=== PATIENT | male | born 1945 | race Caucasian/White ===

== ENCOUNTER 2017-07-02 21:38 | Emergency (ER) | payer MEDICARE, SELFPAY ==
[2017-07-02 21:40] VITALS: BP 160/111; PULSE 99; RESP 22; TEMP 36.9; O2SAT 92; BMI 28.7
--- NOTE | 2017-07-02 21:50 | ED.VISSUMM ---
- ER Visit Summary Date of Service: 07/02/17 Chief Complaint: Urinary retention History of Present Illness: The patient is a 71 M who presents with urinary retention. He states he has not been able to catheterize himself for the past 4 hours. He does self-catheterization because of a urethral stricture. He states he knows when he needs to come in. He believes he may have an infection. He did have some dysuria. He denies a fever. He does see Dr. Walden. He now has pain in the suprapubic area from his urinary retention. Physical Examination: Vital signs reviewed. HEENT exam unremarkable. Heart is regular rate and rhythm without murmurs. Lungs are clear to auscultation. Abdomen is soft with suprapubic tenderness to palpation. Extremities reveal no edema. Skin exam normal. Neurologic exam normal. Test Results: Urinalysis reveals large leukocyte esterase Emergency Department Course and Treatment: Vasquez catheter was placed. Initially only a small amount of urine returned but it was flushed and then a large amount of urine returned with some sediment. There is no blood or blood clots. His symptoms are likely due to a bladder infection. Patient will be treated with Keflex. He will go home with a catheter. He will follow-up with his urologist Treatment Plan: [] Disposition: Discharge Impression: UTI, urinary retention This note was generated with [employer] dictation software. It may contain incorrect words, spelling, and punctuation that were not noted in review of the chart prior to signing ED Disposition - Plan for ED Patient: Chief Complaint: Complaint Referrals: Donato Sanchez DO [Primary Care Provider] -
[2017-07-02 22:30] LABS: Color, Urine Red (Yellow); Glucose, Dipstick Normal (Normal); Ketone-Dipstick 5 mg/dl (Negative); Leukocyte Esterase-Dipstick 500 /ul (Negative); Nitrite-Dipstick Negative (Negative); Occult Blood-Urine 250 /ul (Negative); Protein-Dipstick 500 mg/dl (Negative); Specific Gravity, Urine 1.015 (1.002-1.030); Urine Bilirubin Dipstick Negative (Negative); Urine Clarity Cloudy (Clear); Urine Urobilinogen Normal (Normal)
--- NOTE | 2017-07-02 22:38 | ED.DEP ---
ED Disposition - Plan for ED Patient: Disposition: Home or Assisted Living Chief Complaint: Complaint Instructions: ED UTI Cystitis Male Prescriptions: Cephalexin [Keflex] 500 mg PO BID #14 cap Referrals: Donato Sanchez DO [Primary Care Provider] -
[2017-07-02 22:52] VITALS: PULSE 102; RESP 20; O2SAT 97
[2017-07-02] MEDS: Cephalexin 250 MG Capsule 500 MG PO (22:52)
[2017-07-02] MEDS: HYDROcodone Bitartrate/Apap 5/325 Tablet PO (22:52)
== END 2017-07-02 23:02 | disposition home or self-care (01) ==
PROVIDERS: Emergency Provider Emergency Medicine; Family Provider Family Medicine; PCP Family Medicine
DX: N39.0 Urinary tract infection, site not specified (principal); R33.9 Retention of urine, unspecified; J44.9 Chronic obstructive pulmonary disease, unspecified; K21.9 Gastro-esophageal reflux disease without esophagitis; I10 Essential (primary) hypertension; I50.9 Heart failure, unspecified
CPT/HCPCS: 51702; 81002; 87077; 87086; 87088; 87186; 99284; J7030

== ENCOUNTER 2017-07-04 20:01 | Inpatient (IN) | payer MEDICARE, SELFPAY ==
[2017-07-04] VITALS (8 sets, daily range): BP systolic 98–116; BP diastolic 57–78; PULSE 86–115; RESP 12–28; TEMP 36.7; O2SAT 89–97; BMI 32.8
--- NOTE | 2017-07-04 21:06 | EKG12_ITS ---
Test Reason : SOB Blood Pressure : / mmHG Vent. Rate : 126 BPM Atrial Rate : 141 BPM P-R Int : 000 ms QRS Dur : 086 ms QT Int : 338 ms P-R-T Axes : 000 015 044 degrees QTc Int : 489 ms Atrial fibrillation Low voltage QRS Marked ST abnormality, possible lateral subendocardial injury Abnormal ECG Confirmed by ALLAN GALEANA, JENNIFER ([id number]), editor publications COLIN GARCIA ([id number]) on 07/06/2017 3:35:21 PM Referred By: LIDIA Confirmed By:JENNIFER LEMUS MD
--- NOTE | 2017-07-04 21:15 | RAD_ITS ---
STUDY: X-RAY CHEST REASON FOR EXAM: Male, 71 years old. Shortness of breath TECHNIQUE: Frontal single view COMPARISON: 03/03/2017 FINDINGS: The lungs are expanded. There is basilar atelectasis. Normal size heart. Normal mediastinum and jaida. Prominent central pulmonary arteries. Normal visualized aortic arch and descending thoracic aorta. Mild degenerative changes of the thoracic spine. Normal visualized ribs, clavicles, and shoulders. There is no demonstrated abnormality of the visualized soft tissue structures of the upper abdomen. RAD/Chest 1 View (Portable) IMPRESSION: Mild basilar atelectasis. Electronically Signed: London Barbour DO at 21:58 EDT Tel [phone], Service support ,
[2017-07-04 21:19] LABS: Absolute Lymphocyte Count 0.85 X10^3/ul (0.83-4.51); Basophil# 0.01 X10^3/uL; Basophil% 0.1 % (0-1); Eosinophil# 0.01 X10^3/uL; Eosinophils% 0.1 % (0-5); Hematocrit 36.9 % (40-54); Hemoglobin 10.5 g/dl (13.0-16.5); Lymphocyte # 0.85 X10^3/ul (4.0); Lymphocyte % 12.3 % (19-41); Mean Corp Hgb Conc 28.5 g/gl (32-36); Mean Corpuscular Hgb 27.6 pg (27.0-32.0); Mean Corpuscular Volume 97.1 fL (80-94); Mean Platelet Vol. 9.6 fl (6.2-12.0); Monocyte# 0.95 X10^3/uL; Monocyte% 13.7 % (0-10); Neutrophil # 5.04 X10^3/uL (2.7-7.7); Neutrophil % 72.8 % (47-70); Platelet Count 174 K/mm3 (150-450); RBC Distribution Width CV 14.5 % (11.6-14.6); White Blood Count 6.9 K/mm3 (4.4-11.0)
[2017-07-04 21:20] LABS: POSITIVE COUNT NO; POSITIVE DIFFERENTIAL NO; POSITIVE MORPHOLOGY NO
[2017-07-04 21:41] LABS: Bacteria 0 SEEN /hpf (None Seen); Mucous, Urine 0 SEEN /hpf (<or=2+)
[2017-07-04] MEDS: Ipratropium/Albuterol Sulfate 3 ML AMPUL.NEB INHALATION (21:45)
[2017-07-04 21:53] LABS: Color, Urine Yellow (Yellow); Glucose, Dipstick Normal (Normal); Ketone-Dipstick Negative (Negative); Leukocyte Esterase-Dipstick 500 /ul (Negative); Nitrite-Dipstick Negative (Negative); Occult Blood-Urine 50 /ul (Negative); Protein-Dipstick 30 mg/dl (Negative); Urine Bilirubin Dipstick Negative (Negative); Urine Clarity Cloudy (Clear); Urine Urobilinogen Normal (Normal)
[2017-07-04 21:56] LABS: BUN 18 mg/dL (7-18); BUN/Creat Ratio 32.5 RATIO (10-20); Calcium,Total 8.6 mg/dL (8.5-10.1); Carbon Dioxide > 45.0 mmol/L (21.0-32.0); Chloride 87 mmol/L (98-107); Creatinine, Serum 0.55 mg/dL (0.70-1.30); EST Glomerular Filtration Rate 155 mL/min (>60); Est Glom Filt Rate - Afr Amer 187 mL/min (>60); Estimated Creatinine Clearance 65.55 ml/min; Glucose 136 mg/dL (74-106); Potassium 4.3 mmol/L (3.5-5.1); Sodium Level 136 mmol/L (136-145)
--- NOTE | 2017-07-04 21:56 | ED.RN ---
lab called with critical lab results. co2 greater then 45. Dr. Bradford made aware. Verbal order given for ABG level.
[2017-07-04 21:58] LABS: Lactic Acid 0.8 mmol/L (0.4-2.0)
[2017-07-04 22:02] LABS: White Blood Cells >100 SEEN /hpf (0-5)
[2017-07-04 22:03] LABS: Red Blood Cells-Urine 0-5 SEEN /hpf (0-5); Squamous Epithelial Cells - UA 0-5 SEEN /hpf (0-5); Transitional Epithelial - Ur 0-5 SEEN /hpf (0-5)
--- NOTE | 2017-07-04 22:38 | EKG12_ITS ---
Test Reason : REPEAT Blood Pressure : / mmHG Vent. Rate : 100 BPM Atrial Rate : 100 BPM P-R Int : 248 ms QRS Dur : 090 ms QT Int : 376 ms P-R-T Axes : 088 027 059 degrees QTc Int : 485 ms Sinus rhythm with 1st degree A-V block with Premature supraventricular complexes Low voltage QRS Prolonged QT Abnormal ECG Confirmed by ALLAN GALEANA, JENNIFER ([id number]), subeditor COLIN GARCIA ([id number]) on 07/06/2017 3:35:42 PM Referred By: DR MURILLO Confirmed By:JENNIFER LEMUS MD
[2017-07-05] VITALS (45 sets, daily range): BP systolic 72–147; BP diastolic 54–87; PULSE 71–199; RESP 12–38; TEMP 36.2–38.3; O2SAT 79–100; BMI 32.1
--- NOTE | 2017-07-05 | ED.VISSUMM ---
- ER Visit Summary Date of Service: 07/05/17 Chief Complaint: Shortness of breath History of Present Illness: The patient is a 71 M presenting with shortness of breath. Family states that started today. He is currently on Keflex for a bladder infection. He started having generalized weakness and increasing shortness of breath today. He has had a nonproductive cough. He denies chest pain. Denies fever. He has a history of COPD, hypertension, A. fib. He is a previous smoker. Physical Examination: Vitals are stable. Patient is afebrile. Alert no acute distress. HEENT exam is unremarkable. Neck is supple. Lungs are wheezing bilaterally with accessory muscle use. Heart is irregular and tachycardic Abdomen is soft nontender nondistended. Extremities are unremarkable. Skin is warm and dry. No focal neurologic deficit. Remainder of exam is unremarkable. Emergency Department Course and Treatment: EKG is A. fib rate 126. Chest x-ray shows atelectasis. CBC is normal except hemoglobin 10.5 which is at his baseline. BMP shows CO2 over 45. ABG was obtained. This shows pH 7.187, PCO2 over 130, PO2 149. He was started on noninvasive ventilation with improvement. He was given solumedrol IV. He does not have altered mental status. Repeat ABG shows PCO2 116. Urinalysis shows over 100 white blood cells. Urine culture was sent. He is given Rocephin IV. Lactic acid is normal. Troponin is negative. Repeat EKG is sinus rate of 100. Patient is improved on noninvasive ventilation. Discussed with Dr Montgomery and Dr Titus for admission. Disposition: Admission Impression: COPD exacerbation, respiratory failure, UTI This note was generated with [employer] dictation software. It may contain incorrect words, spelling, and punctuation that were not noted in review of the chart prior to signing ED Disposition - Plan for ED Patient: Chief Complaint: Shortness of Breath
[2017-07-05] MEDS: MethylPREDNISolone 125 MG/2 ML Vial IV (00:26)
[2017-07-05] MEDS: Ceftriaxone 1 GM/50 ML BAG IV (00:31)
--- NOTE | 2017-07-05 00:48 | ED.RN ---
ATTEMPTED TO MAKE CONTACT WITH POA NO ANSWER ON PHONE. ATTEMPTED TO CONTACT POA SON WHO WS IN ER NO ANSWER UNABLE TO LEAVE MESSAGE [phone] OR [phone]. SPOKE WITH PATIENTS SISTER WHO HAS VERBAL UNDERSTAND AND GIVES PERMISSION TO INTUBATION AT THIS TIME.
--- NOTE | 2017-07-05 02:03 | HP.PCM_ITS ---
Problem List (1) History of ureter repair Status: Resolved (2) History of right hip replacement Status: Resolved (3) History of left hip replacement Status: Resolved (4) History of carpal tunnel surgery of left wrist Status: Resolved (5) History of repair of rotator cuff Status: Resolved (6) History of bladder repair surgery Status: Resolved (7) Anxiety Status: Chronic (8) GERD (gastroesophageal reflux disease) Status: Chronic (9) Osteoarthritis Status: Chronic (10) Benign hypertension Status: Chronic (11) Cardiomyopathy Status: Chronic (12) COLD (chronic obstructive lung disease) Status: Acute Qualifiers: COPD type: COPD with acute exacerbation (13) History of gastroesophageal reflux (GERD) Status: Chronic (14) History of urethral stricture Status: Chronic (15) Status post cardiac catheterization Status: Chronic (16) Malignant melanoma of back Status: Chronic Comment: C43.59 2 cm superficial spreading melanoma wound left upper back with a thickness of 0.54 mm (17) Former smoker Status: Chronic Comment: Z87.891 (18) Systolic CHF, acute on chronic Status: Chronic (19) Shortness of breath Status: Acute (20) Debility Status: Chronic (21) 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 Despite having BIPAP at home the patient presents with a respiratory rate of 28. He has respiratory acidosis with significant CO2 retention >130. The report shows that this became worse today. He had been getting Keflex for treatment of a UTI. The patient is pleasant patient, albeit, somewhat confused and not a reliable historian. Consent was obtained to intubate the patient due to his impending respiratory failure ,however, respiratory therapists were able to increase his BIPAP pressure settings and make progress. We then held off on intubating the patient due to anticipated difficulty of weaning the patient from the ventilator. He will be admitted to ICU for respiratory management and antibiotics continued to cover a UTI. 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) 6 mm pigmented lesion right lateral chest wall Former smoker (Chronic) Z87.891 Open wound of left side of back (Chronic) open melanoma wound left upper back Systolic CHF, acute on chronic (Chronic) Debility (Chronic) MILA (obstructive sleep apnea) (Chronic) Hypertension (Chronic) Urinary retention with incomplete bladder emptying (Chronic) Bowel incontinence (Chronic) Allergies latex Allergy (Severe, Verified 07/02/17 21:50) Swelling rivaroxaban [From Xarelto] Adverse Reaction (Verified 07/02/17 21:50) excessive bleeding Home Medications: Ambulatory Orders Medication Instructions Recorded Furosemide [Lasix] 40 mg PO DAILY 02/01/13 Lisinopril [Zestril] 2.5 mg PO QHS 02/01/13 Iron Polysaccharide Complex 150 mg PO DAILYCM #30 capsule 02/16/17 [Ferrex 150] Pantoprazole Sodium [Protonix] 40 mg PO DAILY #30 tablet 02/16/17 Budesonide/Formoterol 160/4.5 2 puff INHALATION DAILY 03/26/17 [Symbicort 160/4.5 Mcg Inhaler (SP)] Carvedilol [Coreg (Beta Paulie)] 3.125 mg PO BID 03/26/17 Clonazepam [Klonopin] 0.5 mg PO BID 03/26/17 Tiotropium [place] [Spiriva] 2.5 mcg IH BID 03/26/17 Levofloxacin [Levaquin] 500 mg PO DAILY #3 tab 03/27/17 Prednisone [Deltasone] 40 mg PO DAILY #5 tab 03/27/17 simvastatin 40 mg tablet 40 mg PO QPM #90 tab 06/03/17 Cephalexin [Keflex] 500 mg PO BID #14 cap 07/02/17 Surgical History: appendectomy, total hip arthroplasty, total knee arthroplasty Psychiatric History: No pertinent psych hx Smoking Status: Former smoker - *Family History Maternal History Items: - - Non-contributory. Paternal History Items: No pertinent history Review of Systems Unable to obtain accurate/complete ROS d/t: patient is a poor historian VTE Information - Inpt Only VTE Present on Admission: No VTE Mechan Device Prophylaxis: None VTE Pharm Prophylaxis ordered?: Yes - Physical Exam General: Alert, Cooperative, Confused HEENT: Atraumatic, Normocephalic Neck: Supple Lungs: No rhonchi, No wheeze, No rales, Diminished, Tachypneic Cardiovascular: Normal S1, Normal S2, No murmurs, Irregular Rate Abdomen: Bowel Sounds Present, Soft, Obese Extremities: No edema Skin: No rashes Musculoskeletal: No Tenderness to Palpation of Joints or Extremities Neurological: Neuro grossly intact Psych/Mental Status: Anxious Vital Signs Temp Pulse Resp BP Pulse Ox 98.1 F 104 H 26 H 119/87 H 92 07/04/17 20:02 07/05/17 01:35 07/05/17 01:35 07/05/17 01:35 07/05/17 01:35 Oxygen Flow Rate (L/min) 4 Oxygen Delivery Method Bi-pap Weight: 216 lb 0.848 oz Body Mass Index (BMI) 32.8 Laboratory Tests Past 24 Hrs 07/04/17 07/04/17 07/04/17 20:30 20:30 21:25 WBC 6.9 RBC 3.80 L Hgb 10.5 L Hct 36.9 L MCV 97.1 H MCH 27.6 MCHC 28.5 L RDW 14.5 RDW Differential 51.0 H Plt Count 174 MPV 9.6 Immature Gran % (Auto) 1.000 H Neut % (Auto) 72.8 H Lymph % (Auto) 12.3 L Crosby % (Auto) 13.7 H Eos % (Auto) 0.1 Baso % (Auto) 0.1 Absolute Neuts (auto) 5.0 Absolute Lymphs (auto) 0.85 Total Counted Not Reportable Sodium 136 Potassium 4.3 Chloride 87 L Carbon Dioxide > 45.0 H* Anion Gap TNP BUN 18 Creatinine 0.55 L Estim Creat Clear Calc 65.55 Est GFR (MDRD) Af Amer 187 Est GFR (MDRD) Non-Af 155 BUN/Creatinine Ratio 32.5 H Glucose 136 H Lactic Acid 0.8 Calcium 8.6 Troponin I 0.02 Urine Color Urine Clarity Urine pH Ur Specific Chavies Urine Protein Urine Glucose (UA) Urine Ketones Urine Occult Blood Urine Nitrite Urine Bilirubin Urine Urobilinogen Ur Leukocyte Esterase Urine RBC Urine WBC Ur Squamous Epith Cells Ur Transition Epith Cell Urine Bacteria Urine Mucus 07/04/17 21:33 WBC RBC Hgb Hct MCV MCH MCHC RDW RDW Differential Plt Count MPV Immature Gran % (Auto) Neut % (Auto) Lymph % (Auto) Crosby % (Auto) Eos % (Auto) Baso % (Auto) Absolute Neuts (auto) Absolute Lymphs (auto) Total Counted Sodium Potassium Chloride Carbon Dioxide Anion Gap BUN Creatinine Estim Creat Clear Calc Est GFR (MDRD) Af Amer Est GFR (MDRD) Non-Af BUN/Creatinine Ratio Glucose Lactic Acid Calcium Troponin I Urine Color Yellow Urine Clarity Cloudy Urine pH 6.0 Ur Specific Chavies 1.020 Urine Protein 30 H Urine Glucose (UA) Normal Urine Ketones Negative Urine Occult Blood 50 H Urine Nitrite Negative Urine Bilirubin Negative Urine Urobilinogen Normal Ur Leukocyte Esterase 500 H Urine RBC 0-5 SEEN Urine WBC >100 SEEN Ur Squamous Epith Cells 0-5 SEEN Ur Transition Epith Cell 0-5 SEEN Urine Bacteria 0 SEEN Urine Mucus 0 SEEN Assessment/Plan Acute respiratory Failure Chronic Problems Anxiety (Chronic) GERD (gastroesophageal reflux disease) (Chronic) Osteoarthritis (Chronic) Arthritis (Chronic) Benign hypertension (Chronic) Cardiomyopathy (Chronic) COLD (chronic obstructive lung disease) (Chronic) History of gastroesophageal reflux (GERD) (Chronic) History of urethral stricture (Chronic) Status post cardiac catheterization (Chronic) Malignant melanoma of back (Chronic) C43.59 2 cm superficial spreading melanoma wound left upper back with a thickness of 0.54 mm 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) 6 mm pigmented lesion right lateral chest wall Former smoker (Chronic) Z87.891 Open wound of left side of back (Chronic) open melanoma wound left upper back Debility (Chronic) MILA (obstructive sleep apnea) (Chronic) Hypertension (Chronic) Urinary retention with incomplete bladder emptying (Chronic) 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
--- NOTE | 2017-07-05 03:29 | ED.RN ---
ICU CALLED TO SEE IF PATIENT IS ABLE TO ACCEPT PATIENT. THEY ARE UNABLE TO ACCEPT PATIENT AT THIS TIME DUE TO TO MANY ADMISSIONS. THEY WILL CALL WHEN THEY ARE ABLE TO ACCEPT THE PATIENT
--- NOTE | 2017-07-05 04:15 | ED.RN ---
PATIENTS BIPAP ALARMING AND PATIENT BECAME BRADYCARDIAC. NURSE IN TO ASSESS PATIENT. PATIENT HAD REMOVED BIPAP MASK AND UNRESPONSIVE, BVM STARTED UNABLE TO FIND PULSE. CODE CALLED. PATIENT REGAINED PULSE AND GASPING RESPIRATIONS. PATIENT INTUBATED. SEE CODE DOCUMENTATION
--- NOTE | 2017-07-05 04:16 | RAD_ITS ---
STUDY: X-RAY CHEST REASON FOR EXAM: Male, 71 years old. Respiratory distress TECHNIQUE: Single frontal view COMPARISON: 07/04/2017 FINDINGS: The endotracheal tube is in the mid trachea. NG tube is in the stomach. Lungs are expanded. There are fibrotic changes at the lung bases. There are NO active infiltrates. There is NO pleural effusion or pneumothorax. There is no demonstrated pleural abnormality. Normal size heart. Normal mediastinum and jaida. Normal visualized pulmonary arteries. Normal visualized aortic arch and descending thoracic aorta. Normal visualized thoracic spine. Normal visualized ribs, clavicles, and shoulders. There is no demonstrated abnormality of the visualized soft tissue structures of the upper abdomen. RAD/Chest 1 View (Portable) IMPRESSION: There are NO acute cardiopulmonary abnormalities. Electronically Signed: Gus Gonzales MD at 5:00 EDT , Service support ,
[2017-07-05] MEDS: Etomidate 20 MG/10 ML Vial IV (04:17)
--- NOTE | 2017-07-05 04:18 | ED.RN ---
PATIENT HAS CAPONE CATHETER IN PLACE FROM HOME
[2017-07-05] MEDS: Propofol 10MG/Ml 1,000 MG/100 ML Bottle 2.94 MG CONT INF (04:35)
--- NOTE | 2017-07-05 05:04 | CON.PCM_ITS ---
Reason for Consult Date of Consultation: 07/05/17 Reason for Consultation: Acute on Chronic Respiratory Failure History of Present Illness: The patient is a 71-year-old male, well-known to me from previous hospital admissions, who presented to the emergency department on July 05 with complaints of progressive shortness of breath over 1-2 days duration. The patient reportedly had been prescribed Keflex for a urinary tract infection. The patient has a history of repeated hospital admissions with high resource utilization due to recurrent respiratory failure due to outpatient noncompliance with prescribed therapy. He was last admitted to the hospital March 25. The patient was seen in the emergency department on July 02 with complaints of urinary retention and symptoms concerning for cystitis. It was at that time that he was placed on Keflex. The patient has known underlying mixed respiratory failure with a 3 L baseline supplemental oxygen requirement. The patient follows with Dr. Salazar on an outpatient basis and was last seen by him in August 2016. The patient has a history of obstructive sleep apnea with known outpatient noncompliance with nocturnal PAP therapy. He also has systolic heart failure with a reported ejection fraction of 45%. Following his initial appointment with Dr. Salazar, the patient was supposed to undergo a re- titration sleep study and undergo pulmonary function testing. Although these tests were scheduled for the patient, he never completed them. He was supposed to follow-up with Dr. Salazar in November 2016 but canceled that appointment. The patient initially received his diagnosis of MILA along with his initial PAP equipment multiple years ago from the office of Dr. Jaeger. Pulmonary function testing last completed in 2012 demonstrated the presence of a very severe large airways obstructive ventilatory defect with associated hyperinflation, air trapping and reduction in diffusing capacity. 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 The patient was hospitalized twice in December 2016 with hypercarbic encephalopathy in the setting of acute combined respiratory failure secondary to obstructive lung disease and known outpatient noncompliance with medical treatment. On presentation to the emergency department, the patient was documented to be afebrile, mildly hypotensive and hypoxic on 4 L/min by nasal cannula. Initial laboratory evaluation revealed no evidence of a leukocytosis. Chemistry profile was notable for an elevated serum bicarbonate level of greater than 45. This is a chronic finding for the patient. Troponin was negative. Serum lactate was within normal limits. Initial plain film chest x-ray revealed bibasilar atelectasis. The patient was initially placed on BiPAP therapy as he had an elevated PCO2 of 116 on blood gas. He was given breathing treatments and IV steroids. I was contacted by the emergency department provider, who indicated to me that she had plans to intubate the patient. However, per documentation, it appears that the patient was left on BiPAP therapy. At some point during the bottom sprayer hours of July 05, the patient removed his BiPAP and subsequently went into PEA arrest. ACLS was initiated and ROSC was achieved. It was at that time that the patient was intubated. He was then transferred to the medical intensive care unit for ongoing management. Upon his arrival to the ICU, the patient again went into PEA arrest, for which she received ACLS with subsequent ROSC. The patient is currently being maintained on assist control mode mechanical ventilation. There is no sedation on board. He is currently alert, awake and interactive. He does follow simple commands. When questioned as to whether he was using his BiPAP in his home environment, he nodded his head no. Of note, the patient was recently scheduled for follow-up with Dr. Salazar on June 21 in the pulmonary medicine clinic. However, he was a no-show for his appointment. The patient is currently being followed by palliative care. His reports that she is responsible for ensuring that his BiPAP mask is in place and she is no longer able to physically take care of him at home. 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) 6 mm pigmented lesion right lateral chest wall Former smoker (Chronic) Z87.891 Open wound of left side of back (Chronic) open melanoma wound left upper back Systolic CHF, acute on chronic (Chronic) Debility (Chronic) MILA (obstructive sleep apnea) (Chronic) Hypertension (Chronic) Urinary retention with incomplete bladder emptying (Chronic) Bowel incontinence (Chronic) Allergies latex Allergy (Severe, Verified 07/02/17 21:50) Swelling rivaroxaban [From Xarelto] Adverse Reaction (Verified 07/02/17 21:50) excessive bleeding Home Medications: Ambulatory Orders Medication Instructions Recorded Furosemide [Lasix] 40 mg PO DAILY 02/01/13 Lisinopril [Zestril] 2.5 mg PO QHS 02/01/13 Iron Polysaccharide Complex 150 mg PO DAILYCM #30 capsule 02/16/17 [Ferrex 150] Pantoprazole Sodium [Protonix] 40 mg PO DAILY #30 tablet 02/16/17 Budesonide/Formoterol 160/4.5 2 puff INHALATION DAILY 03/26/17 [Symbicort 160/4.5 Mcg Inhaler (SP)] Carvedilol [Coreg (Beta Paulie)] 3.125 mg PO BID 03/26/17 Clonazepam [Klonopin] 0.5 mg PO BID 03/26/17 Tiotropium [place] [Spiriva] 2.5 mcg IH BID 03/26/17 Levofloxacin [Levaquin] 500 mg PO DAILY #3 tab 03/27/17 Prednisone [Deltasone] 40 mg PO DAILY #5 tab 03/27/17 simvastatin 40 mg tablet 40 mg PO QPM #90 tab 06/03/17 Cephalexin [Keflex] 500 mg PO BID #14 cap 07/02/17 Surgical History: appendectomy, total hip arthroplasty, total knee arthroplasty Psychiatric History: No pertinent psych hx Smoking Status: Former smoker - *Family History Maternal History Items: - - Non-contributory. Paternal History Items: No pertinent history Review of Systems Unable to obtain accurate/complete ROS d/t: Due to current intubation and mechanical ventilation status Objective: The patient's most recent lab work, culture data and imaging studies have all been personally reviewed. Surface echocardiogram from December 2016 revealed mild concentric LVH with an ejection fraction of 55%. There was evidence of diastolic dysfunction. - Physical Exam General: No apparent distress, - - Intubated and mechanically ventilated. HEENT: Atraumatic, PERRLA, Normocephalic Oral: Moist Mucosa, No Gingival or Mucosal Lesions/ Ulcerations, - - Endotracheal and OG tubes in place. Neck: Supple, No Nodes, Trachea Midline Lungs: - - Mechanical breath sounds with globally diminished air movement bilaterally. Cardiovascular: Regular rate, Regular Rhythm, Normal S1, Normal S2, No murmurs Abdomen: Bowel Sounds Present, Soft, Non Tender, Obese Extremities: No cyanosis, No edema, Clubbing Skin: No rashes, No breakdown Musculoskeletal: No Muscle Wasting Lymphatic: No Cervical, Supraclavicular, or Inguinal Adenopathy Neurological: - - No focal deficits. Moves all extremities spontaneously. Follows simple commands. Vital Signs Temp Pulse Resp BP Pulse Ox 98.1 F 116 H 22 H 147/72 H 79 07/04/17 20:02 07/05/17 04:13 07/05/17 04:13 07/05/17 04:13 07/05/17 04:13 Oxygen Delivery Method Ambu-Bag Weight: 211 lb 10.3 oz Body Mass Index (BMI) 32.1 Labs (Last 48 Hours) 07/04/17 07/04/17 07/04/17 20:30 20:30 21:25 WBC 6.9 RBC 3.80 L Hgb 10.5 L Hct 36.9 L MCV 97.1 H MCH 27.6 MCHC 28.5 L RDW 14.5 RDW Differential 51.0 H Plt Count 174 MPV 9.6 Immature Gran % (Auto) 1.000 H Neut % (Auto) 72.8 H Lymph % (Auto) 12.3 L [place] % (Auto) 13.7 H Eos % (Auto) 0.1 Baso % (Auto) 0.1 Absolute Neuts (auto) 5.0 Absolute Lymphs (auto) 0.85 Total Counted Not Reportable Sodium 136 Potassium 4.3 Chloride 87 L Carbon Dioxide > 45.0 H* Anion Gap TNP BUN 18 Creatinine 0.55 L Estim Creat Clear Calc 65.55 Est GFR (MDRD) Af Amer 187 Est GFR (MDRD) Non-Af 155 BUN/Creatinine Ratio 32.5 H Glucose 136 H Lactic Acid 0.8 Calcium 8.6 Total Bilirubin AST ALT Alkaline Phosphatase Total Creatine Kinase Troponin I 0.02 Total Protein Albumin Globulin Albumin/Globulin Ratio Triglycerides Urine Color Urine Clarity Urine pH Ur Specific [place] Urine Protein Urine Glucose (UA) Urine Ketones Urine Occult Blood Urine Nitrite Urine Bilirubin Urine Urobilinogen Ur Leukocyte Esterase Urine RBC Urine WBC Ur Squamous Epith Cells Ur Transition Epith Cell Urine Bacteria Urine Mucus MRSA (PCR) 07/04/17 07/05/17 07/05/17 21:33 05:10 05:40 WBC 9.2 RBC 3.68 L Hgb 10.3 L Hct 35.7 L MCV 97.0 H MCH 28.0 MCHC 28.9 L RDW 14.3 RDW Differential 48.2 H Plt Count 195 MPV 9.6 Immature Gran % (Auto) 2.400 H Neut % (Auto) 91.2 H Lymph % (Auto) 4.4 L [place] % (Auto) 1.9 Eos % (Auto) 0.0 Baso % (Auto) 0.1 Absolute Neuts (auto) 8.4 H Absolute Lymphs (auto) 0.40 L Total Counted Pending Sodium Potassium Chloride Carbon Dioxide Anion Gap BUN Creatinine Estim Creat Clear Calc Est GFR (MDRD) Af Amer Est GFR (MDRD) Non-Af BUN/Creatinine Ratio Glucose Lactic Acid Calcium Total Bilirubin AST ALT Alkaline Phosphatase Total Creatine Kinase Troponin I Total Protein Albumin Globulin Albumin/Globulin Ratio Triglycerides Urine Color Yellow Urine Clarity Cloudy Urine pH 6.0 Ur Specific [place] 1.020 Urine Protein 30 H Urine Glucose (UA) Normal Urine Ketones Negative Urine Occult Blood 50 H Urine Nitrite Negative Urine Bilirubin Negative Urine Urobilinogen Normal Ur Leukocyte Esterase 500 H Urine RBC 0-5 SEEN Urine WBC >100 SEEN Ur Squamous Epith Cells 0-5 SEEN Ur Transition Epith Cell 0-5 SEEN Urine Bacteria 0 SEEN Urine Mucus 0 SEEN MRSA (PCR) Pending 07/05/17 07/05/17 05:40 05:40 WBC RBC Hgb Hct MCV MCH MCHC RDW RDW Differential Plt Count MPV Immature Gran % (Auto) Neut % (Auto) Lymph % (Auto) [place] % (Auto) Eos % (Auto) Baso % (Auto) Absolute Neuts (auto) Absolute Lymphs (auto) Total Counted Sodium 137 Potassium 5.2 H Chloride 86 L Carbon Dioxide 44.0 H Anion Gap 7 BUN 21 H Creatinine 0.70 Estim Creat Clear Calc 65.55 Est GFR (MDRD) Af Amer 143 Est GFR (MDRD) Non-Af 119 BUN/Creatinine Ratio 30.1 H Glucose 192 H Lactic Acid Calcium 8.7 Total Bilirubin 0.50 AST 37 ALT 35 Alkaline Phosphatase 96 Total Creatine Kinase 83 Troponin I Total Protein 7.2 Albumin 2.9 L Globulin 4.3 H Albumin/Globulin Ratio 0.7 L Triglycerides 104 Urine Color Urine Clarity Urine pH Ur Specific [place] Urine Protein Urine Glucose (UA) Urine Ketones Urine Occult Blood Urine Nitrite Urine Bilirubin Urine Urobilinogen Ur Leukocyte Esterase Urine RBC Urine WBC Ur Squamous Epith Cells Ur Transition Epith Cell Urine Bacteria Urine Mucus MRSA (PCR) Clinical Impression(s) from Imaging Studies Chest X-Ray 07/04/17 21:15 IMPRESSION: Mild basilar atelectasis. Electronically Signed: London Barbour DO at 21:58 EDT Tel [phone], Service support , Chest X-Ray 07/05/17 04:16 IMPRESSION: There are NO acute cardiopulmonary abnormalities. Electronically Signed: Gus Gonzales MD at 5:00 EDT , Service support , Assessment/Plan RECOMMENDATIONS: 1. Continue current supportive measures with mechanical ventilatory support. Plan for daily paired spontaneous awakening and breathing trials. 2. Continue scheduled aerosol treatments and steroids. 3. Continue fentanyl for sedation. Goal RASS of -1 to 1. 4. Start tube feeds today. 5. Continue appropriate ICU prophylaxis with Pepcid and Lovenox. 6. Send full respiratory viral panel 7. Goals of care discussion prior to consideration for extubation. IMPRESSIONS: 1. Acute on chronic combined respiratory failure / baseline end-stage COPD with exacerbation The etiology for the patient's respiratory failure is likely secondary to outpatient noncompliance with the use of noninvasive positive pressure ventilation in the setting of chronic CO2 retention and end-stage COPD. The patient has had multiple prior hospital admissions for similar issues. His is no longer able to care for him at home. Per her account, the patient is currently enrolled with palliative care. Prior to consideration for extubation from mechanical ventilation, will first need to determine goals of care. If the patient wishes to remain a full code, would recommend placement in a [facility] facility. Alternatively, enrollment in hospice would be another consideration. We will plan to continue scheduled aerosol treatments and steroids. A respiratory viral panel will be completed. 2. Hypercarbic encephalopathy Improved following initiation of invasive mechanical ventilation. Plan to repeat the patient's spontaneous awakening and breathing trial in the morning. If he is a candidate for extubation, would recommend direct extubation to BiPAP therapy. 3. Known underlying obstructive sleep apnea/alveolar hypoventilation, noncompliant with use of home PAP therapy The patient has a history of noncompliance with the use of his home PAP. Unfortunately, this has led to recurrent hospital admissions. Goals of care discussion will be had prior to consideration for extubation. 4. Status post PEA arrest Likely precipitated by respiratory arrest. The patient is currently stable. We will continue to monitor. 5. Hyperkalemia/hyperphosphatemia Continue current medical management with electrolyte repletion as indicated. 6. Heart failure with preserved ejection fraction/hypertension/GERD/anxiety/ hyperlipidemia/history of medical noncompliance Complicates care, management, recovery and prognosis. Hold home antihypertensives for now. Okay to initiate tube feeds from my perspective. Physical therapy evaluation will be warranted, once medically stabilized. TIME: 55 minutes of critical care time, independent of procedures, was spent addressing the patient's acute on chronic combined respiratory failure, hypercarbic encephalopathy, known MILA, alveolar hypoventilation, PEA arrest, review of all data and collaboration with the care team. ([id number]) Code Visit 9xxxx: [id number] Critical care first hour
--- NOTE | 2017-07-05 05:25 | NURSING ---
and sister updated on condition change and admit to ICU. Both report they will be in shortly.
--- NOTE | 2017-07-05 05:59 | NURSING ---
Patient had an irregular heart rate on tele monitor. Patient became dusky and did not have a pulse. robinson fuller called at [phone]. see robinson fuller paperwork. Patient stabilized.
[2017-07-05 06:09] LABS: Absolute Neutrophil Count 8.4 X10^3/uL (2.0-7.7); Basophil# 0.01 X10^3/uL; Basophil% 0.1 % (0-1); Hematocrit 35.7 % (40-54); Hemoglobin 10.3 g/dl (13.0-16.5); Lymphocyte % 4.4 % (19-41); Mean Corp Hgb Conc 28.9 g/gl (32-36); Mean Platelet Vol. 9.6 fl (6.2-12.0); Monocyte# 0.17 X10^3/uL; Monocyte% 1.9 % (0-10); Neutrophil # 8.36 X10^3/uL (2.7-7.7); Neutrophil % 91.2 % (47-70); Platelet Count 195 K/mm3 (150-450); RBC Distribution Width CV 14.3 % (11.6-14.6); RBC Distribution Width SD 48.2 fl (35.1-43.9); Red Blood Count 3.68 M/mm3 (4.6-6.2); White Blood Count 9.2 K/mm3 (4.4-11.0)
[2017-07-05 06:10] LABS: Differential Indicated SCAN CRITERIA MET; POSITIVE COUNT YES; POSITIVE DIFFERENTIAL YES; POSITIVE MORPHOLOGY YES
[2017-07-05 06:23] LABS: ALB/GLOB Ratio 0.7 RATIO (0.9-2.4); AST(SGOT) 37 U/L (15-37); Alanine Aminotransfer ALT/SGPT 35 U/L (16-61); Albumin, Serum 2.9 g/dL (3.2-5.0); Alkaline Phosphatase 96 U/L (45-117); Anion Gap 7 (5-15); BUN 21 mg/dL (7-18); BUN/Creat Ratio 30.1 RATIO (10-20); Calcium,Total 8.7 mg/dL (8.5-10.1); Chloride 86 mmol/L (98-107); EST Glomerular Filtration Rate 119 mL/min (>60); Est Glom Filt Rate - Afr Amer 143 mL/min (>60); Estimated Creatinine Clearance 65.55 ml/min; Globulin 4.3 g/dL (2.2-4.2); Glucose 192 mg/dL (74-106); Potassium 5.2 mmol/L (3.5-5.1); Protein, Total 7.2 g/dL (6.4-8.2); Sodium Level 137 mmol/L (136-145)
[2017-07-05 06:25] LABS: CPK Total, Creatine Kinase 83 U/L (39-308); Triglycerides 104 mg/dL
[2017-07-05 06:46] LABS: Base Excess 29 mmol/L (-2 to +2); Bicarbonate 55.4 mmol/L (22-26); Blood Gas Specimen Type ART; EPAP 6; FI02 40; IPAP 12; PO2 72 mmHG (75-100); RR 12; SITE R Radial; SO2 90 % (95-99); Time Given 132; Total Carbon Dioxide > 50 mmol/L; pCO2 117.6 mmHg (35-45); pH 7.28 (7.35-7.45)
[2017-07-05 06:46] LABS: Allen Test POS; Blood Gas Specimen Type ART; O2 Delivery Device Nasal Can; PO2 149 mmHG (75-100); SITE R Radial; Time Given 2225; pCO2 > 130.0 mmHg (35-45); pH 7.19 (7.35-7.45)
[2017-07-05] MEDS: Ipratropium/Albuterol Sulfate 3 ML AMPUL.NEB INHALATION ×5 (06:50→22:37)
[2017-07-05 06:51] LABS: Allen Test POS; Base Excess 23 mmol/L (-2 to +2); Bicarbonate 47.5 mmol/L (22-26); Blood Gas Specimen Type ART; FI02 40; Mode A-C; O2 Delivery Device Vent; PEEP 5; PO2 65 mmHG (75-100); RR 14; SITE R Radial; SO2 92 % (95-99); Time Given 622; Total Carbon Dioxide 50 mmol/L; Vt 500; pCO2 70.8 mmHg (35-45); pH 7.43 (7.35-7.45)
--- NOTE | 2017-07-05 07:36 | PCM.PN.HOSP ---
Subjective: Patient is a 71-year-old gentleman with past medical history significant for chronic hypoxic and hypercapnic respiratory failure secondary to end-stage COPD apparently noncompliant with therapy who presented with progressive shortness of breath. An assessment of acute hypoxic and hypercapnic respiratory was made placed on BiPAP and admitted to the ICU. Went into cardiac arrest PEA successfully resuscitated with ROSC and placed on the vent Vitals/I&O's: Vital Signs Temp Pulse Resp BP Pulse Ox 98.1 F 91 17 96/72 98 07/05/17 07:00 07/05/17 07:00 07/05/17 07:00 07/05/17 07:00 07/05/17 07:00 Oxygen Delivery Method Mechanical Ventilator Weight: 96 kg Body Mass Index (BMI) 32.1 Intake and Output for Last 24 Hours 07/03/17 07/04/17 07/05/17 23:59 23:59 23:59 Intake Total 1001 / 1001 Output Total 650 / 650 Balance 351 / 351 General: - - On the Vent HEENT: Atraumatic, Normocephalic Neck: Supple, No JVD, Thyroid Normal Size and Texture Lungs: Diminished, Wheezes Cardiovascular: Regular rate, Normal S1, Normal S2, No rub noted Abdomen: Bowel Sounds Present, Soft, Non Tender Extremities: No clubbing, No cyanosis Skin: No rashes Musculoskeletal: No Muscle Wasting, - Laboratory Results 07/05/17 05:10: MRSA (PCR) Pending 07/05/17 05:40: WBC 9.2, RBC 3.68 L, Hgb 10.3 L, Hct 35.7 L, MCV 97.0 H, MCH 28.0, MCHC 28.9 L, RDW 14.3, RDW Differential 48.2 H, Plt Count 195, MPV 9.6, Immature Gran % (Auto) 2.400 H, Neut % (Auto) 91.2 H, Lymph % (Auto) 4.4 L, [place] % (Auto) 1.9, Eos % (Auto) 0.0, Baso % (Auto) 0.1, Absolute Neuts (auto) 8.4 H, Absolute Lymphs (auto) 0.40 L, Total Counted Not Reportable, Diff Path Review August07/05/17 05:40: Sodium 137, Potassium 5.2 H, Chloride 86 L, Carbon Dioxide 44.0 H, Anion Gap 7, BUN 21 H, Creatinine 0.70, Estim Creat Clear Calc 65.55, Est GFR (MDRD) Af Amer 143, Est GFR (MDRD) Non-Af 119, BUN/Creatinine Ratio 30.1 H, Glucose 192 H, Calcium 8.7, Total Bilirubin 0.50, AST 37, ALT 35, Alkaline Phosphatase 96, Total Protein 7.2, Albumin 2.9 L, Globulin 4.3 H, Albumin/Globulin Ratio 0.7 L 07/05/17 05:40: Total Creatine Kinase 83, Triglycerides 104 07/05/17 06:39: Specimen Type ART, Sample Site R Radial, pH 7.43, Bicarbonate Actual 47.5 H, POC Total CO2 50, Base Excess 23 H, O2 Saturation 92 L, O2 % 40, ABG pCO2 70.8 H*, ABG pO2 65 L, Karan Test POS, Respiration Rate 14, O2 Delivery Device Vent, Minute Volume 7.00, Vent Mode A-C, Tidal Volume 500, POC PEEP 5, Blood Gas Notified Whom ICU MD, Blood Gas Notified Time 622 Current Medications Albuterol/Ipratropium (Duoneb) 3 ml INHALATION Q4H.RT EDU Last Admin: 07/05/17 06:50 Dose: 3 ml Atorvastatin Calcium (Lipitor) 20 mg PO QHS EDU Carvedilol (Coreg) 3.125 mg PO BID EDU Clonazepam (Klonopin) 0.5 mg PO BID [facility] Enoxaparin Sodium (Lovenox) 40 mg SC DAILY@1000 EDU Furosemide (Lasix) 40 mg PO DAILY [facility] Propofol (Diprivan) 1,000 mg in 100 mls @ 2.94 mls/hr CONT INF .Q12H EDU; 5 MCG/KG/MIN PRN Reason: Protocol Last Admin: 07/05/17 04:35 Dose: 2.94 mls/hr Ceftriaxone Sodium (Rocephin) 1 gm in 50 mls @ 100 mls/hr IV Q24 EDU Fentanyl () 100 mls @ 2.5 mls/hr IV .Q40H EDU Last Admin: 07/05/17 05:00 Dose: 2.5 mls/hr Sodium Chloride () 250 mls @ 15 mls/hr IV .[id number] PRN PRN Reason: SALINE FLUSH Lisinopril (Zestril) 2.5 mg PO QHS [facility] Magnesium Hydroxide (Milk Of Magnesia) 30 ml PO DAILY PRN PRN PRN Reason: Constipation Methylprednisolone (Solu-Medrol) 40 mg IV Q8 [facility] Last Admin: 07/05/17 05:35 Dose: 40 mg Pantoprazole Sodium (Protonix) 40 mg PO DAILY [facility] Polysaccharide Iron Complex (Ferrex 150) 150 mg PO DAILYCM [facility] Sodium Chloride () 5 - 30 ml IV UD PRN PRN Reason: SALINE FLUSH Assessment/Plan Patient is a 71-year-old gentleman with past medical history significant for chronic hypoxic and hypercapnic respiratory failure secondary to end-stage COPD apparently noncompliant with therapy who presented with progressive shortness of breath. An assessment of acute hypoxic and hypercapnic respiratory failuree was made placed on BiPAP and admitted to the ICU. Went into cardiac arrest PEA successfully resuscitated with ROSC and placed on the vent 1. Acute hypoxic and hypercapnic respiratory failure secondary to COPD exacerbation. Patient was admitted to the intensive care unit initially managed on BiPAP switched to the vent after patient went into cardiac arrest. Consultation was placed to pulmonary medicine 2. Cardiac Arrest (PEA) patient was successfully resuscitated with ACLS with return of spontaneous circulation 3. Acute metabolic encephalopathy secondary to hypercarbia 4. Chronic respiratory failure secondary to COPD baseline home O2 5. Obstructive Sleep apnea patient is on BiPAP at night apparently noncompliant with therapy 6. Chronic Diastolic CHF 7. Dyslipidemia patient is on statins 8. Hypertension, blood pressure stable home medications continued 9. 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 History of urethral stricture patient does self-catheterization at home patient presented with abnormal urinalysis however doubt the presence of an infection 11. DVT prophylaxis-Lovenox. Code Visit Procedures: Other Procedure - See Report - NON BILLABLE
[2017-07-05 07:39] LABS: M R Staph aureus DNA By PCR Negative (Negative); Probe Check PASS; Specimen Processing Control PASS
--- NOTE | 2017-07-05 08:00 | EKG12_ITS ---
Test Reason : RHYTHM CHANGE Blood Pressure : / mmHG Vent. Rate : 128 BPM Atrial Rate : 128 BPM P-R Int : 124 ms QRS Dur : 080 ms QT Int : 330 ms P-R-T Axes : 000 059 063 degrees QTc Int : 481 ms Sinus tachycardia Low voltage QRS Borderline ECG When compared with ECG of 05-JUL-2017 05:10, MANUAL COMPARISON REQUIRED, DATA IS UNCONFIRMED Confirmed by ALLAN GALEANA, JENNIFER ([id number]), newspaper editor COLIN GARCIA ([id number]) on 07/08/2017 2:01:50 PM Referred By: ASHLYN Confirmed By:JENNIFER LEMUS MD
[2017-07-05] MEDS: 0.9% NaCl Peripheral Flush Adult/Peds IV ×8 (08:38→21:36)
[2017-07-05 08:45] LABS: Magnesium 2.1 mg/dL (1.6-2.6)
[2017-07-05 08:59] LABS: Phosphorus 1.8 mg/dL (2.5-4.9)
--- NOTE | 2017-07-05 09:37 | CASEMGMT ---
Sw participated in interdisciplinary rounds. Physician told family he is recommending [facility]. Patient's significant other agreed with this as she said it is too hard to care for him at home. Family expressed patient is very stubborn. There was discussion that once patient is off the ventilator his compliance and code status will need to be discussed. SW to talk with family and assist with d/c planning. Romelia GOLDMAN MSW
--- NOTE | 2017-07-05 11:11 | CASEMGMT ---
Per interdisciplinary rounds, recommendation from physician is for pt to go to SNF on [place]. Pt has been admitted to hospital 5 times since december. stated she has difficulty caring for him @ home and pt is not compliant with wearing Bipap. SW referral for family support and possible SNF placement. Jin MCKEONN RN ACM
[2017-07-05] MEDS: Famotidine 20 MG Tablet GT ×2 (11:32→21:34)
[2017-07-05] MEDS: Enoxaparin 40 MG/0.4 ML Syringe SC (11:33)
[2017-07-05] MEDS: Chlorhexidine 15 ML PO ×2 (11:33→21:33)
--- NOTE | 2017-07-05 14:40 | CASEMGMT ---
SW stopped by patient's room 2 times today and family was not available. SW to talk with family. Romelia GOLDMAN MSW
[2017-07-05] MEDS: Piperacil/Tazobactam 3.375 GM/50 ML ML IV ×2 (14:44→21:36)
[2017-07-05] MEDS: Vital AF 1.2 Cal Liquid 1,000 ML 70 ML GT (19:00)
--- NOTE | 2017-07-05 19:15 | NURSING ---
reviewed Balta Tavares RN charting and agree with assessments
[2017-07-05] MEDS: Lactated Ringers 1,000 ML 999 ML IV (20:11)
[2017-07-05] MEDS: Atorvastatin Calcium 20 MG Tablet GT (21:34)
[2017-07-06] VITALS (37 sets, daily range): BP systolic 99–142; BP diastolic 57–99; PULSE 69–100; RESP 12–25; TEMP 36.5–37.2; O2SAT 87–100
[2017-07-06] MEDS: Ipratropium/Albuterol Sulfate 3 ML AMPUL.NEB INHALATION ×6 (03:00→22:42)
[2017-07-06 04:39] LABS: Anion Gap 5 (5-15); BUN 33 mg/dL (7-18); BUN/Creat Ratio 36.5 RATIO (10-20); Calcium,Total 8.2 mg/dL (8.5-10.1); Chloride 87 mmol/L (98-107); EST Glomerular Filtration Rate 88 mL/min (>60); Est Glom Filt Rate - Afr Amer 106 mL/min (>60); Estimated Creatinine Clearance 72.83 ml/min; Glucose 224 mg/dL (74-106); Magnesium 2.2 mg/dL (1.6-2.6); Phosphorus 2.5 mg/dL (2.5-4.9); Potassium 3.7 mmol/L (3.5-5.1); Sodium Level 134 mmol/L (136-145)
[2017-07-06 04:52] LABS: Absolute Lymphocyte Count 0.55 X10^3/ul (0.83-4.51); Absolute Neutrophil Count 7.5 X10^3/uL (2.0-7.7); Lymphocyte # 0.55 X10^3/ul (4.0); Lymphocyte % 5.9 % (19-41); Mean Corpuscular Hgb 27.6 pg (27.0-32.0); Mean Platelet Vol. 8.9 fl (6.2-12.0); Monocyte# 1.19 X10^3/uL; Monocyte% 12.8 % (0-10); Neutrophil # 7.48 X10^3/uL (2.7-7.7); Neutrophil % 80.8 % (47-70); Platelet Count 162 K/mm3 (150-450); RBC Distribution Width CV 14.8 % (11.6-14.6); RBC Distribution Width SD 48.2 fl (35.1-43.9); Red Blood Count 3.26 M/mm3 (4.6-6.2); White Blood Count 9.3 K/mm3 (4.4-11.0)
[2017-07-06 04:53] LABS: POSITIVE COUNT NO; POSITIVE DIFFERENTIAL YES; POSITIVE MORPHOLOGY NO
[2017-07-06 04:54] LABS: Differential Indicated SCAN CRITERIA MET
[2017-07-06] MEDS: Piperacil/Tazobactam 3.375 GM/50 ML ML IV ×3 (05:45→21:09)
[2017-07-06] MEDS: Enoxaparin 40 MG/0.4 ML Syringe SC (05:46)
[2017-07-06] MEDS: 0.9% NaCl Peripheral Flush Adult/Peds IV ×5 (05:46→21:10)
--- NOTE | 2017-07-06 06:24 | PCM.PN.INT ---
Subjective: The patient was seen and examined at the bedside this morning. Events from the last 24 hours have been reviewed. The patient is currently afebrile, hemodynamically stable and doing well on his spontaneous breathing trial. The patient is alert, cooperative and appropriately interactive. He is following commands. I did speak with him regarding goals of care. He is wishing to remain a full code and nods yes when questioned about the potential need for reintubation. The patient was noted to have periods of atrial fibrillation yesterday and overnight. Heart rates would periodically spike into the 170s-190s. Therefore, the patient received an amiodarone bolus yesterday and was continued on a drip overnight. Heart rate is currently under control and he is presently in sinus rhythm. No significant secretions were noted by the respiratory staff. Of note, the patient did spike fevers yesterday afternoon and was empirically started on antibiotics. Objective: The patient's most recent lab work, culture data and imaging studies have all been personally reviewed. Surface echocardiogram from December 2016 revealed mild concentric LVH with an ejection fraction of 55%. There was evidence of diastolic dysfunction. Respiratory viral panel was negative. Blood cultures are currently pending. Sputum Gram stain revealed 1+ white blood cells. No organisms were seen. General: Alert, Cooperative, - - Remains intubated and is currently doing well on CPAP trial. HEENT: Atraumatic, PERRLA, Normocephalic Oral: No Gingival or Mucosal Lesions/ Ulcerations, - - Endotracheal and OG tubes remain in place. Neck: Supple, No Nodes, Trachea Midline Lungs: No rhonchi, No wheeze, No rales, Diminished Cardiovascular: Regular rate, Regular Rhythm, Normal S1, Normal S2, No murmurs, - - Currently in sinus rhythm Abdomen: Bowel Sounds Present, Soft, Non Tender, Obese Extremities: No cyanosis, No edema, Clubbing Skin: No rashes, No breakdown Musculoskeletal: No Muscle Wasting Lymphatic: No Cervical, Supraclavicular, or Inguinal Adenopathy Neurological: - - No focal neurological deficits. Moves all extremities spontaneously. Follows commands appropriately. Vital Signs Temp Pulse Resp BP Pulse Ox 98.9 F 82 23 H 142/91 H 98 07/06/17 04:00 07/06/17 06:00 07/06/17 06:00 07/06/17 06:00 07/06/17 06:00 Oxygen Delivery Method Mechanical Ventilator Weight: 219 lb 9.286 oz Body Mass Index (BMI) 32.1 Intake and Output for Last 24 Hours 07/04/17 07/05/17 07/06/17 23:59 23:59 23:59 Intake Total 1494.8 / 1494.8 2280.6 / 2280.6 Output Total 1450 / 1450 425 / 425 Balance 44.8 / 44.8 1855.6 / 1855.6 Labs (Last 48 Hours) 07/05/17 07/05/17 07/05/17 05:10 05:40 05:40 WBC 9.2 RBC 3.68 L Hgb 10.3 L Hct 35.7 L MCV 97.0 H MCH 28.0 MCHC 28.9 L RDW 14.3 RDW Differential 48.2 H Plt Count 195 MPV 9.6 Immature Gran % (Auto) 2.400 H Neut % (Auto) 91.2 H Lymph % (Auto) 4.[address] [place] % (Auto) 1.9 Eos % (Auto) 0.0 Baso % (Auto) 0.1 Absolute Neuts (auto) 8.4 H Absolute Lymphs (auto) 0.40 L Total Counted Not Reportable Diff Path Review May foll Specimen Type Sample Site pH Bicarbonate Actual POC Total CO2 Base Excess O2 Saturation O2 % ABG pCO2 ABG pO2 Karan Test Respiration Rate O2 Delivery Device Minute Volume Vent Mode Tidal Volume POC PEEP Blood Gas Notified Whom Blood Gas Notified Time Sodium 137 Potassium 5.2 H Chloride 86 L Carbon Dioxide 44.0 H Anion Gap 7 BUN 21 H Creatinine 0.70 Estim Creat Clear Calc 65.55 Est GFR (MDRD) Af Amer 143 Est GFR (MDRD) Non-Af 119 BUN/Creatinine Ratio 30.1 H Glucose 192 H Calcium 8.7 Phosphorus Magnesium Total Bilirubin 0.50 AST 37 ALT 35 Alkaline Phosphatase 96 Total Creatine Kinase Troponin I Total Protein 7.2 Albumin 2.9 L Globulin 4.3 H Albumin/Globulin Ratio 0.7 L Triglycerides MRSA (PCR) Negative 07/05/17 07/05/17 07/05/17 05:40 06:39 08:26 WBC RBC Hgb Hct MCV MCH MCHC RDW RDW Differential Plt Count MPV Immature Gran % (Auto) Neut % (Auto) Lymph % (Auto) [place] % (Auto) Eos % (Auto) Baso % (Auto) Absolute Neuts (auto) Absolute Lymphs (auto) Total Counted Diff Path Review Specimen Type ART Sample Site R Radial pH 7.43 Bicarbonate Actual 47.5 H POC Total CO2 50 Base Excess 23 H O2 Saturation 92 L O2 % 40 ABG pCO2 70.8 H* ABG pO2 65 L Karan Test POS Respiration Rate 14 O2 Delivery Device Vent Minute Volume 7.00 Vent Mode A-C Tidal Volume 500 POC PEEP 5 Blood Gas Notified Whom ICU MD Blood Gas Notified Time 622 Sodium Potassium Chloride Carbon Dioxide Anion Gap BUN Creatinine Estim Creat Clear Calc Est GFR (MDRD) Af Amer Est GFR (MDRD) Non-Af BUN/Creatinine Ratio Glucose Calcium Phosphorus Magnesium Total Bilirubin AST ALT Alkaline Phosphatase Total Creatine Kinase 83 Troponin I 0.03 Total Protein Albumin Globulin Albumin/Globulin Ratio Triglycerides 104 MRSA (PCR) 07/05/17 07/05/17 07/05/17 08:26 08:26 12:45 WBC RBC Hgb Hct MCV MCH MCHC RDW RDW Differential Plt Count MPV Immature Gran % (Auto) Neut % (Auto) Lymph % (Auto) [place] % (Auto) Eos % (Auto) Baso % (Auto) Absolute Neuts (auto) Absolute Lymphs (auto) Total Counted Diff Path Review Specimen Type Sample Site pH Bicarbonate Actual POC Total CO2 Base Excess O2 Saturation O2 % ABG pCO2 ABG pO2 Karan Test Respiration Rate O2 Delivery Device Minute Volume Vent Mode Tidal Volume POC PEEP Blood Gas Notified Whom Blood Gas Notified Time Sodium Potassium 4.0 Chloride Carbon Dioxide Anion Gap BUN Creatinine Estim Creat Clear Calc Est GFR (MDRD) Af Amer Est GFR (MDRD) Non-Af BUN/Creatinine Ratio Glucose Calcium Phosphorus 1.8 L Magnesium 2.1 Total Bilirubin AST ALT Alkaline Phosphatase Total Creatine Kinase Troponin I Total Protein Albumin Globulin Albumin/Globulin Ratio Triglycerides MRSA (PCR) 07/06/17 07/06/17 04:15 04:15 WBC 9.3 RBC 3.26 L Hgb 9.0 L Hct 30.0 L MCV 92.0 MCH 27.6 MCHC 30.0 L RDW 14.8 H RDW Differential 48.2 H Plt Count 162 MPV 8.9 Immature Gran % (Auto) 0.500 Neut % (Auto) 80.8 H Lymph % (Auto) 5.[address] [place] % (Auto) 12.8 H Eos % (Auto) 0.0 Baso % (Auto) 0.0 Absolute Neuts (auto) 7.5 Absolute Lymphs (auto) 0.55 L Total Counted Not Reportable Diff Path Review Specimen Type Sample Site pH Bicarbonate Actual POC Total CO2 Base Excess O2 Saturation O2 % ABG pCO2 ABG pO2 Karan Test Respiration Rate O2 Delivery Device Minute Volume Vent Mode Tidal Volume POC PEEP Blood Gas Notified Whom Blood Gas Notified Time Sodium 134 L Potassium 3.7 Chloride 87 L Carbon Dioxide 42.0 H Anion Gap 5 BUN 33 H Creatinine 0.90 Estim Creat Clear Calc 72.83 Est GFR (MDRD) Af Amer 106 Est GFR (MDRD) Non-Af 88 BUN/Creatinine Ratio 36.5 H Glucose 224 H Calcium 8.2 L Phosphorus 2.5 Magnesium 2.2 Total Bilirubin AST ALT Alkaline Phosphatase Total Creatine Kinase Troponin I Total Protein Albumin Globulin Albumin/Globulin Ratio Triglycerides MRSA (PCR) Microbiology 07/05/17 11:15 Sputum, Induced/Lukens Gram Stain - Final 07/05/17 07:27 Mucosa - Nose Respiratory Panel (PCR) - Final Clinical Impression(s) from Imaging Studies Chest X-Ray 07/04/17 21:15 IMPRESSION: Mild basilar atelectasis. Electronically Signed: London Barbour DO at 21:58 EDT Tel [phone], Service support , Chest X-Ray 07/05/17 04:16 IMPRESSION: There are NO acute cardiopulmonary abnormalities. Electronically Signed: Gus Gonzales MD at 5:00 EDT , Service support , Assessment/Plan RECOMMENDATIONS: 1. The patient is currently a candidate for a trial of extubation this morning. We will plan to extubate him directly to BiPAP 06/09. 2. Continue scheduled aerosol treatments and steroids. Plan to transition to prednisone beginning tomorrow. 3. Amiodarone will be discontinued following completion of the currently ordered drip. 4. Maintain potassium level greater than 4 and magnesium level greater than 2. 5. Continue empiric antibiotic pending finalized culture results. 6. Continue appropriate ICU prophylaxis 7. Maintain oxygen saturations 88-92%, to prevent paradoxical CO2 retention. 8. Obtain arterial blood gas on BiPAP once extubated to ensure appropriate ventilatory support. 9. Perform bedside swallow evaluation IMPRESSIONS: 1. Acute on chronic combined respiratory failure / baseline end-stage COPD with exacerbation The etiology for the patient's respiratory failure is likely secondary to outpatient noncompliance with the use of noninvasive positive pressure ventilation in the setting of chronic CO2 retention and end-stage COPD. The patient has had multiple prior hospital admissions for similar issues. His is no longer able to care for him at home. Per her account, the patient is currently enrolled with palliative care. We will proceed with a trial of extubation this morning. The patient does wish to remain a full code. Therefore, recommend disposition to alf facility at the time of his discharge from the hospital. We will plan to continue scheduled aerosol treatments, antibiotics and steroids, pending finalized culture results. Plan to transition to prednisone beginning tomorrow. Maintain oxygen saturations 88-92%, to prevent paradoxical CO2 retention. BiPAP to be utilized with naps and nightly. 2. Hypercarbic encephalopathy Improved following initiation of invasive mechanical ventilation. Continue BiPAP therapy with naps and nightly. 3. Known underlying obstructive sleep apnea/alveolar hypoventilation, noncompliant with use of home PAP therapy The patient has a history of noncompliance with the use of his home PAP. Unfortunately, this has led to recurrent hospital admissions. 4. Status post PEA arrest Likely precipitated by respiratory arrest. The patient is currently stable. We will continue to monitor. 5. Heart failure with preserved ejection fraction/hypertension/GERD/anxiety/hyperlipidemia/history of medical noncompliance Complicates care, management, recovery and prognosis. Antihypertensives can be slowly restarted upon medical stabilization. Once extubated, recommend physical therapy evaluation. TIME: 40 minutes of critical care time, independent of procedures, was spent addressing the patient's acute on chronic combined respiratory failure, hypercarbic encephalopathy, known MILA, alveolar hypoventilation, PEA arrest, review of all data and collaboration with the care team. ([id number]) Code Visit 9xxxx: [id number] Critical care first hour
--- NOTE | 2017-07-06 08:11 | PCM.PN.HOSP ---
Subjective: Patient seen weaned off the vent currently on BiPAP. Patient apparently went into paroxysmal A. fib/SVT did receive amiodarone and subsequently left on a drip Objective: GENERAL: On BiPAP HEENT: Clear conjunctiva, moist oral mucosa NECK; supple, normal thyroid, no distended JVD. CHEST: Diminished to auscultation bilaterally, HEART: Regular S1 S2, ABDOMEN: soft, non-tender, normoactive bowel sounds, RECTAL: deferred EXTREMITIES: No edema, no clubbing, no cyanosis. LINE PILOT: Awake, no lateralizing signs. SKIN: No Rash Vitals/I&O's: Vital Signs Temp Pulse Resp BP Pulse Ox 98.9 F 94 22 H 117/65 95 07/06/17 04:00 07/06/17 08:00 07/06/17 08:00 07/06/17 08:00 07/06/17 08:00 Oxygen Delivery Method Bi-pap Weight: 99.6 kg Body Mass Index (BMI) 32.1 Intake and Output for Last 24 Hours 07/04/17 07/05/17 07/06/17 23:59 23:59 23:59 Intake Total 1494.8 / 1494.8 2280.6 / 2280.6 Output Total 1450 / 1450 425 / 425 Balance 44.8 / 44.8 1855.6 / 1855.6 Microbiology Past 72 Hours 07/05/17 11:15 Sputum, Induced/Lukens Gram Stain - Final 07/05/17 07:27 Mucosa - Nose Respiratory Panel (PCR) - Final Laboratory Results 07/05/17 08:26: Troponin I 0.03 07/05/17 08:26: Magnesium 2.1 07/05/17 08:26: Phosphorus 1.8 L 07/05/17 12:45: Potassium 4.0 07/06/17 04:15: WBC 9.3, RBC 3.26 L, Hgb 9.0 L, Hct 30.0 L, MCV 92.0, MCH 27.6, MCHC 30.0 L, RDW 14.8 H, RDW Differential 48.2 H, Plt Count 162, MPV 8.9, Immature Gran % (Auto) 0.500, Neut % (Auto) 80.8 H, Lymph % (Auto) 5.9 L, [place] % (Auto) 12.8 H, Eos % (Auto) 0.0, Baso % (Auto) 0.0, Absolute Neuts (auto) 7.5, Absolute Lymphs (auto) 0.55 L, Total Counted Not Reportable 07/06/17 04:15: Sodium 134 L, Potassium 3.7, Chloride 87 L, Carbon Dioxide 42.0 H, Anion Gap 5, BUN 33 H, Creatinine 0.90, Estim Creat Clear Calc 72.83, Est GFR (MDRD) Af Amer 106, Est GFR (MDRD) Non-Af 88, BUN/Creatinine Ratio 36.5 H, Glucose 224 H, Calcium 8.2 L, Phosphorus 2.5, Magnesium 2.2 Current Medications Acetaminophen (Tylenol Liquid) 650 mg GT Q6H PRN PRN PRN Reason: FEVER Albuterol/Ipratropium (Duoneb) 3 ml INHALATION Q4H.RT [facility] Last Admin: 07/06/17 07:34 Dose: 3 ml Atorvastatin Calcium (Lipitor) 20 mg GT QHS [facility] Last Admin: 07/05/17 21:34 Dose: 20 mg Chlorhexidine Gluconate () 15 ml PO BID [facility] Last Admin: 07/05/17 21:33 Dose: 15 ml Chlorhexidine Gluconate () 1 each TOPICAL DAILY [facility] Enoxaparin Sodium (Lovenox) 40 mg SC DAILY@0600 [facility] Last Admin: 07/06/17 05:46 Dose: 40 mg Famotidine (Pepcid) 20 mg GT BID [facility] Last Admin: 07/05/17 21:34 Dose: 20 mg Propofol (Diprivan) 1,000 mg in 100 mls @ 2.94 mls/hr CONT INF .Q12H EDU; 5 MCG/KG/MIN PRN Reason: Protocol Last Admin: 07/06/17 05:53 Dose: Not Given Fentanyl () 100 mls @ 2.5 mls/hr IV .Q40H [facility] Last Admin: 07/05/17 19:10 Dose: 2.5 mls/hr Sodium Chloride () 250 mls @ 15 mls/hr IV .[id number] PRN PRN Reason: SALINE FLUSH Enteral Nutritional Formula (Vital Af 1.2 Henry Liquid) 1,000 mls @ 70 mls/hr GT .[id number] [facility] Last Admin: 07/06/17 05:53 Dose: Not Given Piperacillin Sod/Tazobactam Sod (Zosyn) 3.375 gm in 50 mls @ 12.5 mls/hr IV Q8 [facility] Last Admin: 07/06/17 05:45 Dose: 12.5 mls/hr Amiodarone HCl/Dextrose (Nexterone 360 Mg/200 Ml Bag) 360 mg in 200 mls @ 16.667 mls/hr IV .Q12H EDU PRN Reason: 0.5 MG/MIN Stop: 07/06/17 14:29 Last Admin: 07/06/17 06:32 Dose: 16.667 mls/hr Lisinopril (Zestril) 2.5 mg GT QHS [facility] Last Admin: 07/05/17 23:12 Dose: Not Given Magnesium Hydroxide (Milk Of Magnesia) 30 ml PO DAILY PRN PRN PRN Reason: Constipation Methylprednisolone (Solu-Medrol) 40 mg IV Q8 [facility] Last Admin: 07/06/17 05:46 Dose: 40 mg Sodium Chloride () 5 - 30 ml IV UD PRN PRN Reason: SALINE FLUSH Last Admin: 07/06/17 05:46 Dose: 20 ml Assessment/Plan Patient is a 71-year-old gentleman with past medical history significant for chronic hypoxic and hypercapnic respiratory failure secondary to end-stage COPD apparently noncompliant with therapy who presented with progressive shortness of breath. An assessment of acute hypoxic and hypercapnic respiratory failuree was made placed on BiPAP and admitted to the ICU. Went into cardiac arrest PEA successfully resuscitated with ROSC and placed on the vent 1. Acute hypoxic and hypercapnic respiratory failure secondary to COPD exacerbation. Patient was admitted to the intensive care unit initially managed on BiPAP switched to the vent after patient went into cardiac arrest. Consultation was placed to pulmonary medicine and was weaned off the vent and subsequently placed on noninvasive ventilation 2. Cardiac Arrest (PEA) patient was successfully resuscitated with ACLS with return of spontaneous circulation 3. PSVT/A. fib with RVR patient on amiodarone 4. Chronic respiratory failure secondary to COPD baseline home O2 5. Obstructive Sleep apnea patient is on BiPAP at night apparently noncompliant with therapy 6. Chronic Diastolic CHF 7. Dyslipidemia patient is on statins 8. Hypertension, blood pressure stable home medications continued 9. 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 History of urethral stricture patient does self-catheterization at home patient presented with abnormal urinalysis however doubt the presence of an infection 11. DVT prophylaxis-Lovenox. 12. Acute metabolic encephalopathy secondary to hypercarbia ; Resolved CODE STATUS : FULL code Code Visit Inpatient E&M: 84212 Subs Hosp L3
--- NOTE | 2017-07-06 08:19 | PN_ITS ---
Subjective: Patient seen weaned off the vent currently on BiPAP. Patient apparently went into paroxysmal A. fib/SVT did receive amiodarone and subsequently left on a drip Objective: GENERAL: On BiPAP HEENT: Clear conjunctiva, moist oral mucosa NECK; supple, normal thyroid, no distended JVD. CHEST: Diminished to auscultation bilaterally, HEART: Regular S1 S2, ABDOMEN: soft, non-tender, normoactive bowel sounds, RECTAL: deferred EXTREMITIES: No edema, no clubbing, no cyanosis. BROKE HANDLER: Awake, no lateralizing signs. SKIN: No Rash Vitals/I&O's: Vital Signs Temp Pulse Resp BP Pulse Ox 98.9 F 94 22 H 117/65 95 07/06/17 04:00 07/06/17 08:00 07/06/17 08:00 07/06/17 08:00 07/06/17 08:00 Oxygen Delivery Method Bi-pap Weight: 99.6 kg Body Mass Index (BMI) 32.1 Intake and Output for Last 24 Hours 07/04/17 07/05/17 07/06/17 23:59 23:59 23:59 Intake Total 1494.8 / 1494.8 2280.6 / 2280.6 Output Total 1450 / 1450 425 / 425 Balance 44.8 / 44.8 1855.6 / 1855.6 Microbiology Past 72 Hours 07/05/17 11:15 Sputum, Induced/Lukens Gram Stain - Final 07/05/17 07:27 Mucosa - Nose Respiratory Panel (PCR) - Final Laboratory Results 07/05/17 08:26: Troponin I 0.03 07/05/17 08:26: Magnesium 2.1 07/05/17 08:26: Phosphorus 1.8 L 07/05/17 12:45: Potassium 4.0 07/06/17 04:15: WBC 9.3, RBC 3.26 L, Hgb 9.0 L, Hct 30.0 L, MCV 92.0, MCH 27.6, MCHC 30.0 L, RDW 14.8 H, RDW Differential 48.2 H, Plt Count 162, MPV 8.9, Immature Gran % (Auto) 0.500, Neut % (Auto) 80.8 H, Lymph % (Auto) 5.9 L, [place] % (Auto) 12.8 H, Eos % (Auto) 0.0, Baso % (Auto) 0.0, Absolute Neuts (auto) 7.5 , Absolute Lymphs (auto) 0.55 L, Total Counted Not Reportable 07/06/17 04:15: Sodium 134 L, Potassium 3.7, Chloride 87 L, Carbon Dioxide 42.0 H, Anion Gap 5, BUN 33 H, Creatinine 0.90, Estim Creat Clear Calc 72.83, Est GFR (MDRD) Af Amer 106, Est GFR (MDRD) Non-Af 88, BUN/Creatinine Ratio 36.5 H, Glucose 224 H, Calcium 8.2 L, Phosphorus 2.5, Magnesium 2.2 Current Medications Acetaminophen (Tylenol Liquid) 650 mg GT Q6H PRN PRN PRN Reason: FEVER Albuterol/Ipratropium (Duoneb) 3 ml INHALATION Q4H.RT [facility] Last Admin: 07/06/17 07:34 Dose: 3 ml Atorvastatin Calcium (Lipitor) 20 mg GT QHS [facility] Last Admin: 07/05/17 21:34 Dose: 20 mg Chlorhexidine Gluconate () 15 ml PO BID [facility] Last Admin: 07/05/17 21:33 Dose: 15 ml Chlorhexidine Gluconate () 1 each TOPICAL DAILY [facility] Enoxaparin Sodium (Lovenox) 40 mg SC DAILY@0600 [facility] Last Admin: 07/06/17 05:46 Dose: 40 mg Famotidine (Pepcid) 20 mg GT BID [facility] Last Admin: 07/05/17 21:34 Dose: 20 mg Propofol (Diprivan) 1,000 mg in 100 mls @ 2.94 mls/hr CONT INF .Q12H EDU; 5 MCG /KG/MIN PRN Reason: Protocol Last Admin: 07/06/17 05:53 Dose: Not Given Fentanyl () 100 mls @ 2.5 mls/hr IV .Q40H [facility] Last Admin: 07/05/17 19:10 Dose: 2.5 mls/hr Sodium Chloride () 250 mls @ 15 mls/hr IV .[id number] PRN PRN Reason: SALINE FLUSH Enteral Nutritional Formula (Vital Af 1.2 Henry Liquid) 1,000 mls @ 70 mls/hr GT .[id number] [facility] Last Admin: 07/06/17 05:53 Dose: Not Given Piperacillin Sod/Tazobactam Sod (Zosyn) 3.375 gm in 50 mls @ 12.5 mls/hr IV Q8 [facility] Last Admin: 07/06/17 05:45 Dose: 12.5 mls/hr Amiodarone HCl/Dextrose (Nexterone 360 Mg/200 Ml Bag) 360 mg in 200 mls @ 16.667 mls/hr IV .Q12H EDU PRN Reason: 0.5 MG/MIN Stop: 07/06/17 14:29 Last Admin: 07/06/17 06:32 Dose: 16.667 mls/hr Lisinopril (Zestril) 2.5 mg GT QHS [facility] Last Admin: 07/05/17 23:12 Dose: Not Given Magnesium Hydroxide (Milk Of Magnesia) 30 ml PO DAILY PRN PRN PRN Reason: Constipation Methylprednisolone (Solu-Medrol) 40 mg IV Q8 [facility] Last Admin: 07/06/17 05:46 Dose: 40 mg Sodium Chloride () 5 - 30 ml IV UD PRN PRN Reason: SALINE FLUSH Last Admin: 07/06/17 05:46 Dose: 20 ml Assessment/Plan Patient is a 71-year-old gentleman with past medical history significant for chronic hypoxic and hypercapnic respiratory failure secondary to end-stage COPD apparently noncompliant with therapy who presented with progressive shortness of breath. An assessment of acute hypoxic and hypercapnic respiratory failuree was made placed on BiPAP and admitted to the ICU. Went into cardiac arrest PEA successfully resuscitated with ROSC and placed on the vent 1. Acute hypoxic and hypercapnic respiratory failure secondary to COPD exacerbation. Patient was admitted to the intensive care unit initially managed on BiPAP switched to the vent after patient went into cardiac arrest. Consultation was placed to pulmonary medicine and was weaned off the vent and subsequently placed on noninvasive ventilation 2. Cardiac Arrest (PEA) patient was successfully resuscitated with ACLS with return of spontaneous circulation 3. PSVT/A. fib with RVR patient on amiodarone 4. Chronic respiratory failure secondary to COPD baseline home O2 5. Obstructive Sleep apnea patient is on BiPAP at night apparently noncompliant with therapy 6. Chronic Diastolic CHF 7. Dyslipidemia patient is on statins 8. Hypertension, blood pressure stable home medications continued 9. 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 History of urethral stricture patient does self-catheterization at home patient presented with abnormal urinalysis however doubt the presence of an infection 11. DVT prophylaxis-Lovenox. 12. Acute metabolic encephalopathy secondary to hypercarbia ; Resolved CODE STATUS : FULL code Code Visit Inpatient E&M: 63213 Subs Hosp L3
[2017-07-06 09:41] LABS: Allen Test POS; Base Excess 23 mmol/L (-2 to +2); Bicarbonate 46.9 mmol/L (22-26); Blood Gas Specimen Type ART; EPAP 5; FI02 30; IPAP 15; PO2 75 mmHG (75-100); RR 12; SITE R Radial; SO2 95 % (95-99); Time Given 936; Total Carbon Dioxide 49 mmol/L; pCO2 66.6 mmHg (35-45); pH 7.46 (7.35-7.45)
[2017-07-06] MEDS: 0.9% NaCl IVPB Med Flush (250 mL) 15 ML IV (10:17)
[2017-07-06 11:10] LABS: Pathologist Review Reviewed
--- NOTE | 2017-07-06 11:40 | CASEMGMT ---
As per CM RN, pt is not fully alert and oriented to speak w/this SW. SW called pt's and POA Glenn(there are POA papers on the chart) to discuss discharge planning. However, her voicemail is full and SW cannot leave a message. SW will continue to follow for discharge planning needs. SW did leave a message w/TCU to put pt on the list as it is anticipated pt will need SNF, and pt has been to TCU in the past. SW will continue to follow. KALA Harvey, AERIAL PHOTOGRAPH INTERPRETER
[2017-07-06] MEDS: Pantoprazole Sodium 40 MG Tablet PO (12:34)
--- NOTE | 2017-07-06 13:44 | CASEMGMT ---
Pt's was here, however SW went to room and has left. SW called on phone, she put her daughter in law Angelica on the phone to speak w/this SW. SW spoke w/Angelica, who states pt cannot come home. She states pt coded two times and pt cannot care for himself. She states pt wears Depends, but has accidents and his cannot handle cleaning him up. Angelica states pt has retention problems also and did have to do an enema every couple of days. Angelica states pt is not walking much, is on O2 and still gets short of breath. He does not use a walker, does furniture walking at home. He takes his own meds, but takes meds when he feels like it. has been trying to help pt but she broke her shoulder in March, and also coded recently, has ESRF. She recovered, but cannot manage pt. Family is helping w/cooking and cleaning. SW spoke w/Angelica about the discharge plan. She states pt wants to go to a facility, and stay there. They would like pt [facility] to [facility]. LIZ explained that pt's insurance does not cover fci placement, and [facility] is not in network w/his insurance. SW explained that for fci placement, pt would either need to pay privately or apply for Medicaid. LIZ explained what may make the most sense is to have pt go to a facility in network initially to see if insurance would cover the first couple of weeks, then see if pt can either stay in that facility intermodal customer service or transfer to another facility fci. Angelica states that they will need to apply for Medicaid. LIZ explained can go over all of this w/Glenn(), Angelica states she will be here tomorrow morning. SW will follow up w/pt and family tomorrow morning. Angelica also asked about hospice, SW also briefly discussed this w/Angelica, she states she does not think they are ready for this yet. SW will speak w/them in the morning. KALA Harvey, RELATIONS LIAISON
[2017-07-06] MEDS: Acetaminophen 325 MG Tablet 650 MG PO ×2 (13:45→21:09)
[2017-07-06] MEDS: oxyCODONE 5 MG Tablet PO ×2 (15:05→21:10)
[2017-07-06] MEDS: CHLORHEXIDINE GLUC 2% CLOTH 1 EACH TOWELETTE TOPICAL (15:30)
--- NOTE | 2017-07-06 19:06 | NURSING ---
reviewed Balta Tavares RN charting and agree with assessment findings
[2017-07-06] MEDS: Lisinopril 2.5 MG Tablet PO (21:13)
[2017-07-06] MEDS: Atorvastatin Calcium 20 MG Tablet PO (21:13)
[2017-07-07] VITALS (29 sets, daily range): BP systolic 112–151; BP diastolic 63–123; PULSE 66–147; RESP 12–23; TEMP 36.6–37.1; O2SAT 91–96
[2017-07-07] MEDS: Magnesium Hydroxide 30 ML UDC PO (03:35)
[2017-07-07] MEDS: oxyCODONE 5 MG Tablet PO ×2 (03:35→15:24)
[2017-07-07 04:22] LABS: White Blood Count 11.4 K/mm3 (4.4-11.0)
[2017-07-07 04:23] LABS: Absolute Lymphocyte Count 0.33 X10^3/ul (0.83-4.51); Absolute Neutrophil Count 9.8 X10^3/uL (2.0-7.7); Hemoglobin 9.1 g/dl (13.0-16.5); Lymphocyte # 0.33 X10^3/ul (4.0); Lymphocyte % 2.9 % (19-41); Mean Corp Hgb Conc 30.3 g/gl (32-36); Mean Corpuscular Hgb 27.9 pg (27.0-32.0); Mean Platelet Vol. 8.9 fl (6.2-12.0); Monocyte# 1.21 X10^3/uL; Monocyte% 10.7 % (0-10); Neutrophil # 9.78 X10^3/uL (2.7-7.7); POSITIVE COUNT NO; POSITIVE DIFFERENTIAL YES; POSITIVE MORPHOLOGY NO; Platelet Count 155 K/mm3 (150-450); RBC Distribution Width CV 14.9 % (11.6-14.6); RBC Distribution Width SD 48.4 fl (35.1-43.9); Red Blood Count 3.26 M/mm3 (4.6-6.2)
[2017-07-07 04:24] LABS: Differential Indicated SCAN CRITERIA MET
[2017-07-07 04:31] LABS: Anion Gap 2 (5-15); BUN 19 mg/dL (7-18); BUN/Creat Ratio 32.6 RATIO (10-20); Calcium,Total 8.4 mg/dL (8.5-10.1); Chloride 90 mmol/L (98-107); Creatinine, Serum 0.58 mg/dL (0.70-1.30); EST Glomerular Filtration Rate 146 mL/min (>60); Est Glom Filt Rate - Afr Amer 176 mL/min (>60); Estimated Creatinine Clearance 65.55 ml/min; Glucose 173 mg/dL (74-106); Potassium 3.9 mmol/L (3.5-5.1); Sodium Level 135 mmol/L (136-145)
[2017-07-07] MEDS: Enoxaparin 40 MG/0.4 ML Syringe SC (05:05)
[2017-07-07] MEDS: Piperacil/Tazobactam 3.375 GM/50 ML ML IV (05:08)
[2017-07-07] MEDS: 0.9% NaCl Peripheral Flush Adult/Peds IV ×2 (05:08→10:19)
[2017-07-07] MEDS: Ipratropium/Albuterol Sulfate 3 ML AMPUL.NEB INHALATION ×4 (06:41→20:10)
--- NOTE | 2017-07-07 07:41 | PN_ITS ---
Subjective: The patient was seen and examined at the bedside this morning. Events from the last 24 hours have been reviewed. The patient is currently afebrile, hemodynamically stable and maintaining appropriate oxygen saturations on BiPAP currently. Physical therapy evaluated the patient yesterday and is recommending further skilled therapy. The patient is resting comfortably without complaints of shortness of breath. Objective: The patient's most recent lab work, culture data and imaging studies have all been personally reviewed. Surface echocardiogram from December 2016 revealed mild concentric LVH with an ejection fraction of 55%. There was evidence of diastolic dysfunction. Respiratory viral panel was negative. Blood cultures are currently pending. Sputum culture has revealed no growth to date. General: Alert, Cooperative, No apparent distress HEENT: Atraumatic, PERRLA, Normocephalic Oral: Moist Mucosa, No Gingival or Mucosal Lesions/ Ulcerations Neck: Supple, No Nodes, Trachea Midline Lungs: No rhonchi, No wheeze, No rales, Diminished Cardiovascular: Regular rate, Regular Rhythm, Normal S1, Normal S2, No murmurs Abdomen: Bowel Sounds Present, Soft, Non Tender, Obese Extremities: No cyanosis, No edema, Clubbing Skin: No rashes, No breakdown Musculoskeletal: No Tenderness to Palpation of Joints or Extremities Lymphatic: No Cervical, Supraclavicular, or Inguinal Adenopathy Neurological: Neuro grossly intact Psych/Mental Status: Normal Affect, Appropriate Vital Signs Temp Pulse Resp BP Pulse Ox 98.7 F 71 21 H 118/80 94 07/07/17 05:00 07/07/17 06:00 07/07/17 06:00 07/07/17 06:00 07/07/17 06:00 Oxygen Flow Rate (L/min) 30 Oxygen Delivery Method Bi-pap Weight: 214 lb 1.102 oz Body Mass Index (BMI) 32.1 Intake and Output for Last 24 Hours 07/05/17 07/06/17 07/07/17 23:59 23:59 23:59 Intake Total 1494.8 / 1494.8 3350.6 / 3350.6 529 / 529 Output Total 1450 / 1450 2575 / 2575 615 / 615 Balance 44.8 / 44.8 775.6 / 775.6 -86 / -86 Labs (Last 48 Hours) 07/05/17 07/05/17 07/05/17 05:10 05:40 08:26 WBC RBC Hgb Hct MCV MCH MCHC RDW RDW Differential Plt Count MPV Immature Gran % (Auto) Neut % (Auto) Lymph % (Auto) Murray % (Auto) Eos % (Auto) Baso % (Auto) Absolute Neuts (auto) Absolute Lymphs (auto) Total Counted Diff Path Review Reviewed Specimen Type Sample Site pH Bicarbonate Actual POC Total CO2 Base Excess O2 Saturation O2 % ABG pCO2 ABG pO2 Karan Test Respiration Rate O2 Delivery Device EPAP IPAP Blood Gas Notified Whom Blood Gas Notified Time Sodium Potassium Chloride Carbon Dioxide Anion Gap BUN Creatinine Estim Creat Clear Calc Est GFR (MDRD) Af Amer Est GFR (MDRD) Non-Af BUN/Creatinine Ratio Glucose Calcium Phosphorus Magnesium Troponin I 0.03 MRSA (PCR) Negative 07/05/17 07/05/17 07/05/17 08:26 08:26 12:45 WBC RBC Hgb Hct MCV MCH MCHC RDW RDW Differential Plt Count MPV Immature Gran % (Auto) Neut % (Auto) Lymph % (Auto) Murray % (Auto) Eos % (Auto) Baso % (Auto) Absolute Neuts (auto) Absolute Lymphs (auto) Total Counted Diff Path Review Specimen Type Sample Site pH Bicarbonate Actual POC Total CO2 Base Excess O2 Saturation O2 % ABG pCO2 ABG pO2 Karan Test Respiration Rate O2 Delivery Device EPAP IPAP Blood Gas Notified Whom Blood Gas Notified Time Sodium Potassium 4.0 Chloride Carbon Dioxide Anion Gap BUN Creatinine Estim Creat Clear Calc Est GFR (MDRD) Af Amer Est GFR (MDRD) Non-Af BUN/Creatinine Ratio Glucose Calcium Phosphorus 1.8 L Magnesium 2.1 Troponin I MRSA (PCR) 07/06/17 07/06/17 07/06/17 04:15 04:15 09:37 WBC 9.3 RBC 3.26 L Hgb 9.0 L Hct 30.0 L MCV 92.0 MCH 27.6 MCHC 30.0 L RDW 14.8 H RDW Differential 48.2 H Plt Count 162 MPV 8.9 Immature Gran % (Auto) 0.500 Neut % (Auto) 80.8 H Lymph % (Auto) 5.9 L Murray % (Auto) 12.8 H Eos % (Auto) 0.0 Baso % (Auto) 0.0 Absolute Neuts (auto) 7.5 Absolute Lymphs (auto) 0.55 L Total Counted Not Reportable Diff Path Review Specimen Type ART Sample Site R Radial pH 7.46 H Bicarbonate Actual 46.9 H POC Total CO2 49 Base Excess 23 H O2 Saturation 95 O2 % 30 ABG pCO2 66.6 H ABG pO2 75 Karan Test POS Respiration Rate 12 O2 Delivery Device Bi / C PAP EPAP 5 IPAP 15 Blood Gas Notified Whom ICU MD Blood Gas Notified Time 936 Sodium 134 L Potassium 3.7 Chloride 87 L Carbon Dioxide 42.0 H Anion Gap 5 BUN 33 H Creatinine 0.90 Estim Creat Clear Calc 72.83 Est GFR (MDRD) Af Amer 106 Est GFR (MDRD) Non-Af 88 BUN/Creatinine Ratio 36.5 H Glucose 224 H Calcium 8.2 L Phosphorus 2.5 Magnesium 2.2 Troponin I MRSA (PCR) 07/07/17 07/07/17 04:00 04:00 WBC 11.4 H RBC 3.26 L Hgb 9.1 L Hct 30.0 L MCV 92.0 MCH 27.9 MCHC 30.3 L RDW 14.9 H RDW Differential 48.4 H Plt Count 155 MPV 8.9 Immature Gran % (Auto) 0.400 Neut % (Auto) 86.0 H Lymph % (Auto) 2.9 L Murray % (Auto) 10.7 H Eos % (Auto) 0.0 Baso % (Auto) 0.0 Absolute Neuts (auto) 9.8 H Absolute Lymphs (auto) 0.33 L Total Counted Not Reportable Diff Path Review Specimen Type Sample Site pH Bicarbonate Actual POC Total CO2 Base Excess O2 Saturation O2 % ABG pCO2 ABG pO2 Karan Test Respiration Rate O2 Delivery Device EPAP IPAP Blood Gas Notified Whom Blood Gas Notified Time Sodium 135 L Potassium 3.9 Chloride 90 L Carbon Dioxide 43.0 H Anion Gap 2 L BUN 19 H Creatinine 0.58 L Estim Creat Clear Calc 65.55 Est GFR (MDRD) Af Amer 176 Est GFR (MDRD) Non-Af 146 BUN/Creatinine Ratio 32.6 H Glucose 173 H Calcium 8.4 L Phosphorus Magnesium Troponin I MRSA (PCR) Microbiology 07/05/17 11:15 Sputum, Induced/Lukens Gram Stain - Final 07/05/17 11:15 Sputum, Induced/Lukens Respiratory Culture - Preliminary Culture exhibits no growth. 07/05/17 07:27 Mucosa - Nose Respiratory Panel (PCR) - Final Clinical Impression(s) from Imaging Studies Chest X-Ray 07/04/17 21:15 IMPRESSION: Mild basilar atelectasis. Electronically Signed: London Barbour DO at 21:58 EDT Tel [phone], Service support , Chest X-Ray 07/05/17 04:16 IMPRESSION: There are NO acute cardiopulmonary abnormalities. Electronically Signed: Gus Gonzales MD at 5:00 EDT , Service support , Assessment/Plan RECOMMENDATIONS: 1. Continue BiPAP 15/5 with naps and nightly. 2. Continue aerosol treatments while awake and transition from IV Solu-Medrol to prednisone 40 mg daily by mouth. 3. Discontinue antibiotics 4. Maintain potassium level greater than 4 and magnesium level greater than 2. 5. Maintain oxygen saturations 88-92%, to prevent paradoxical CO2 retention. 6. Continue to work with physical therapy 7. Case management to assist with disposition to senior living facility IMPRESSIONS: 1. Acute on chronic combined respiratory failure / baseline end-stage COPD with exacerbation The etiology for the patient's respiratory failure is likely secondary to outpatient noncompliance with the use of noninvasive positive pressure ventilation in the setting of chronic CO2 retention and end-stage COPD. The patient has had multiple prior hospital admissions for similar issues. His is no longer able to care for him at home. Per her account, the patient is currently enrolled with palliative care. The patient has done well following extubation. We will plan to continue BiPAP at current pressure settings with naps and QHS. The patient does wish to remain a full code. Recommend disposition to senior living facility at the time of his discharge from the hospital. We will plan to continue aerosol treatments and prednisone. Antibiotics can be discontinued. Maintain oxygen saturations 88-92, to prevent paradoxical CO2 retention. 2. Hypercarbic encephalopathy Resolved following initiation of invasive mechanical ventilation. Continue BiPAP therapy with naps and nightly. 3. Known underlying obstructive sleep apnea/alveolar hypoventilation, noncompliant with use of home PAP therapy The patient has a history of noncompliance with the use of his home PAP. Unfortunately, this has led to recurrent hospital admissions. 4. Status post PEA arrest Likely precipitated by respiratory arrest. The patient is currently stable. We will continue to monitor. 5. Heart failure with preserved ejection fraction/hypertension/GERD/anxiety/ hyperlipidemia/history of medical noncompliance Complicates care, management, recovery and prognosis. Antihypertensives can be slowly restarted upon medical stabilization. Continue work with physical therapy. This note was generated with [employer] dictation software. It may contain incorrect words, spelling, and punctuation that were not noted in checking the note before signing. DISPOSITION: The patient is medically stable for transfer out of the intensive care unit. Code Visit Inpatient E&M: 10732 Subs Hosp L3
[2017-07-07] MEDS: Pantoprazole Sodium 40 MG Tablet PO (08:14)
--- NOTE | 2017-07-07 08:26 | PN_ITS ---
Subjective: Seen still remains on BiPAP however recommendation from the residential mortgage underwriter is for patient to be transferred to progressive care unit. Patient also complains of chest pain from his chest compressions order was given for patient to receive 50 mg of Toradol ?1. Also did put in orders for patient to be transferred to the progressive care unit Objective: GENERAL: On BiPAP HEENT: Clear conjunctiva, moist oral mucosa NECK; supple, normal thyroid, no distended JVD. CHEST: Diminished to auscultation bilaterally, HEART: Regular S1 S2, ABDOMEN: soft, non-tender, normoactive bowel sounds, RECTAL: deferred EXTREMITIES: No edema, no clubbing, no cyanosis. RETAIL MANAGEMENT KEYHOLDER: Awake, no lateralizing signs. SKIN: No Rash Vitals/I&O's: Vital Signs Temp Pulse Resp BP Pulse Ox 98.8 F 75 19 H 139/69 H 91 07/07/17 08:00 07/07/17 08:00 07/07/17 08:00 07/07/17 08:00 07/07/17 08:00 Oxygen Flow Rate (L/min) 1.5 Oxygen Delivery Method Nasal Cannula Weight: 97.1 kg Body Mass Index (BMI) 32.1 Intake and Output for Last 24 Hours 07/05/17 07/06/17 07/07/17 23:59 23:59 23:59 Intake Total 1494.8 / 1494.8 3350.6 / 3350.6 529 / 529 Output Total 1450 / 1450 2575 / 2575 615 / 615 Balance 44.8 / 44.8 775.6 / 775.6 -86 / -86 Microbiology Past 72 Hours 07/05/17 14:00 Blood Culture (Wb) - Anticubital Right Blood Culture - Preliminary No growth in 48 hours. 07/05/17 14:00 Blood Culture (Wb) - Left Forearm Blood Culture - Preliminary No growth in 48 hours. 07/05/17 11:15 Sputum, Induced/Lukens Gram Stain - Final 07/05/17 11:15 Sputum, Induced/Lukens Respiratory Culture - Preliminary Culture exhibits no growth. 07/05/17 07:27 Mucosa - Nose Respiratory Panel (PCR) - Final Laboratory Results 07/05/17 05:40: Diff Path Review Reviewed 07/06/17 09:37: Specimen Type ART, Sample Site R Radial, pH 7.46 H, Bicarbonate Actual 46.9 H, POC Total CO2 49, Base Excess 23 H, O2 Saturation 95, O2 % 30, ABG pCO2 66.6 H, ABG pO2 75, Karan Test POS, Respiration Rate 12, O2 Delivery Device Bi / C PAP, EPAP 5, IPAP 15, Blood Gas Notified Whom ICU , Blood Gas Notified Time 936 07/07/17 04:00: WBC 11.4 H, RBC 3.26 L, Hgb 9.1 L, Hct 30.0 L, MCV 92.0, MCH 27.9, MCHC 30.3 L, RDW 14.9 H, RDW Differential 48.4 H, Plt Count 155, MPV 8.9, Immature Gran % (Auto) 0.400, Neut % (Auto) 86.0 H, Lymph % (Auto) 2.9 L, [place] % (Auto) 10.7 H, Eos % (Auto) 0.0, Baso % (Auto) 0.0, Absolute Neuts (auto) 9.8 H, Absolute Lymphs (auto) 0.33 L, Total Counted Not Reportable 07/07/17 04:00: Sodium 135 L, Potassium 3.9, Chloride 90 L, Carbon Dioxide 43.0 H, Anion Gap 2 L, BUN 19 H, Creatinine 0.58 L, Estim Creat Clear Calc 65.55, Est GFR (MDRD) Af Amer 176, Est GFR (MDRD) Non-Af 146, BUN/Creatinine Ratio 32.6 H, Glucose 173 H, Calcium 8.4 L Current Medications Acetaminophen (Tylenol) 650 mg PO Q6H PRN PRN PRN Reason: FEVER Last Admin: 07/06/17 21:09 Dose: 650 mg Albuterol/Ipratropium (Duoneb) 3 ml INHALATION Q4HWA.RT [facility] Last Admin: 07/07/17 06:41 Dose: 3 ml Atorvastatin Calcium (Lipitor) 20 mg PO QHS [facility] Last Admin: 07/06/17 21:13 Dose: 20 mg Chlorhexidine Gluconate () 1 each TOPICAL DAILY [facility] Last Admin: 07/06/17 15:30 Dose: 1 each Enoxaparin Sodium (Lovenox) 40 mg SC DAILY@0600 [facility] Last Admin: 07/07/17 05:05 Dose: 40 mg Sodium Chloride () 250 mls @ 15 mls/hr IV .[id number] PRN PRN Reason: SALINE FLUSH Last Admin: 07/06/17 10:17 Dose: 15 mls/hr Lisinopril (Zestril) 2.5 mg PO QHS [facility] Last Admin: 07/06/17 21:13 Dose: 2.5 mg Magnesium Hydroxide (Milk Of Magnesia) 30 ml PO DAILY PRN PRN PRN Reason: Constipation Last Admin: 07/07/17 03:35 Dose: 30 ml Oxycodone HCl (Oxyir) 5 mg PO Q6H PRN PRN PRN Reason: SEVERE PAIN (6-10/10) Last Admin: 07/07/17 03:35 Dose: 5 mg Pantoprazole Sodium (Protonix) 40 mg PO DAILY [facility] Last Admin: 07/07/17 08:14 Dose: 40 mg Prednisone (Prednisone) 40 mg PO DAILY@0800 [facility] Last Admin: 07/07/17 08:15 Dose: 40 mg Sodium Chloride () 5 - 30 ml IV UD PRN PRN Reason: SALINE FLUSH Last Admin: 07/07/17 05:08 Dose: 10 ml Assessment/Plan Patient is a 71-year-old gentleman with past medical history significant for chronic hypoxic and hypercapnic respiratory failure secondary to end-stage COPD apparently noncompliant with therapy who presented with progressive shortness of breath. An assessment of acute hypoxic and hypercapnic respiratory failuree was made placed on BiPAP and admitted to the ICU. Went into cardiac arrest PEA successfully resuscitated with ROSC and placed on the vent 1. Acute hypoxic and hypercapnic respiratory failure secondary to COPD exacerbation. Patient was admitted to the intensive care unit initially managed on BiPAP switched to the vent after patient went into cardiac arrest. Consultation was placed to pulmonary medicine and was weaned off the vent and subsequently placed on noninvasive ventilation 2. Cardiac Arrest (PEA) patient was successfully resuscitated with ACLS with return of spontaneous circulation 3. PSVT/A. fib with RVR patient on amiodarone 4. Chronic respiratory failure secondary to COPD baseline home O2 5. Obstructive Sleep apnea patient is on BiPAP at night apparently noncompliant with therapy 6. Chronic Diastolic CHF 7. Dyslipidemia patient is on statins 8. Hypertension, blood pressure stable home medications continued 9. 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 History of urethral stricture patient does self-catheterization at home patient presented with abnormal urinalysis however doubt the presence of an infection 11. DVT prophylaxis-Lovenox. 12. Acute metabolic encephalopathy secondary to hypercarbia ; Resolved 13. Physical deconditioning patient was seen and evaluated by physical therapy plan is for patient to be discharged to a senior living facility on discharge CODE STATUS : FULL code Code Visit Inpatient E&M: 92409 Subs Hosp L3
--- NOTE | 2017-07-07 09:22 | NURSING ---
Report called to Maranda on PCU
--- NOTE | 2017-07-07 09:43 | CASEMGMT ---
Addendum entered by Kriss Allen 07/07/17 13:32: SW spoke w/Analisa at [facility], she states that pt's 's income and savings do need to be reported, they use this to do a resource assessment. SW will let pt's know when she calls this SW back. KALA Harvey, [facility] [place] Original Note: Addendum entered by Kriss Allen 07/07/17 10:04: was concerned about whether or not her income needs to be on the Medicaid application. SW called [facility] to ask, message left for Analisa Copeland. KALA Harvey FAMILY SERVICE AIDE Original Note: SW spoke w/step daughter in law Angelica and in waiting room, in regard to discharge plan and manager long term care plan. confirmed that she wants pt to go manager long term care to a [facility], she cannot care for pt any longer at home. They would like pt to go to [facility]. SW explained that [facility] does not take [facility], and that it may make sense for pt to go somewhere in network w/insurance first, then transfer to a shelter facility. would like pt to go to [facility] initially, SW explained they will have a bed for pt. SW explained that insurance will only cover as long as there is a skilled need, and it is not known how long this will be. agreeable to start Medicaid application process for manager long term care placement after TCU. SW assisted in completing Medicaid application, she will call with some of the income information. Once SW has this, Medicaid roxi will be submitted to [facility]. SW also spoke w/jas and Angelica about calling [facility] now to start the process, they are agreeable to this. also spoke about having pt intubated again, she states pt does not want the tube in but does not want to . She states she does not want him intubated again. SW explained will ask physician about speaking w/pt about this. SW did also explain the difference between a living will and DNR. SW spoke w/Dr. Montgomery, he states he spoke to pt and pt does want to be intubated again. He states can speak w/pt about it further. LIZ explained this to the and Angelica, the the physician did speak w/pt and he has said he wanted to be intubated again if needed, she can speak w/pt about this further. states understanding. has this SW's number to call with the income information, SW will send in the Medicaid application once calls with this information. SW will also call [facility] later today. SW called Yulisa in [facility], she will start precert later today or first thing in the morning, they will have a bed for pt on Tuesday. SW will continue to follow. KALA Harvey, FAMILY SERVICE AIDE
[2017-07-07] MEDS: Magnesium Citrate 300 ML PO (10:18)
[2017-07-07] MEDS: Ketorolac 15 MG/ML Vial IV (10:19)
--- NOTE | 2017-07-07 13:52 | CASEMGMT ---
SW did call [facility], message left and initial referral faxed for potential prison placement after TCU. KALA Harvey GLASS TECHNICIAN/INSTALLER
[2017-07-07] MEDS: Atorvastatin Calcium 20 MG Tablet PO (21:39)
[2017-07-07] MEDS: Lisinopril 2.5 MG Tablet PO (21:39)
[2017-07-07] MEDS: Mag Hydrox/Al Hydrox/Simeth 30 ML UDC PO (21:49)
[2017-07-08] VITALS (19 sets, daily range): BP systolic 115–122; BP diastolic 63–81; PULSE 70–145; RESP 12–22; TEMP 36.5–36.7; O2SAT 90–96
[2017-07-08] MEDS: Enoxaparin 40 MG/0.4 ML Syringe SC (05:24)
[2017-07-08] MEDS: oxyCODONE 5 MG Tablet PO ×3 (05:27→20:44)
[2017-07-08] MEDS: Ipratropium/Albuterol Sulfate 3 ML AMPUL.NEB INHALATION ×4 (06:36→19:29)
--- NOTE | 2017-07-08 10:42 | PCM.PN.HOSP ---
Subjective: Seen, still remains dyspneic at rest was transferred from the intensive care unit to progressive care unit on 07/07/2017. Was on BiPAP until 4:00 this morning currently off. Patient finally had bowel movement after restarted his every other day scheduled magnesium citrate. He is requesting for Mucinex this a.m. Objective: GENERAL: On BiPAP HEENT: Clear conjunctiva, moist oral mucosa NECK; supple, normal thyroid, no distended JVD. CHEST: Diminished to auscultation bilaterally, HEART: Regular S1 S2, ABDOMEN: soft, non-tender, normoactive bowel sounds, RECTAL: deferred EXTREMITIES: No edema, no clubbing, no cyanosis. LOCATION DIRECTOR: Awake, no lateralizing signs. SKIN: No Rash Vitals/I&O's: Vital Signs Temp Pulse Resp BP Pulse Ox 98 F 93 18 122/73 H 93 07/08/17 03:34 07/08/17 07:32 07/08/17 06:36 07/08/17 03:34 07/08/17 06:36 Oxygen Flow Rate (L/min) 2 Oxygen Delivery Method Nasal Cannula Weight: 70.2 kg Body Mass Index (BMI) 32.1 Intake and Output for Last 24 Hours 07/06/17 07/07/17 07/08/17 23:59 23:59 23:59 Intake Total 3350.6 / 3350.6 1249 / 1249 200 / 200 Output Total 2575 / 2575 1290 / 1290 400 / 400 Balance 775.6 / 775.6 -41 / -41 -200 / -200 Microbiology Past 72 Hours 07/05/17 11:15 Sputum, Induced/Lukens Gram Stain - Final 07/05/17 11:15 Sputum, Induced/Lukens Respiratory Culture - Final 07/05/17 14:00 Blood Culture (Wb) - Anticubital Right Blood Culture - Preliminary No growth in 48 hours. 07/05/17 14:00 Blood Culture (Wb) - Left Forearm Blood Culture - Preliminary No growth in 48 hours. 07/05/17 07:27 Mucosa - Nose Respiratory Panel (PCR) - Final Current Medications Acetaminophen (Tylenol) 650 mg PO Q6H PRN PRN PRN Reason: FEVER Last Admin: 07/06/17 21:09 Dose: 650 mg Al Hydroxide/Mg Hydroxide (Mylanta Ii) 30 ml PO Q4H PRN PRN PRN Reason: Gastric reflux Last Admin: 07/07/17 21:49 Dose: 30 ml Albuterol/Ipratropium (Duoneb) 3 ml INHALATION Q4HWA.RT [facility] Last Admin: 07/08/17 06:36 Dose: 3 ml Atorvastatin Calcium (Lipitor) 20 mg PO QHS [facility] Last Admin: 07/07/17 21:39 Dose: 20 mg Chlorhexidine Gluconate () 1 each TOPICAL DAILY [facility] Last Admin: 07/07/17 10:12 Dose: Not Given Enoxaparin Sodium (Lovenox) 40 mg SC DAILY@0600 [facility] Last Admin: 07/08/17 05:24 Dose: 40 mg Sodium Chloride () 250 mls @ 15 mls/hr IV .[id number] PRN PRN Reason: SALINE FLUSH Last Admin: 07/06/17 10:17 Dose: 15 mls/hr Lisinopril (Zestril) 2.5 mg PO QHS [facility] Last Admin: 07/07/17 21:39 Dose: 2.5 mg Magnesium Citrate (Citrate Of Magnesia) 300 ml PO QODAY [facility] Last Admin: 07/07/17 10:18 Dose: 300 ml Magnesium Hydroxide (Milk Of Magnesia) 30 ml PO DAILY PRN PRN PRN Reason: Constipation Last Admin: 07/07/17 03:35 Dose: 30 ml Oxycodone HCl (Oxyir) 5 mg PO Q6H PRN PRN PRN Reason: SEVERE PAIN (6-10/10) Last Admin: 07/08/17 05:27 Dose: 5 mg Pantoprazole Sodium (Protonix) 40 mg PO DAILY [facility] Last Admin: 07/07/17 08:14 Dose: 40 mg Prednisone (Prednisone) 40 mg PO DAILY@0800 [facility] Last Admin: 07/07/17 08:15 Dose: 40 mg Sodium Chloride () 5 - 30 ml IV UD PRN PRN Reason: SALINE FLUSH Last Admin: 07/07/17 10:19 Dose: 10 ml Assessment/Plan Patient is a 71-year-old gentleman with past medical history significant for chronic hypoxic and hypercapnic respiratory failure secondary to end-stage COPD apparently noncompliant with therapy who presented with progressive shortness of breath. An assessment of acute hypoxic and hypercapnic respiratory failuree was made placed on BiPAP and admitted to the ICU. Went into cardiac arrest PEA successfully resuscitated with ROSC and placed on the vent 1. Acute hypoxic and hypercapnic respiratory failure secondary to COPD exacerbation. Patient was admitted to the intensive care unit initially managed on BiPAP switched to the vent after patient went into cardiac arrest. Consultation was placed to pulmonary medicine and was weaned off the vent and subsequently placed on noninvasive ventilation the patient was transferred from the intensive care unit to PCU on 07/07/2017 2. Cardiac Arrest (PEA) patient was successfully resuscitated with ACLS with return of spontaneous circulation 3. PSVT/A. fib with RVR patient on amiodarone hassince been discontinued. 4. Chronic respiratory failure secondary to COPD baseline home O2 5. Obstructive Sleep apnea patient is on BiPAP at night apparently noncompliant with therapy 6. Chronic Diastolic CHF 7. Dyslipidemia patient is on statins 8. Hypertension, blood pressure stable home medications continued 9. 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 History of urethral stricture patient does self-catheterization at home patient presented with abnormal urinalysis however doubt the presence of an infection 11. DVT prophylaxis-Lovenox. 12. Acute metabolic encephalopathy secondary to hypercarbia ; Resolved 13. Physical deconditioning patient was seen and evaluated by physical therapy plan is for patient to be discharged to a snf facility on discharge CODE STATUS : FULL code Disposition: Back home with palliative care in 2-3 days Code Visit Inpatient E&M: 71813 [facility] Hosp L3
[2017-07-08] MEDS: Pantoprazole Sodium 40 MG Tablet PO (10:49)
--- NOTE | 2017-07-08 10:58 | PN_ITS ---
Subjective: Seen, still remains dyspneic at rest was transferred from the intensive care unit to progressive care unit on 07/07/2017. Was on BiPAP until 4:00 this morning currently off. Patient finally had bowel movement after restarted his every other day scheduled magnesium citrate. He is requesting for Mucinex this a.m. Objective: GENERAL: On BiPAP HEENT: Clear conjunctiva, moist oral mucosa NECK; supple, normal thyroid, no distended JVD. CHEST: Diminished to auscultation bilaterally, HEART: Regular S1 S2, ABDOMEN: soft, non-tender, normoactive bowel sounds, RECTAL: deferred EXTREMITIES: No edema, no clubbing, no cyanosis. 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 SKIN: No Rash Vitals/I&O's: Vital Signs Temp Pulse Resp BP Pulse Ox 98 F 93 18 122/73 H 93 07/08/17 03:34 07/08/17 07:32 07/08/17 06:36 07/08/17 03:34 07/08/17 06:36 Oxygen Flow Rate (L/min) 2 Oxygen Delivery Method Nasal Cannula Weight: 70.2 kg Body Mass Index (BMI) 32.1 Intake and Output for Last 24 Hours 07/06/17 07/07/17 07/08/17 23:59 23:59 23:59 Intake Total 3350.6 / 3350.6 1249 / 1249 200 / 200 Output Total 2575 / 2575 1290 / 1290 400 / 400 Balance 775.6 / 775.6 -41 / -41 -200 / -200 Microbiology Past 72 Hours 07/05/17 11:15 Sputum, Induced/Lukens Gram Stain - Final 07/05/17 11:15 Sputum, Induced/Lukens Respiratory Culture - Final 07/05/17 14:00 Blood Culture (Wb) - Anticubital Right Blood Culture - Preliminary No growth in 48 hours. 07/05/17 14:00 Blood Culture (Wb) - Left Forearm Blood Culture - Preliminary No growth in 48 hours. 07/05/17 07:27 Mucosa - Nose Respiratory Panel (PCR) - Final Current Medications Acetaminophen (Tylenol) 650 mg PO Q6H PRN PRN PRN Reason: FEVER Last Admin: 07/06/17 21:09 Dose: 650 mg Al Hydroxide/Mg Hydroxide (Mylanta Ii) 30 ml PO Q4H PRN PRN PRN Reason: Gastric reflux Last Admin: 07/07/17 21:49 Dose: 30 ml Albuterol/Ipratropium (Duoneb) 3 ml INHALATION Q4HWA.RT [facility] Last Admin: 07/08/17 06:36 Dose: 3 ml Atorvastatin Calcium (Lipitor) 20 mg PO QHS [facility] Last Admin: 07/07/17 21:39 Dose: 20 mg Chlorhexidine Gluconate () 1 each TOPICAL DAILY [facility] Last Admin: 07/07/17 10:12 Dose: Not Given Enoxaparin Sodium (Lovenox) 40 mg SC DAILY@0600 [facility] Last Admin: 07/08/17 05:24 Dose: 40 mg Sodium Chloride () 250 mls @ 15 mls/hr IV .[id number] PRN PRN Reason: SALINE FLUSH Last Admin: 07/06/17 10:17 Dose: 15 mls/hr Lisinopril (Zestril) 2.5 mg PO QHS [facility] Last Admin: 07/07/17 21:39 Dose: 2.5 mg Magnesium Citrate (Citrate Of Magnesia) 300 ml PO QODAY [facility] Last Admin: 07/07/17 10:18 Dose: 300 ml Magnesium Hydroxide (Milk Of Magnesia) 30 ml PO DAILY PRN PRN PRN Reason: Constipation Last Admin: 07/07/17 03:35 Dose: 30 ml Oxycodone HCl (Oxyir) 5 mg PO Q6H PRN PRN PRN Reason: SEVERE PAIN (6-10/10) Last Admin: 07/08/17 05:27 Dose: 5 mg Pantoprazole Sodium (Protonix) 40 mg PO DAILY [facility] Last Admin: 07/07/17 08:14 Dose: 40 mg Prednisone (Prednisone) 40 mg PO DAILY@0800 [facility] Last Admin: 07/07/17 08:15 Dose: 40 mg Sodium Chloride () 5 - 30 ml IV UD PRN PRN Reason: SALINE FLUSH Last Admin: 07/07/17 10:19 Dose: 10 ml Assessment/Plan Patient is a 71-year-old gentleman with past medical history significant for chronic hypoxic and hypercapnic respiratory failure secondary to end-stage COPD apparently noncompliant with therapy who presented with progressive shortness of breath. An assessment of acute hypoxic and hypercapnic respiratory failuree was made placed on BiPAP and admitted to the ICU. Went into cardiac arrest PEA successfully resuscitated with ROSC and placed on the vent 1. Acute hypoxic and hypercapnic respiratory failure secondary to COPD exacerbation. Patient was admitted to the intensive care unit initially managed on BiPAP switched to the vent after patient went into cardiac arrest. Consultation was placed to pulmonary medicine and was weaned off the vent and subsequently placed on noninvasive ventilation the patient was transferred from the intensive care unit to PCU on 07/07/2017 2. Cardiac Arrest (PEA) patient was successfully resuscitated with ACLS with return of spontaneous circulation 3. PSVT/A. fib with RVR patient on amiodarone hassince been discontinued. 4. Chronic respiratory failure secondary to COPD baseline home O2 5. Obstructive Sleep apnea patient is on BiPAP at night apparently noncompliant with therapy 6. Chronic Diastolic CHF 7. Dyslipidemia patient is on statins 8. Hypertension, blood pressure stable home medications continued 9. 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 History of urethral stricture patient does self-catheterization at home patient presented with abnormal urinalysis however doubt the presence of an infection 11. DVT prophylaxis-Lovenox. 12. Acute metabolic encephalopathy secondary to hypercarbia ; Resolved 13. Physical deconditioning patient was seen and evaluated by physical therapy plan is for patient to be discharged to a custodial facility on discharge CODE STATUS : FULL code Disposition: Back home with palliative care in 2-3 days Code Visit Inpatient E&M: [id number] [facility] L3
--- NOTE | 2017-07-08 12:14 | PCM.PROGNOTE ---
Subjective: Patient was seen and examined. He complains of chest discomfort when coughing. He is very sore. He is asking for Mucinex, he takes this 4 times a day home. Reports he wore BiPAP overnight and tolerated well, does not like the way the mask fits though. Patient reports chronic issues with diarrhea, he did have a large bowel movement this morning that was loose. He is maintaining appropriate saturations on 2 L of oxygen. Patient is afebrile and hemodynamically stable. Objective: Recent lab and culture data reviewed. Blood culture showing no growth 48 hours. Sputum and respiratory panel were negative. - Physical Exam General: Alert, Oriented x3, Cooperative, - - groaning. No conversational dyspnea HEENT: Atraumatic, Normocephalic Oral: Moist Mucosa Neck: Supple, No Nodes, Trachea Midline Lungs: No rhonchi, No wheeze, No rales, Diminished, - - No accessory muscle use. Cardiovascular: Regular rate, Regular Rhythm, Normal S1, Normal S2, No murmurs, No rub noted, No Gallop Abdomen: Bowel Sounds Present, Soft, Non Tender, Non-Distended Extremities: No cyanosis, No edema, Clubbing Skin: No rashes Musculoskeletal: No Tenderness to Palpation of Joints or Extremities Lymphatic: No Cervical, Supraclavicular, or Inguinal Adenopathy Neurological: Neuro grossly intact Psych/Mental Status: Alert and oriented to time, place, person, mood and affect Vital Signs Temp Pulse Resp BP Pulse Ox 98.1 F 82 16 116/66 90 07/08/17 10:45 07/08/17 11:17 07/08/17 11:17 07/08/17 10:45 07/08/17 11:17 Oxygen Flow Rate (L/min) 2 Oxygen Delivery Method Nasal Cannula Weight: 154 lb 12.232 oz Body Mass Index (BMI) 32.1 Intake and Output for Last 24 Hours 07/06/17 07/07/17 07/08/17 23:59 23:59 23:59 Intake Total 3350.6 / 3350.6 1249 / 1249 200 / 200 Output Total 2575 / 2575 1290 / 1290 400 / 400 Balance 775.6 / 775.6 -41 / -41 -200 / -200 Microbiology Past 72 Hours 07/05/17 11:15 Gram Stain - Final Sputum, Induced/Lukens Respiratory Culture - Final 07/05/17 14:00 Blood Culture - Preliminary Blood Culture (Wb) - Anticubital Right No growth in 48 hours. 07/05/17 14:00 Blood Culture - Preliminary Blood Culture (Wb) - Left Forearm No growth in 48 hours. 07/05/17 07:27 Respiratory Panel (PCR) - Final Mucosa - Nose Assessment/Plan RECOMMENDATIONS: 1. Continue BiPAP 15/5 with naps and nightly. 2. Continue aerosol treatments while awake 3. Continue oral steroids 4. Maintain potassium level greater than 4 and magnesium level greater than 2. 5. Maintain oxygen saturations 88-92%, to prevent paradoxical CO2 retention. 6. Continue to work with physical therapy 7. Case management to assist with disposition to retirement facility IMPRESSIONS: 1. Acute on chronic combined respiratory failure / baseline end-stage COPD with exacerbation The etiology for the patient's respiratory failure is likely secondary to outpatient noncompliance with the use of noninvasive positive pressure ventilation in the setting of chronic CO2 retention and end-stage COPD. The patient has had multiple prior hospital admissions for similar issues. His is no longer able to care for him at home. Per her account, the patient is currently enrolled with palliative care. The patient has done well following extubation. We will plan to continue BiPAP at current pressure settings with naps and QHS. The patient does wish to remain a full code. Recommend disposition to retirement facility at the time of his discharge from the hospital. We will plan to continue aerosol treatments and prednisone. Maintain oxygen saturations 88-92, to prevent paradoxical CO2 retention. 2. Hypercarbic encephalopathy Resolved following initiation of invasive mechanical ventilation. Doing well post extubation and transfer out of the ICU. Continue BiPAP therapy with naps and nightly. 3. Known underlying obstructive sleep apnea/alveolar hypoventilation, noncompliant with use of home PAP therapy The patient has a history of noncompliance with the use of his home PAP. Unfortunately, this has led to recurrent hospital admissions. Compliant with BiPAP while in the hospital. 4. Status post PEA arrest Likely precipitated by respiratory arrest. The patient is currently stable. We will continue to monitor. 5. Heart failure with preserved ejection fraction/hypertension/GERD/anxiety/hyperlipidemia/history of medical noncompliance Complicates care, management, recovery and prognosis. Antihypertensives can be slowly restarted upon medical stabilization-he is on carvedilol at home. Continue work with physical therapy. This note was generated with [employer] software. It may contain incorrect words, spelling, and punctuation that were not noted in checking the note before signing.
[2017-07-08] MEDS: guaiFENesin 1,200 MG Tablet 1200 MG PO ×2 (12:26→21:12)
--- NOTE | 2017-07-08 15:00 | CASEMGMT ---
Per physician patient will likely be here through the weekend. LIZ received a message from Yulisa in TCU and she received insurance approval. LIZ notified Yulisa that patient may be here through the weekend. LIZ did put a green sheet on chart in the event patient is ready for d/c over the weekend. Plan: [facility] Romelia VARELA
[2017-07-08] MEDS: Lisinopril 2.5 MG Tablet PO (21:13)
[2017-07-08] MEDS: Atorvastatin Calcium 20 MG Tablet PO (21:13)
[2017-07-08] MEDS: 0.9% NaCl Peripheral Flush Adult/Peds IV (21:14)
[2017-07-09] VITALS (15 sets, daily range): BP systolic 111–119; BP diastolic 51–83; PULSE 62–112; RESP 12–20; TEMP 36.6; O2SAT 91–95
[2017-07-09] MEDS: oxyCODONE 5 MG Tablet PO ×2 (03:19→10:26)
[2017-07-09] MEDS: Enoxaparin 40 MG/0.4 ML Syringe SC (05:24)
[2017-07-09] MEDS: Magnesium Citrate 300 ML PO (05:24)
[2017-07-09] MEDS: Ipratropium/Albuterol Sulfate 3 ML AMPUL.NEB INHALATION ×3 (07:46→14:28)
[2017-07-09] MEDS: guaiFENesin 1,200 MG Tablet 1200 MG PO (08:33)
[2017-07-09] MEDS: Pantoprazole Sodium 40 MG Tablet PO (08:33)
--- NOTE | 2017-07-09 13:30 | PCM.TXEXTCAR ---
- Diet 07/05/17 02:04 Diet: Cardiac/Low Cholesterol Food consistency:: Regular Liquid Consistency:: Regular/Thin Is pt able to select menu?: Yes - Routine Orders/Code Status O2 Liters per Minute: 2 liter O2 Frequency: Continuous Code Status: Full Code - Therapies Physical Therapy: Eval and Treat Occupational Therapy: Eval and Treat - Allergies/Procedures Done in Hospital Allergies/Adverse Reactions: Allergies latex Allergy (Severe, Verified 07/02/17 21:50) Swelling rivaroxaban [From Xarelto] Adverse Reaction (Verified 07/02/17 21:50) excessive bleeding Procedures: CPR performed - Type of Care/Length of Stay Estimated LOS: Convalescent Care Less Than 30 days Type of Care Needed: Skilled Rehab Potential: Fair Prognosis: Fair - Additional Orders/Day of Discharge Additional Orders: BiPAP mask at current setting, QHS and PRN with naps. Day of Discharge: 07/09/17 - Dietary and Speech Recommendations Dietitian Recommendations/Changes: When appropriate for PO diet, rec cardiac/low cholesterol, low sodium. Ensure Enlive w/ medpass if inadequate intake at meals established. - Follow Up Care Primary Care Physician: Donato Sanchez DO [Primary Care Provider] - Please follow up with your Primary Care Physician in: in 2 to 3 weeks after discharge from TCU.
--- NOTE | 2017-07-09 13:34 | TREXTCAR_ITS ---
- Diet 07/05/17 02:04 Diet: Cardiac/Low Cholesterol Food consistency:: Regular Liquid Consistency:: Regular/Thin Is pt able to select menu?: Yes - Routine Orders/Code Status O2 Liters per Minute: 2 liter O2 Frequency: Continuous Code Status: Full Code - Therapies Physical Therapy: Eval and Treat Occupational Therapy: Eval and Treat - Allergies/Procedures Done in Hospital Allergies/Adverse Reactions: Allergies latex Allergy (Severe, Verified 07/02/17 21:50) Swelling rivaroxaban [From Xarelto] Adverse Reaction (Verified 07/02/17 21:50) excessive bleeding Procedures: CPR performed - Type of Care/Length of Stay Estimated LOS: Convalescent Care Less Than 30 days Type of Care Needed: Skilled Rehab Potential: Fair Prognosis: Fair - Additional Orders/Day of Discharge Additional Orders: BiPAP mask at current setting, QHS and PRN with naps. Day of Discharge: 07/09/17 - Dietary and Speech Recommendations Dietitian Recommendations/Changes: When appropriate for PO diet, rec cardiac/ low cholesterol, low sodium. Ensure Enlive w/ medpass if inadequate intake at meals established. - Follow Up Care Primary Care Physician: Donato Sanchez DO [Primary Care Provider] - Please follow up with your Primary Care Physician in: in 2 to 3 weeks after discharge from TCU.
--- NOTE | 2017-07-09 13:48 | PCM.DC.SUM ---
Discharge Date and Diagnosis Date of Admission: 07/05/17 Date of Discharge: 07/09/17 - Primary Discharge Diagnosis Acute on chronic hypoxic and hypercapnic respiratory failure. Acute metabolic encephalopathy. COPD exacerbation. S/P cardiac arrest. Paroxysmal atrial fibrillation / supraventricular tachycardia. Chronic respiratory failure with severe CO2 retention. Obstructive sleep apnea. Non-compliance to medical treatment / BiPAP mask. Chronic CHF with diastolic dysfunction. Essential hypertension. History of congenital absence of rectum, s/p corrective surgery. History of urethral stricture. 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 Electronically Signed: Gus Gonzales MD at 5:00 EDT , Service support , Dr. Montgomery, critical care / pulmonary medicine. Operations: None Procedures: CPR performed Summary of Care Provided: Patient is a 71-year-old gentleman with past medical history significant for chronic hypoxic and hypercapnic respiratory failure secondary to end-stage COPD apparently noncompliant with therapy who presented with progressive shortness of breath. An assessment of acute hypoxic and hypercapnic respiratory failuree was made placed on BiPAP and admitted to the ICU. Went into cardiac arrest PEA successfully resuscitated with ROSC and placed on the vent 1. Acute hypoxic and hypercapnic respiratory failure secondary to COPD exacerbation. Patient was admitted to the intensive care unit initially managed on BiPAP switched to the vent after patient went into cardiac arrest. Consultation was placed to pulmonary medicine and was weaned off the vent and subsequently placed on noninvasive ventilation the patient was transferred from the intensive care unit to PCU on 07/07/2017 2. Cardiac Arrest (PEA) patient was successfully resuscitated with ACLS with return of spontaneous circulation 3. PSVT/A. fib with RVR patient on amiodarone hassince been discontinued. 4. Chronic respiratory failure secondary to COPD baseline home O2 With severe persisting hypercapnia. 5. Obstructive Sleep apnea patient is on BiPAP at night apparently noncompliant with therapy 6. Chronic Diastolic CHF 7. Dyslipidemia patient is on statins 8. Hypertension, blood pressure stable home medications continued 9. 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 History of urethral stricture patient does self-catheterization at home patient presented with abnormal urinalysis however doubt the presence of an infection 11. DVT prophylaxis-Lovenox. 12. Acute metabolic encephalopathy secondary to hypercarbia ; Resolved 13. Physical deconditioning patient was seen and evaluated by physical therapy plan is for patient to be discharged to TCU. Code status discussed again. During this hospital stay, Dr. Montgomery also addressed his poor prognosis with severe lung disease. He expressed that he still wants to have full code. I had discussed with patient and his family members as well in length prior to discharge. Discharge Diet: Low fat/ Low Cholesterol Discharge Activity: No Restrictions, - - As tolerated with PT/OT. Home Medications: Medications to take at Discharge Furosemide [Lasix] 40 mg PO DAILY 02/01/13 Iron Polysaccharide Complex [Ferrex 150] 150 mg PO DAILYCM #30 capsule 02/16/17 Pantoprazole Sodium [Protonix] 40 mg PO DAILY #30 tablet 02/16/17 Budesonide/Formoterol 160/4.5 [Symbicort 160/4.5 Mcg Inhaler (SP)] 2 puff INHALATION DAILY 03/26/17 Carvedilol [Coreg (Beta Paulie)] 3.125 mg PO BID 03/26/17 Prednisone [Deltasone] 40 mg PO DAILY #5 tab 03/27/17 simvastatin 40 mg tablet 40 mg PO QPM #90 tab 06/03/17 Acetaminophen [Tylenol Tablet] 650 mg PO Q6H PRN PRN tablet 07/09/17 Clonazepam [Klonopin] 0.5 mg PO BID #14 tab 07/09/17 Guaifenesin [Mucinex] 1,200 mg PO BID tablet 07/09/17 Ipratropium/Albuterol Sulfate [Duoneb] 3 ml INHALATION Q4HWA.RT ampul.neb 07/09/17 Lisinopril [Zestril] 2.5 mg PO QHS tablet 07/09/17 Magnesium Citrate [Citrate Of Magnesia] 300 ml PO QODAY ml 07/09/17 Oxycodone [Oxyir] 5 mg PO Q6H PRN PRN 7 Days #20 tab 07/09/17 Following Prescrptions Were Given to Patient: Oxycodone [Oxyir] 5 mg PO Q6H PRN PRN 7 Days #20 tab PRN Reason: Severe Pain (6-02/01) Clonazepam [Klonopin] 0.5 mg PO BID #14 tab Primary Care Physician: Donato Sanchez DO [Primary Care Provider] - Please follow up with your Primary Care Physician in: in 2 to 3 weeks after discharge from TCU. Disposition: Longterm facility - TCU. Patient Condition:: Stable Medical Necessity - Tobacco Use Smoking Status: Former smoker Meaningful Use Info Meaningful Use Diagnoses (Choose all that apply): CHF - CHF SHAHANA/ARB ordered at discharge?: Yes Documented LVEF (%): 55 - ACEi/ARB not indicated Code Visit Inpatient E&M: [id number] [facility] Hosp
[2017-07-09] MEDS: 0.9% NaCl Peripheral Flush Adult/Peds IV (14:22)
--- NOTE | 2017-07-09 16:17 | NURSING ---
Called report to TCU
== END 2017-07-09 16:35 | disposition skilled nursing facility (03) | DRG 208 ==
LOC: ED 21:16 → ICU 07-05 02:17 → PCU 07-08 11:34
PROVIDERS: Emergency Medicine; Internal Medicine; Internal Medicine Critical Care Medicine; Admitting Provider Family Medicine; Emergency Provider Emergency Medicine; Family Provider Family Medicine; PCP Family Medicine; Visit Provider Hospitalist
DX: J96.21 Acute and chronic respiratory failure with hypoxia (principal); I46.9 Cardiac arrest, cause unspecified; G93.41 Metabolic encephalopathy; J44.1 Chronic obstructive pulmonary disease with (acute) exacerbation; I50.32 Chronic diastolic (congestive) heart failure; I47.1 Supraventricular tachycardia; I42.9 Cardiomyopathy, unspecified; I11.0 Hypertensive heart disease with heart failure; J96.22 Acute and chronic respiratory failure with hypercapnia; Z87.891 Personal history of nicotine dependence; E78.5 Hyperlipidemia, unspecified; I48.0 Paroxysmal atrial fibrillation; G47.33 Obstructive sleep apnea (adult) (pediatric); Z91.19 Patient's noncompliance with other medical treatment and regimen; K21.9 Gastro-esophageal reflux disease without esophagitis; F41.9 Anxiety disorder, unspecified; Z79.899 Other long term (current) drug therapy; N35.9 Urethral stricture, unspecified
CPT/HCPCS: 31500; 31720; 36600; 51702; 71045; 80048; 80053; 81001; 81002; 82550; 82803; 83605; 83735; 84100; 84132; 84478; 84484; 85025; 87040; 87070; 87077; 87086; 87088; 87186; 87205; 87633; 87641; 92950; 93005; 94002; 94003; 94640; 94660; 94799; 95831; 97110; 97162; 97166; 97530; 97802; 99284; 99285; J7030; J7050; J7120; A4216; J0330

== ENCOUNTER 2017-07-09 14:45 | Inpatient (IN) | payer MEDICARE, SELFPAY ==
[2017-07-09 17:03] VITALS: BP 129/74; PULSE 103; RESP 20; TEMP 36.5; O2SAT 90
--- NOTE | 2017-07-09 17:04 | NURSING ---
Pt admitted at 16:45 via bed from PCU
--- NOTE | 2017-07-09 17:34 | PCM.HP.STD ---
Problem List (1) Acute and chronic respiratory failure Status: Acute (2) Melanoma Status: Chronic (3) Acute on chronic systolic heart failure Status: Acute (4) Iron deficiency anemia Status: Chronic (5) Hyperlipidemia Status: Chronic (6) Anxiety Status: Chronic (7) GERD (gastroesophageal reflux disease) Status: Chronic (8) Osteoarthritis Status: Chronic (9) Cardiomyopathy Status: Chronic (10) COLD (chronic obstructive lung disease) Status: Chronic Qualifiers: (11) Former smoker Status: Chronic Comment: Z87.891 (12) Shortness of breath Status: Acute (13) Hypertension Status: Chronic History of Present Illness Date of Admission: 07/09/17 Chief Complaint: Here for rehabilitation, strengthening, prior to discharge home with spouse. The patient is a 71 year old Male with below past medical history presented to [facility] Emergency Department 07/05/2017 with shortness of breath. 07/04/2017 EKG atrial fibrillation, marked ST abnormality, possible lateral subendocardial injury. 07/04/2017 Chest X-ray mild basilar atelectasis. Shortness of breath x 1 day. On Keflex for urinary tract infection. Generalized weakness, Increasing shortness of breath, dry cough. Hemoglobin 10.5, COW 43. pH 7.187, PCO2 13, PO2 149. BiPAP, Solu-Medrol IV, Urine > 100 WBC, urine culture sent. Rocephin IV, Lactic acid normal, Troponin negative. Patient took off BiPAP, suffered cardiac arrest, CPR, intubation, Propofol drip. 07/05/2017 Admit to ICU. Rocephin 1GM IV Q24H, Solu-Medrol 40MG IV Q8H. 07/05/2017 Chest X-ray negative. 07/05/2017 Dr. Montgomery recommended continued ventilator with spontaneous awakening, breathing trials. Continue aerosols, steroids. Continue Fentanyl sedation. Start tube feeds. Pepcid, Lovenox for ICU prophylaxis. Check Respiratory panel. 07/06/2017 Dr. Montgomery considered extubation 07/07/2017. Maintain potassium, magnesium. 07/07/2017 Extubated to BiPAP 06/09. Solu-Medrol to prednisone 40MG daily. 07/08/2017 Respiratory panel negative. Blood, sputum cultures negative. Patient is non-compliant with his care. Multiple conversations regarding hospice care for severe COPD, patient requested FULL CODE status. 07/09/2017 Admit to TCU for rehabilitation, strengthening, prior to discharge home with spouse. Past Medical History Past Medical History (Chronic Problems): Chronic Problems Melanoma (Chronic) Iron deficiency anemia (Chronic) Hyperlipidemia (Chronic) Anxiety (Chronic) GERD (gastroesophageal reflux disease) (Chronic) Osteoarthritis (Chronic) Arthritis (Chronic) Benign hypertension (Chronic) Cardiomyopathy (Chronic) COLD (chronic obstructive lung disease) (Chronic) History of gastroesophageal reflux (GERD) (Chronic) History of urethral stricture (Chronic) Status post cardiac catheterization (Chronic) Malignant melanoma of back (Chronic) C43.59 2 cm superficial spreading melanoma wound left upper back with a thickness of 0.54 mm 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) 6 mm pigmented lesion right lateral chest wall Former smoker (Chronic) Z87.891 Open wound of left side of back (Chronic) open melanoma wound left upper back Systolic CHF, acute on chronic (Chronic) Debility (Chronic) MILA (obstructive sleep apnea) (Chronic) Hypertension (Chronic) Urinary retention with incomplete bladder emptying (Chronic) Bowel incontinence (Chronic) Allergies latex Allergy (Severe, Verified 07/02/17 21:50) Swelling rivaroxaban [From Xarelto] Adverse Reaction (Verified 07/02/17 21:50) excessive bleeding Home Medications: Ambulatory Orders Medication Instructions Recorded Furosemide [Lasix] 40 mg PO DAILY 02/01/13 Budesonide/Formoterol 160/4.5 2 puff INHALATION DAILY 03/26/17 [Symbicort 160/4.5 Mcg Inhaler (SP)] Carvedilol [Coreg (Beta Paulie)] 3.125 mg PO BID 03/26/17 Acetaminophen [Tylenol Tablet] 650 mg PO Q6H PRN PRN tablet 07/09/17 Clonazepam [Klonopin] 0.5 mg PO BID #14 tab 07/09/17 Guaifenesin [Mucinex] 1,200 mg PO BID 07/09/17 Ipratropium/Albuterol Sulfate 3 ml INHALATION Q4HWA.RT 07/09/17 [Duoneb] Iron Polysaccharide Complex 150 mg PO DAILYCM 07/09/17 [Ferrex 150] Lisinopril [Zestril] 2.5 mg PO QHS 07/09/17 Magnesium Citrate [Citrate Of 300 ml PO QODAY 07/09/17 Magnesia] Oxycodone [Oxyir] 5 mg PO Q6H PRN PRN 7 Days #20 tab 07/09/17 Pantoprazole Sodium [Protonix] 40 mg PO DAILY 07/09/17 Prednisone [Deltasone] 40 mg PO DAILY 07/09/17 Simvastatin 40 mg PO QPM 07/09/17 Surgical History: appendectomy, total hip arthroplasty - Bilateral., total knee arthroplasty, - - Left carpal tunnel release, rotator cuff surgery, bladder surgery. Psychiatric History: Anxiety Lives: Spouse/ Significant Other Smoking Status: Former smoker Tobacco Use: Non-smoker Alcohol: None Drugs: None - *Family History Maternal History Items: - - Non-contributory. Paternal History Items: No pertinent history Review of Systems Constitutional: Denies: Chills, Fever, Weight Change HEENT: Denies: Head Aches, Sinus Congestion, Sinus Drainage Cardiovascular: Denies: Chest Pain, Palpitations Respiratory: Denies: Cough, Shortness of breath at rest, Sputum production Gastrointestinal: Denies: Abdominal Pain, Nausea, Vomiting Genitourinary: Denies: Dysuria Musculoskeletal: Denies: Joint Pain, Joint Tenderness Skin: Denies: Rash, Wounds Neurological: Denies: Numbness, Tingling, Focal weakness Psychiatric: Denies: Anxiety, Depression, Homicidal Ideations, Suicidal Ideations Hematologic/ Lymphatic: Denies: Easy Bruising, Easy Bleeding VTE Information - Inpt Only VTE Present on Admission: No VTE Mechan Device Prophylaxis: Knee High COLIN Hose VTE Pharm Prophylaxis ordered?: Yes Patient Problems: Active and Suspected Problems Acute and chronic respiratory failure (Acute) Acute on chronic systolic heart failure (Acute) - Physical Exam General: Alert, Oriented x3, Cooperative HEENT: Atraumatic, PERRLA, EOMI, Normocephalic Neck: Supple, No JVD, Negative Carotid Bruits Lungs: Clear to auscultation, Diminished, - - Decreased air movement. Cardiovascular: Regular rate, No murmurs Abdomen: Bowel Sounds Present, Soft, Non Tender Extremities: No edema, Capillary Refill Less than 3 Seconds Skin: No rashes, No breakdown Musculoskeletal: No Tenderness to Palpation of Joints or Extremities Neurological: Cranial nerves II-XII grossly intact Psych/Mental Status: Normal Affect, Appropriate Assessment/Plan Active and Suspected Problems Acute and chronic respiratory failure (Acute) Acute on chronic systolic heart failure (Acute) 71 year old male with below past medical history significant for severe COPD, hospitalized for acute respiratory failure requiring intubation, complicated by PEA arrest,admitted to TCU with debility, here for rehabilitation, strengthening, prior to discharge home with spouse. Debility - PT/OT. Pain - Tylenol 1000MG Q8H PRN mild pain, Oxycodone 5MG Q6H PRN severe pain. Bowel - Magnesium citrate 300ML PO every other day. Pneumonia vaccination - Administer Prevnar 13 and/or Pneumovax 23 as necessary. DVT prophylaxis - Lovenox 40MG SC daily. Hyperlipidemia - Atorvastatin 20MG QHS. Cardiomyopathy - Coreg 3.125MG BID, Lisinopril 2.5MG QHS, Lasix 40MG daily. Anxiety - Clonazepam 0.5MG BID. COPD - Advair 250/50 1 puff BID, Duoneb 3ML Q4HWA, Prednisone 40MG daily, BiPAP when sleeping, or naps. Congestion - Mucinex 1200MG BID. Iron deficiency - Ferrex 150MG daily. GERD - Pantoprazole 40MG daily.
--- NOTE | 2017-07-09 17:46 | HP.PCM_ITS ---
Problem List (1) Acute and chronic respiratory failure Status: Acute (2) Melanoma Status: Chronic (3) Acute on chronic systolic heart failure Status: Acute (4) Iron deficiency anemia Status: Chronic (5) Hyperlipidemia Status: Chronic (6) Anxiety Status: Chronic (7) GERD (gastroesophageal reflux disease) Status: Chronic (8) Osteoarthritis Status: Chronic (9) Cardiomyopathy Status: Chronic (10) COLD (chronic obstructive lung disease) Status: Chronic Qualifiers: (11) Former smoker Status: Chronic Comment: Z87.891 (12) Shortness of breath Status: Acute (13) Hypertension Status: Chronic History of Present Illness Date of Admission: 07/09/17 Chief Complaint: Here for rehabilitation, strengthening, prior to discharge home with spouse. The patient is a 71 year old Male with below past medical history presented to [facility] Emergency Department 07/05/2017 with shortness of breath. 07/04/2017 EKG atrial fibrillation, marked ST abnormality, possible lateral subendocardial injury. 07/04/2017 Chest X-ray mild basilar atelectasis. Shortness of breath x 1 day. On Keflex for urinary tract infection. Generalized weakness, Increasing shortness of breath, dry cough. Hemoglobin 10.5, COW 43. pH 7.187, PCO2 13, PO2 149. BiPAP, Solu-Medrol IV, Urine > 100 WBC, urine culture sent. Rocephin IV, Lactic acid normal, Troponin negative. Patient took off BiPAP, suffered cardiac arrest, CPR, intubation, Propofol drip. 07/05/2017 Admit to ICU. Rocephin 1GM IV Q24H, Solu-Medrol 40MG IV Q8H. 07/05/2017 Chest X-ray negative. 07/05/2017 Dr. Montgomery recommended continued ventilator with spontaneous awakening , breathing trials. Continue aerosols, steroids. Continue Fentanyl sedation. Start tube feeds. Pepcid, Lovenox for ICU prophylaxis. Check Respiratory panel. 07/06/2017 Dr. Montgomery considered extubation 07/07/2017. Maintain potassium, magnesium. 07/07/2017 Extubated to BiPAP 06/09. Solu-Medrol to prednisone 40MG daily. 07/08/2017 Respiratory panel negative. Blood, sputum cultures negative. Patient is non-compliant with his care. Multiple conversations regarding hospice care for severe COPD, patient requested FULL CODE status. 07/09/2017 Admit to TCU for rehabilitation, strengthening, prior to discharge home with spouse. Past Medical History Past Medical History (Chronic Problems): Chronic Problems Melanoma (Chronic) Iron deficiency anemia (Chronic) Hyperlipidemia (Chronic) Anxiety (Chronic) GERD (gastroesophageal reflux disease) (Chronic) Osteoarthritis (Chronic) Arthritis (Chronic) Benign hypertension (Chronic) Cardiomyopathy (Chronic) COLD (chronic obstructive lung disease) (Chronic) History of gastroesophageal reflux (GERD) (Chronic) History of urethral stricture (Chronic) Status post cardiac catheterization (Chronic) Malignant melanoma of back (Chronic) C43.59 2 cm superficial spreading melanoma wound left upper back with a thickness of 0.54 mm 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) 6 mm pigmented lesion right lateral chest wall Former smoker (Chronic) Z87.891 Open wound of left side of back (Chronic) open melanoma wound left upper back Systolic CHF, acute on chronic (Chronic) Debility (Chronic) MILA (obstructive sleep apnea) (Chronic) Hypertension (Chronic) Urinary retention with incomplete bladder emptying (Chronic) Bowel incontinence (Chronic) Allergies latex Allergy (Severe, Verified 07/02/17 21:50) Swelling rivaroxaban [From Xarelto] Adverse Reaction (Verified 07/02/17 21:50) excessive bleeding Home Medications: Ambulatory Orders Medication Instructions Recorded Furosemide [Lasix] 40 mg PO DAILY 02/01/13 Budesonide/Formoterol 160/4.5 2 puff INHALATION DAILY 03/26/17 [Symbicort 160/4.5 Mcg Inhaler (SP)] Carvedilol [Coreg (Beta Paulie)] 3.125 mg PO BID 03/26/17 Acetaminophen [Tylenol Tablet] 650 mg PO Q6H PRN PRN tablet 07/09/17 Clonazepam [Klonopin] 0.5 mg PO BID #14 tab 07/09/17 Guaifenesin [Mucinex] 1,200 mg PO BID 07/09/17 Ipratropium/Albuterol Sulfate 3 ml INHALATION Q4HWA.RT 07/09/17 [Duoneb] Iron Polysaccharide Complex 150 mg PO DAILYCM 07/09/17 [Ferrex 150] Lisinopril [Zestril] 2.5 mg PO QHS 07/09/17 Magnesium Citrate [Citrate Of 300 ml PO QODAY 07/09/17 Magnesia] Oxycodone [Oxyir] 5 mg PO Q6H PRN PRN 7 Days #20 tab 07/09/17 Pantoprazole Sodium [Protonix] 40 mg PO DAILY 07/09/17 Prednisone [Deltasone] 40 mg PO DAILY 07/09/17 Simvastatin 40 mg PO QPM 07/09/17 Surgical History: appendectomy, total hip arthroplasty - Bilateral., total knee arthroplasty, - - Left carpal tunnel release, rotator cuff surgery, bladder surgery. Psychiatric History: Anxiety Lives: Spouse/ Significant Other Smoking Status: Former smoker Tobacco Use: Non-smoker Alcohol: None Drugs: None - *Family History Maternal History Items: - - Non-contributory. Paternal History Items: No pertinent history Review of Systems Constitutional: Denies: Chills, Fever, Weight Change HEENT: Denies: Head Aches, Sinus Congestion, Sinus Drainage Cardiovascular: Denies: Chest Pain, Palpitations Respiratory: Denies: Cough, Shortness of breath at rest, Sputum production Gastrointestinal: Denies: Abdominal Pain, Nausea, Vomiting Genitourinary: Denies: Dysuria Musculoskeletal: Denies: Joint Pain, Joint Tenderness Skin: Denies: Rash, Wounds Neurological: Denies: Numbness, Tingling, Focal weakness Psychiatric: Denies: Anxiety, Depression, Homicidal Ideations, Suicidal Ideations Hematologic/ Lymphatic: Denies: Easy Bruising, Easy Bleeding VTE Information - Inpt Only VTE Present on Admission: No VTE Mechan Device Prophylaxis: Knee High COLIN Hose VTE Pharm Prophylaxis ordered?: Yes Patient Problems: Active and Suspected Problems Acute and chronic respiratory failure (Acute) Acute on chronic systolic heart failure (Acute) - Physical Exam General: Alert, Oriented x3, Cooperative HEENT: Atraumatic, PERRLA, EOMI, Normocephalic Neck: Supple, No JVD, Negative Carotid Bruits Lungs: Clear to auscultation, Diminished, - - Decreased air movement. Cardiovascular: Regular rate, No murmurs Abdomen: Bowel Sounds Present, Soft, Non Tender Extremities: No edema, Capillary Refill Less than 3 Seconds Skin: No rashes, No breakdown Musculoskeletal: No Tenderness to Palpation of Joints or Extremities Neurological: Cranial nerves II-XII grossly intact Psych/Mental Status: Normal Affect, Appropriate Assessment/Plan Active and Suspected Problems Acute and chronic respiratory failure (Acute) Acute on chronic systolic heart failure (Acute) 71 year old male with below past medical history significant for severe COPD, hospitalized for acute respiratory failure requiring intubation, complicated by PEA arrest,admitted to TCU with debility, here for rehabilitation, strengthening , prior to discharge home with spouse. * Debility - PT/OT. * Pain - Tylenol 1000MG Q8H PRN mild pain, Oxycodone 5MG Q6H PRN severe pain. * Bowel - Magnesium citrate 300ML PO every other day. * Pneumonia vaccination - Administer Prevnar 13 and/or Pneumovax 23 as necessary. * DVT prophylaxis - Lovenox 40MG SC daily. * Hyperlipidemia - Atorvastatin 20MG QHS. * Cardiomyopathy - Coreg 3.125MG BID, Lisinopril 2.5MG QHS, Lasix 40MG daily. * Anxiety - Clonazepam 0.5MG BID. * COPD - Advair 250/50 1 puff BID, Duoneb 3ML Q4HWA, Prednisone 40MG daily, BiPAP when sleeping, or naps. * Congestion - Mucinex 1200MG BID. * Iron deficiency - Ferrex 150MG daily. * GERD - Pantoprazole 40MG daily.
[2017-07-09] MEDS: oxyCODONE 5 MG Tablet PO (18:07)
[2017-07-09] MEDS: Carvedilol 3.125 MG TABLET PO (18:09)
[2017-07-09] MEDS: guaiFENesin 1,200 MG Tablet 1200 MG PO (18:11)
[2017-07-09] MEDS: clonazePAM 0.5 MG Tablet PO (18:14)
[2017-07-09 18:21] VITALS: BMI 32.7
[2017-07-09 18:25] VITALS: BMI 32.7
[2017-07-09 18:35] VITALS: PULSE 92; RESP 17; O2SAT 95
[2017-07-09] MEDS: Ipratropium/Albuterol Sulfate 3 ML AMPUL.NEB INHALATION (18:35)
[2017-07-09 19:04] VITALS: BP 119/73; PULSE 105; RESP 18; TEMP 37.1; O2SAT 98
[2017-07-09 19:30] VITALS: PULSE 86; RESP 12; RESP 22; O2SAT 92
[2017-07-09] MEDS: Atorvastatin Calcium 20 MG Tablet PO (20:46)
[2017-07-09] MEDS: Lisinopril 2.5 MG Tablet PO (20:46)
[2017-07-09 22:30] VITALS: PULSE 86; RESP 12; RESP 20; O2SAT 95
[2017-07-10] VITALS (7 sets, daily range): BP systolic 148; BP diastolic 62; PULSE 78–90; RESP 12–21; TEMP 36.3; O2SAT 93–96
[2017-07-10] MEDS: Furosemide 40 MG Tablet PO (06:39)
[2017-07-10] MEDS: Carvedilol 3.125 MG TABLET PO ×2 (06:39→16:43)
[2017-07-10] MEDS: Pantoprazole Sodium 40 MG Tablet PO (06:39)
[2017-07-10] MEDS: guaiFENesin 1,200 MG Tablet 1200 MG PO ×2 (06:41→16:44)
[2017-07-10] MEDS: oxyCODONE 5 MG Tablet PO ×3 (06:45→20:31)
[2017-07-10] MEDS: Enoxaparin 40 MG/0.4 ML Syringe SC (06:46)
[2017-07-10] MEDS: clonazePAM 0.5 MG Tablet PO ×2 (06:46→16:43)
[2017-07-10] MEDS: Ipratropium/Albuterol Sulfate 3 ML AMPUL.NEB INHALATION ×4 (07:15→19:08)
[2017-07-10 08:17] LABS: Absolute Lymphocyte Count 0.99 X10^3/ul (0.83-4.51); Absolute Neutrophil Count 6.8 X10^3/uL (2.0-7.7); Basophil# 0.01 X10^3/uL; Basophil% 0.1 % (0-1); Hematocrit 30.2 % (40-54); Hemoglobin 9.1 g/dl (13.0-16.5); Lymphocyte # 0.99 X10^3/ul (4.0); Lymphocyte % 10.9 % (19-41); Mean Corp Hgb Conc 30.1 g/gl (32-36); Mean Corpuscular Hgb 28.3 pg (27.0-32.0); Mean Corpuscular Volume 94.1 fL (80-94); Mean Platelet Vol. 9.5 fl (6.2-12.0); Monocyte# 1.18 X10^3/uL; Neutrophil # 6.77 X10^3/uL (2.7-7.7); Neutrophil % 74.8 % (47-70); Platelet Count 170 K/mm3 (150-450); RBC Distribution Width CV 14.9 % (11.6-14.6); RBC Distribution Width SD 48.6 fl (35.1-43.9); Red Blood Count 3.21 M/mm3 (4.6-6.2); White Blood Count 9.1 K/mm3 (4.4-11.0)
[2017-07-10 08:24] LABS: POSITIVE COUNT NO; POSITIVE DIFFERENTIAL NO; POSITIVE MORPHOLOGY NO
[2017-07-10 08:40] LABS: Anion Gap 1 (5-15); BUN 22 mg/dL (7-18); BUN/Creat Ratio 46.1 RATIO (10-20); Calcium,Total 8.2 mg/dL (8.5-10.1); Chloride 97 mmol/L (98-107); Creatinine, Serum 0.48 mg/dL (0.70-1.30); EST Glomerular Filtration Rate 184 mL/min (>60); Est Glom Filt Rate - Afr Amer 222 mL/min (>60); Estimated Creatinine Clearance 65.55 ml/min; Glucose 158 mg/dL (74-106); Potassium 4.7 mmol/L (3.5-5.1); Sodium Level 138 mmol/L (136-145)
[2017-07-10] MEDS: Iron Polysaccharide Complex 150 MG CAPSULE PO (08:44)
[2017-07-10] MEDS: Tuberculin,Purif.prot.deriv. 50 TU/ML Vial 5 ML ID (10:14)
[2017-07-10] MEDS: 0.9% NaCl Peripheral Flush Adult/Peds IV (10:16)
--- NOTE | 2017-07-10 13:56 | NURSING ---
DR. STOVER UPDATED THAT RESIDENT IS REQUESTING TO HAVE DIET CHANGED TO REGULAR AND SCDS, N.O. RECEIVED.
--- NOTE | 2017-07-10 17:31 | PCM.PN.RX ---
<Jeramie Quigley - Last Filed: 07/10/17 17:31> Progress Note - Pharmacy Subjective: TCU Admission Objective: Allergies latex Allergy (Severe, Verified 07/02/17 21:50) Swelling rivaroxaban [From Xarelto] Adverse Reaction (Verified 07/02/17 21:50) excessive bleeding Home Medications Medication Instructions Recorded Furosemide [Lasix] 40 mg PO DAILY 02/01/13 Budesonide/Formoterol 160/4.5 2 puff INHALATION DAILY 03/26/17 [Symbicort 160/4.5 Mcg Inhaler (SP)] Carvedilol [Coreg (Beta Paulie)] 3.125 mg PO BID 03/26/17 Acetaminophen [Tylenol Tablet] 650 mg PO Q6H PRN PRN tablet 07/09/17 Clonazepam [Klonopin] 0.5 mg PO BID #14 tab 07/09/17 Guaifenesin [Mucinex] 1,200 mg PO BID 07/09/17 Ipratropium/Albuterol Sulfate 3 ml INHALATION Q4HWA.RT 07/09/17 [Duoneb] Iron Polysaccharide Complex 150 mg PO DAILYCM 07/09/17 [Ferrex 150] Lisinopril [Zestril] 2.5 mg PO QHS 07/09/17 Magnesium Citrate [Citrate Of 300 ml PO QODAY 07/09/17 Magnesia] Oxycodone [Oxyir] 5 mg PO Q6H PRN PRN 7 Days #20 tab 07/09/17 Pantoprazole Sodium [Protonix] 40 mg PO DAILY 07/09/17 Prednisone [Deltasone] 40 mg PO DAILY 07/09/17 Simvastatin 40 mg PO QPM 07/09/17 Current Medications Generic Name Dose Route Start Last Admin Trade Name Freq PRN Reason Stop Dose Admin Acetaminophen 1,000 mg 07/09/17 18:33 Tylenol PO Q8H PRN PRN MILD PAIN (1-3/10) Albuterol/Ipratropium 3 ml 07/09/17 17:45 07/10/17 15:15 Duoneb INHALATION 3 ml Q4HWA.RT EDU Administration Atorvastatin Calcium 20 mg 07/09/17 22:00 07/09/17 20:46 Lipitor PO 20 mg QHS EDU Administration Carvedilol 3.125 mg 07/09/17 18:00 03/18/18 16:43 Coreg PO 3.125 mg BID EDU Administration Clonazepam 0.5 mg 07/09/17 18:00 07/10/17 16:43 Klonopin PO 0.5 mg BID EDU Administration Emollient Ointment 1 applic 07/10/17 06:00 07/10/17 06:40 Eucerin Intensive Repair TOPICAL 1 applicatio 0600,2200 EDU Administration Protocol Enoxaparin Sodium 40 mg 07/10/17 06:00 07/10/17 06:46 Lovenox SC 40 mg DAILY@0600 EDU Administration Furosemide 40 mg 07/10/17 06:00 07/10/17 06:39 Lasix PO 40 mg DAILY EDU Administration Guaifenesin 1,200 mg 07/09/17 18:00 07/10/17 16:44 Mucinex PO 1,200 mg BID EDU Administration Lisinopril 2.5 mg 07/09/17 22:00 07/09/17 20:46 Zestril PO 2.5 mg QHS EDU Administration Magnesium Citrate 300 ml 07/11/17 10:00 Citrate Of Magnesia PO QODAY [facility] Oxycodone HCl 5 mg 07/09/17 17:39 07/10/17 12:45 Oxyir PO 5 mg Q6H PRN PRN Administration SEVERE PAIN (6-10/10) Pantoprazole Sodium 40 mg 07/10/17 06:00 07/10/17 06:39 Protonix PO 40 mg DAILY [facility] Administration Polysaccharide Iron Complex 150 mg 07/10/17 08:00 07/10/17 08:44 Ferrex 150 PO 150 mg DAILYCM EDU Administration Prednisone 40 mg 07/10/17 08:00 07/10/17 08:44 Prednisone PO 40 mg DAILYCM [facility] Administration Fluticasone/Salmeterol 1 puff 07/09/17 18:00 07/10/17 16:44 Advair 250/50 Mcg Diskus INHALATION 1 puff BID EDU Administration Sodium Chloride 5 - 30 ml 07/10/17 09:34 07/10/17 10:16 IV 20 ml UD PRN Administration SALINE FLUSH Sodium Chloride 5 - 30 ml 07/10/17 09:34 IV UD PRN SALINE FLUSH Tuberculin PPD 5 tu 07/17/17 10:00 Tubersol, Aplisol, Ppd ID 07/17/17 10:01 X1 ONE Problem List Acute and chronic respiratory failure (Acute) Melanoma (Chronic) Acute on chronic systolic heart failure (Acute) Iron deficiency anemia (Chronic) Hyperlipidemia (Chronic) Vital Signs Temp Pulse Resp BP Pulse Ox 97.4 F L 81 18 148/62 H 93 07/10/17 16:00 07/10/17 16:00 07/10/17 16:00 07/10/17 16:00 07/10/17 16:00 Oxygen Flow Rate (L/min) 4 Oxygen Delivery Method Nasal Cannula Weight: 97.7 kg Body Mass Index (BMI) 32.7 Sodium 138 mmol/L (136-145) 07/10/17 07:45 Potassium 4.7 mmol/L (3.5-5.1) 07/10/17 07:45 Chloride 97 mmol/L (98-107) L 07/10/17 07:45 Carbon Dioxide 40.0 mmol/L (21.0-32.0) H 07/10/17 07:45 Anion Gap 1 (5-15) L 07/10/17 07:45 BUN 22 mg/dL (7-18) H 07/10/17 07:45 Creatinine 0.48 mg/dL (0.70-1.30) L 07/10/17 07:45 Est GFR (MDRD) Af Amer 222 mL/min (>60) 07/10/17 07:45 Est GFR (MDRD) Non-Af 184 mL/min (>60) 07/10/17 07:45 BUN/Creatinine Ratio 46.1 RATIO (10-20) H 07/10/17 07:45 Glucose 158 mg/dL (74-106) H 07/10/17 07:45 Assessment/Plan: 1) Pain APAP for mild pain, oxycodone for severe pain. Continue to monitor daily pain scores, prn medication use. 2) Cardiomyopathy Lisinopril, carvedilol, furosemide. Avg BP/HR within goal ranges, K wnl, BUN/SCr at baseline. Continue to monitor BP/HR, renal function, electrolytes. 3) HLD Atorvastatin at HS. Lipids at goal, hepatic enzymes wnl. Continue to monitor lipids, hepatic enzymes. 4) Pulm Duoneb aerosols scheduled, Advair inhaler scheduled, guaifenesin twice daily, prednisone daily. Continue to monitor for exacerbation. * Therapy duplication with Advair (salmeterol) and Duoneb aerosols (albuterol). Consider switching Duoneb aerosols to tiotropium aerosols or Spiriva inhaler. * Inpatient note from line installer repairer recommended 5 day prednisone burst. Please add stop date to prednisone order. 5) GI Pantoprazole daily. Continue to monitor s/s GI distress. 6) Nutrition Fe daily. Continue to monitor clinically. 7) DVT PPx Enoxaparin daily. Continue to monitor s/s bleeding/clot. Psychotropic Medications: 8) Anxiety Clonazepam twice daily. Continue to monitor s/s anxiety. Unnecessary Medications: None Bowel Regimen: 9) Mg citrate every other day. Continue to monitor for constipation/diarrhea. Date of Note:: 07/10/17 - Provider Comments Provider responsibility: Provider responsible to enter orders to implement recommendations <Yusef Urrutia Chi - Last Filed: 07/11/17 08:03> Progress Note - Pharmacy Subjective: [] Objective: Allergies latex Allergy (Severe, Verified 07/02/17 21:50) Swelling rivaroxaban [From Xarelto] Adverse Reaction (Verified 07/02/17 21:50) excessive bleeding Home Medications Medication Instructions Recorded Furosemide [Lasix] 40 mg PO DAILY 02/01/13 Budesonide/Formoterol 160/4.5 2 puff INHALATION DAILY 03/26/17 [Symbicort 160/4.5 Mcg Inhaler (SP)] Carvedilol [Coreg (Beta Paulie)] 3.125 mg PO BID 03/26/17 Acetaminophen [Tylenol Tablet] 650 mg PO Q6H PRN PRN tablet 07/09/17 Clonazepam [Klonopin] 0.5 mg PO BID #14 tab 07/09/17 Guaifenesin [Mucinex] 1,200 mg PO BID 07/09/17 Ipratropium/Albuterol Sulfate 3 ml INHALATION Q4HWA.RT 07/09/17 [Duoneb] Iron Polysaccharide Complex 150 mg PO DAILYCM 07/09/17 [Ferrex 150] Lisinopril [Zestril] 2.5 mg PO QHS 07/09/17 Magnesium Citrate [Citrate Of 300 ml PO QODAY 07/09/17 Magnesia] Oxycodone [Oxyir] 5 mg PO Q6H PRN PRN 7 Days #20 tab 07/09/17 Pantoprazole Sodium [Protonix] 40 mg PO DAILY 07/09/17 Prednisone [Deltasone] 40 mg PO DAILY 07/09/17 Simvastatin 40 mg PO QPM 07/09/17 Current Medications Generic Name Dose Route Start Last Admin Trade Name Freq PRN Reason Stop Dose Admin Acetaminophen 1,000 mg 07/09/17 18:33 Tylenol PO Q8H PRN PRN MILD PAIN (1-3/10) Albuterol/Ipratropium 3 ml 07/09/17 17:45 07/10/17 19:08 Duoneb INHALATION 3 ml Q4HWA.RT EDU Administration Atorvastatin Calcium 20 mg 07/09/17 22:00 07/10/17 20:28 Lipitor PO 20 mg QHS EDU Administration Carvedilol 3.125 mg 07/09/17 18:00 07/11/17 04:55 Coreg PO 3.125 mg BID EDU Administration Clonazepam 0.5 mg 07/09/17 18:00 07/11/17 04:59 Klonopin PO 0.5 mg BID EDU Administration Emollient Ointment 1 applic 07/10/17 06:00 07/11/17 04:59 Eucerin Intensive Repair TOPICAL 1 applicatio 0600,2200 [facility] Administration Protocol Enoxaparin Sodium 40 mg 07/10/17 06:00 07/11/17 04:55 Lovenox SC 40 mg DAILY@0600 EDU Administration Furosemide 40 mg 07/10/17 06:00 07/11/17 04:55 Lasix PO 40 mg DAILY EDU Administration Guaifenesin 600 mg 07/11/17 06:00 07/11/17 04:55 Mucinex PO 600 mg 4X/DAY EDU Administration Lisinopril 2.5 mg 07/09/17 22:00 07/10/17 20:28 Zestril PO 2.5 mg QHS EDU Administration Magnesium Citrate 300 ml 07/11/17 10:00 Citrate Of Magnesia PO QODAY EDU Oxycodone HCl 5 mg 07/09/17 17:39 07/11/17 04:56 Oxyir PO 5 mg Q6H PRN PRN Administration SEVERE PAIN (6-10/10) Pantoprazole Sodium 40 mg 07/10/17 06:00 07/11/17 04:55 Protonix PO 40 mg DAILY EDU Administration Polysaccharide Iron Complex 150 mg 07/10/17 08:00 07/10/17 08:44 Ferrex 150 PO 150 mg DAILYCM EDU Administration Prednisone 40 mg 07/10/17 08:00 07/10/17 08:44 Prednisone PO 40 mg DAILYCM EDU Administration Fluticasone/Salmeterol 1 puff 07/09/17 18:00 07/11/17 04:56 Advair 250/50 Mcg Diskus INHALATION 1 puff BID EDU Administration Sodium Chloride 5 - 30 ml 07/10/17 09:34 07/10/17 10:16 IV 20 ml UD PRN Administration SALINE FLUSH Sodium Chloride 5 - 30 ml 07/10/17 09:34 IV UD PRN SALINE FLUSH Tuberculin PPD 5 tu 07/17/17 10:00 Tubersol, Aplisol, Ppd ID 07/17/17 10:01 X1 ONE Problem List Acute and chronic respiratory failure (Acute) Melanoma (Chronic) Acute on chronic systolic heart failure (Acute) Iron deficiency anemia (Chronic) Hyperlipidemia (Chronic) Vital Signs Temp Pulse Resp BP Pulse Ox 97.4 F L 83 21 H 148/62 H 97 07/10/17 16:00 07/11/17 03:40 07/11/17 03:40 07/10/17 16:00 07/11/17 03:40 Oxygen Flow Rate (L/min) 4 Oxygen Delivery Method Nasal Cannula Weight: 97.7 kg Body Mass Index (BMI) 32.7 Sodium 138 mmol/L (136-145) 07/10/17 07:45 Potassium 4.7 mmol/L (3.5-5.1) 07/10/17 07:45 Chloride 97 mmol/L (98-107) L 07/10/17 07:45 Carbon Dioxide 40.0 mmol/L (21.0-32.0) H 07/10/17 07:45 Anion Gap 1 (5-15) L 07/10/17 07:45 BUN 22 mg/dL (7-18) H 07/10/17 07:45 Creatinine 0.48 mg/dL (0.70-1.30) L 07/10/17 07:45 Est GFR (MDRD) Af Amer 222 mL/min (>60) 07/10/17 07:45 Est GFR (MDRD) Non-Af 184 mL/min (>60) 07/10/17 07:45 BUN/Creatinine Ratio 46.1 RATIO (10-20) H 07/10/17 07:45 Glucose 158 mg/dL (74-106) H 07/10/17 07:45 Assessment/Plan: Psychotropic Medications: Unnecessary Medications: Bowel Regimen: - Provider Comments Provider responsibility: Provider responsible to enter orders to implement recommendations Provider Comments to Recommendations by Pharmacy: Agree
--- NOTE | 2017-07-10 17:42 | PHA.CONS_ITS ---
<Jeramie Quigley - Last Filed: 07/10/17 17:31> Progress Note - Pharmacy Subjective: TCU Admission Objective: Allergies latex Allergy (Severe, Verified 07/02/17 21:50) Swelling rivaroxaban [From Xarelto] Adverse Reaction (Verified 07/02/17 21:50) excessive bleeding Home Medications Medication Instructions Recorded Furosemide [Lasix] 40 mg PO DAILY 02/01/13 Budesonide/Formoterol 160/4.5 2 puff INHALATION DAILY 03/26/17 [Symbicort 160/4.5 Mcg Inhaler (SP)] Carvedilol [Coreg (Beta Paulie)] 3.125 mg PO BID 03/26/17 Acetaminophen [Tylenol Tablet] 650 mg PO Q6H PRN PRN tablet 07/09/17 Clonazepam [Klonopin] 0.5 mg PO BID #14 tab 07/09/17 Guaifenesin [Mucinex] 1,200 mg PO BID 07/09/17 Ipratropium/Albuterol Sulfate 3 ml INHALATION Q4HWA.RT 07/09/17 [Duoneb] Iron Polysaccharide Complex 150 mg PO DAILYCM 07/09/17 [Ferrex 150] Lisinopril [Zestril] 2.5 mg PO QHS 07/09/17 Magnesium Citrate [Citrate Of 300 ml PO QODAY 07/09/17 Magnesia] Oxycodone [Oxyir] 5 mg PO Q6H PRN PRN 7 Days #20 tab 07/09/17 Pantoprazole Sodium [Protonix] 40 mg PO DAILY 07/09/17 Prednisone [Deltasone] 40 mg PO DAILY 07/09/17 Simvastatin 40 mg PO QPM 07/09/17 Current Medications Generic Name Dose Route Start Last Admin Trade Name Freq PRN Reason Stop Dose Admin Acetaminophen 1,000 mg 07/09/17 18:33 Tylenol PO Q8H PRN PRN MILD PAIN (1-3/10) Albuterol/Ipratropium 3 ml 07/09/17 17:45 07/10/17 15:15 Duoneb INHALATION 3 ml Q4HWA.RT EDU Administration Atorvastatin Calcium 20 mg 07/09/17 22:00 07/09/17 20:46 Lipitor PO 20 mg QHS EDU Administration Carvedilol 3.125 mg 07/09/17 18:00 03/18/18 16:43 Coreg PO 3.125 mg BID EDU Administration Clonazepam 0.5 mg 07/09/17 18:00 07/10/17 16:43 Klonopin PO 0.5 mg BID EDU Administration Emollient Ointment 1 applic 07/10/17 06:00 07/10/17 06:40 Eucerin Intensive Repair TOPICAL 1 applicatio 0600,2200 EDU Administration Protocol Enoxaparin Sodium 40 mg 07/10/17 06:00 07/10/17 06:46 Lovenox SC 40 mg DAILY@0600 EDU Administration Furosemide 40 mg 07/10/17 06:00 07/10/17 06:39 Lasix PO 40 mg DAILY EDU Administration Guaifenesin 1,200 mg 07/09/17 18:00 07/10/17 16:44 Mucinex PO 1,200 mg BID EDU Administration Lisinopril 2.5 mg 07/09/17 22:00 07/09/17 20:46 Zestril PO 2.5 mg QHS EDU Administration Magnesium Citrate 300 ml 07/11/17 10:00 Citrate Of Magnesia PO QODAY [facility] Oxycodone HCl 5 mg 07/09/17 17:39 07/10/17 12:45 Oxyir PO 5 mg Q6H PRN PRN Administration SEVERE PAIN (6-10/10) Pantoprazole Sodium 40 mg 07/10/17 06:00 07/10/17 06:39 Protonix PO 40 mg DAILY [facility] Administration Polysaccharide Iron Complex 150 mg 07/10/17 08:00 07/10/17 08:44 Ferrex 150 PO 150 mg DAILYCM EDU Administration Prednisone 40 mg 07/10/17 08:00 07/10/17 08:44 Prednisone PO 40 mg DAILYCM [facility] Administration Fluticasone/Salmeterol 1 puff 07/09/17 18:00 07/10/17 16:44 Advair 250/50 Mcg Diskus INHALATION 1 puff BID EDU Administration Sodium Chloride 5 - 30 ml 07/10/17 09:34 07/10/17 10:16 IV 20 ml UD PRN Administration SALINE FLUSH Sodium Chloride 5 - 30 ml 07/10/17 09:34 IV UD PRN SALINE FLUSH Tuberculin PPD 5 tu 07/17/17 10:00 Tubersol, Aplisol, Ppd ID 07/17/17 10:01 X1 ONE Problem List Acute and chronic respiratory failure (Acute) Melanoma (Chronic) Acute on chronic systolic heart failure (Acute) Iron deficiency anemia (Chronic) Hyperlipidemia (Chronic) Vital Signs Temp Pulse Resp BP Pulse Ox 97.4 F L 81 18 148/62 H 93 07/10/17 16:00 07/10/17 16:00 07/10/17 16:00 07/10/17 16:00 07/10/17 16:00 Oxygen Flow Rate (L/min) 4 Oxygen Delivery Method Nasal Cannula Weight: 97.7 kg Body Mass Index (BMI) 32.7 Sodium 138 mmol/L (136-145) 07/10/17 07:45 Potassium 4.7 mmol/L (3.5-5.1) 07/10/17 07:45 Chloride 97 mmol/L (98-107) L 07/10/17 07:45 Carbon Dioxide 40.0 mmol/L (21.0-32.0) H 07/10/17 07:45 Anion Gap 1 (5-15) L 07/10/17 07:45 BUN 22 mg/dL (7-18) H 07/10/17 07:45 Creatinine 0.48 mg/dL (0.70-1.30) L 07/10/17 07:45 Est GFR (MDRD) Af Amer 222 mL/min (>60) 07/10/17 07:45 Est GFR (MDRD) Non-Af 184 mL/min (>60) 07/10/17 07:45 BUN/Creatinine Ratio 46.1 RATIO (10-20) H 07/10/17 07:45 Glucose 158 mg/dL (74-106) H 07/10/17 07:45 Assessment/Plan: 1) Pain APAP for mild pain, oxycodone for severe pain. Continue to monitor daily pain scores, prn medication use. 2) Cardiomyopathy Lisinopril, carvedilol, furosemide. Avg BP/HR within goal ranges, K wnl, BUN/ SCr at baseline. Continue to monitor BP/HR, renal function, electrolytes. 3) HLD Atorvastatin at HS. Lipids at goal, hepatic enzymes wnl. Continue to monitor lipids, hepatic enzymes. 4) Pulm Duoneb aerosols scheduled, Advair inhaler scheduled, guaifenesin twice daily , prednisone daily. Continue to monitor for exacerbation. * Therapy duplication with Advair (salmeterol) and Duoneb aerosols (albuterol ). Consider switching Duoneb aerosols to tiotropium aerosols or Spiriva inhaler. * Inpatient note from newsroom intern recommended 5 day prednisone burst. Please add stop date to prednisone order. 5) GI Pantoprazole daily. Continue to monitor s/s GI distress. 6) Nutrition Fe daily. Continue to monitor clinically. 7) DVT PPx Enoxaparin daily. Continue to monitor s/s bleeding/clot. Psychotropic Medications: 8) Anxiety Clonazepam twice daily. Continue to monitor s/s anxiety. Unnecessary Medications: None Bowel Regimen: 9) Mg citrate every other day. Continue to monitor for constipation/diarrhea. Date of Note:: 07/10/17 - Provider Comments Provider responsibility: Provider responsible to enter orders to implement recommendations <Yusef Urrutia Chi - Last Filed: 07/11/17 08:03> Progress Note - Pharmacy Subjective: [] Objective: Allergies latex Allergy (Severe, Verified 07/02/17 21:50) Swelling rivaroxaban [From Xarelto] Adverse Reaction (Verified 07/02/17 21:50) excessive bleeding Home Medications Medication Instructions Recorded Furosemide [Lasix] 40 mg PO DAILY 02/01/13 Budesonide/Formoterol 160/4.5 2 puff INHALATION DAILY 03/26/17 [Symbicort 160/4.5 Mcg Inhaler (SP)] Carvedilol [Coreg (Beta Paulie)] 3.125 mg PO BID 03/26/17 Acetaminophen [Tylenol Tablet] 650 mg PO Q6H PRN PRN tablet 07/09/17 Clonazepam [Klonopin] 0.5 mg PO BID #14 tab 07/09/17 Guaifenesin [Mucinex] 1,200 mg PO BID 07/09/17 Ipratropium/Albuterol Sulfate 3 ml INHALATION Q4HWA.RT 07/09/17 [Duoneb] Iron Polysaccharide Complex 150 mg PO DAILYCM 07/09/17 [Ferrex 150] Lisinopril [Zestril] 2.5 mg PO QHS 07/09/17 Magnesium Citrate [Citrate Of 300 ml PO QODAY 07/09/17 Magnesia] Oxycodone [Oxyir] 5 mg PO Q6H PRN PRN 7 Days #20 tab 07/09/17 Pantoprazole Sodium [Protonix] 40 mg PO DAILY 07/09/17 Prednisone [Deltasone] 40 mg PO DAILY 07/09/17 Simvastatin 40 mg PO QPM 07/09/17 Current Medications Generic Name Dose Route Start Last Admin Trade Name Freq PRN Reason Stop Dose Admin Acetaminophen 1,000 mg 07/09/17 18:33 Tylenol PO Q8H PRN PRN MILD PAIN (1-3/10) Albuterol/Ipratropium 3 ml 07/09/17 17:45 07/10/17 19:08 Duoneb INHALATION 3 ml Q4HWA.RT EDU Administration Atorvastatin Calcium 20 mg 07/09/17 22:00 07/10/17 20:28 Lipitor PO 20 mg QHS EDU Administration Carvedilol 3.125 mg 07/09/17 18:00 07/11/17 04:55 Coreg PO 3.125 mg BID EDU Administration Clonazepam 0.5 mg 07/09/17 18:00 07/11/17 04:59 Klonopin PO 0.5 mg BID EDU Administration Emollient Ointment 1 applic 07/10/17 06:00 07/11/17 04:59 Eucerin Intensive Repair TOPICAL 1 applicatio 0600,2200 [facility] Administration Protocol Enoxaparin Sodium 40 mg 07/10/17 06:00 07/11/17 04:55 Lovenox SC 40 mg DAILY@0600 EDU Administration Furosemide 40 mg 07/10/17 06:00 07/11/17 04:55 Lasix PO 40 mg DAILY EDU Administration Guaifenesin 600 mg 07/11/17 06:00 07/11/17 04:55 Mucinex PO 600 mg 4X/DAY EDU Administration Lisinopril 2.5 mg 07/09/17 22:00 07/10/17 20:28 Zestril PO 2.5 mg QHS EDU Administration Magnesium Citrate 300 ml 07/11/17 10:00 Citrate Of Magnesia PO QODAY EDU Oxycodone HCl 5 mg 07/09/17 17:39 07/11/17 04:56 Oxyir PO 5 mg Q6H PRN PRN Administration SEVERE PAIN (6-10/10) Pantoprazole Sodium 40 mg 07/10/17 06:00 07/11/17 04:55 Protonix PO 40 mg DAILY EDU Administration Polysaccharide Iron Complex 150 mg 07/10/17 08:00 07/10/17 08:44 Ferrex 150 PO 150 mg DAILYCM EDU Administration Prednisone 40 mg 07/10/17 08:00 07/10/17 08:44 Prednisone PO 40 mg DAILYCM EDU Administration Fluticasone/Salmeterol 1 puff 07/09/17 18:00 07/11/17 04:56 Advair 250/50 Mcg Diskus INHALATION 1 puff BID EDU Administration Sodium Chloride 5 - 30 ml 07/10/17 09:34 07/10/17 10:16 IV 20 ml UD PRN Administration SALINE FLUSH Sodium Chloride 5 - 30 ml 07/10/17 09:34 IV UD PRN SALINE FLUSH Tuberculin PPD 5 tu 07/17/17 10:00 Tubersol, Aplisol, Ppd ID 07/17/17 10:01 X1 ONE Problem List Acute and chronic respiratory failure (Acute) Melanoma (Chronic) Acute on chronic systolic heart failure (Acute) Iron deficiency anemia (Chronic) Hyperlipidemia (Chronic) Vital Signs Temp Pulse Resp BP Pulse Ox 97.4 F L 83 21 H 148/62 H 97 07/10/17 16:00 07/11/17 03:40 07/11/17 03:40 07/10/17 16:00 07/11/17 03:40 Oxygen Flow Rate (L/min) 4 Oxygen Delivery Method Nasal Cannula Weight: 97.7 kg Body Mass Index (BMI) 32.7 Sodium 138 mmol/L (136-145) 07/10/17 07:45 Potassium 4.7 mmol/L (3.5-5.1) 07/10/17 07:45 Chloride 97 mmol/L (98-107) L 07/10/17 07:45 Carbon Dioxide 40.0 mmol/L (21.0-32.0) H 07/10/17 07:45 Anion Gap 1 (5-15) L 07/10/17 07:45 BUN 22 mg/dL (7-18) H 07/10/17 07:45 Creatinine 0.48 mg/dL (0.70-1.30) L 07/10/17 07:45 Est GFR (MDRD) Af Amer 222 mL/min (>60) 07/10/17 07:45 Est GFR (MDRD) Non-Af 184 mL/min (>60) 07/10/17 07:45 BUN/Creatinine Ratio 46.1 RATIO (10-20) H 07/10/17 07:45 Glucose 158 mg/dL (74-106) H 07/10/17 07:45 Assessment/Plan: Psychotropic Medications: Unnecessary Medications: Bowel Regimen: - Provider Comments Provider responsibility: Provider responsible to enter orders to implement recommendations Provider Comments to Recommendations by Pharmacy: Agree
[2017-07-10] MEDS: Lisinopril 2.5 MG Tablet PO (20:28)
[2017-07-10] MEDS: Atorvastatin Calcium 20 MG Tablet PO (20:28)
[2017-07-11] VITALS (8 sets, daily range): BP systolic 114; BP diastolic 53; PULSE 80–96; RESP 12–21; TEMP 36.5; O2SAT 89–97
[2017-07-11] MEDS: Pantoprazole Sodium 40 MG Tablet PO (04:55)
[2017-07-11] MEDS: Furosemide 40 MG Tablet PO (04:55)
[2017-07-11] MEDS: Enoxaparin 40 MG/0.4 ML Syringe SC (04:55)
[2017-07-11] MEDS: guaiFENesin 600 MG Tablet PO ×4 (04:55→20:42)
[2017-07-11] MEDS: Carvedilol 3.125 MG TABLET PO ×2 (04:55→17:36)
[2017-07-11] MEDS: oxyCODONE 5 MG Tablet PO ×3 (04:56→14:38)
[2017-07-11] MEDS: clonazePAM 0.5 MG Tablet PO ×2 (04:59→17:40)
[2017-07-11] MEDS: Iron Polysaccharide Complex 150 MG CAPSULE PO (08:11)
[2017-07-11] MEDS: Magnesium Citrate 300 ML PO (08:13)
--- NOTE | 2017-07-11 08:50 | CPS ---
This ROPE WALKER spoke to sleep lab concerning sleep study/home pap unit. Per sleep lab, [place] [facility] [place].
--- NOTE | 2017-07-11 09:16 | NURSING ---
Addendum entered by Fiorella Mcintosh 07/11/17 09:54: Dr Urrutia ok with pt getting another oxyir 5mg since other found on floor. Original Note: staff found oxyir pill laying on floor this AM. wasted pill w/ALEX Garcia. Notified Dr Urrutia and new order to give another oxyir d/t pt pain in ribs from chest compressions during acute hospital stay. New order to change oxyir to q4prn
[2017-07-11] MEDS: 0.9% NaCl Peripheral Flush Adult/Peds IV ×2 (09:20→20:44)
[2017-07-11] MEDS: Ipratropium/Albuterol Sulfate 3 ML AMPUL.NEB INHALATION (19:00)
--- NOTE | 2017-07-11 19:15 | NURSING ---
pt sat dropping to 50's on 4 liter oxygen, reapplied bipap machine then goes up to 80's. respiratory notified. will continue to monitor. pt continues to ask to remove and explained that it not a good option right now. Pt verbalized understanding.
[2017-07-11] MEDS: Lisinopril 2.5 MG Tablet PO (20:42)
[2017-07-11] MEDS: Atorvastatin Calcium 20 MG Tablet PO (20:42)
[2017-07-12] VITALS (9 sets, daily range): BP systolic 116; BP diastolic 56; PULSE 61–83; RESP 12–26; TEMP 36.7; O2SAT 91–97
[2017-07-12] MEDS: Pantoprazole Sodium 40 MG Tablet PO (05:39)
[2017-07-12] MEDS: Enoxaparin 40 MG/0.4 ML Syringe SC (05:39)
[2017-07-12] MEDS: clonazePAM 0.5 MG Tablet PO ×2 (05:39→17:49)
[2017-07-12] MEDS: guaiFENesin 600 MG Tablet PO ×4 (05:39→21:06)
[2017-07-12] MEDS: Furosemide 40 MG Tablet PO (05:39)
[2017-07-12] MEDS: Carvedilol 3.125 MG TABLET PO ×2 (05:39→17:47)
[2017-07-12] MEDS: Ipratropium/Albuterol Sulfate 3 ML AMPUL.NEB INHALATION ×4 (06:58→19:40)
[2017-07-12] MEDS: oxyCODONE 5 MG Tablet PO ×2 (08:15→17:49)
[2017-07-12] MEDS: Iron Polysaccharide Complex 150 MG CAPSULE PO (08:16)
[2017-07-12] MEDS: Lisinopril 2.5 MG Tablet PO (21:06)
[2017-07-12] MEDS: Atorvastatin Calcium 20 MG Tablet PO (21:06)
[2017-07-13] VITALS (9 sets, daily range): BP systolic 94; BP diastolic 58; PULSE 65–125; RESP 12–21; TEMP 36.5; O2SAT 91–95
[2017-07-13] MEDS: clonazePAM 0.5 MG Tablet PO ×2 (04:33→18:01)
[2017-07-13] MEDS: Carvedilol 3.125 MG TABLET PO ×2 (04:33→17:57)
[2017-07-13] MEDS: 0.9% NaCl Peripheral Flush Adult/Peds IV (04:33)
[2017-07-13] MEDS: Furosemide 40 MG Tablet PO (04:33)
[2017-07-13] MEDS: guaiFENesin 600 MG Tablet PO ×4 (04:33→20:03)
[2017-07-13] MEDS: Pantoprazole Sodium 40 MG Tablet PO (04:33)
[2017-07-13] MEDS: Enoxaparin 40 MG/0.4 ML Syringe SC (04:34)
[2017-07-13] MEDS: oxyCODONE 5 MG Tablet PO ×3 (04:34→20:27)
[2017-07-13] MEDS: Ipratropium/Albuterol Sulfate 3 ML AMPUL.NEB INHALATION ×3 (07:42→19:30)
[2017-07-13] MEDS: Iron Polysaccharide Complex 150 MG CAPSULE PO (08:01)
--- NOTE | 2017-07-13 10:58 | CASEMGMT ---
Plan of care meeting held. Resident present as well as resident family. No discharge date set at this time. Resident to continue with further care and treatment on the Transitional Care Unit. Resident with insurance update due on 07/15/17. Resident plans to discharge to [facility] at time of discharge under Medicaid. Support given. Will continue to follow. Radha FIELDS, VENDING MECHANIC
--- NOTE | 2017-07-13 16:24 | CHAPLAIN ---
Type of Pastoral Visit _x__ Initial Visit ___ Follow-up Visit ___ On-call Visit ___ General Patient Visit ___ Spiritual Assessment ___ Family Conference ___ Bereavement ___ Rapid Response ___ Code Blue ___ Other (describe below) Pastoral Care Referral From _x__ Patient ___ Family ___ Nurse ___ Physician ___ Environmental Research Project Manager ___ Light Industrial ___ Other (describe below) Sacrament/Intervention _x__ Active listening ___ Anointing ___ Mosque ___ Bereavement ___ Communion ___ Pili exploration ___ _x__ Life review _x__ Prayer ___ Reconciliation ___ Sacrament of Sick _x__ Supportive presence ___ Wedding ___ Other (describe below) Pastoral Comments patient says that he does not mind being awakened so he can talk to the quill stripper; pt welcomes future visits and prayer
[2017-07-13] MEDS: Atorvastatin Calcium 20 MG Tablet PO (20:03)
[2017-07-13] MEDS: Lisinopril 2.5 MG Tablet PO (20:03)
[2017-07-14] VITALS (7 sets, daily range): BP systolic 107; BP diastolic 68; PULSE 68–81; RESP 12–22; TEMP 36.5; O2SAT 93–94
[2017-07-14] MEDS: oxyCODONE 5 MG Tablet PO ×3 (00:37→09:44)
[2017-07-14] MEDS: Acetaminophen 500 MG Tablet 1000 MG PO (00:38)
--- NOTE | 2017-07-14 00:43 | NURSING ---
Pt used call light asking for pain medication, water, and to be back on nasal canula instead of bipap 'for awhile' Given prn oxyir 5mg and tylenol 1000mg, water, and shorter oxygen tubing. Remains on 4L with pulse ox attached to finger. Stated he would 'keep an eye on it' and was assured staff would as well. RN aware, continuing to monitor.
[2017-07-14] MEDS: Carvedilol 3.125 MG TABLET PO ×2 (04:41→17:36)
[2017-07-14] MEDS: guaiFENesin 600 MG Tablet PO ×4 (04:42→20:52)
[2017-07-14] MEDS: clonazePAM 0.5 MG Tablet PO ×2 (04:42→17:40)
[2017-07-14] MEDS: Enoxaparin 40 MG/0.4 ML Syringe SC (04:42)
[2017-07-14] MEDS: Furosemide 40 MG Tablet PO (04:42)
[2017-07-14] MEDS: Pantoprazole Sodium 40 MG Tablet PO (04:42)
[2017-07-14] MEDS: Magnesium Citrate 300 ML PO (04:46)
[2017-07-14] MEDS: Ipratropium/Albuterol Sulfate 3 ML AMPUL.NEB INHALATION ×3 (07:05→15:02)
[2017-07-14] MEDS: Iron Polysaccharide Complex 150 MG CAPSULE PO (07:55)
--- NOTE | 2017-07-14 12:50 | NURSING ---
pt incont of stool and refuses to use a bedpan or BSC. states it's uncomfortable. Pt changed in bed, clean attends applied. Pt noted with small abrasion to rt inner thigh, possibly from rubbing of attends. calmoseptine ordered.
[2017-07-14] MEDS: Menthol/Lanolin/Calamine/Znox 113 GM Tube 1 APPLIC TOPICAL ×2 (13:08→20:53)
[2017-07-14] MEDS: Lisinopril 2.5 MG Tablet PO (20:52)
[2017-07-14] MEDS: Atorvastatin Calcium 20 MG Tablet PO (20:52)
[2017-07-15] VITALS (10 sets, daily range): BP systolic 91–92; BP diastolic 46–54; PULSE 65–99; RESP 12–22; TEMP 36.4; O2SAT 91–99
[2017-07-15] MEDS: Menthol/Lanolin/Calamine/Znox 113 GM Tube 1 APPLIC TOPICAL ×3 (04:33→20:51)
[2017-07-15] MEDS: Enoxaparin 40 MG/0.4 ML Syringe SC (04:33)
[2017-07-15] MEDS: Carvedilol 3.125 MG TABLET PO (04:34)
[2017-07-15] MEDS: guaiFENesin 600 MG Tablet PO ×4 (04:34→20:50)
[2017-07-15] MEDS: Pantoprazole Sodium 40 MG Tablet PO (04:34)
[2017-07-15] MEDS: Furosemide 40 MG Tablet PO (04:34)
[2017-07-15] MEDS: clonazePAM 0.5 MG Tablet PO ×2 (04:36→17:30)
[2017-07-15] MEDS: oxyCODONE 5 MG Tablet PO ×5 (04:38→22:42)
[2017-07-15] MEDS: Ipratropium/Albuterol Sulfate 3 ML AMPUL.NEB INHALATION ×4 (07:04→19:16)
[2017-07-15] MEDS: Iron Polysaccharide Complex 150 MG CAPSULE PO (08:01)
--- NOTE | 2017-07-15 09:58 | CASEMGMT ---
Insurance Clinical information faxed. Pending continued stay approval. Auth#[id number] Radha FIELDS, PLASTERER STUCCO
--- NOTE | 2017-07-15 10:01 | CASEMGMT ---
Social Work Telephone call to [employer] [facility] to check on Medicaid application status, voicemail left. Waiting return phone call. Will continue to follow. Radha FIELDS, DIRECTOR SERVICE
--- NOTE | 2017-07-15 10:43 | CASEMGMT ---
Insurance Continued stay approved with next update due on 07/18/17. Auth#[id number] Radha FIELDS, TOBACCO WEIGHER
[2017-07-15] MEDS: Acetaminophen 500 MG Tablet 1000 MG PO (11:16)
--- NOTE | 2017-07-15 11:51 | CASEMGMT ---
Brief interview for mental status (BIMS) and resident mood interview (PHQ-9) completed on this day. BIMS score 1315. PHQ-9 score 06/21
--- NOTE | 2017-07-15 12:37 | CASEMGMT ---
Social Work Collaborating with resident on discharge planning. Resident planning to discharge to [facility] under Medicaid pending at time of discharge. Resident agreeable to this social work nurse making referral to [facility]. Support given. Telephone call to [facility], Jack Hilliard inquire about possible openings coming up. Waiting return phone call. Telephone call from Analisa at [employer]. Analisa reporting that system is currently down and unable to provide medicaid pending number until Tuesday. Will continue to follow. Radha FIELDS, PHYSICAL CHEMISTRY TEACHER
[2017-07-15] MEDS: Lisinopril 2.5 MG Tablet PO (20:50)
[2017-07-15] MEDS: Atorvastatin Calcium 20 MG Tablet PO (20:51)
[2017-07-16] VITALS (10 sets, daily range): BP systolic 118; BP diastolic 59; PULSE 60–89; RESP 12–23; TEMP 36.9; O2SAT 93–97
[2017-07-16] MEDS: oxyCODONE 5 MG Tablet PO ×4 (03:47→21:08)
[2017-07-16] MEDS: Furosemide 40 MG Tablet PO (04:33)
[2017-07-16] MEDS: guaiFENesin 600 MG Tablet PO ×4 (04:33→21:06)
[2017-07-16] MEDS: Pantoprazole Sodium 40 MG Tablet PO (04:33)
[2017-07-16] MEDS: Carvedilol 3.125 MG TABLET PO ×2 (04:34→17:20)
[2017-07-16] MEDS: clonazePAM 0.5 MG Tablet PO ×2 (04:35→17:23)
[2017-07-16] MEDS: Enoxaparin 40 MG/0.4 ML Syringe SC (04:37)
[2017-07-16] MEDS: Menthol/Lanolin/Calamine/Znox 113 GM Tube 1 APPLIC TOPICAL ×3 (04:38→21:03)
[2017-07-16] MEDS: Ipratropium/Albuterol Sulfate 3 ML AMPUL.NEB INHALATION ×5 (07:05→23:05)
[2017-07-16] MEDS: Iron Polysaccharide Complex 150 MG CAPSULE PO (08:26)
[2017-07-16] MEDS: Magnesium Citrate 300 ML PO (08:30)
[2017-07-16] MEDS: Acetaminophen 500 MG Tablet 1000 MG PO (08:33)
[2017-07-16] MEDS: Lisinopril 2.5 MG Tablet PO (21:06)
[2017-07-16] MEDS: Atorvastatin Calcium 20 MG Tablet PO (21:06)
[2017-07-17] VITALS (16 sets, daily range): BP systolic 98; BP diastolic 59; PULSE 76–106; RESP 12–28; TEMP 36.4; O2SAT 86–99
[2017-07-17] MEDS: oxyCODONE 5 MG Tablet PO ×5 (01:08→23:23)
[2017-07-17] MEDS: Ipratropium/Albuterol Sulfate 3 ML AMPUL.NEB INHALATION ×6 (03:15→22:54)
[2017-07-17] MEDS: Carvedilol 3.125 MG TABLET PO ×2 (04:40→15:56)
[2017-07-17] MEDS: Furosemide 40 MG Tablet PO (04:40)
[2017-07-17] MEDS: Menthol/Lanolin/Calamine/Znox 113 GM Tube 1 APPLIC TOPICAL ×3 (04:40→21:34)
[2017-07-17] MEDS: guaiFENesin 600 MG Tablet PO ×4 (04:41→21:34)
[2017-07-17] MEDS: Pantoprazole Sodium 40 MG Tablet PO (04:41)
[2017-07-17] MEDS: Enoxaparin 40 MG/0.4 ML Syringe SC (04:41)
[2017-07-17] MEDS: clonazePAM 0.5 MG Tablet PO ×2 (04:44→15:56)
[2017-07-17] MEDS: Acetaminophen 500 MG Tablet 1000 MG PO ×2 (05:17→23:23)
--- NOTE | 2017-07-17 06:17 | CPS ---
increased Fio2 to 50%
--- NOTE | 2017-07-17 06:25 | NURSING ---
Dr Urrutia notified of pt's O2 sat's ranging from 81% to 87% this morning on bipap despite RT being notified and adjusting bipap settings. Pt placed on NC 4L and sats came up to 96%. Will continue to monitor.
--- NOTE | 2017-07-17 06:27 | CPS ---
increased Fio2 to 40%
[2017-07-17 06:47] LABS: Absolute Lymphocyte Count 1.32 X10^3/ul (0.83-4.51); Absolute Neutrophil Count 9.3 X10^3/uL (2.0-7.7); Eosinophil# 0.08 X10^3/uL; Eosinophils% 0.6 % (0-5); Hematocrit 34.2 % (40-54); Hemoglobin 9.7 g/dl (13.0-16.5); Lymphocyte # 1.32 X10^3/ul (4.0); Lymphocyte % 10.5 % (19-41); Mean Corp Hgb Conc 28.4 g/gl (32-36); Mean Corpuscular Hgb 27.5 pg (27.0-32.0); Mean Corpuscular Volume 96.9 fL (80-94); Mean Platelet Vol. 8.8 fl (6.2-12.0); Monocyte# 1.86 X10^3/uL; Monocyte% 14.8 % (0-10); Neutrophil % 73.7 % (47-70); Platelet Count 271 K/mm3 (150-450); RBC Distribution Width CV 15.3 % (11.6-14.6); RBC Distribution Width SD 54.4 fl (35.1-43.9); Red Blood Count 3.53 M/mm3 (4.6-6.2); White Blood Count 12.6 K/mm3 (4.4-11.0)
[2017-07-17 06:48] LABS: Differential Indicated SCAN CRITERIA MET; POSITIVE COUNT NO; POSITIVE DIFFERENTIAL YES; POSITIVE MORPHOLOGY NO
[2017-07-17 07:15] LABS: BUN 19 mg/dL (7-18); BUN/Creat Ratio 40.7 RATIO (10-20); Calcium,Total 8.9 mg/dL (8.5-10.1); Carbon Dioxide > 45.0 mmol/L (21.0-32.0); Chloride 88 mmol/L (98-107); Creatinine, Serum 0.47 mg/dL (0.70-1.30); EST Glomerular Filtration Rate 188 mL/min (>60); Est Glom Filt Rate - Afr Amer 228 mL/min (>60); Estimated Creatinine Clearance 65.55 ml/min; Glucose 124 mg/dL (74-106); Potassium 4.6 mmol/L (3.5-5.1); Sodium Level 136 mmol/L (136-145)
[2017-07-17] MEDS: Iron Polysaccharide Complex 150 MG CAPSULE PO (08:15)
[2017-07-17] MEDS: Tuberculin,Purif.prot.deriv. 50 TU/ML Vial 5 ML ID (10:39)
[2017-07-17] MEDS: Lisinopril 2.5 MG Tablet PO (21:34)
[2017-07-17] MEDS: Atorvastatin Calcium 20 MG Tablet PO (21:34)
[2017-07-18 00:15] VITALS: PULSE 105; RESP 12; RESP 22; O2SAT 84
--- NOTE | 2017-07-18 02:19 | NURSING ---
Addendum entered by Felicia Espinosa 07/18/17 02:56: Report called to Connie in ER. Original Note: Addendum entered by Magaly Hewitt 07/18/17 02:55: Significant other Glenn notified. States if she can find a ride she will be in. Original Note: Dr Urrutia notified of pt breathing heavily this morning on bipap feeling as though he is unable to breathe, BP 144/98, RR 34, HR ranging from 120s-130s, T 98.1, pulse ox 93%. N.O. to send pt to ER. 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
--- NOTE | 2017-07-18 08:09 | PCM.DC ---
You will use the following diet at home:: No restrictions, Regular Your food should be the consistency of: Regular Your liquids should be the consistency of: Regular/Thin Discharge Activity: Use Walker Weight Bearing Status: Weight bearing as tolerated Call your doctor if you observe: Fever of 101 or Higher, Inability to urinate, Inability to have a bowel movement, Shortness of breath, Chest pain, Uncontrolled pain Allergies/Adverse Reactions: Allergies latex Allergy (Severe, Verified 07/18/17 02:44) Swelling rivaroxaban [From Xarelto] Adverse Reaction (Verified 07/18/17 02:44) excessive bleeding Medications to take at Discharge Furosemide [Lasix] 40 mg PO DAILY 02/01/13 Carvedilol [Coreg (Beta Paulie)] 3.125 mg PO BID 03/26/17 Clonazepam [Klonopin] 0.5 mg PO BID #14 tab 07/09/17 Guaifenesin [Mucinex] 600 mg PO 4X/DAY 07/09/17 Ipratropium/Albuterol Sulfate [Duoneb] 3 ml INHALATION Q4HWA.RT 07/09/17 Iron Polysaccharide Complex [Ferrex 150] 150 mg PO DAILYCM 07/09/17 Lisinopril [Zestril] 2.5 mg PO QHS 07/09/17 Magnesium Citrate [Citrate Of Magnesia] 300 ml PO QODAY 07/09/17 Pantoprazole Sodium [Protonix] 40 mg PO DAILY 07/09/17 Acetaminophen [Tylenol Tablet] 1,000 mg PO Q8H PRN PRN 07/18/17 Atorvastatin Calcium [Lipitor] 20 mg PO QHS 07/18/17 Emollient Combination No.72 [Eucerin Intensive Repair] 250 ml TP DAILY 07/18/17 Enoxaparin Sodium [Lovenox] 40 mg SQ DAILY 07/18/17 Fluticasone/Salmeterol [Advair 250/50 Mcg Diskus] 1 puff INHALATION BID 07/18/17 Menthol/Lanolin/Calamine/Znox [Calmoseptine Ointment] 1 applic TP TID 07/18/17 Oxycodone [Oxyir] 5 mg PO Q4H PRN PRN 07/18/17 Primary Care Physician: Donato Sanchez DO [Primary Care Provider] - Please follow up with your Primary Care Physician in: 1 week. Proposed Discharge Date: 07/18/17
--- NOTE | 2017-07-18 08:11 | PCM.DC.SUM ---
Discharge Date and Diagnosis Date of Admission: 07/09/17 Date of Discharge: 07/18/17 - Primary Discharge Diagnosis Acute respiratory failure. - Secondary Discharge Diagnosis Chronic Problems Melanoma (Chronic) Iron deficiency anemia (Chronic) Hyperlipidemia (Chronic) Anxiety (Chronic) GERD (gastroesophageal reflux disease) (Chronic) Osteoarthritis (Chronic) Arthritis (Chronic) Benign hypertension (Chronic) Cardiomyopathy (Chronic) COLD (chronic obstructive lung disease) (Chronic) History of gastroesophageal reflux (GERD) (Chronic) History of urethral stricture (Chronic) Status post cardiac catheterization (Chronic) Malignant melanoma of back (Chronic) C43.59 2 cm superficial spreading melanoma wound left upper back with a thickness of 0.54 mm 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) 6 mm pigmented lesion right lateral chest wall Former smoker (Chronic) Z87.891 Open wound of left side of back (Chronic) open melanoma wound left upper back Systolic CHF, acute on chronic (Chronic) Debility (Chronic) MILA (obstructive sleep apnea) (Chronic) Hypertension (Chronic) Urinary retention with incomplete bladder emptying (Chronic) Bowel incontinence (Chronic) Hospital Course and Treatment Imaging Results: Labs (Last 48 Hours) 07/17/17 07/17/17 06:35 06:35 WBC 12.6 H RBC 3.53 L Hgb 9.7 L Hct 34.2 L MCV 96.9 H MCH 27.5 MCHC 28.4 L RDW 15.3 H RDW Differential 54.4 H Plt Count 271 MPV 8.8 Immature Gran % (Auto) 0.400 Neut % (Auto) 73.7 H Lymph % (Auto) 10.5 L [place] % (Auto) 14.8 H Eos % (Auto) 0.6 Baso % (Auto) 0.0 Absolute Neuts (auto) 9.3 H Absolute Lymphs (auto) 1.32 Total Counted Not Reportable Differential Comment Diff Path Review May foll Sodium 136 Potassium 4.6 Chloride 88 L Carbon Dioxide > 45.0 H* Anion Gap TNP BUN 19 H Creatinine 0.47 L Estim Creat Clear Calc 65.55 Est GFR (MDRD) Af Amer 228 Est GFR (MDRD) Non-Af 188 BUN/Creatinine Ratio 40.7 H Glucose 124 H Calcium 8.9 Operations: None Procedures: None Summary of Care Provided: The patient is a 71 year old Male with below past medical history significant for severe COPD, hospitalized for acute respiratory failure requiring intubation, complicated by PEA arrest,admitted to TCU with debility, here for rehabilitation, strengthening, prior to discharge home with spouse. [] 07/18/2017 Resident became more short of breath, anxious, unable to tolerate BiPAP, sats dropping. Discharge to [facility] for evaluation and admission to hospital. Discharge Diet: No Restrictions Discharge Activity: Use Walker Weight Bearing Status: Weight bearing as tolerated Call your doctor if you observe: Fever of 101 or Higher, Inability to urinate, Inability to have a bowel movement, Shortness of breath, Chest pain, Uncontrolled pain Home Medications: Medications to take at Discharge Furosemide [Lasix] 40 mg PO DAILY 02/01/13 Carvedilol [Coreg (Beta Paulie)] 3.125 mg PO BID 03/26/17 Clonazepam [Klonopin] 0.5 mg PO BID #14 tab 07/09/17 Guaifenesin [Mucinex] 600 mg PO 4X/DAY 07/09/17 Ipratropium/Albuterol Sulfate [Duoneb] 3 ml INHALATION Q4HWA.RT 07/09/17 Iron Polysaccharide Complex [Ferrex 150] 150 mg PO DAILYCM 07/09/17 Lisinopril [Zestril] 2.5 mg PO QHS 07/09/17 Magnesium Citrate [Citrate Of Magnesia] 300 ml PO QODAY 07/09/17 Pantoprazole Sodium [Protonix] 40 mg PO DAILY 07/09/17 Acetaminophen [Tylenol Tablet] 1,000 mg PO Q8H PRN PRN 07/18/17 Atorvastatin Calcium [Lipitor] 20 mg PO QHS 07/18/17 Emollient Combination No.72 [Eucerin Intensive Repair] 250 ml TP DAILY 07/18/17 Enoxaparin Sodium [Lovenox] 40 mg SQ DAILY 07/18/17 Fluticasone/Salmeterol [Advair 250/50 Mcg Diskus] 1 puff INHALATION BID 07/18/17 Menthol/Lanolin/Calamine/Znox [Calmoseptine Ointment] 1 applic TP TID 07/18/17 Oxycodone [Oxyir] 5 mg PO Q4H PRN PRN 07/18/17 Primary Care Physician: Donato Sanchez DO [Primary Care Provider] - Please follow up with your Primary Care Physician in: 1 week. Disposition: Acute care Hospital Minutes spent on discharge:: 30 Patient Condition:: Guarded Medical Necessity - Tobacco Use Smoking Status: Former smoker Tobacco Use: Non-smoker Meaningful Use Info Meaningful Use Diagnoses (Choose all that apply): None applicable
--- NOTE | 2017-07-18 10:33 | CASEMGMT ---
Insurance Notified insurance of resident discharge on 07/18/17 to an acute hospital setting. Auth#[id number] Radha FIELDS, CLOCKMAKER APPRENTICE
[2017-07-18 13:47] LABS: Pathologist Review Reviewed
--- NOTE | 2017-07-20 12:38 | MDS.RN ---
Information for the mds was obtained from review of the clinical record, interview of resident, staff, and direct observation of resident's care.
== END 2017-07-18 03:30 | disposition short-term general hospital (02) | DRG 947 ==
PROVIDERS: Admitting Provider Family Medicine Geriatric Medicine; Family Provider Family Medicine; PCP Family Medicine; Visit Provider Family Medicine Geriatric Medicine
DX: R53.81 Other malaise (principal); I50.23 Acute on chronic systolic (congestive) heart failure; J96.20 Acute and chronic respiratory failure, unspecified whether with hypoxia or hypercapnia; C43.59 Malignant melanoma of other part of trunk; I42.9 Cardiomyopathy, unspecified; M19.90 Unspecified osteoarthritis, unspecified site; I11.0 Hypertensive heart disease with heart failure; J44.9 Chronic obstructive pulmonary disease, unspecified; F41.9 Anxiety disorder, unspecified; K21.9 Gastro-esophageal reflux disease without esophagitis; D50.9 Iron deficiency anemia, unspecified; E78.5 Hyperlipidemia, unspecified; G47.33 Obstructive sleep apnea (adult) (pediatric); Z87.891 Personal history of nicotine dependence; Z86.74 Personal history of sudden cardiac arrest; Z79.899 Other long term (current) drug therapy; Z79.51 Long term (current) use of inhaled steroids
CPT/HCPCS: 36415; 80048; 85025; 94002; 94003; 94640; 94660; 97110; 97116; 97162; 97165; 97530; 97802; A4216

== ENCOUNTER 2017-07-18 02:39 | Inpatient (IN) | payer MEDICARE, SELFPAY ==
[2017-07-18] VITALS (48 sets, daily range): BP systolic 72–182; BP diastolic 46–109; PULSE 68–140; RESP 12–33; TEMP 36.4–38.2; O2SAT 89–100; BMI 34.6; BMI 33.5
--- NOTE | 2017-07-18 02:40 | EKG12_ITS ---
Test Reason : SOB Blood Pressure : / mmHG Vent. Rate : 130 BPM Atrial Rate : 130 BPM P-R Int : 156 ms QRS Dur : 086 ms QT Int : 290 ms P-R-T Axes : 081 072 066 degrees QTc Int : 426 ms Sinus tachycardia with occasional Premature ventricular complexes Low voltage QRS Borderline ECG Confirmed by ALLAN GALEANA, JENNIFER ([id number]), editor map COLIN GARCIA ([id number]) on 07/19/2017 1:07:08 PM Referred By: AUBREY Confirmed By:JENNIFER LEMUS MD
[2017-07-18] MEDS: Ipratropium/Albuterol Sulfate 3 ML AMPUL.NEB INHALATION ×5 (02:53→18:32)
[2017-07-18] MEDS: Albuterol 2.5 MG/3 ML VIAL.NEB. INHALATION ×3 (02:53→03:40)
--- NOTE | 2017-07-18 03:09 | ED.DCSUM_ITS ---
- ER Visit Summary Date of Service: 07/18/17 Chief Complaint: Respiratory distress History of Present Illness: The patient is a 71 M who presents from the TCU because of increasing respiratory distress over the past 24 hours. He was seen in the emergency department on July 02. The note was read. He was treated for cystitis. Urine culture would indicate contamination since there are 4 organisms, and 1 of those organism is staph epidermidis. He returned to the emergency department on July 05 and was admitted for respiratory failure. His status deteriorated in spite of BiPAP and he required intubation. Based on nurse report and documents that accompanied him from the TCU unit patient respiratory status has worsened since this morning. Blood work was obtained this morning and his white count is elevated at 12.6. On July 10 his white count was 9.1. CO2 was greater than 45 on the BMP 17 July and was 40 on July 10. Patient was placed on antibiotic for presumed urinary tract infection. Urine culture was reviewed by me and would indicate contaminant since there are for organisms. 1 of those organism is staph epididymis. No colony count was greater than 10,000. His history and physical are limited secondary to seriousness of illness. He acknowledges difficulty breathing. He acknowledges coughing. He denied chest pain the type. He denies any leg pain or discoloration. He denies any ocular symptoms. He denies any GI or symptoms. He acknowledges that he is a full go, and if necessary he wants to be intubated. Past medical history significant for cardiomyopathy, CHF, chronic obstructive lung disease on chronic oxygen at 3 L by nasal cannula, hypertension and GERD. There is a history of anxiety. Past surgical history is remarkable for a right and left total hip arthroplasty , left carpal tunnel surgery and excision of melanoma. He is also status post cardiac catheterization. Physical Examination: Vital signs are remarkable for blood pressure 179 109, temporal artery temperature 99.4, initial heart rate a monitor of 127 and respiratory rate was documented 29. The respiratory rate has worsened and most recent documentation is 40. Saturation on BiPAP at 50% with pressure support is 90%. He is in obvious respiratory distress with use of accessory muscles and retractions. Head is atraumatic normocephalic. Pupils equal round reactive. Extra muscles are intact. Unable to perform nasal exam or oral cavity exam secondary to necessity of BiPAP to treat his respiratory distress/failure. Lungs reveal rhonchi. Heart is rapid and regular with distant heart tones. Abdomen is prominent with diminished bowel sounds and no appreciable palpable pulsatile mass or abdominal bruit. Diminished slightly tympanitic. There is no guarding or rebound tenderness. There is edema in the lower extremity. There is no discoloration, leg vein distention or tenderness on the description deep venous system. He is alert and oriented. He moves all his extremities. Sensations intact. There is no clonus or Babinski sign. Lower extremity exam reveals swelling. There is no leg vein distention, discoloration, asymmetry or pain along the distribution of deep venous system. Test Results: EKG was obtained and reveals a sinus tachycardia with peaked T waves, which may represent hyperkalemia. There is motion artifact secondary to his respiratory distress. Blood gas on BiPAP reveals a pH of 7.33, PCO2 of 106.8, PaO2 of 69 with base excess of greater than 30 and bicarb of 57.2. O2 saturation 90%. He is presently breathing faster than the settings on the BiPAP machine. Blood gas results indicate chronic CO2 retention with hypoxia. Verbal chest x-ray reveals normal cardiac silhouette. The film is portable and slightly rotated. There are no abnormalities of the ribs, clavicle or proximal right or left humerus. There is increased interstitial markings left lower lobe compared to chest x-ray obtained on July 05; however, the film may be slightly less penetrated. White count is 27.2 thousand with 87 segs no bands. H&H is 10.7 and 36.1 which is elevated compared to normal. Electronic panels marked for CO2 greater than 45 and glucose 181. Troponin is less than 0.02. Lactate is 0.6. Emergency Department Course and Treatment: To evaluate patient's respiratory distress and ABG was obtained since his CO2 has increased markedly over the past week. EKG was obtained to evaluate for cardiac ischemia and to evaluate for right heart strain which would indicate pulmonary embolus. Chest x-ray was obtained to evaluate for pneumothorax, pneumonia versus congestive heart failure. Appropriate blood work was obtained to evaluate for cardiac ischemia, sepsis and any electrolyte abnormality. Rectal temperature is 100.8. In light of this fact blood cultures were obtained. Lactate was obtained to evaluate for severe sepsis if there is evidence of a pneumonia on his x-ray. Treatment Plan: Based on blood gas results BiPAP/CPAP settings were changed. Because he has abnormal breath sounds he was treated with DuoNeb and albuterol. 125 mg of Solu-Medrol was administered for exacerbation of his COPD with bronchospasm, and 4.5 g of Zosyn and 750 mg of levofloxacin was given for left lower lobe infiltrate, H CAP. Disposition: Admit ICU Impression: 1. Respiratory failure with acute on chronic CO2 retention and acute and chronic hypoxemia 2. Sepsis 3. Left lower lobe infiltrate, H CAP 4. Exacerbation of COPD with bronchospasm 5. Hypertension in a hypertensive patient 6. History of congestive heart failure This note was generated with [employer] software. It may contain incorrect words, spelling, and punctuation that were not noted in review of the chart prior to signing ED Disposition - Plan for ED Patient: Chief Complaint: Shortness of Breath Referrals: Donato Sanchez DO [Primary Care Provider] -
[2017-07-18 03:10] LABS: Absolute Lymphocyte Count 1.02 X10^3/ul (0.83-4.51); Absolute Neutrophil Count 23.5 X10^3/uL (2.0-7.7); Basophil# 0.01 X10^3/uL; Eosinophil# 0.02 X10^3/uL; Eosinophils% 0.1 % (0-5); Hematocrit 36.1 % (40-54); Hemoglobin 10.7 g/dl (13.0-16.5); Lymphocyte # 1.02 X10^3/ul (4.0); Lymphocyte % 3.8 % (19-41); Mean Corp Hgb Conc 29.6 g/gl (32-36); Mean Corpuscular Hgb 28.5 pg (27.0-32.0); Mean Corpuscular Volume 96.3 fL (80-94); Mean Platelet Vol. 9.3 fl (6.2-12.0); Monocyte# 2.47 X10^3/uL; Monocyte% 9.1 % (0-10); Neutrophil # 23.53 X10^3/uL (2.7-7.7); Neutrophil % 86.6 % (47-70); Platelet Count 372 K/mm3 (150-450); RBC Distribution Width SD 51.3 fl (35.1-43.9); Red Blood Count 3.75 M/mm3 (4.6-6.2); White Blood Count 27.2 K/mm3 (4.4-11.0)
[2017-07-18 03:11] LABS: Differential Indicated SCAN CRITERIA MET; POSITIVE COUNT NO; POSITIVE DIFFERENTIAL YES; POSITIVE MORPHOLOGY NO
--- NOTE | 2017-07-18 03:20 | RAD_ITS ---
STUDY: X-RAY CHEST REASON FOR EXAM: Male, 71 years old. Respiratory distress TECHNIQUE: Single AP portable view of the chest. COMPARISON: July 22, 2017 FINDINGS: There is hyperinflation of the lungs consistent with chronic obstructive lung disease (COPD). There is an ill-defined airspace disease in the left lung base suggesting pneumonia is new since the previous study. There is no demonstrated pleural abnormality. Normal size heart. Normal mediastinum and jaida. Normal visualized pulmonary arteries. Normal visualized aortic arch and descending thoracic aorta. Normal visualized thoracic spine. Normal visualized ribs, clavicles, and shoulders. There is no demonstrated abnormality of the visualized soft tissue structures of the upper abdomen. RAD/Chest 1 View (Portable) IMPRESSION: Left lower lobe pneumonia is new since the previous study. Electronically Signed: Abimbola Gallegos MD at 4:12 EDT Tel , Service support ,
[2017-07-18 03:29] LABS: Lactic Acid 0.6 mmol/L (0.4-2.0)
[2017-07-18 03:32] LABS: BUN 17 mg/dL (7-18); BUN/Creat Ratio 32.9 RATIO (10-20); Calcium,Total 8.9 mg/dL (8.5-10.1); Carbon Dioxide > 45.0 mmol/L (21.0-32.0); Chloride 86 mmol/L (98-107); Creatinine, Serum 0.52 mg/dL (0.70-1.30); EST Glomerular Filtration Rate 167 mL/min (>60); Est Glom Filt Rate - Afr Amer 202 mL/min (>60); Estimated Creatinine Clearance 65.55 ml/min; Glucose 181 mg/dL (74-106); Potassium 4.9 mmol/L (3.5-5.1); Sodium Level 136 mmol/L (136-145)
[2017-07-18] MEDS: MethylPREDNISolone 125 MG/2 ML Vial IV (03:38)
[2017-07-18] MEDS: levoFLOXacin IV 750 MG/150 ML BAG 100 MG IV (03:38)
[2017-07-18 03:41] LABS: Differential Comment SCANNED
--- NOTE | 2017-07-18 04:14 | HP.PCM_ITS ---
Problem List (1) Acute and chronic respiratory failure Status: Acute (2) COPD exacerbation Status: Acute (3) HCAP (healthcare-associated pneumonia) Status: Acute (4) Shortness of breath Status: Acute (5) Anxiety Status: Chronic (6) Benign hypertension Status: Chronic (7) COLD (chronic obstructive lung disease) Status: Chronic Qualifiers: (8) Cardiomyopathy Status: Chronic History of Present Illness Date of Admission: 07/18/17 Chief Complaint: SOB The patient is a 71 year old male w/ h/o COPD, HTN, CAD, chronic systolic heart failure, and anxiety admitted for acute on chronic hypoxic and hypercapnic respiratory failure. He was recently admitted to the ICU for acute respiratory failure requiring intubation. He was transferred to TCU for rehab afterward. However while in TCU, he has gotten worse with increasing SOB. The frequency and intensity of his cough have also worsened as well. Nothing appeared to make it better or worse. He was taken down to the ED for further evaluation. Past Medical History Past Medical History (Chronic Problems): Chronic Problems Melanoma (Chronic) Iron deficiency anemia (Chronic) Hyperlipidemia (Chronic) Anxiety (Chronic) GERD (gastroesophageal reflux disease) (Chronic) Osteoarthritis (Chronic) Arthritis (Chronic) Benign hypertension (Chronic) Cardiomyopathy (Chronic) COLD (chronic obstructive lung disease) (Chronic) History of gastroesophageal reflux (GERD) (Chronic) History of urethral stricture (Chronic) Status post cardiac catheterization (Chronic) Malignant melanoma of back (Chronic) C43.59 2 cm superficial spreading melanoma wound left upper back with a thickness of 0.54 mm 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) 6 mm pigmented lesion right lateral chest wall Former smoker (Chronic) Z87.891 Open wound of left side of back (Chronic) open melanoma wound left upper back Systolic CHF, acute on chronic (Chronic) Debility (Chronic) MILA (obstructive sleep apnea) (Chronic) Hypertension (Chronic) Urinary retention with incomplete bladder emptying (Chronic) Bowel incontinence (Chronic) Allergies latex Allergy (Severe, Verified 07/18/17 02:44) Swelling rivaroxaban [From Xarelto] Adverse Reaction (Verified 07/18/17 02:44) excessive bleeding Home Medications: Ambulatory Orders Medication Instructions Recorded Furosemide [Lasix] 40 mg PO DAILY 02/01/13 Carvedilol [Coreg (Beta Paulie)] 3.125 mg PO BID 03/26/17 Clonazepam [Klonopin] 0.5 mg PO BID #14 tab 07/09/17 Guaifenesin [Mucinex] 600 mg PO 4X/DAY 07/09/17 Ipratropium/Albuterol Sulfate 3 ml INHALATION Q4HWA.RT 07/09/17 [Duoneb] Iron Polysaccharide Complex 150 mg PO DAILYCM 07/09/17 [Ferrex 150] Lisinopril [Zestril] 2.5 mg PO QHS 07/09/17 Magnesium Citrate [Citrate Of 300 ml PO QODAY 07/09/17 Magnesia] Pantoprazole Sodium [Protonix] 40 mg PO DAILY 07/09/17 Acetaminophen [Tylenol Tablet] 1,000 mg PO Q8H PRN PRN 07/18/17 Atorvastatin Calcium [Lipitor] 20 mg PO QHS 07/18/17 Emollient Combination No.72 250 ml TP DAILY 07/18/17 [Eucerin Intensive Repair] Enoxaparin Sodium [Lovenox] 40 mg SQ DAILY 07/18/17 Fluticasone/Salmeterol [Advair 1 puff INHALATION BID 07/18/17 250/50 Mcg Diskus] Menthol/Lanolin/Calamine/Znox 1 applic TP TID 07/18/17 [Calmoseptine Ointment] Oxycodone [Oxyir] 5 mg PO Q4H PRN PRN 07/18/17 Surgical History: appendectomy, total hip arthroplasty - Bilateral., total knee arthroplasty, - - Left carpal tunnel release, rotator cuff surgery, bladder surgery. Psychiatric History: Anxiety Smoking Status: Former smoker - *Family History Maternal History Items: - - Non-contributory. Paternal History Items: No pertinent history Review of Systems Constitutional: Denies: Chills, Fever, Weight Change HEENT: Denies: Head Aches, Sinus Congestion, Sinus Drainage Cardiovascular: Denies: Chest Pain, Palpitations Respiratory: Reports: Cough, Shortness of Breath, Shortness of breath at rest, Sputum production Gastrointestinal: Denies: Abdominal Pain, Nausea, Vomiting Genitourinary: Denies: Dysuria Musculoskeletal: Denies: Joint Pain, Joint Tenderness Skin: Denies: Rash, Wounds Neurological: Denies: Numbness, Tingling, Focal weakness Psychiatric: Denies: Anxiety, Depression, Homicidal Ideations, Suicidal Ideations Hematologic/ Lymphatic: Denies: Easy Bruising, Easy Bleeding VTE Information - Inpt Only VTE Present on Admission: No VTE Mechan Device Prophylaxis: SCD's VTE Pharm Prophylaxis ordered?: Yes Patient Problems: Active and Suspected Problems Acute and chronic respiratory failure (Acute) Acute on chronic systolic heart failure (Acute) - Physical Exam General: Alert, Oriented x3, Cooperative HEENT: Atraumatic, PERRLA, EOMI, Normocephalic Neck: Supple, No JVD, Negative Carotid Bruits Lungs: Diminished, Rales, Wheezes Cardiovascular: Murmur, Tachycardic Abdomen: Bowel Sounds Present, Soft, Non Tender Extremities: No edema, Capillary Refill Less than 3 Seconds Skin: No rashes, No breakdown Musculoskeletal: No Tenderness to Palpation of Joints or Extremities Neurological: Cranial nerves II-XII grossly intact Psych/Mental Status: Normal Affect, Appropriate Vital Signs Temp Pulse Resp BP Pulse Ox 100.8 F H 137 H 24 H 94/46 L 90 07/18/17 03:52 07/18/17 03:52 07/18/17 03:52 07/18/17 03:52 07/18/17 03:52 Oxygen Delivery Method Bi-pap Weight: 103.2 kg Body Mass Index (BMI) 34.6 Laboratory Tests Past 24 Hrs 07/18/17 07/18/17 07/18/17 02:47 02:47 02:47 WBC 27.2 H RBC 3.75 L Hgb 10.7 L Hct 36.1 L MCV 96.3 H MCH 28.5 MCHC 29.6 L RDW 15.0 H RDW Differential 51.3 H Plt Count 372 MPV 9.3 Immature Gran % (Auto) 0.400 Neut % (Auto) 86.6 H Lymph % (Auto) 3.8 L Henderson % (Auto) 9.1 Eos % (Auto) 0.1 Baso % (Auto) 0.0 Absolute Neuts (auto) 23.5 H Absolute Lymphs (auto) 1.02 Total Counted Not Reportable Differential Comment SCANNED Diff Path Review May foll Sodium 136 Potassium 4.9 Chloride 86 L Carbon Dioxide > 45.0 H* Anion Gap TNP BUN 17 Creatinine 0.52 L Estim Creat Clear Calc 65.55 Est GFR (MDRD) Af Amer 202 Est GFR (MDRD) Non-Af 167 BUN/Creatinine Ratio 32.9 H Glucose 181 H Lactic Acid 0.6 Calcium 8.9 Troponin I < 0.02 Assessment/Plan Active and Suspected Problems Acute and chronic respiratory failure (Acute) Acute on chronic systolic heart failure (Acute) 71 year old male w/ h/o COPD, HTN, CAD, chronic systolic heart failure, and anxiety admitted for acute on chronic hypoxic and hypercapnic respiratory failure. 1) Acute on chronic hypoxic and hypercapnic respiratory failure: Probably secondary to acute on chronic COPD exacerbation secondary to HCAP. Will start zosyn and vancomycin. Cultures pending. Will repeat ABG. C/w bipap. Low threshold for intubation. 2) Acute on chronic COPD exacerbation secondary to HCAP: Will start solumedrol. C/w bronchodilators and bipap. C/w zosyn and vancomycin. Baseline pCO2 70s noted. Consulted pulmonary. 3) HCAP: Chest xray disclosed probably left lower lobe infiltrate. WBC 27.2 with 87 segs no bands. Lactate is 0.6. C/w zosyn and vanco. Will consider double gram negative coverage if worsening. High risk for gram negative coverage given recent hospitalization. Cultures pending. 4) Chronic issues: HTN, chronic systolic heart failure, CAD: Resume meds. 5) Prophylaxis: Lovenox and famotidine
[2017-07-18] MEDS: 0.9% Normal Saline 1,000 ML 1000 ML IV ×3 (04:15)
--- NOTE | 2017-07-18 04:20 | CPS ---
BIPAP pressure change per Dr. Muir
--- NOTE | 2017-07-18 04:24 | NURSING ---
PATIENT'S BP DROPPED 77/[address] BURGOS WAS MADE AWARE AND ORDERED 30 CC'S PER KG SO PT WAS ORDERED 3100 CC BOLUS. 3000 CC'S HUNG PRIOR TO GOING TO ICU. ICU CALLED PER RAMÍREZ WALKER.
--- NOTE | 2017-07-18 04:25 | NURSING ---
PATIENT'S BP IS UP TO 121/98 NOW PRIOR TO TRANSFER.
[2017-07-18 05:51] LABS: Color, Urine Yellow (Yellow); Glucose, Dipstick Normal (Normal); Ketone-Dipstick Negative (Negative); Leukocyte Esterase-Dipstick 500 /ul (Negative); Nitrite-Dipstick Negative (Negative); Occult Blood-Urine 150 /ul (Negative); Protein-Dipstick 30 mg/dl (Negative); Urine Bilirubin Dipstick Negative (Negative); Urine Clarity Cloudy (Clear); Urine Urobilinogen Normal (Normal)
[2017-07-18] MEDS: 0.9% Normal Saline 1,000 ML 75 ML IV (05:54)
[2017-07-18 06:04] LABS: Absolute Lymphocyte Count 0.83 X10^3/ul (0.83-4.51); Absolute Neutrophil Count 21.9 X10^3/uL (2.0-7.7); Hematocrit 30.9 % (40-54); Lymphocyte # 0.83 X10^3/ul (4.0); Lymphocyte % 3.5 % (19-41); Mean Corp Hgb Conc 29.1 g/gl (32-36); Mean Corpuscular Hgb 28.4 pg (27.0-32.0); Mean Corpuscular Volume 97.5 fL (80-94); Mean Platelet Vol. 8.9 fl (6.2-12.0); Monocyte# 0.87 X10^3/uL; Monocyte% 3.7 % (0-10); Neutrophil # 21.89 X10^3/uL (2.7-7.7); Neutrophil % 92.6 % (47-70); Platelet Count 264 K/mm3 (150-450); RBC Distribution Width CV 15.1 % (11.6-14.6); RBC Distribution Width SD 53.8 fl (35.1-43.9); Red Blood Count 3.17 M/mm3 (4.6-6.2); White Blood Count 23.6 K/mm3 (4.4-11.0)
[2017-07-18 06:05] LABS: Differential Indicated SCAN CRITERIA MET; POSITIVE COUNT NO; POSITIVE DIFFERENTIAL YES; POSITIVE MORPHOLOGY NO
--- NOTE | 2017-07-18 06:13 | PCM.RX.CS ---
Consult Pharmacy has been consulted to manage selected antiobiotic: Vancomycin Type of Consult: New start Suspected Infection: Pneumonia Prior Doses of Antibiotics Received/Current Regimen: Medications Vancomycin HCl 2,000 mg/ (Dextrose) 540 mls @ 250 mls/hr IV RX TO DOSE ONE Stop: 07/18/17 07:08 Last Admin: 07/18/17 05:54 Dose: 250 mls/hr Labs: Sodium 136 mmol/L (136-145) 07/18/17 02:47 Potassium 4.9 mmol/L (3.5-5.1) 07/18/17 02:47 Chloride 86 mmol/L (98-107) L 07/18/17 02:47 Carbon Dioxide > 45.0 mmol/L (21.0-32.0) H* 07/18/17 02:47 Anion Gap TNP 07/18/17 02:47 BUN 17 mg/dL (7-18) 07/18/17 02:47 Creatinine 0.52 mg/dL (0.70-1.30) L 07/18/17 02:47 Est GFR (MDRD) Af Amer 202 mL/min (>60) 07/18/17 02:47 Est GFR (MDRD) Non-Af 167 mL/min (>60) 07/18/17 02:47 BUN/Creatinine Ratio 32.9 RATIO (10-20) H 07/18/17 02:47 Glucose 181 mg/dL (74-106) H 07/18/17 02:47 Microbiology: Microbiology 07/18/17 05:40 Urine Catheter - Vasquez Streptococcus pneumoniae Antigen (M - Final 07/18/17 05:40 Urine Catheter - Vasquez Legionella Antigen - Final Weight used for dosin kg Estimated Creatinine Clearance: 140 Goal Trough: 15-20 mcg/mL Pharmacy Plan for Drug Dosing: Pharmacy Service will continue to monitor and adjust dosing as required. Follow-Up Labs: Trough Vancomycin Labs to be done on [date and time ordered]: 07/19/17 @[id number]
[2017-07-18 06:19] LABS: Differential Comment SCANNED
[2017-07-18 06:37] LABS: ALB/GLOB Ratio 0.7 RATIO (0.9-2.4); AST(SGOT) 22 U/L (15-37); Alanine Aminotransfer ALT/SGPT 31 U/L (16-61); Albumin, Serum 2.4 g/dL (3.2-5.0); Alkaline Phosphatase 96 U/L (45-117); BUN 20 mg/dL (7-18); BUN/Creat Ratio 26.8 RATIO (10-20); Calcium,Total 8.2 mg/dL (8.5-10.1); Carbon Dioxide > 45.0 mmol/L (21.0-32.0); Chloride 89 mmol/L (98-107); Creatinine, Serum 0.75 mg/dL (0.70-1.30); EST Glomerular Filtration Rate 109 mL/min (>60); Est Glom Filt Rate - Afr Amer 132 mL/min (>60); Estimated Creatinine Clearance 65.55 ml/min; Globulin 3.5 g/dL (2.2-4.2); Glucose 220 mg/dL (74-106); Potassium 4.6 mmol/L (3.5-5.1); Protein, Total 5.9 g/dL (6.4-8.2); Sodium Level 136 mmol/L (136-145)
[2017-07-18 06:46] LABS: M R Staph aureus DNA By PCR Negative (Negative); Probe Check PASS; Specimen Processing Control PASS
--- NOTE | 2017-07-18 07:11 | PCM.CON.CC ---
Problem List (1) Acute and chronic respiratory failure Status: Acute Qualifiers: Respiratory failure complication: unspecified whether with hypoxia or hypercapnia Qualified Code(s): J96.20 - Acute and chronic respiratory failure, unspecified whether with hypoxia or hypercapnia (2) Acute on chronic systolic heart failure Status: Acute (3) Iron deficiency anemia Status: Chronic (4) Hyperlipidemia Status: Chronic (5) History of ureter repair Status: Resolved (6) History of right hip replacement Status: Resolved (7) History of left hip replacement Status: Resolved (8) History of carpal tunnel surgery of left wrist Status: Resolved (9) History of repair of rotator cuff Status: Resolved (10) History of bladder repair surgery Status: Resolved (11) Anxiety Status: Chronic (12) GERD (gastroesophageal reflux disease) Status: Chronic (13) Osteoarthritis Status: Chronic (14) Arthritis Status: Chronic (15) Benign hypertension Status: Chronic (16) Cardiomyopathy Status: Chronic (17) History of urethral stricture Status: Chronic (18) Status post cardiac catheterization Status: Chronic (19) Malignant melanoma of back Status: Chronic Comment: C43.59 2 cm superficial spreading melanoma wound left upper back with a thickness of 0.54 mm (20) Former smoker Status: Chronic Comment: Z87.891 (21) Open wound of left side of back Status: Chronic Comment: open melanoma wound left upper back (22) Systolic CHF, acute on chronic Status: Chronic (23) MILA (obstructive sleep apnea) Status: Chronic (24) Hypertension Status: Chronic (25) Urinary retention with incomplete bladder emptying Status: Chronic (26) HCAP (healthcare-associated pneumonia) Status: Acute Reason for Consult Date of Consultation: 07/18/17 Reason for Consultation: Respiratory failure History of Present Illness: The patient is a 71 year old M, with past medical history listed below, who presented to [facility] emergency room on 07/18/2017 from the TCU secondary to increasing respiratory distress over 24 hours. Patient was recently admitted at [facility] and did require intubation during that hospitalization, but recovered and was able to be transferred to the intensive care unit. Patient also has history of recurrent urinary tract infections. On presentation to the emergency room, patient reported a productive cough without chest pain. Patient is currently maintained on 3 L nasal cannula chronically for COPD. Patient also has an extensive cardiac history. On presentation to the emergency room, patient was noted to be hypertensive at 179/109 with a temperature of 99.4?F and heart rate of 127 bpm. Chest x-ray showed a left lower lobe infiltrate. Patient was placed on BiPAP with 50% FiO2 with improvement of accessory muscle use. Over the course of patient's ER stay, patient became hypotensive at 94/46 and was given a 30 cc/kg bolus and transferred to the intensive care unit. Currently, patient remains on the BiPAP. Patient was able to be moved to 40% FiO2. Patient reports subjective improvement in overall condition, but is not able to provide a reliable review of systems at this time. Patient does have significant conversational dyspnea despite BiPAP support. Past Medical History Past Medical History (Chronic Problems): Chronic Problems Melanoma (Chronic) Iron deficiency anemia (Chronic) Hyperlipidemia (Chronic) Anxiety (Chronic) GERD (gastroesophageal reflux disease) (Chronic) Osteoarthritis (Chronic) Arthritis (Chronic) Benign hypertension (Chronic) Cardiomyopathy (Chronic) COLD (chronic obstructive lung disease) (Chronic) History of gastroesophageal reflux (GERD) (Chronic) History of urethral stricture (Chronic) Status post cardiac catheterization (Chronic) Malignant melanoma of back (Chronic) C43.59 2 cm superficial spreading melanoma wound left upper back with a thickness of 0.54 mm 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) 6 mm pigmented lesion right lateral chest wall Former smoker (Chronic) Z87.891 Open wound of left side of back (Chronic) open melanoma wound left upper back Systolic CHF, acute on chronic (Chronic) Debility (Chronic) MILA (obstructive sleep apnea) (Chronic) Hypertension (Chronic) Urinary retention with incomplete bladder emptying (Chronic) Bowel incontinence (Chronic) Allergies latex Allergy (Severe, Verified 07/18/17 02:44) Swelling rivaroxaban [From Xarelto] Adverse Reaction (Verified 07/18/17 02:44) excessive bleeding Home Medications: Ambulatory Orders Medication Instructions Recorded Furosemide [Lasix] 40 mg PO DAILY 02/01/13 Carvedilol [Coreg (Beta Paulie)] 3.125 mg PO BID 03/26/17 Clonazepam [Klonopin] 0.5 mg PO BID #14 tab 07/09/17 Guaifenesin [Mucinex] 600 mg PO 4X/DAY 07/09/17 Ipratropium/Albuterol Sulfate 3 ml INHALATION Q4HWA.RT 07/09/17 [Duoneb] Iron Polysaccharide Complex 150 mg PO DAILYCM 07/09/17 [Ferrex 150] Lisinopril [Zestril] 2.5 mg PO QHS 07/09/17 Magnesium Citrate [Citrate Of 300 ml PO QODAY 07/09/17 Magnesia] Pantoprazole Sodium [Protonix] 40 mg PO DAILY 07/09/17 Acetaminophen [Tylenol Tablet] 1,000 mg PO Q8H PRN PRN 07/18/17 Atorvastatin Calcium [Lipitor] 20 mg PO QHS 07/18/17 Emollient Combination No.72 250 ml TP DAILY 07/18/17 [Eucerin Intensive Repair] Enoxaparin Sodium [Lovenox] 40 mg SQ DAILY 07/18/17 Fluticasone/Salmeterol [Advair 1 puff INHALATION BID 07/18/17 250/50 Mcg Diskus] Menthol/Lanolin/Calamine/Znox 1 applic TP TID 07/18/17 [Calmoseptine Ointment] Oxycodone [Oxyir] 5 mg PO Q4H PRN PRN 07/18/17 Surgical History: appendectomy, total hip arthroplasty - Bilateral., total knee arthroplasty, - - Left carpal tunnel release, rotator cuff surgery, bladder surgery. Psychiatric History: Anxiety Smoking Status: Former smoker - *Family History Maternal History Items: - - Non-contributory. Paternal History Items: No pertinent history Review of Systems Unable to obtain accurate/complete ROS d/t: See HPI Objective: Chest x-ray was personally reviewed and does show a right lower lobe infiltrate. Patient reportedly had an ABG showing a CO2 over 100 and a PO2 less than 70 on 50% FiO2, but this was not available to be personally reviewed. - Physical Exam General: Alert, Cooperative, - - Conversational dyspnea noted. Obese. Appears older than stated age. HEENT: Atraumatic, PERRLA, EOMI, Normocephalic, - - Right scleral injection without icterus Oral: Moist Mucosa, No Gingival or Mucosal Lesions/ Ulcerations Neck: Supple, No JVD, No Nodes, Trachea Midline Lungs: No rhonchi, No wheeze, No rales, Diminished, - - Expansion. No dullness to percussion. Cardiovascular: Regular rate, Regular Rhythm, Normal S1, Normal S2, No murmurs, No rub noted, No Gallop Abdomen: Bowel Sounds Present, Soft, Non Tender, Non-Distended, Obese Extremities: No cyanosis, Clubbing, Diminished Peripheral Pulses, Edema Skin: No rashes, No breakdown Musculoskeletal: No Tenderness to Palpation of Joints or Extremities Lymphatic: No Cervical, Supraclavicular, or Inguinal Adenopathy Neurological: Cranial nerves II-XII grossly intact, Neuro grossly intact, Motor Exam 5/5 strength throughout Psych/Mental Status: Anxious, Restless Vital Signs Temp Pulse Resp BP Pulse Ox 36.6 C 83 23 H 98/70 97 07/18/17 06:03 07/18/17 06:03 07/18/17 06:03 07/18/17 06:03 07/18/17 06:03 Oxygen Flow Rate (L/min) 50 Oxygen Delivery Method Bi-pap Weight: 100 kg Body Mass Index (BMI) 33.5 Intake and Output for Last 24 Hours 07/16/17 07/17/17 07/18/17 23:59 23:59 23:59 Intake Total 1856 / 1856 Output Total 80 / 80 Balance 1776 / 1776 Microbiology Past 72 Hours 07/18/17 05:40 Streptococcus pneumoniae Antigen (M - Final Urine Catheter - Vasquez 07/18/17 05:40 Legionella Antigen - Final Urine Catheter - Vasquez Laboratory Tests Past 24 Hrs 07/18/17 07/18/17 07/18/17 05:00 05:35 05:35 WBC 23.6 H RBC 3.17 L Hgb 9.0 L Hct 30.9 L MCV 97.5 H MCH 28.4 MCHC 29.1 L RDW 15.1 H RDW Differential 53.8 H Plt Count 264 MPV 8.9 Immature Gran % (Auto) 0.200 Neut % (Auto) 92.6 H Lymph % (Auto) 3.5 L [place] % (Auto) 3.7 Eos % (Auto) 0.0 Baso % (Auto) 0.0 Absolute Neuts (auto) 21.9 H Absolute Lymphs (auto) 0.83 Total Counted Not Reportable Differential Comment SCANNED Sodium 136 Potassium 4.6 Chloride 89 L Carbon Dioxide > 45.0 H* Anion Gap TNP BUN 20 H Creatinine 0.75 Estim Creat Clear Calc 65.55 Est GFR (MDRD) Af Amer 132 Est GFR (MDRD) Non-Af 109 BUN/Creatinine Ratio 26.8 H Glucose 220 H Calcium 8.2 L Total Bilirubin 0.50 AST 22 ALT 31 Alkaline Phosphatase 96 Total Protein 5.9 L Albumin 2.4 L Globulin 3.5 Albumin/Globulin Ratio 0.7 L Urine Color Urine Clarity Urine pH Ur Specific [place] Urine Protein Urine Glucose (UA) Urine Ketones Urine Occult Blood Urine Nitrite Urine Bilirubin Urine Urobilinogen Ur Leukocyte Esterase MRSA (PCR) Negative 07/18/17 05:40 WBC RBC Hgb Hct MCV MCH MCHC RDW RDW Differential Plt Count MPV Immature Gran % (Auto) Neut % (Auto) Lymph % (Auto) [place] % (Auto) Eos % (Auto) Baso % (Auto) Absolute Neuts (auto) Absolute Lymphs (auto) Total Counted Differential Comment Sodium Potassium Chloride Carbon Dioxide Anion Gap BUN Creatinine Estim Creat Clear Calc Est GFR (MDRD) Af Amer Est GFR (MDRD) Non-Af BUN/Creatinine Ratio Glucose Calcium Total Bilirubin AST ALT Alkaline Phosphatase Total Protein Albumin Globulin Albumin/Globulin Ratio Urine Color Yellow Urine Clarity Cloudy Urine pH 7.0 Ur Specific [place] 1.010 Urine Protein 30 H Urine Glucose (UA) Normal Urine Ketones Negative Urine Occult Blood 150 H Urine Nitrite Negative Urine Bilirubin Negative Urine Urobilinogen Normal Ur Leukocyte Esterase 500 H MRSA (PCR) Clinical Impression(s) from Imaging Studies Chest X-Ray 07/18/17 03:20 IMPRESSION: Left lower lobe pneumonia is new since the previous study. Electronically Signed: Abimbola Gallegos MD at 4:12 EDT Tel , Service support , Assessment/Plan RECOMMENDATIONS: 1. Continue BiPAP 15/5 with naps and nightly. 2. Continue aerosol treatments antibiotic and steroids 3. Discontinue vancomycin, continue other antibiotics 4. Maintain potassium level greater than 4 and magnesium level greater than 2. 5. Maintain oxygen saturations 88-92%, to prevent paradoxical CO2 retention. 6. Therapy consultations IMPRESSIONS: 1. Acute on chronic combined respiratory failure / baseline end-stage COPD with exacerbation Patient does have a new left lower lobe infiltrate. Patient has been in the hospital for multiple weeks and last hospitalization did require intubation. Patient with marginal pulmonary reserve, but continues to wish full code measures. Will continue with BiPAP therapy for now. Patient is on appropriate aerosols and IV steroids. Will discontinue patient's vancomycin given negative MRSA swab. Poor long-term prognosis, but appears to be responding to BiPAP therapy. 2. Hypercarbic encephalopathy Patient not able to provide much reliable history at this time. Patient does have significant CO2 retention at baseline, but pH was okay on ABG. We will continue with BiPAP therapy with breaks as tolerated. 3. 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 Unfortunately, this has led to recurrent hospital admissions. 4. Recent sp PEA arrest/Heart failure with preserved ejection fraction/hypertension/GERD/anxiety/hyperlipidemia/history of medical noncompliance Complicates care, management, recovery and prognosis. Antihypertensives can be slowly restarted upon medical stabilization. Continue work with physical therapy. This note was generated with [employer] dictation software. It may contain incorrect words, spelling, and punctuation that were not noted in checking the note before signing. TIME: 35 minutes critical care time spent addressing patient's acute on chronic respiratory failure, CHF, MILA, encephalopathy, review of all data and collaboration with care team (6 AM to 7 AM) Code Visit 9xxxx: [id number] Critical care first hour
[2017-07-18 09:01] LABS: Allen Test POS; Blood Gas Specimen Type ART; O2 Delivery Device Bi Pap; SITE R RADIAL
--- NOTE | 2017-07-18 09:01 | PCM.PN.HOSP ---
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 Tachycardia with tachypnea. Currently on oxygen through nasal cannula. Was on BiPAP last night. History of multiple recurrent admissions for respiratory failure and COPD exacerbations Vitals/I&O's: Vital Signs Temp Pulse Resp BP Pulse Ox 97.8 F 81 17 112/62 99 07/18/17 06:03 07/18/17 08:00 07/18/17 08:00 07/18/17 08:00 07/18/17 08:00 Oxygen Flow Rate (L/min) 3 Oxygen Delivery Method Nasal Cannula Weight: 220 lb 7.396 oz Body Mass Index (BMI) 33.5 Intake and Output for Last 24 Hours 07/16/17 07/17/17 07/18/17 23:59 23:59 23:59 Intake Total 1856 / 1856 Output Total 80 / 80 Balance 1776 / 1776 General: Oriented x3, Lethargic HEENT: Atraumatic, PERRLA, EOMI, Normocephalic Neck: Supple Lungs: No rhonchi, No wheeze, Diminished, Rhonchi Cardiovascular: Regular rate, Regular Rhythm, Normal S1, Normal S2, Tachycardic Abdomen: Bowel Sounds Present, Soft, Non Tender Extremities: No clubbing, Edema Skin: No rashes, No breakdown Microbiology Past 72 Hours 07/18/17 05:40 Urine Catheter - Vasquez Streptococcus pneumoniae Antigen (M - Final 07/18/17 05:40 Urine Catheter - Vasquez Legionella Antigen - Final Laboratory Results 07/18/17 05:00: MRSA (PCR) Negative 07/18/17 05:35: WBC 23.6 H, RBC 3.17 L, Hgb 9.0 L, Hct 30.9 L, MCV 97.5 H, MCH 28.4, MCHC 29.1 L, RDW 15.1 H, RDW Differential 53.8 H, Plt Count 264, MPV 8.9, Immature Gran % (Auto) 0.200, Neut % (Auto) 92.6 H, Lymph % (Auto) 3.5 L, Bertie % (Auto) 3.7, Eos % (Auto) 0.0, Baso % (Auto) 0.0, Absolute Neuts (auto) 21.9 H, Absolute Lymphs (auto) 0.83, Total Counted Not Reportable, Differential Comment SCANNED 07/18/17 05:35: Sodium 136, Potassium 4.6, Chloride 89 L, Carbon Dioxide > 45.0 H*, Anion Gap TNP, BUN 20 H, Creatinine 0.75, Estim Creat Clear Calc 65.55, Est GFR (MDRD) Af Amer 132, Est GFR (MDRD) Non-Af 109, BUN/Creatinine Ratio 26.8 H, Glucose 220 H, Calcium 8.2 L, Total Bilirubin 0.50, AST 22, ALT 31, Alkaline Phosphatase 96, Total Protein 5.9 L, Albumin 2.4 L, Globulin 3.5, Albumin/Globulin Ratio 0.7 L 07/18/17 05:40: Urine Color Yellow, Urine Clarity Cloudy, Urine pH 7.0, Ur Specific [place] 1.010, Urine Protein 30 H, Urine Glucose (UA) Normal, Urine Ketones Negative, Urine Occult Blood 150 H, Urine Nitrite Negative, Urine Bilirubin Negative, Urine Urobilinogen Normal, Ur Leukocyte Esterase 500 H Current Medications Acetaminophen (Tylenol) 1,000 mg PO Q8H PRN PRN PRN Reason: PAIN Albuterol/Ipratropium (Duoneb) 3 ml INHALATION Q4HWA.RT [facility] Last Admin: 07/18/17 06:46 Dose: 3 ml Atorvastatin Calcium (Lipitor) 20 mg PO QHS [facility] Carvedilol (Coreg) 3.125 mg PO BID [facility] Emollient Ointment (Eucerin Intensive Repair) 1 applic TOPICAL DAILY [facility] Enoxaparin Sodium (Lovenox) 40 mg SC DAILY [facility] Famotidine (Pepcid) 20 mg PO BID [facility] Furosemide (Lasix) 40 mg PO DAILY [facility] Guaifenesin (Mucinex) 1,200 mg PO BID [facility] Sodium Chloride () 1,000 mls @ 75 mls/hr IV .[id number] [facility] Last Admin: 07/18/17 05:54 Dose: 75 mls/hr Piperacillin Sod/Tazobactam Sod (Zosyn) 3.375 gm in 50 mls @ 12.5 mls/hr IV Q8 [facility] Lisinopril (Zestril) 2.5 mg PO QHS [facility] Magnesium Citrate (Citrate Of Magnesia) 300 ml PO QODAY [facility] Methylprednisolone (Solu-Medrol) 40 mg IV Q8 [facility] Stop: 07/19/17 14:01 Pantoprazole Sodium (Protonix) 40 mg PO DAILY [facility] Polysaccharide Iron Complex (Ferrex 150) 150 mg PO DAILYCM [facility] Prednisone () 40 mg PO DAILY@0800 [facility] Medical Necessity - Tobacco Use Smoking Status: Former smoker Assessment/Plan 71 year old male w/ h/o COPD, HTN, CAD, chronic systolic heart failure, and anxiety admitted for acute on chronic hypoxic and hypercapnic respiratory failure from TCU due to respiratory distress progressive worsening of shortness of breath.. 1) Acute on chronic hypoxic and hypercapnic combined respiratory failure: Probably secondary to acute on chronic COPD exacerbation secondary to HCAP. Repeat ABGs CO2 103, PO2 78 with pH 7.34. Previous ABG 7.34/106/69 on 06/09, FiO2 50% BiPAP [employer] consult reviewed. On intermittent BiPAP and oxygen through nasal cannula 2) Acute on chronic COPD exacerbation secondary to HCAP: C/w bronchodilators and bipap. Solu-Medrol Baseline pCO2 70s noted. Discussed with the thread spinner. 3) left lower lobe HCAP: Chest xray disclosed probably left lower lobe infiltrate. Chest x-ray shows left lower lobe infiltrate which is new suggestive of left lower lobe pneumonia. Cultures pending. Urinary antigens are negative WBC 27.2 with 87 segs no bands. Lactate is 0.6. On IV Zosyn and Levaquin. Vancomycin discontinued as MRSA nasal screen negative. Cultures pending. 4) Chronic issues: HTN, CAD, recent status post PEA arrest, chronic heart failure with preserved EF (recent ECHO EF 55%, left ventricular systolic function normal with mild concentric LVH with mild diastolic dysfunction; no regional wall motion and normal), obesity hypoventilation/obstructive sleep apnea; noncompliant with home CPAP. Hypertension, GERD, anxiety, dyslipidemia and morbid obesity: Resume meds. 5) DVT prophylaxis: Lovenox and famotidine
[2017-07-18 09:02] LABS: EPAP 5; FI02 50; IPAP 15; Time Given 257; pH 7.34 (7.35-7.45)
[2017-07-18 09:03] LABS: Base Excess > 30 mmol/L (-2 to +2); Bicarbonate 57.2 mmol/L (22-26); PO2 69 mmHG (75-100); SO2 90 % (95-99); Total Carbon Dioxide > 50 mmol/L; pCO2 106.8 mmHg (35-45)
[2017-07-18 09:05] LABS: Blood Gas Specimen Type ART; SITE L RADIAL
[2017-07-18 09:06] LABS: Allen Test POS; EPAP 7; FI02 50; IPAP 20; O2 Delivery Device Bi Pap; Time Given 415; pH 7.34 (7.35-7.45)
[2017-07-18 09:07] LABS: Base Excess 29 mmol/L (-2 to +2); Bicarbonate 55.2 mmol/L (22-26); PO2 78 mmHG (75-100); Total Carbon Dioxide > 50 mmol/L
[2017-07-18 09:08] LABS: SO2 93 % (95-99)
[2017-07-18 09:09] LABS: pCO2 103.5 mmHg (35-45)
--- NOTE | 2017-07-18 09:12 | PN_ITS ---
Subjective: T-max 100.8 Fahrenheit, rectal decal decorator today. Tachycardia with tachypnea. Currently on oxygen through nasal cannula. Was on BiPAP last night. History of multiple recurrent admissions for respiratory failure and COPD exacerbations Vitals/I&O's: Vital Signs Temp Pulse Resp BP Pulse Ox 97.8 F 81 17 112/62 99 07/18/17 06:03 07/18/17 08:00 07/18/17 08:00 07/18/17 08:00 07/18/17 08:00 Oxygen Flow Rate (L/min) 3 Oxygen Delivery Method Nasal Cannula Weight: 220 lb 7.396 oz Body Mass Index (BMI) 33.5 Intake and Output for Last 24 Hours 07/16/17 07/17/17 07/18/17 23:59 23:59 23:59 Intake Total 1856 / 1856 Output Total 80 / 80 Balance 1776 / 1776 General: Oriented x3, Lethargic HEENT: Atraumatic, PERRLA, EOMI, Normocephalic Neck: Supple Lungs: No rhonchi, No wheeze, Diminished, Rhonchi Cardiovascular: Regular rate, Regular Rhythm, Normal S1, Normal S2, Tachycardic Abdomen: Bowel Sounds Present, Soft, Non Tender Extremities: No clubbing, Edema Skin: No rashes, No breakdown Microbiology Past 72 Hours 07/18/17 05:40 Urine Catheter - Vasquez Streptococcus pneumoniae Antigen (M - Final 07/18/17 05:40 Urine Catheter - Vasquez Legionella Antigen - Final Laboratory Results 07/18/17 05:00: MRSA (PCR) Negative 07/18/17 05:35: WBC 23.6 H, RBC 3.17 L, Hgb 9.0 L, Hct 30.9 L, MCV 97.5 H, MCH 28.4, MCHC 29.1 L, RDW 15.1 H, RDW Differential 53.8 H, Plt Count 264, MPV 8.9, Immature Gran % (Auto) 0.200, Neut % (Auto) 92.6 H, Lymph % (Auto) 3.5 L, [place] % (Auto) 3.7, Eos % (Auto) 0.0, Baso % (Auto) 0.0, Absolute Neuts (auto) 21.9 H , Absolute Lymphs (auto) 0.83, Total Counted Not Reportable, Differential Comment SCANNED 07/18/17 05:35: Sodium 136, Potassium 4.6, Chloride 89 L, Carbon Dioxide > 45.0 H*, Anion Gap TNP, BUN 20 H, Creatinine 0.75, Estim Creat Clear Calc 65.55, Est GFR (MDRD) Af Amer 132, Est GFR (MDRD) Non-Af 109, BUN/Creatinine Ratio 26.8 H, Glucose 220 H, Calcium 8.2 L, Total Bilirubin 0.50, AST 22, ALT 31, Alkaline Phosphatase 96, Total Protein 5.9 L, Albumin 2.4 L, Globulin 3.5, Albumin/ Globulin Ratio 0.7 L 07/18/17 05:40: Urine Color Yellow, Urine Clarity Cloudy, Urine pH 7.0, Ur Specific [place] 1.010, Urine Protein 30 H, Urine Glucose (UA) Normal, Urine Ketones Negative, Urine Occult Blood 150 H, Urine Nitrite Negative, Urine Bilirubin Negative, Urine Urobilinogen Normal, Ur Leukocyte Esterase 500 H Current Medications Acetaminophen (Tylenol) 1,000 mg PO Q8H PRN PRN PRN Reason: PAIN Albuterol/Ipratropium (Duoneb) 3 ml INHALATION Q4HWA.RT [facility] Last Admin: 07/18/17 06:46 Dose: 3 ml Atorvastatin Calcium (Lipitor) 20 mg PO QHS [facility] Carvedilol (Coreg) 3.125 mg PO BID [facility] Emollient Ointment (Eucerin Intensive Repair) 1 applic TOPICAL DAILY [facility] Enoxaparin Sodium (Lovenox) 40 mg SC DAILY [facility] Famotidine (Pepcid) 20 mg PO BID [facility] Furosemide (Lasix) 40 mg PO DAILY [facility] Guaifenesin (Mucinex) 1,200 mg PO BID [facility] Sodium Chloride () 1,000 mls @ 75 mls/hr IV .[id number] [facility] Last Admin: 07/18/17 05:54 Dose: 75 mls/hr Piperacillin Sod/Tazobactam Sod (Zosyn) 3.375 gm in 50 mls @ 12.5 mls/hr IV Q8 [facility] Lisinopril (Zestril) 2.5 mg PO QHS [facility] Magnesium Citrate (Citrate Of Magnesia) 300 ml PO QODAY [facility] Methylprednisolone (Solu-Medrol) 40 mg IV Q8 [facility] Stop: 07/19/17 14:01 Pantoprazole Sodium (Protonix) 40 mg PO DAILY [facility] Polysaccharide Iron Complex (Ferrex 150) 150 mg PO DAILYCM [facility] Prednisone () 40 mg PO DAILY@0800 [facility] Medical Necessity - Tobacco Use Smoking Status: Former smoker Assessment/Plan 71 year old male w/ h/o COPD, HTN, CAD, chronic systolic heart failure, and anxiety admitted for acute on chronic hypoxic and hypercapnic respiratory failure from TCU due to respiratory distress progressive worsening of shortness of breath.. 1) Acute on chronic hypoxic and hypercapnic combined respiratory failure: Probably secondary to acute on chronic COPD exacerbation secondary to HCAP. Repeat ABGs CO2 103, PO2 78 with pH 7.34. Previous ABG 7.34/106/69 on 06/09, FiO2 50% BiPAP Headline Writer consult reviewed. On intermittent BiPAP and oxygen through nasal cannula 2) Acute on chronic COPD exacerbation secondary to HCAP: C/w bronchodilators and bipap. Solu-Medrol Baseline pCO2 70s noted. Discussed with the launch manager. 3) left lower lobe HCAP: Chest xray disclosed probably left lower lobe infiltrate. Chest x-ray shows left lower lobe infiltrate which is new suggestive of left lower lobe pneumonia. Cultures pending. Urinary antigens are negative WBC 27.2 with 87 segs no bands. Lactate is 0.6. On IV Zosyn and Levaquin. Vancomycin discontinued as MRSA nasal screen negative. Cultures pending. 4) Chronic issues: HTN, CAD, recent status post PEA arrest, chronic heart failure with preserved EF (recent ECHO EF 55%, left ventricular systolic function normal with mild concentric LVH with mild diastolic dysfunction; no regional wall motion and normal), obesity hypoventilation/obstructive sleep apnea; noncompliant with home CPAP. Hypertension, GERD, anxiety, dyslipidemia and morbid obesity: Resume meds. 5) DVT prophylaxis: Lovenox and famotidine
[2017-07-18] MEDS: Enoxaparin 40 MG/0.4 ML Syringe SC (09:32)
--- NOTE | 2017-07-18 09:40 | CASEMGMT ---
Patient is from TCU. SW will follow to assist in appropriate d/c plan. Romelia GOLDMAN MSW
--- NOTE | 2017-07-18 12:10 | CASEMGMT ---
AARON CM Readission Note: Pt presented fro TCU with increasing acute on chronic resp failure over past 24 hours. CXR shows LLL infiltrate suggestive of LLL pneumonia. Hx of COPD, HTN, CAD, CHF. Requiring Bipap 30% O2. Pt wears oxygen @ home, 3L [place]. Last admission: 07/05/17-07/10/07. tretment for resp failure. To TCU on discharge. PCP- Dr. Sanchez Pharmacy- [facility] Plan: return to TCU on discharge. Jin MCKEONN RN ACM
[2017-07-18] MEDS: Furosemide 40 MG Tablet PO (12:35)
[2017-07-18] MEDS: Famotidine 20 MG Tablet PO ×2 (12:35→22:36)
[2017-07-18] MEDS: guaiFENesin 1,200 MG Tablet 1200 MG PO ×2 (12:35→22:36)
[2017-07-18] MEDS: Carvedilol 3.125 MG TABLET PO ×2 (12:35→22:36)
[2017-07-18] MEDS: Iron Polysaccharide Complex 150 MG CAPSULE PO (12:35)
[2017-07-18] MEDS: Magnesium Citrate 300 ML PO (13:13)
[2017-07-18 13:48] LABS: Pathologist Review Reviewed
--- NOTE | 2017-07-18 14:52 | CHAPLAIN ---
Type of Pastoral Visit _x__ Initial Visit ___ Follow-up Visit ___ On-call Visit ___ General Patient Visit ___ Spiritual Assessment ___ Family Conference ___ Bereavement ___ Rapid Response ___ Code Blue ___ Other (describe below) Pastoral Care Referral From _x__ Patient ___ Family ___ Nurse ___ Physician ___ [employer] ___ Software Applications Architect ___ Other (describe below) Sacrament/Intervention _x__ Active listening ___ Anointing ___ Church ___ Bereavement ___ Communion ___ Pili exploration ___ ___ Life review _x__ Prayer ___ Reconciliation ___ Sacrament of Sick _x__ Supportive presence ___ Wedding ___ Other (describe below) Pastoral Comments brass burnisher has met this patient in the hospital previously; patient says that he is not sure why he was moved to ICU and actually says he is not sure what unit he is on; several family members are in the room; family members are talkative; pt says that he would like a prayer to be given for his health
--- NOTE | 2017-07-18 14:56 | NURSING ---
Pt demanded salt for his meal. Education was provided. Pt still wanted salt for his meal. Salt provided to pt.
[2017-07-18] MEDS: Piperacil/Tazobactam 3.375 GM/50 ML ML IV ×2 (15:07→22:37)
[2017-07-18] MEDS: Acetaminophen 500 MG Tablet 1000 MG PO (15:08)
[2017-07-18] MEDS: oxyCODONE 5 MG Tablet PO ×2 (18:45→22:48)
[2017-07-18] MEDS: Lisinopril 2.5 MG Tablet PO (22:36)
[2017-07-18] MEDS: Atorvastatin Calcium 20 MG Tablet PO (22:36)
--- NOTE | 2017-07-18 23:41 | CPS ---
Patient asked this RT to remove the DuoDerm from nose because it was moving into his eye. RT stated to patient that it is not recommended to be removed and put back on alot. Patient continued to state that he wanted it replaced. RT warned patient that the DuoDerm could tear his skin when coming off. RT removed the Duoderm and the patient's skin was normal underneath, without any complaints. For this time being we are going to let patient take break from the DuoDerm. Radha WELSH
[2017-07-19] VITALS (26 sets, daily range): BP systolic 84–112; BP diastolic 50–64; PULSE 63–139; RESP 12–23; TEMP 36.7–37.2; O2SAT 92–100
[2017-07-19 04:10] LABS: Absolute Lymphocyte Count 0.28 X10^3/ul (0.83-4.51); Absolute Neutrophil Count 16.2 X10^3/uL (2.0-7.7); Hematocrit 27.3 % (40-54); Hemoglobin 7.9 g/dl (13.0-16.5); Lymphocyte # 0.28 X10^3/ul (4.0); Lymphocyte % 1.6 % (19-41); Mean Corp Hgb Conc 28.9 g/gl (32-36); Mean Corpuscular Hgb 27.8 pg (27.0-32.0); Mean Corpuscular Volume 96.1 fL (80-94); Mean Platelet Vol. 8.9 fl (6.2-12.0); Monocyte# 0.56 X10^3/uL; Monocyte% 3.3 % (0-10); Neutrophil # 16.23 X10^3/uL (2.7-7.7); Neutrophil % 94.9 % (47-70); Platelet Count 264 K/mm3 (150-450); RBC Distribution Width CV 14.8 % (11.6-14.6); Red Blood Count 2.84 M/mm3 (4.6-6.2); White Blood Count 17.1 K/mm3 (4.4-11.0)
[2017-07-19 04:12] LABS: Differential Indicated SCAN CRITERIA MET; POSITIVE COUNT NO; POSITIVE DIFFERENTIAL YES; POSITIVE MORPHOLOGY NO
[2017-07-19 04:17] LABS: Anion Gap 3 (5-15); BUN 21 mg/dL (7-18); BUN/Creat Ratio 32.3 RATIO (10-20); Calcium,Total 8.2 mg/dL (8.5-10.1); Chloride 91 mmol/L (98-107); Creatinine, Serum 0.65 mg/dL (0.70-1.30); EST Glomerular Filtration Rate 128 mL/min (>60); Est Glom Filt Rate - Afr Amer 155 mL/min (>60); Estimated Creatinine Clearance 65.55 ml/min; Glucose 204 mg/dL (74-106); Sodium Level 137 mmol/L (136-145)
[2017-07-19] MEDS: 0.9% NaCl Peripheral Flush Adult/Peds IV (05:51)
[2017-07-19] MEDS: Piperacil/Tazobactam 3.375 GM/50 ML ML IV (05:51)
--- NOTE | 2017-07-19 05:59 | RAD_ITS ---
STUDY: X-RAY CHEST REASON FOR EXAM: Male, 71 years old. Shortness of breath. TECHNIQUE: Single AP portable view of the chest. COMPARISON: Chest radiograph dated July 18, 2017. FINDINGS: Cardiac monitoring leads are present. The lungs are hyperexpanded. There is prominence of bronchovascular markings. There is suggestion for bilateral basilar airspace consolidation and atelectasis. There may be small pleural effusions. There is borderline cardiomegaly. Normal mediastinum and jaida. There is prominence of the pulmonary hilar arteries and peripheral pulmonary arteries. There is atherosclerotic calcification of the aortic arch with tortuosity. There is demineralization of the osseous structures. Patient may have had previous right-sided shoulder surgery. There is no demonstrated abnormality of the visualized soft tissue structures of the upper abdomen. RAD/Chest 1 View (Portable) IMPRESSION: 1. Borderline cardiomegaly and pulmonary edema. 2. Bilateral basilar airspace consolidations and/or atelectasis. Electronically Signed: Barbara Washburn MD at 8:21 EDT , Service support ,
[2017-07-19] MEDS: Ipratropium/Albuterol Sulfate 3 ML AMPUL.NEB INHALATION ×4 (06:29→19:15)
--- NOTE | 2017-07-19 06:51 | PCM.PN.INT ---
Subjective: The patient was seen and examined at the bedside this morning. Events from the last 24 hours have been reviewed. The patient is currently afebrile, hemodynamically stable and maintaining appropriate oxygen saturations on BiPAP. Objective: The patient's most recent lab work, culture data and imaging studies have all been personally reviewed. General: Alert, Cooperative, No apparent distress HEENT: Atraumatic, PERRLA, Normocephalic Oral: Moist Mucosa, No Gingival or Mucosal Lesions/ Ulcerations Neck: Supple, No JVD, Trachea Midline Lungs: No rhonchi, No wheeze, No rales, Diminished Cardiovascular: Regular rate, Regular Rhythm, Normal S1, Normal S2, No murmurs Abdomen: Bowel Sounds Present, Soft, Non Tender, Obese Extremities: No cyanosis, Clubbing, Diminished Peripheral Pulses, Edema Skin: No rashes, No breakdown Musculoskeletal: No Tenderness to Palpation of Joints or Extremities Lymphatic: No Cervical, Supraclavicular, or Inguinal Adenopathy Neurological: Neuro grossly intact Psych/Mental Status: Restless Vital Signs Temp Pulse Resp BP Pulse Ox 99.0 F 73 17 85/51 L 97 07/19/17 06:00 07/19/17 06:00 07/19/17 06:00 07/19/17 06:00 07/19/17 06:00 Oxygen Flow Rate (L/min) 4 Oxygen Delivery Method Bi-pap Weight: 226 lb 3.108 oz Body Mass Index (BMI) 33.5 Intake and Output for Last 24 Hours 07/17/17 07/18/17 07/19/17 23:59 23:59 23:59 Intake Total 2621 / 2621 680 / 680 Output Total 1155 / 1155 775 / 775 Balance 1466 / 1466 -95 / -95 Labs (Last 48 Hours) 07/18/17 07/18/17 07/18/17 04:15 05:00 05:35 WBC 23.6 H RBC 3.17 L Hgb 9.0 L Hct 30.9 L MCV 97.5 H MCH 28.4 MCHC 29.1 L RDW 15.1 H RDW Differential 53.8 H Plt Count 264 MPV 8.9 Immature Gran % (Auto) 0.200 Neut % (Auto) 92.6 H Lymph % (Auto) 3.5 L [place] % (Auto) 3.7 Eos % (Auto) 0.0 Baso % (Auto) 0.0 Absolute Neuts (auto) 21.9 H Absolute Lymphs (auto) 0.83 Total Counted Not Reportable Differential Comment SCANNED Specimen Type ART Sample Site L RADIAL pH 7.34 L Bicarbonate Actual 55.2 H POC Total CO2 > 50 Base Excess 29 H O2 Saturation 93 L O2 % 50 ABG pCO2 103.5 H* ABG pO2 78 Karan Test POS O2 Delivery Device Bi Pap EPAP 7 IPAP 20 Blood Gas Notified Whom [facility] Blood Gas Notified Time 415 Sodium Potassium Chloride Carbon Dioxide Anion Gap BUN Creatinine Estim Creat Clear Calc Est GFR (MDRD) Af Amer Est GFR (MDRD) Non-Af BUN/Creatinine Ratio Glucose Calcium Total Bilirubin AST ALT Alkaline Phosphatase Total Protein Albumin Globulin Albumin/Globulin Ratio Urine Color Urine Clarity Urine pH Ur Specific [place] Urine Protein Urine Glucose (UA) Urine Ketones Urine Occult Blood Urine Nitrite Urine Bilirubin Urine Urobilinogen Ur Leukocyte Esterase MRSA (PCR) Negative 07/18/17 07/18/17 07/19/17 05:35 05:40 04:00 WBC 17.1 H RBC 2.84 L Hgb 7.9 L Hct 27.3 L MCV 96.1 H MCH 27.8 MCHC 28.9 L RDW 14.8 H RDW Differential 49.0 H Plt Count 264 MPV 8.9 Immature Gran % (Auto) 0.200 Neut % (Auto) 94.9 H Lymph % (Auto) 1.6 L [place] % (Auto) 3.3 Eos % (Auto) 0.0 Baso % (Auto) 0.0 Absolute Neuts (auto) 16.2 H Absolute Lymphs (auto) 0.28 L Total Counted Not Reportable Differential Comment Specimen Type Sample Site pH Bicarbonate Actual POC Total CO2 Base Excess O2 Saturation O2 % ABG pCO2 ABG pO2 Karan Test O2 Delivery Device EPAP IPAP Blood Gas Notified Whom Blood Gas Notified Time Sodium 136 Potassium 4.6 Chloride 89 L Carbon Dioxide > 45.0 H* Anion Gap TNP BUN 20 H Creatinine 0.75 Estim Creat Clear Calc 65.55 Est GFR (MDRD) Af Amer 132 Est GFR (MDRD) Non-Af 109 BUN/Creatinine Ratio 26.8 H Glucose 220 H Calcium 8.2 L Total Bilirubin 0.50 AST 22 ALT 31 Alkaline Phosphatase 96 Total Protein 5.9 L Albumin 2.4 L Globulin 3.5 Albumin/Globulin Ratio 0.7 L Urine Color Yellow Urine Clarity Cloudy Urine pH 7.0 Ur Specific [place] 1.010 Urine Protein 30 H Urine Glucose (UA) Normal Urine Ketones Negative Urine Occult Blood 150 H Urine Nitrite Negative Urine Bilirubin Negative Urine Urobilinogen Normal Ur Leukocyte Esterase 500 H MRSA (PCR) 07/19/17 04:00 WBC RBC Hgb Hct MCV MCH MCHC RDW RDW Differential Plt Count MPV Immature Gran % (Auto) Neut % (Auto) Lymph % (Auto) [place] % (Auto) Eos % (Auto) Baso % (Auto) Absolute Neuts (auto) Absolute Lymphs (auto) Total Counted Differential Comment Specimen Type Sample Site pH Bicarbonate Actual POC Total CO2 Base Excess O2 Saturation O2 % ABG pCO2 ABG pO2 Karan Test O2 Delivery Device EPAP IPAP Blood Gas Notified Whom Blood Gas Notified Time Sodium 137 Potassium 5.0 Chloride 91 L Carbon Dioxide 43.0 H Anion Gap 3 L BUN 21 H Creatinine 0.65 L Estim Creat Clear Calc 65.55 Est GFR (MDRD) Af Amer 155 Est GFR (MDRD) Non-Af 128 BUN/Creatinine Ratio 32.3 H Glucose 204 H Calcium 8.2 L Total Bilirubin AST ALT Alkaline Phosphatase Total Protein Albumin Globulin Albumin/Globulin Ratio Urine Color Urine Clarity Urine pH Ur Specific [place] Urine Protein Urine Glucose (UA) Urine Ketones Urine Occult Blood Urine Nitrite Urine Bilirubin Urine Urobilinogen Ur Leukocyte Esterase MRSA (PCR) Microbiology 07/18/17 05:40 Urine Catheter - Vasquez Streptococcus pneumoniae Antigen (M - Final 07/18/17 05:40 Urine Catheter - Vasquez Legionella Antigen - Final Clinical Impression(s) from Imaging Studies Chest X-Ray 07/18/17 03:20 IMPRESSION: Left lower lobe pneumonia is new since the previous study. Electronically Signed: Abimbola Gallegos MD at 4:12 EDT Tel , Service support , Medical Necessity - Tobacco Use Smoking Status: Former smoker Assessment/Plan RECOMMENDATIONS: 1. Continue BiPAP therapy with naps and nightly 2. Continue aerosol treatments. Transition from IV steroids to prednisone 3. Maintain oxygen saturations 88-92%, to prevent paradoxical CO2 retention. 4. Maintain low-salt diet 5. Encourage incentive spirometer use and mobilize patient as tolerated IMPRESSIONS: 1. Acute on chronic combined respiratory failure / baseline end-stage COPD with exacerbation Patient does have a new left lower lobe infiltrate. Patient has been in the hospital for multiple weeks and last hospitalization did require intubation. Patient with marginal pulmonary reserve, but continues to wish full code measures. Continue BiPAP therapy as ordered. Patient is on appropriate aerosols and steroids. Poor long-term prognosis, but appears to be respond to BiPAP therapy. 2. Hypercarbic encephalopathy Resolved at this time. Patient does have significant CO2 retention at baseline, but pH was okay on ABG at the time of presentation. BiPAP will be continued as ordered with naps and nightly. 3. 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 Unfortunately, this has led to recurrent hospital admissions. 4. Recent sp PEA arrest/Heart failure with preserved ejection fraction/hypertension/GERD/anxiety/hyperlipidemia/history of medical noncompliance Complicates care, management, recovery and prognosis. Antihypertensives can be slowly restarted upon medical stabilization. Continue work with physical therapy. This note was generated with [employer]piat[employer] dictation software. It may contain incorrect words, spelling, and punctuation that were not noted in checking the note before signing. DISPOSITION: The patient is medically stable for transfer out of the intensive care unit. Code Visit Inpatient E&M: [id number] [facility] L3
--- NOTE | 2017-07-19 07:45 | PCM.PN.HOSP ---
Subjective: On intermittent BiPAP and nasal cannula. No fever. Patient respiratory status is much better today. Patient request for having salt in the breakfast; although he is on cardiac diet Vitals/I&O's: Vital Signs Temp Pulse Resp BP Pulse Ox 99.0 F 73 17 85/51 L 97 07/19/17 06:00 07/19/17 06:00 07/19/17 06:00 07/19/17 06:00 07/19/17 06:00 Oxygen Flow Rate (L/min) 4 Oxygen Delivery Method Bi-pap Weight: 226 lb 3.108 oz Body Mass Index (BMI) 33.5 Intake and Output for Last 24 Hours 07/17/17 07/18/17 07/19/17 23:59 23:59 23:59 Intake Total 2621 / 2621 680 / 680 Output Total 1155 / 1155 775 / 775 Balance 1466 / 1466 -95 / -95 General: Alert, Oriented x3, Cooperative HEENT: Atraumatic, PERRLA, EOMI, Normocephalic Neck: Supple, No JVD, Negative Carotid Bruits Lungs: Diminished, Rhonchi Cardiovascular: Regular rate, Regular Rhythm, Normal S1, Normal S2, No murmurs Abdomen: Bowel Sounds Present, Soft, Non Tender, Non-Distended Extremities: Capillary Refill Less than 3 Seconds, Edema Skin: No rashes, No breakdown Musculoskeletal: No Tenderness to Palpation of Joints or Extremities Neurological: Cranial nerves II-XII grossly intact Psych/Mental Status: Normal Affect, Appropriate Microbiology Past 72 Hours 07/18/17 05:40 Urine Catheter - Vasquez Streptococcus pneumoniae Antigen (M - Final 07/18/17 05:40 Urine Catheter - Vasquez Legionella Antigen - Final Laboratory Results 07/18/17 04:15: Specimen Type ART, Sample Site L RADIAL, pH 7.34 L, Bicarbonate Actual 55.2 H, POC Total CO2 > 50, Base Excess 29 H, O2 Saturation 93 L, O2 % 50, ABG pCO2 103.5 H*, ABG pO2 78, Karan Test POS, O2 Delivery Device Bi Pap, EPAP 7, IPAP 20, Blood Gas Notified Whom MARIE GALEANA, Blood Gas Notified Time 415 07/19/17 04:00: WBC 17.1 H, RBC 2.84 L, Hgb 7.9 L, Hct 27.3 L, MCV 96.1 H, MCH 27.8, MCHC 28.9 L, RDW 14.8 H, RDW Differential 49.0 H, Plt Count 264, MPV 8.9, Immature Gran % (Auto) 0.200, Neut % (Auto) 94.9 H, Lymph % (Auto) 1.6 L, Mills % (Auto) 3.3, Eos % (Auto) 0.0, Baso % (Auto) 0.0, Absolute Neuts (auto) 16.2 H, Absolute Lymphs (auto) 0.28 L, Total Counted Not Reportable 07/19/17 04:00: Sodium 137, Potassium 5.0, Chloride 91 L, Carbon Dioxide 43.0 H, Anion Gap 3 L, BUN 21 H, Creatinine 0.65 L, Estim Creat Clear Calc 65.55, Est GFR (MDRD) Af Amer 155, Est GFR (MDRD) Non-Af 128, BUN/Creatinine Ratio 32.3 H, Glucose 204 H, Calcium 8.2 L Current Medications Acetaminophen (Tylenol) 1,000 mg PO Q8H PRN PRN PRN Reason: PAIN Last Admin: 07/18/17 15:08 Dose: 1,000 mg Albuterol/Ipratropium (Duoneb) 3 ml INHALATION Q4HWA.RT [facility] Last Admin: 07/19/17 06:29 Dose: 3 ml Atorvastatin Calcium (Lipitor) 20 mg PO QHS [facility] Last Admin: 07/18/17 22:36 Dose: 20 mg Carvedilol (Coreg) 3.125 mg PO BID [facility] Last Admin: 07/18/17 22:36 Dose: 3.125 mg Emollient Ointment (Eucerin Intensive Repair) 1 applic TOPICAL DAILY [facility] Last Admin: 07/18/17 13:12 Dose: 1 applicatio Enoxaparin Sodium (Lovenox) 40 mg SC DAILY [facility] Last Admin: 07/18/17 09:32 Dose: 40 mg Famotidine (Pepcid) 20 mg PO BID [facility] Last Admin: 07/18/17 22:36 Dose: 20 mg Furosemide (Lasix) 40 mg PO DAILY [facility] Last Admin: 07/18/17 12:35 Dose: 40 mg Guaifenesin (Mucinex) 1,200 mg PO BID [facility] Last Admin: 03/26/18 22:36 Dose: 1,200 mg Piperacillin Sod/Tazobactam Sod (Zosyn) 3.375 gm in 50 mls @ 12.5 mls/hr IV Q8 [facility] Last Admin: 07/19/17 05:51 Dose: 12.5 mls/hr Sodium Chloride () 250 mls @ 15 mls/hr IV .[id number] PRN PRN Reason: SALINE FLUSH Lisinopril (Zestril) 2.5 mg PO QHS [facility] Last Admin: 07/18/17 22:36 Dose: 2.5 mg Magnesium Citrate (Citrate Of Magnesia) 300 ml PO QODAY [facility] Last Admin: 07/18/17 13:13 Dose: 300 ml Methylprednisolone (Solu-Medrol) 40 mg IV Q8 [facility] Stop: 07/19/17 14:01 Last Admin: 07/19/17 05:51 Dose: 40 mg Oxycodone HCl (Oxyir) 5 mg PO Q4H PRN PRN PRN Reason: SEVERE PAIN (6-10/10) Last Admin: 07/18/17 22:48 Dose: 5 mg Polysaccharide Iron Complex (Ferrex 150) 150 mg PO DAILYCM [facility] Last Admin: 07/18/17 12:35 Dose: 150 mg Prednisone () 40 mg PO DAILY@0800 [facility] Sodium Chloride () 5 - 30 ml IV UD PRN PRN Reason: SALINE FLUSH Last Admin: 07/19/17 05:51 Dose: 10 ml Medical Necessity - Tobacco Use Smoking Status: Former smoker Assessment/Plan 71 year old male w/ h/o COPD, HTN, CAD, chronic systolic heart failure, and anxiety admitted for acute on chronic hypoxic and hypercapnic respiratory failure from TCU due to respiratory distress progressive worsening of shortness of breath.. 1) Acute on chronic hypoxic and hypercapnic combined respiratory failure: Secondary to acute on chronic COPD exacerbation precipitated by HCAP. Repeat ABGs CO2 103, PO2 78 with pH 7.34. Previous ABG 7.34/106/69 on 06/09, FiO2 50% BiPAP Dividing Machine Operator Helper consult reviewed. The patient is being transferred to PCU. On intermittent BiPAP and oxygen through nasal cannula 2) Acute on chronic COPD exacerbation secondary to HCAP: C/w bronchodilators and bipap. Solu-Medrol Baseline pCO2 70s noted. Discussed with the forge shop supervisor. 3) left lower lobe HCAP: Chest xray disclosed probably left lower lobe infiltrate. Chest x-ray shows left lower lobe infiltrate which is new suggestive of left lower lobe pneumonia. Cultures pending. Urinary antigens are negative WBC 27.2 with 87 segs no bands, WBC trend is improving. Lactate is 0.6. On IV Zosyn and Levaquin. Vancomycin discontinued as MRSA nasal screen negative. Cultures pending. 4) Chronic issues: HTN, CAD, recent status post PEA arrest, chronic heart failure with preserved EF (recent ECHO EF 55%, left ventricular systolic function normal with mild concentric LVH with mild diastolic dysfunction; no regional wall motion and normal), obesity hypoventilation/obstructive sleep apnea; noncompliant with home CPAP. Hypertension, GERD, anxiety, dyslipidemia and morbid obesity: Resume meds. 5) DVT prophylaxis: Lovenox and famotidine Microbiology Past 72 Hours 07/18/17 05:40 Urine Catheter - Vasquez Streptococcus pneumoniae Antigen (M - Final 07/18/17 05:40 Urine Catheter - Vasquez Legionella Antigen - Final Laboratory Results 07/18/17 02:47: Diff Path Review Reviewed 07/18/17 02:57: Specimen Type ART, Sample Site R RADIAL, pH 7.34 L, Bicarbonate Actual 57.2 H, POC Total CO2 > 50, Base Excess > 30 H, O2 Saturation 90 L, O2 % 50, ABG pCO2 106.8 H*, ABG pO2 69 L, Karan Test POS, O2 Delivery Device Bi Pap, EPAP 5, IPAP 15, Blood Gas Notified Whom ED , Blood Gas Notified Time 257 07/18/17 04:15: Specimen Type ART, Sample Site L RADIAL, pH 7.34 L, Bicarbonate Actual 55.2 H, POC Total CO2 > 50, Base Excess 29 H, O2 Saturation 93 L, O2 % 50, ABG pCO2 103.5 H*, ABG pO2 78, Karan Test POS, O2 Delivery Device Bi Pap, EPAP 7, IPAP 20, Blood Gas Notified Whom HOSP , Blood Gas Notified Time 415 07/19/17 04:00: WBC 17.1 H, RBC 2.84 L, Hgb 7.9 L, Hct 27.3 L, MCV 96.1 H, MCH 27.8, MCHC 28.9 L, RDW 14.8 H, RDW Differential 49.0 H, Plt Count 264, MPV 8.9, Immature Gran % (Auto) 0.200, Neut % (Auto) 94.9 H, Lymph % (Auto) 1.6 L, Mills % (Auto) 3.3, Eos % (Auto) 0.0, Baso % (Auto) 0.0, Absolute Neuts (auto) 16.2 H, Absolute Lymphs (auto) 0.28 L, Total Counted Not Reportable 07/19/17 04:00: Sodium 137, Potassium 5.0, Chloride 91 L, Carbon Dioxide 43.0 H, Anion Gap 3 L, BUN 21 H, Creatinine 0.65 L, Estim Creat Clear Calc 65.55, Est GFR (MDRD) Af Amer 155, Est GFR (MDRD) Non-Af 128, BUN/Creatinine Ratio 32.3 H, Glucose 204 H, Calcium 8.2 L Clinical Impression(s) from Imaging Studies Chest X-Ray 07/18/17 03:20 IMPRESSION: Left lower lobe pneumonia is new since the previous study. Electronically Signed: Abimbola Gallegos MD at 4:12 EDT Tel , Service support , Chest X-Ray 07/19/17 05:59 IMPRESSION: 1. Borderline cardiomegaly and pulmonary edema. 2. Bilateral basilar airspace consolidations and/or atelectasis.
--- NOTE | 2017-07-19 08:32 | NURSING ---
PT BECAME AGITATED AND WANTED SALT FOR HIS BREAKFAST. WHEN I WOULDNT GIVE IT TO HIM HE CALLED ME A F------ BITCH.
[2017-07-19] MEDS: Enoxaparin 40 MG/0.4 ML Syringe SC (09:20)
[2017-07-19] MEDS: Iron Polysaccharide Complex 150 MG CAPSULE PO (09:20)
[2017-07-19] MEDS: guaiFENesin 1,200 MG Tablet 1200 MG PO (09:20)
[2017-07-19] MEDS: Famotidine 20 MG Tablet PO ×2 (09:20→21:42)
[2017-07-19] MEDS: oxyCODONE 5 MG Tablet PO ×2 (10:40→20:04)
--- NOTE | 2017-07-19 11:31 | CASEMGMT ---
LIZ spoke with patient's sister, Graciela. The plan is for patient to go to [facility]. They have applied for Medicaid. Once he is ready to leave TCU the plan is to go to [facility] under his Medicaid as long as [facility] accepts him. LIZ did tell Graciela that if patient is alert and oriented and he refuses to go anywhere else he has the right to do so. She is hoping this will not happen as no one is able to care for him at home. Plan: [facility] when medically ready. Romelia GOLDMAN MSW
--- NOTE | 2017-07-19 20:47 | EKG12_ITS ---
Test Reason : Blood Pressure : / mmHG Vent. Rate : 102 BPM Atrial Rate : 077 BPM P-R Int : 000 ms QRS Dur : 090 ms QT Int : 332 ms P-R-T Axes : 000 048 066 degrees QTc Int : 432 ms Atrial fibrillation with premature ventricular or aberrantly conducted complexes Abnormal ECG When compared with ECG of 18-JUL-2017 02:55, Atrial fibrillation has replaced Sinus rhythm Confirmed by ALLAN GALEANA, JENNIFER ([id number]), assignment desk editor COLIN GARCIA ([id number]) on 07/25/2017 2:09:33 PM Referred By: MICHAEL Confirmed By:JENNIFER LEMUS MD
[2017-07-19] MEDS: Lisinopril 2.5 MG Tablet PO (21:42)
[2017-07-19] MEDS: Carvedilol 3.125 MG TABLET PO (21:42)
[2017-07-19] MEDS: Atorvastatin Calcium 20 MG Tablet PO (21:43)
[2017-07-20] VITALS (26 sets, daily range): BP systolic 96–134; BP diastolic 58–75; PULSE 61–140; RESP 12–23; TEMP 36.7–37.3; O2SAT 90–99
[2017-07-20] MEDS: guaiFENesin 10 ML UDC (200MG/10ML) 20 ML PO ×3 (01:51→14:48)
[2017-07-20] MEDS: Digoxin 250 MCG/ML Ampul IV (03:26)
[2017-07-20] MEDS: 0.9% NaCl Peripheral Flush Adult/Peds IV ×2 (03:27→11:02)
[2017-07-20 04:25] LABS: Magnesium 2.4 mg/dL (1.6-2.6)
[2017-07-20] MEDS: oxyCODONE 5 MG Tablet PO ×4 (05:51→22:14)
[2017-07-20] MEDS: Ipratropium/Albuterol Sulfate 3 ML AMPUL.NEB INHALATION ×4 (06:46→18:42)
[2017-07-20 09:03] LABS: Absolute Lymphocyte Count 0.55 X10^3/ul (0.83-4.51); Absolute Neutrophil Count 13.2 X10^3/uL (2.0-7.7); Basophil# 0.01 X10^3/uL; Basophil% 0.1 % (0-1); Hematocrit 27.9 % (40-54); Hemoglobin 8.1 g/dl (13.0-16.5); Lymphocyte # 0.55 X10^3/ul (4.0); Lymphocyte % 3.6 % (19-41); Mean Corpuscular Hgb 27.5 pg (27.0-32.0); Mean Corpuscular Volume 94.6 fL (80-94); Mean Platelet Vol. 9.5 fl (6.2-12.0); Monocyte# 1.32 X10^3/uL; Monocyte% 8.7 % (0-10); Neutrophil % 87.4 % (47-70); Platelet Count 291 K/mm3 (150-450); RBC Distribution Width CV 15.5 % (11.6-14.6); RBC Distribution Width SD 53.6 fl (35.1-43.9); Red Blood Count 2.95 M/mm3 (4.6-6.2); White Blood Count 15.1 K/mm3 (4.4-11.0)
[2017-07-20 09:04] LABS: Differential Indicated SCAN CRITERIA MET; POSITIVE COUNT NO; POSITIVE DIFFERENTIAL YES; POSITIVE MORPHOLOGY NO
[2017-07-20] MEDS: predniSONE 20 MG Tablet 40 MG PO (09:05)
[2017-07-20] MEDS: Iron Polysaccharide Complex 150 MG CAPSULE PO (09:05)
[2017-07-20] MEDS: Famotidine 20 MG Tablet PO ×2 (09:06→22:07)
[2017-07-20] MEDS: Enoxaparin 40 MG/0.4 ML Syringe SC (09:06)
[2017-07-20 09:17] LABS: Anion Gap 3 (5-15); BUN 24 mg/dL (7-18); BUN/Creat Ratio 35.5 RATIO (10-20); Calcium,Total 8.2 mg/dL (8.5-10.1); Chloride 96 mmol/L (98-107); Creatinine, Serum 0.68 mg/dL (0.70-1.30); EST Glomerular Filtration Rate 123 mL/min (>60); Est Glom Filt Rate - Afr Amer 149 mL/min (>60); Estimated Creatinine Clearance 65.55 ml/min; Glucose 183 mg/dL (74-106); Potassium 4.6 mmol/L (3.5-5.1); Sodium Level 139 mmol/L (136-145)
--- NOTE | 2017-07-20 10:17 | PN_ITS ---
Subjective: Patient was seen and examined. Remains afebrile and hemodynamically stable. He is maintaining appropriate saturations on 3 L of oxygen supplementation. Denies any shortness of breath at rest. Complains of chest/rib pain/soreness from recent CPR. Wants to move his bowels. Upset his nebulizers have been adjusted while he is in the hospital. Somewhat hypotensive, asymptomatic. Occasional cough, no sputum production. Physical therapy now here to work with the patient, he is refusing. Objective: Recent lab and culture data reviewed. Blood cultures negative. Urine strep/ Legionella antigen is negative. Chest x-ray repeated on 07/19/17 showed bibasilar airspace consolidations and/or atelectasis, borderline cardiomegaly and pulmonary edema. - Physical Exam General: Alert, Oriented x3, Cooperative, No apparent distress, - - Agitated but cooperative. Mild conversational dyspnea HEENT: Atraumatic, Normocephalic Oral: Moist Mucosa Neck: Supple, No Nodes, Trachea Midline Lungs: - - Very poor airflow throughout, no rhonchi, wheezing, or rales. Accessory muscle use with conversation Cardiovascular: Regular rate, Regular Rhythm, Normal S1, Normal S2, No murmurs, No rub noted, No Gallop Abdomen: Bowel Sounds Present, Soft, Non Tender, Non-Distended, Obese Extremities: No cyanosis, Clubbing, Diminished Peripheral Pulses, Edema - bilat LEs, pitting. Skin: No rashes Musculoskeletal: No Tenderness to Palpation of Joints or Extremities Lymphatic: No Cervical, Supraclavicular, or Inguinal Adenopathy Neurological: Cranial nerves II-XII grossly intact, Neuro grossly intact Psych/Mental Status: Agitated, - - alert and oriented, cooperative. Vital Signs Temp Pulse Resp BP Pulse Ox 98.4 F 78 18 96/58 L 95 07/20/17 09:03 07/20/17 09:03 07/20/17 09:03 07/20/17 09:03 07/20/17 09:03 Oxygen Flow Rate (L/min) 3 Oxygen Delivery Method Nasal Cannula Weight: 224 lb 6.889 oz Body Mass Index (BMI) 33.5 Intake and Output for Last 24 Hours 07/18/17 07/19/17 07/20/17 23:59 23:59 23:59 Intake Total 2621 / 2621 1481 / 1481 Output Total 1155 / 1155 3375 / 3375 750 / 750 Balance 1466 / 1466 -1894 / -1894 -750 / -750 Microbiology Past 72 Hours 07/18/17 05:40 Streptococcus pneumoniae Antigen (M - Final Urine Catheter - Vasquez 07/18/17 05:40 Legionella Antigen - Final Urine Catheter - Vasquez Laboratory Tests Past 24 Hrs 07/20/17 07/20/17 07/20/17 03:48 03:48 03:48 WBC 15.1 H RBC 2.95 L Hgb 8.1 L Hct 27.9 L MCV 94.6 H MCH 27.5 MCHC 29.0 L RDW 15.5 H RDW Differential 53.6 H Plt Count 291 MPV 9.5 Immature Gran % (Auto) 0.200 Neut % (Auto) 87.4 H Lymph % (Auto) 3.6 L [place] % (Auto) 8.7 Eos % (Auto) 0.0 Baso % (Auto) 0.1 Absolute Neuts (auto) 13.2 H Absolute Lymphs (auto) 0.55 L Total Counted Not Reportable Differential Comment COMMENT Sodium 139 Potassium 4.6 Chloride 96 L Carbon Dioxide 40.0 H Anion Gap 3 L BUN 24 H Creatinine 0.68 L Estim Creat Clear Calc 65.55 Est GFR (MDRD) Af Amer 149 Est GFR (MDRD) Non-Af 123 BUN/Creatinine Ratio 35.5 H Glucose 183 H Calcium 8.2 L Magnesium 2.4 Medical Necessity - Tobacco Use Smoking Status: Former smoker Assessment/Plan RECOMMENDATIONS: 1. Continue BiPAP therapy with naps and nightly 2. Continue aerosol treatments, oral steroids, diuretics 3. Maintain oxygen saturations 88-92%, to prevent paradoxical CO2 retention. 4. Maintain low-salt diet, professor of latin american studies consult 5. Encourage incentive spirometer use and mobilize patient as tolerated IMPRESSIONS: 1. Acute on chronic combined respiratory failure / baseline end-stage COPD with exacerbation Patient does have a new left lower lobe infiltrate. Patient has been in the hospital for multiple weeks and last hospitalization did require intubation. Patient with marginal pulmonary reserve, but continues to wish full code measures. Continue BiPAP therapy as ordered. Patient is on appropriate aerosols and steroids. Poor long-term prognosis, but appears to be respond to BiPAP therapy. 2. Hypercarbic encephalopathy Resolved at this time. Patient does have significant CO2 retention at baseline , but pH was okay on ABG at the time of presentation. BiPAP will be continued as ordered with naps and nightly. 3. 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 Unfortunately, this has led to recurrent hospital admissions. He is wearing BiPAP overnight. 4. Recent sp PEA arrest/Heart failure with preserved ejection fraction/ hypertension/GERD/anxiety/hyperlipidemia/history of medical noncompliance Complicates care, management, recovery and prognosis. Antihypertensives can be slowly restarted upon medical stabilization. Continue work with physical therapy- patient refusing at this time. Hospitalist consulting cardiology, await recommendations. This note was generated with [employer] dictation software. It may contain incorrect words, spelling, and punctuation that were not noted in checking the note before signing.
[2017-07-20] MEDS: Magnesium Citrate 300 ML PO (10:58)
[2017-07-20] MEDS: Digoxin 250 MCG/ML Ampul 500 MCG IV (11:00)
[2017-07-20] MEDS: Carvedilol 3.125 MG TABLET PO ×2 (11:38→22:07)
[2017-07-20] MEDS: Furosemide 40 MG Tablet PO (11:38)
[2017-07-20] MEDS: Polyethylene Glycol 3350 17 GM PACKET PO ×2 (11:38→22:07)
--- NOTE | 2017-07-20 14:25 | PN_ITS ---
<Lalit Rae - Last Filed: 07/20/17 14:03> Subjective: Pt is very angry about his salt restriction and that people keep discussing how important it is. He is also upset that he was told a poor prognosis in front of his family and feels that his health should not be discussed in front of his family. He has no CP. He is off BiPAP and stable. His SOB has improved. He continues to have a cough productive of yellow sputum. He has no fever or chills. He has swelling of his BLE. He refused to work with PT. - Physical Exam General: Alert, Oriented x3, Cooperative HEENT: Atraumatic, PERRLA, EOMI, Normocephalic Neck: Supple, No JVD, Negative Carotid Bruits Lungs: Diminished Cardiovascular: Regular rate, No murmurs Abdomen: Bowel Sounds Present, Soft, Non Tender Extremities: Edema - 2+ pitting edema BLE. Skin: No rashes, No breakdown Musculoskeletal: No Tenderness to Palpation of Joints or Extremities Neurological: Cranial nerves II-XII grossly intact Psych/Mental Status: Normal Affect, Appropriate, Alert and oriented to time, place, person, mood and affect Vital Signs Temp Pulse Resp BP Pulse Ox 98.0 F 71 19 H 114/59 L 94 07/20/17 10:55 07/20/17 11:35 07/20/17 11:35 07/20/17 11:00 07/20/17 10:55 Oxygen Flow Rate (L/min) 3 Oxygen Delivery Method Nasal Cannula Weight: 101.8 kg Body Mass Index (BMI) 33.5 Intake and Output for Last 24 Hours 07/18/17 07/19/17 07/20/17 23:59 23:59 23:59 Intake Total 2621 / 2621 1481 / 1481 Output Total 1155 / 1155 3375 / 3375 750 / 750 Balance 1466 / 1466 -1894 / -1894 -750 / -750 Microbiology Past 72 Hours 07/18/17 05:40 Streptococcus pneumoniae Antigen (M - Final Urine Catheter - Vasquez 07/18/17 05:40 Legionella Antigen - Final Urine Catheter - Vasquez Laboratory Tests Past 24 Hrs 07/20/17 07/20/17 07/20/17 03:48 03:48 03:48 WBC 15.1 H RBC 2.95 L Hgb 8.1 L Hct 27.9 L MCV 94.6 H MCH 27.5 MCHC 29.0 L RDW 15.5 H RDW Differential 53.6 H Plt Count 291 MPV 9.5 Immature Gran % (Auto) 0.200 Neut % (Auto) 87.4 H Lymph % (Auto) 3.6 L [place] % (Auto) 8.7 Eos % (Auto) 0.0 Baso % (Auto) 0.1 Absolute Neuts (auto) 13.2 H Absolute Lymphs (auto) 0.55 L Total Counted Not Reportable Differential Comment COMMENT Sodium 139 Potassium 4.6 Chloride 96 L Carbon Dioxide 40.0 H Anion Gap 3 L BUN 24 H Creatinine 0.68 L Estim Creat Clear Calc 65.55 Est GFR (MDRD) Af Amer 149 Est GFR (MDRD) Non-Af 123 BUN/Creatinine Ratio 35.5 H Glucose 183 H Calcium 8.2 L Magnesium 2.4 Medical Necessity - Tobacco Use Smoking Status: Former smoker Assessment/Plan 1. Acute on chronic combined respiratory failure 2/2 acute COPD exacerbation and Acute severe sepsis 2/2 HCAP (present on admission)- recently in the hospital and in the ICU intubated. pulm following, signing off. Continue Aerosols, IS, prednisone, bipap at night, mucinex. On Levaquin and Zoysn for LLL pna seen on CXR. WBC improving. CO2 level improving. Complete 5 more days of levaquin. MRSA screen neg. Urine antigens neg. Blood cx neg x 48 hours. -sepsis met with tachycardia, tachypnea, fever, leukocytosis, hypotension + source of infection (pna). lactate was neg. 2. AF with RVR - digoxin started as his BP was poor. He is not on therapeutic anticoagulants. If he does not improve will c/s Dr. Peterson. 3. Hypotension improved with digoxin. 4. Mildly microcytic anemia - stable 5. Diastolic CHF - last echo 12/2016 EF 55%, continue lasix 40 qd, ELDON wrap, sodium restrict, strict I/O, Coreg, Eldon-I 6. MILA - bipap, noncompliant with home cpap 7. CAD - recent PEA arrest 8. Hyperglycemia - probably 2/2 steroids, but need to check A1C DVT ppx: lovenox DC planning: will need to go back to SNF. PTOT. This patient was seen by Lalit Rae PA-C under the supervision of Doctor Yoni. <aRy Vallejo - Last Filed: 07/20/17 17:05> Subjective: Seen and examined. Patient is on intermittent BiPAP and nasal cannula. Her overall disease process discussed including end-stage COPD - Physical Exam Lungs: Diminished Cardiovascular: No murmurs, Tachycardic - Paroxysmal A. fib, - - Sinus rhythm with intermittent PACs. Vital Signs Temp Pulse Resp BP Pulse Ox 98.5 F 74 18 111/59 L 95 07/20/17 14:45 07/20/17 15:53 07/20/17 15:11 07/20/17 14:45 07/20/17 14:45 Oxygen Flow Rate (L/min) 3 Oxygen Delivery Method Nasal Cannula Weight: 224 lb 6.889 oz Body Mass Index (BMI) 33.5 Intake and Output for Last 24 Hours 07/18/17 07/19/17 07/20/17 23:59 23:59 23:59 Intake Total 2621 / 2621 1481 / 1481 400 / 400 Output Total 1155 / 1155 3375 / 3375 2049 / 2049 Balance 1466 / 1466 -1894 / -1894 -1650 / -1650 Microbiology Past 72 Hours 07/18/17 05:40 Streptococcus pneumoniae Antigen (M - Final Urine Catheter - Vasquez 07/18/17 05:40 Legionella Antigen - Final Urine Catheter - Vasquez Laboratory Tests Past 24 Hrs 07/20/17 07/20/17 07/20/17 03:48 03:48 03:48 WBC 15.1 H RBC 2.95 L Hgb 8.1 L Hct 27.9 L MCV 94.6 H MCH 27.5 MCHC 29.0 L RDW 15.5 H RDW Differential 53.6 H Plt Count 291 MPV 9.5 Immature Gran % (Auto) 0.200 Neut % (Auto) 87.4 H Lymph % (Auto) 3.6 L [place] % (Auto) 8.7 Eos % (Auto) 0.0 Baso % (Auto) 0.1 Absolute Neuts (auto) 13.2 H Absolute Lymphs (auto) 0.55 L Total Counted Not Reportable Differential Comment COMMENT Sodium 139 Potassium 4.6 Chloride 96 L Carbon Dioxide 40.0 H Anion Gap 3 L BUN 24 H Creatinine 0.68 L Estim Creat Clear Calc 65.55 Est GFR (MDRD) Af Amer 149 Est GFR (MDRD) Non-Af 123 BUN/Creatinine Ratio 35.5 H Glucose 183 H Hemoglobin A1c Calcium 8.2 L Magnesium 2.4 07/20/17 03:48 WBC RBC Hgb Hct MCV MCH MCHC RDW RDW Differential Plt Count MPV Immature Gran % (Auto) Neut % (Auto) Lymph % (Auto) Wagoner % (Auto) Eos % (Auto) Baso % (Auto) Absolute Neuts (auto) Absolute Lymphs (auto) Total Counted Differential Comment Sodium Potassium Chloride Carbon Dioxide Anion Gap BUN Creatinine Estim Creat Clear Calc Est GFR (MDRD) Af Amer Est GFR (MDRD) Non-Af BUN/Creatinine Ratio Glucose Hemoglobin A1c 6.6 H Calcium Magnesium Assessment/Plan This patient was seen in conjunction with Lalit SU. I have independently interviewed and examined the patient and reviewed pertinent history, examination findings, laboratory and plan of management. I have reviewed the note and agree with the documented findings with the few additional points. In brief, patient is admitted for acute on chronic combined respiratory failure secondary to COPD exacerbation. Pt had mild low-grade fever T 100.8, sinus tachycardia heart rate 120-130's, RR 30, WBC 27.2,, cough and chest x-ray finding suggestive of left lower lobe consolidation, mixed with underlying atelectasis and pleural effusion. There is consistent with severe sepsis secondary to left lower lobe, healthcare associated pneumonia. Continue Levaquin. I have discussed my assessment with Lalit SU and orders have been reviewed. Code Visit Inpatient E&M: 27767 Subs Hosp L3
[2017-07-20 14:57] LABS: Hemoglobin A1c 6.6 % (4.2-6.3)
--- NOTE | 2017-07-20 15:06 | CASEMGMT ---
LIZ called Mei in TCU and asked her to start the process to obtain insurance authorization. Plan: TCU pending pre-cert Romelia GOLDMAN MSW
[2017-07-20] MEDS: levoFLOXacin 500 MG Tablet PO (16:23)
[2017-07-20] MEDS: Lisinopril 2.5 MG Tablet PO (22:07)
[2017-07-20] MEDS: Atorvastatin Calcium 20 MG Tablet PO (22:07)
[2017-07-21] VITALS (19 sets, daily range): BP systolic 102–121; BP diastolic 53–70; PULSE 57–99; RESP 12–22; TEMP 36.7–36.9; O2SAT 94–99
[2017-07-21 06:28] LABS: Absolute Lymphocyte Count 0.85 X10^3/ul (0.83-4.51); Absolute Neutrophil Count 7.7 X10^3/uL (2.0-7.7); Hematocrit 29.9 % (40-54); Hemoglobin 8.6 g/dl (13.0-16.5); Lymphocyte # 0.85 X10^3/ul (4.0); Lymphocyte % 8.8 % (19-41); Mean Corp Hgb Conc 28.8 g/gl (32-36); Mean Corpuscular Hgb 27.7 pg (27.0-32.0); Mean Corpuscular Volume 96.5 fL (80-94); Mean Platelet Vol. 8.9 fl (6.2-12.0); Monocyte# 1.12 X10^3/uL; Monocyte% 11.6 % (0-10); Neutrophil # 7.65 X10^3/uL (2.7-7.7); Neutrophil % 79.5 % (47-70); Platelet Count 279 K/mm3 (150-450); RBC Distribution Width CV 15.3 % (11.6-14.6); RBC Distribution Width SD 51.2 fl (35.1-43.9); White Blood Count 9.6 K/mm3 (4.4-11.0)
[2017-07-21] MEDS: oxyCODONE 5 MG Tablet PO ×3 (06:29→22:08)
[2017-07-21] MEDS: levoFLOXacin 500 MG Tablet PO (06:31)
[2017-07-21 06:32] LABS: POSITIVE COUNT NO; POSITIVE DIFFERENTIAL NO; POSITIVE MORPHOLOGY NO
[2017-07-21] MEDS: guaiFENesin 10 ML UDC (200MG/10ML) 20 ML PO (06:34)
[2017-07-21 06:49] LABS: Anion Gap 1 (5-15); BUN 21 mg/dL (7-18); BUN/Creat Ratio 39.5 RATIO (10-20); Calcium,Total 8.4 mg/dL (8.5-10.1); Chloride 96 mmol/L (98-107); Creatinine, Serum 0.53 mg/dL (0.70-1.30); EST Glomerular Filtration Rate 162 mL/min (>60); Est Glom Filt Rate - Afr Amer 196 mL/min (>60); Estimated Creatinine Clearance 65.55 ml/min; Glucose 139 mg/dL (74-106); Potassium 4.3 mmol/L (3.5-5.1); Sodium Level 140 mmol/L (136-145)
[2017-07-21] MEDS: Ipratropium/Albuterol Sulfate 3 ML AMPUL.NEB INHALATION ×5 (07:07→22:31)
[2017-07-21] MEDS: predniSONE 20 MG Tablet 40 MG PO (08:16)
[2017-07-21] MEDS: Iron Polysaccharide Complex 150 MG CAPSULE PO (08:16)
--- NOTE | 2017-07-21 09:50 | CASEMGMT ---
Received a voice mail from Radha in TCU. [facility] is indicating they need patient to participate in therapy before they will approve TCU stay. SW will see if he refuses therapy today and if so will go in and talk with patient. Plan: TCU pending insurance approval. However, insurance has stated they have to see him participate in therapy in order to approve him. Romelia GOLDMAN MSW
[2017-07-21] MEDS: Carvedilol 3.125 MG TABLET PO ×2 (10:00→22:03)
[2017-07-21] MEDS: Polyethylene Glycol 3350 17 GM PACKET PO ×2 (10:00→22:04)
[2017-07-21] MEDS: Furosemide 40 MG Tablet PO (10:01)
[2017-07-21] MEDS: Enoxaparin 40 MG/0.4 ML Syringe SC (10:01)
[2017-07-21] MEDS: Famotidine 20 MG Tablet PO ×2 (10:01→22:04)
--- NOTE | 2017-07-21 11:30 | CASEMGMT ---
LIZ spoke with patient and told him that his insurance will not approve his TCU stay unless he participates in therapy. He said he sort of hurt himself this am and just did bed exercises with OT. SW told him PT will be by today also and he will need to work with them. He verbalized understanding. Romelia VARELA
--- NOTE | 2017-07-21 14:24 | TREXTCA.CO_ITS ---
- Diet 07/18/17 14:04 Diet: Cardiac/Low Cholesterol Food consistency:: Regular Liquid Consistency:: Regular/Thin Is pt able to select menu?: Yes Diet Comments: 2000 mg sodium max daily - Routine Orders/Code Status Enema Type: Fleetz Enema Frequency: Daily PRN Suppository Type: Dulcolax 10mg Suppository Frequency: Daily PRN O2 Liters per Minute: 3-4 O2 Frequency: Continuous Keep PO Greater than or Equal to (%): 90 Routine Lab Work: CBC, BMP, - - In 2 days and then Q week Code Status: Full Code - Suggestions for Active Care Change Position every (hours): 2 Times a day to sit in chair: 3 - Therapies Physical Therapy: Eval and Treat Occupational Therapy: Eval and Treat - Allergies/Procedures Done in Hospital Allergies/Adverse Reactions: Allergies latex Allergy (Severe, Verified 07/18/17 02:44) Swelling rivaroxaban [From Xarelto] Adverse Reaction (Verified 07/18/17 02:44) excessive bleeding Procedures: None - Type of Care/Length of Stay Estimated LOS: Convalescent Care Less Than 30 days Type of Care Needed: Skilled Rehab Potential: Fair Prognosis: Fair - Additional Orders/Day of Discharge H&P will serve as current which was dated: 07/18/17 Day of Discharge: 07/21/17 - Dietary and Speech Recommendations Dietitian Recommendations/Changes: When appropriate for PO diet, rec cardiac/ low cholesterol, low sodium diet. - Follow Up Care Primary Care Physician: Donato Sanchez DO [Primary Care Provider] - Please follow up with your Primary Care Physician in: 1 Week Please Follow Up With: Gautam Salazar MD When: As scheduled Please Follow Up With: Dat Peterson MD When: As scheduled
--- NOTE | 2017-07-21 14:24 | PCM.DC.SUM ---
<Radha Solomon - Last Filed: 07/22/17 08:46> Discharge Date and Diagnosis Date of Admission: 07/18/17 Date of Discharge: 07/21/17 - Primary Discharge Diagnosis 1. Acute on chronic combined respiratory failure secondary to acute exacerbation of chronic COPD 2. Acute severe sepsis secondary to HCAP - Secondary Discharge Diagnosis Chronic Problems Melanoma (Chronic) Iron deficiency anemia (Chronic) Hyperlipidemia (Chronic) Anxiety (Chronic) GERD (gastroesophageal reflux disease) (Chronic) Osteoarthritis (Chronic) Arthritis (Chronic) Benign hypertension (Chronic) Cardiomyopathy (Chronic) COLD (chronic obstructive lung disease) (Chronic) History of gastroesophageal reflux (GERD) (Chronic) History of urethral stricture (Chronic) Status post cardiac catheterization (Chronic) Malignant melanoma of back (Chronic) C43.59 2 cm superficial spreading melanoma wound left upper back with a thickness of 0.54 mm 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 Borderline cardiomegaly and pulmonary edema. 2. Bilateral basilar airspace consolidations and/or atelectasis. Electronically Signed: Barbara Washburn MD at 8:21 EDT , Service support , Operations: None Procedures: None Summary of Care Provided: The patient is a 71 year old M admitted 07/18/2017 due to shortness of breath. He has a past medical history of COPD, hypertension, CAD with recent PEA arrest, chronic systolic CHF, anxiety, MILA, hyperlipidemia, GERD, iron deficiency anemia, osteoarthritis. Chest x-ray showed left lower lobe infiltrate. Patient had acute on chronic combined respiratory failure secondary to acute exacerbation of chronic COPD secondary to HCAP. He follows with Dr. Salazar as outpatient. Patient is noncompliant with CPAP for MILA and has had frequent hospital admissions. Pulmonary consulted. Patient will continue supplemental oxygen to maintain O2 at or above 90%. Will be discharged on 5 more days of oral Levaquin therapy and prednisone taper. He was noted to have left lower lobe pneumonia with severe sepsis and recent hospital stay with intubation. Blood cultures negative. Urine for strep and Legionella negative. MRSA screen negative. Patient was noted to have A. fib with RVR which resolved. Other chronic medical conditions as noted above are stable at this time. Palliative care was discussed with patient. He wishes to remain full code at this time. Patient seen and examined prior to discharge. Oxygen stable on patient's baseline 3 L nasal cannula. Lungs clear, diminished. Heart rate regular in rate and rhythm. +1 bilateral lower extremity edema. Neuro grossly intact. Vitals stable. This patient was seen by NATHAN Jon under the supervision of Dr. Vallejo. Home Medications: Medications to take at Discharge Furosemide [Lasix] 40 mg PO DAILY 02/01/13 Carvedilol [Coreg (Beta Paulie)] 3.125 mg PO BID 03/26/17 Clonazepam [Klonopin] 0.5 mg PO BID #14 tab 07/09/17 Guaifenesin [Mucinex] 600 mg PO 4X/DAY 07/09/17 Ipratropium/Albuterol Sulfate [Duoneb] 3 ml INHALATION Q4HWA.RT 07/09/17 Iron Polysaccharide Complex [Ferrex 150] 150 mg PO DAILYCM 07/09/17 Lisinopril [Zestril] 2.5 mg PO QHS 07/09/17 Magnesium Citrate [Citrate Of Magnesia] 300 ml PO QODAY 07/09/17 Pantoprazole Sodium [Protonix] 40 mg PO DAILY 07/09/17 Acetaminophen [Tylenol Tablet] 1,000 mg PO Q8H PRN PRN 07/18/17 Atorvastatin Calcium [Lipitor] 20 mg PO QHS 07/18/17 Emollient Combination No.72 [Eucerin Intensive Repair] 250 ml TP DAILY 07/18/17 Enoxaparin Sodium [Lovenox] 40 mg SQ DAILY 07/18/17 Fluticasone/Salmeterol [Advair 250/50 Mcg Diskus] 1 puff INHALATION BID 07/18/17 Menthol/Lanolin/Calamine/Znox [Calmoseptine Ointment] 1 applic TP TID 03/26/18 Oxycodone [Oxyir] 5 mg PO Q4H PRN PRN 07/18/17 Polyethylene Glycol 3350 [Miralax] 17 gm PO BID 07/22/17 Prednisone See Taper PO DAILY 07/22/17 levoFLOXacin tablet [Levaquin tablet] 500 mg PO DAILY@0600 07/22/17 Primary Care Physician: Donato Sanchez DO [Primary Care Provider] - Please follow up with your Primary Care Physician in: 1 Week Please Follow Up With: Gautam Salazar MD When: As scheduled Please Follow Up With: Dat Peterson MD When: As scheduled Disposition: Senior Living facility Minutes spent on discharge:: 35 Patient Condition:: Stable Medical Necessity - Tobacco Use Smoking Status: Former smoker Meaningful Use Info Meaningful Use Diagnoses (Choose all that apply): None applicable <Ray Vallejo - Last Filed: 07/22/17 17:56> Discharge Date and Diagnosis - Secondary Discharge Diagnosis Chronic Problems Melanoma (Chronic) Acute on chronic systolic heart failure (Chronic) Iron deficiency anemia (Chronic) Hyperlipidemia (Chronic) Anxiety (Chronic) GERD (gastroesophageal reflux disease) (Chronic) Osteoarthritis (Chronic) Arthritis (Chronic) Benign hypertension (Chronic) Cardiomyopathy (Chronic) COLD (chronic obstructive lung disease) (Chronic) History of gastroesophageal reflux (GERD) (Chronic) History of urethral stricture (Chronic) Status post cardiac catheterization (Chronic) Malignant melanoma of back (Chronic) C43.59 2 cm superficial spreading melanoma wound left upper back with a thickness of 0.54 mm 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 I have independently interviewed and examined the patient and reviewed pertinent history, examination findings, laboratory and plan of management. I have reviewed the note and agree with the documented findings with the few additional points. In brief, patient is admitted for acute on chronic combined respiratory failure secondary to COPD exacerbation. Pt had mild low-grade fever T 100.8, sinus tachycardia heart rate 120-130's, RR 30, WBC 27.2,, cough and chest x-ray finding suggestive of left lower lobe consolidation, mixed with underlying atelectasis and pleural effusion. There is consistent with severe sepsis secondary to left lower lobe, healthcare associated pneumonia. Continue Levaquin. Patient is discharged to TCU. dischargeD on Levaquin and tapering dose of prednisone. Discharge medication reconciliation done. Discharge follow-up instructions completed. Total time spent, exact 32 minutes on discharge meds reconciliation, examination, review of imaging and blood test and discussion with the patient on follow-up instructions. I have discussed my assessment with TELEVISION INSTALLERRadha and orders have been reviewed. Code Visit Inpatient E&M: 47104 Disch Hosp
--- NOTE | 2017-07-21 14:37 | DS.PCM_ITS ---
Addendum entered and electronically signed by NATHAN Jon 07/22/17 08:47: Code Visit Addendum to discharge date-patient discharged 07/22/2017. Discharge delayed due to pending pre-CERT from [facility] facility. Assessment unchanged from prior. Patient was seen and examined prior to discharge. Remained stable for discharge to TCU. Original Note: <Radha Solomon - Last Filed: 07/22/17 08:46> Discharge Date and Diagnosis Date of Admission: 07/18/17 Date of Discharge: 07/21/17 - Primary Discharge Diagnosis 1. Acute on chronic combined respiratory failure secondary to acute exacerbation of chronic COPD 2. Acute severe sepsis secondary to HCAP - Secondary Discharge Diagnosis Chronic Problems Melanoma (Chronic) Iron deficiency anemia (Chronic) Hyperlipidemia (Chronic) Anxiety (Chronic) GERD (gastroesophageal reflux disease) (Chronic) Osteoarthritis (Chronic) Arthritis (Chronic) Benign hypertension (Chronic) Cardiomyopathy (Chronic) COLD (chronic obstructive lung disease) (Chronic) History of gastroesophageal reflux (GERD) (Chronic) History of urethral stricture (Chronic) Status post cardiac catheterization (Chronic) Malignant melanoma of back (Chronic) C43.59 2 cm superficial spreading melanoma wound left upper back with a thickness of 0.54 mm 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 Borderline cardiomegaly and pulmonary edema. 2. Bilateral basilar airspace consolidations and/or atelectasis. Electronically Signed: Barbara Washburn MD at 8:21 EDT , Service support , Operations: None Procedures: None Summary of Care Provided: The patient is a 71 year old M admitted 07/18/2017 due to shortness of breath. He has a past medical history of COPD, hypertension, CAD with recent PEA arrest , chronic systolic CHF, anxiety, MILA, hyperlipidemia, GERD, iron deficiency anemia, osteoarthritis. Chest x-ray showed left lower lobe infiltrate. Patient had acute on chronic combined respiratory failure secondary to acute exacerbation of chronic COPD secondary to HCAP. He follows with Dr. Salazar as outpatient. Patient is noncompliant with CPAP for MILA and has had frequent hospital admissions. Pulmonary consulted. Patient will continue supplemental oxygen to maintain O2 at or above 90%. Will be discharged on 5 more days of oral Levaquin therapy and prednisone taper. He was noted to have left lower lobe pneumonia with severe sepsis and recent hospital stay with intubation. Blood cultures negative. Urine for strep and Legionella negative. MRSA screen negative. Patient was noted to have A. fib with RVR which resolved. Other chronic medical conditions as noted above are stable at this time. Palliative care was discussed with patient. He wishes to remain full code at this time. Patient seen and examined prior to discharge. Oxygen stable on patient's baseline 3 L nasal cannula. Lungs clear, diminished. Heart rate regular in rate and rhythm. +1 bilateral lower extremity edema. Neuro grossly intact. Vitals stable. This patient was seen by NATHAN Jon under the supervision of Dr. Vallejo. Home Medications: Medications to take at Discharge Furosemide [Lasix] 40 mg PO DAILY 02/01/13 Carvedilol [Coreg (Beta Paulie)] 3.125 mg PO BID 03/26/17 Clonazepam [Klonopin] 0.5 mg PO BID #14 tab 07/09/17 Guaifenesin [Mucinex] 600 mg PO 4X/DAY 07/09/17 Ipratropium/Albuterol Sulfate [Duoneb] 3 ml INHALATION Q4HWA.RT 07/09/17 Iron Polysaccharide Complex [Ferrex 150] 150 mg PO DAILYCM 07/09/17 Lisinopril [Zestril] 2.5 mg PO QHS 07/09/17 Magnesium Citrate [Citrate Of Magnesia] 300 ml PO QODAY 07/09/17 Pantoprazole Sodium [Protonix] 40 mg PO DAILY 07/09/17 Acetaminophen [Tylenol Tablet] 1,000 mg PO Q8H PRN PRN 07/18/17 Atorvastatin Calcium [Lipitor] 20 mg PO QHS 07/18/17 Emollient Combination No.72 [Eucerin Intensive Repair] 250 ml TP DAILY 07/18/17 Enoxaparin Sodium [Lovenox] 40 mg SQ DAILY 07/18/17 Fluticasone/Salmeterol [Advair 250/50 Mcg Diskus] 1 puff INHALATION BID Menthol/Lanolin/Calamine/Znox [Calmoseptine Ointment] 1 applic TP TID 07/18/17 Oxycodone [Oxyir] 5 mg PO Q4H PRN PRN 07/18/17 Polyethylene Glycol 3350 [Miralax] 17 gm PO BID 07/22/17 Prednisone See Taper PO DAILY 07/22/17 levoFLOXacin tablet [Levaquin tablet] 500 mg PO DAILY@0600 07/22/17 Primary Care Physician: Donato Sanchez DO [Primary Care Provider] - Please follow up with your Primary Care Physician in: 1 Week Please Follow Up With: Gautam Salazar MD When: As scheduled Please Follow Up With: Dat Peterson MD When: As scheduled Disposition: Long-Term facility Minutes spent on discharge:: 35 Patient Condition:: Stable Medical Necessity - Tobacco Use Smoking Status: Former smoker Meaningful Use Info Meaningful Use Diagnoses (Choose all that apply): None applicable <Ray Vallejo - Last Filed: 07/22/17 17:56> Discharge Date and Diagnosis - Secondary Discharge Diagnosis Chronic Problems Melanoma (Chronic) Acute on chronic systolic heart failure (Chronic) Iron deficiency anemia (Chronic) Hyperlipidemia (Chronic) Anxiety (Chronic) GERD (gastroesophageal reflux disease) (Chronic) Osteoarthritis (Chronic) Arthritis (Chronic) Benign hypertension (Chronic) Cardiomyopathy (Chronic) COLD (chronic obstructive lung disease) (Chronic) History of gastroesophageal reflux (GERD) (Chronic) History of urethral stricture (Chronic) Status post cardiac catheterization (Chronic) Malignant melanoma of back (Chronic) C43.59 2 cm superficial spreading melanoma wound left upper back with a thickness of 0.54 mm 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 I have independently interviewed and examined the patient and reviewed pertinent history, examination findings, laboratory and plan of management. I have reviewed the note and agree with the documented findings with the few additional points. In brief, patient is admitted for acute on chronic combined respiratory failure secondary to COPD exacerbation. Pt had mild low-grade fever T 100.8, sinus tachycardia heart rate 120-130's, RR 30, WBC 27.2,, cough and chest x-ray finding suggestive of left lower lobe consolidation, mixed with underlying atelectasis and pleural effusion. There is consistent with severe sepsis secondary to left lower lobe, healthcare associated pneumonia. Continue Levaquin. Patient is discharged to TCU. dischargeD on Levaquin and tapering dose of prednisone. Discharge medication reconciliation done. Discharge follow-up instructions completed. Total time spent, exact 32 minutes on discharge meds reconciliation, examination , review of imaging and blood test and discussion with the patient on follow-up instructions. I have discussed my assessment with ADVERTISING SALES AGENTRadha and orders have been reviewed. Code Visit Inpatient E&M: 16143 Disch Hosp
--- NOTE | 2017-07-21 16:13 | PCM.PROGNOTE ---
<Radha Solomon - Last Filed: 07/21/17 16:22> Subjective: Patient seen and examined. States his breathing is at baseline. Denies chest pain. Denies fever, chills. Denies other complaints. - Physical Exam General: Alert, Oriented x3, Cooperative, No apparent distress HEENT: Atraumatic, PERRLA, EOMI, Normocephalic Neck: Supple, No JVD, Negative Carotid Bruits Lungs: Clear to auscultation, Diminished Cardiovascular: Regular rate, Regular Rhythm, Normal S1, Normal S2, No murmurs Abdomen: Bowel Sounds Present, Soft, Non Tender, Non-Distended Extremities: Clubbing, - - +1 bilateral lower extremity edema Skin: No rashes, No breakdown Musculoskeletal: No Tenderness to Palpation of Joints or Extremities Neurological: Cranial nerves II-XII grossly intact, Neuro grossly intact Psych/Mental Status: Normal Affect, Appropriate Vital Signs Temp Pulse Resp BP Pulse Ox 98.0 F 72 18 105/70 99 07/21/17 13:55 07/21/17 15:30 07/21/17 14:31 07/21/17 13:55 07/21/17 14:31 Oxygen Flow Rate (L/min) 3 Oxygen Delivery Method Nasal Cannula Weight: 96.615 kg Body Mass Index (BMI) 33.5 Intake and Output for Last 24 Hours 07/19/17 07/20/17 07/21/17 23:59 23:59 23:59 Intake Total 1481 / 1481 1200 / 1200 500 / 500 Output Total 3375 / 3375 4100 / 4100 1550 / 1550 Balance -1894 / -1894 -2900 / -2900 -1050 / -1050 Laboratory Tests Past 24 Hrs 07/21/17 07/21/17 06:16 06:16 WBC 9.6 RBC 3.10 L Hgb 8.6 L Hct 29.9 L MCV 96.5 H MCH 27.7 MCHC 28.8 L RDW 15.3 H RDW Differential 51.2 H Plt Count 279 MPV 8.9 Immature Gran % (Auto) 0.100 Neut % (Auto) 79.5 H Lymph % (Auto) 8.8 L [place] % (Auto) 11.6 H Eos % (Auto) 0.0 Baso % (Auto) 0.0 Absolute Neuts (auto) 7.7 Absolute Lymphs (auto) 0.85 Total Counted Not Reportable Sodium 140 Potassium 4.3 Chloride 96 L Carbon Dioxide 43.0 H Anion Gap 1 L BUN 21 H Creatinine 0.53 L Estim Creat Clear Calc 65.55 Est GFR (MDRD) Af Amer 196 Est GFR (MDRD) Non-Af 162 BUN/Creatinine Ratio 39.5 H Glucose 139 H Calcium 8.4 L Medical Necessity - Tobacco Use Smoking Status: Former smoker Assessment/Plan 1. Acute on chronic combined respiratory failure secondary to acute exacerbation of chronic COPD as a result of acute hospital-acquired pneumonia with severe sepsis-recently hospitalized and intubated in ICU. Pulmonary previously following who has signed off. Continue albuterol and DuoNeb aerosols. Continue BiPAP at night, patient is noncompliant. Continue oral Levaquin was stopped date 07/24/2017. Prednisone taper at discharge. Oxygen stable on baseline 3 L nasal cannula. Patient is stable for discharge to transitional care unit when pre-CERT is obtained. 2. Atrial fibrillation with RVR-rate currently controlled. Patient follows with Dr. Peterson as outpatient. 3. Hypotension-resolved. 4. Chronic diastolic CHF-last echo 12/2016, EF 55%. Continue home Lasix, beta-korey and lisinopril regimen. [place] wrap bilateral lower extremities. Patient is noncompliant with sodium restriction and fluid restriction. 5. Obstructive sleep apnea-continue BiPAP at bedtime and as needed. Patient is noncompliant with CPAP at home and during admission. 6. CAD-recent PEA arrest. Patient denies chest pain. Continue statin, beta-korey. 7. Elevated glucose-hemoglobin A1c 6.6%. Recommend carb control diet with repeat hemoglobin A1c in 3 months as outpatient. If A1c does not improve with dietary modifications, patient may require additional medication regimen. Discharge planning: Stable for discharge pending pre-CERT to TCU. This patient was seen by NATHAN Jon under the supervision of Dr. Vallejo. <Ray Vallejo - Last Filed: 07/21/17 16:34> Subjective: Seen and examined. Patient on oxygen through nasal cannula. On intermittent BiPAP at night - Physical Exam Lungs: Diminished, Rhonchi, Wheezes Vital Signs Temp Pulse Resp BP Pulse Ox 98.0 F 72 18 105/70 99 07/21/17 13:55 07/21/17 15:30 07/21/17 14:31 07/21/17 13:55 07/21/17 14:31 Oxygen Flow Rate (L/min) 3 Oxygen Delivery Method Nasal Cannula Weight: 212 lb 15.994 oz Body Mass Index (BMI) 33.5 Intake and Output for Last 24 Hours 07/19/17 07/20/17 07/21/17 23:59 23:59 23:59 Intake Total 1481 / 1481 1200 / 1200 500 / 500 Output Total 3375 / 3375 4100 / 4100 1550 / 1550 Balance -1894 / -1894 -2900 / -2900 -1050 / -1050 Laboratory Tests Past 24 Hrs 07/21/17 07/21/17 06:16 06:16 WBC 9.6 RBC 3.10 L Hgb 8.6 L Hct 29.9 L MCV 96.5 H MCH 27.7 MCHC 28.8 L RDW 15.3 H RDW Differential 51.2 H Plt Count 279 MPV 8.9 Immature Gran % (Auto) 0.100 Neut % (Auto) 79.5 H Lymph % (Auto) 8.8 L [place] % (Auto) 11.6 H Eos % (Auto) 0.0 Baso % (Auto) 0.0 Absolute Neuts (auto) 7.7 Absolute Lymphs (auto) 0.85 Total Counted Not Reportable Sodium 140 Potassium 4.3 Chloride 96 L Carbon Dioxide 43.0 H Anion Gap 1 L BUN 21 H Creatinine 0.53 L Estim Creat Clear Calc 65.55 Est GFR (MDRD) Af Amer 196 Est GFR (MDRD) Non-Af 162 BUN/Creatinine Ratio 39.5 H Glucose 139 H Calcium 8.4 L Assessment/Plan This patient was seen in conjunction with Lalit SU. I have independently interviewed and examined the patient and reviewed pertinent history, examination findings, laboratory and plan of management. I have reviewed the note and agree with the documented findings with the few additional points. In brief, patient is admitted for acute on chronic combined respiratory failure secondary to COPD exacerbation. Pt had mild low-grade fever T 100.8, sinus tachycardia heart rate 120-130's, RR 30, WBC 27.2,, cough and chest x-ray finding suggestive of left lower lobe consolidation, mixed with underlying atelectasis and pleural effusion. There is consistent with severe sepsis secondary to left lower lobe, healthcare associated pneumonia. Continue Levaquin. Patient is waiting for placement in TCU. Will discharge on Levaquin and tapering dose of prednisone I have discussed my assessment with Lalit SU and orders have been reviewed. Code Visit Inpatient E&M: 45459 Subs Hosp L3
[2017-07-21] MEDS: Lisinopril 2.5 MG Tablet PO (22:04)
[2017-07-21] MEDS: Atorvastatin Calcium 20 MG Tablet PO (22:04)
[2017-07-22] VITALS (8 sets, daily range): BP systolic 113–128; BP diastolic 59–63; PULSE 55–80; RESP 12–19; TEMP 36.9–37.2; O2SAT 92–99
[2017-07-22] MEDS: levoFLOXacin 500 MG Tablet PO (05:13)
[2017-07-22] MEDS: guaiFENesin 10 ML UDC (200MG/10ML) 20 ML PO ×2 (05:13→09:42)
[2017-07-22] MEDS: Magnesium Citrate 300 ML PO (05:13)
[2017-07-22] MEDS: oxyCODONE 5 MG Tablet PO ×2 (05:17→09:39)
[2017-07-22] MEDS: Ipratropium/Albuterol Sulfate 3 ML AMPUL.NEB INHALATION (07:33)
[2017-07-22] MEDS: predniSONE 20 MG Tablet 40 MG PO (08:34)
[2017-07-22] MEDS: Iron Polysaccharide Complex 150 MG CAPSULE PO (08:35)
--- NOTE | 2017-07-22 09:29 | CASEMGMT ---
Received insurance approval for patient to go to TCU. SW notified RN, service secretary, and patient. All in agreement with d/c plan. Plan: [facility] TCU under skilled level of care. Romelia VARELA
[2017-07-22] MEDS: Carvedilol 3.125 MG TABLET PO (09:39)
[2017-07-22] MEDS: Furosemide 40 MG Tablet PO (09:40)
[2017-07-22] MEDS: Polyethylene Glycol 3350 17 GM PACKET PO (09:40)
[2017-07-22] MEDS: Famotidine 20 MG Tablet PO (09:40)
[2017-07-22] MEDS: Enoxaparin 40 MG/0.4 ML Syringe SC (09:43)
== END 2017-07-22 10:42 | disposition skilled nursing facility (03) | DRG 871 ==
LOC: ED 02:58 → ICU 04:12 → PCU 07-19 09:09
PROVIDERS: Internal Medicine; Physician Assistant; Admitting Provider Internal Medicine; Emergency Provider Emergency Medicine; Family Provider Family Medicine; PCP Family Medicine; Visit Provider Internal Medicine
DX: A41.9 Sepsis, unspecified organism (principal); J96.21 Acute and chronic respiratory failure with hypoxia; J18.9 Pneumonia, unspecified organism; J96.22 Acute and chronic respiratory failure with hypercapnia; G93.40 Encephalopathy, unspecified; J44.1 Chronic obstructive pulmonary disease with (acute) exacerbation; I42.9 Cardiomyopathy, unspecified; I50.22 Chronic systolic (congestive) heart failure; J44.0 Chronic obstructive pulmonary disease with (acute) lower respiratory infection; E66.2 Morbid (severe) obesity with alveolar hypoventilation; R65.20 Severe sepsis without septic shock; I11.0 Hypertensive heart disease with heart failure; I25.10 Atherosclerotic heart disease of native coronary artery without angina pectoris; R73.9 Hyperglycemia, unspecified; T38.0X5A Adverse effect of glucocorticoids and synthetic analogues, initial encounter; G47.33 Obstructive sleep apnea (adult) (pediatric); F41.9 Anxiety disorder, unspecified; D50.9 Iron deficiency anemia, unspecified; K21.9 Gastro-esophageal reflux disease without esophagitis; E78.5 Hyperlipidemia, unspecified; M19.90 Unspecified osteoarthritis, unspecified site; Z87.891 Personal history of nicotine dependence; Z68.33 Body mass index [BMI] 33.0-33.9, adult; Z91.19 Patient's noncompliance with other medical treatment and regimen; R15.9 Full incontinence of feces
CPT/HCPCS: 36415; 36600; 71045; 80048; 80053; 81002; 82803; 83036; 83605; 83735; 84484; 85025; 87040; 87449; 87641; 93005; 94003; 94640; 94667; 97110; 97116; 97162; 97165; 99285; J7030; J7050; A4216

== ENCOUNTER 2017-07-22 10:45 | Inpatient (IN) | payer MEDICARE, SELFPAY ==
--- NOTE | 2017-07-22 11:13 | NURSING ---
Pt arrived from PCU at 10:45 via bed.
[2017-07-22 12:04] VITALS: BMI 32.5
--- NOTE | 2017-07-22 12:15 | NURSING ---
Code status discussed with pt. Pt wishes to be a full code.
[2017-07-22 12:24] VITALS: BMI 32.6
--- NOTE | 2017-07-22 13:16 | CASEMGMT ---
Social Work Spoke with resident in room. Introduced self as well as social work role. Resident wanting to update power of trust and estates attorney for health care. Resident now nominating Julian Alvarez (Brother) as main contact and power of trust and estates attorney for health care. A new power of trust and estates attorney for health care completed with resident, Original given to resident and copy placed on resident chart. Support given. Radha ELIASW, CARE SPECIALIST
[2017-07-22] MEDS: guaiFENesin 600 MG Tablet PO ×3 (13:22→20:18)
--- NOTE | 2017-07-22 14:46 | PCM.HP.STD ---
Problem List (1) Acute and chronic respiratory failure Status: Acute Qualifiers: (2) Acute on chronic systolic heart failure Status: Chronic (3) Iron deficiency anemia Status: Chronic (4) Hyperlipidemia Status: Chronic (5) Anxiety Status: Chronic (6) GERD (gastroesophageal reflux disease) Status: Chronic (7) Osteoarthritis Status: Chronic (8) COLD (chronic obstructive lung disease) Status: Chronic Qualifiers: (9) Former smoker Status: Chronic Comment: Z87.891 (10) MILA (obstructive sleep apnea) Status: Chronic (11) Hypertension Status: Chronic (12) HCAP (healthcare-associated pneumonia) Status: Acute History of Present Illness Date of Admission: 07/22/17 Chief Complaint: Here for rehabilitation, strengthening, prior to discharge home with spouse. The patient is a 71 year old Male with below past medical history TCU resident presented to [facility] 07/18/2017 with acute shortness of breath. 06/28/2017 EKG sinus tachycardia with occasional premature ventricular contractions, low voltage QRS. Increased respiratory distress over 24 hours. BiPAP pH 7.33, PCO2 106.8, Bicarb 57. WBC 27.2 BiPAP adjusted. Duoneb, Albuterol, Solu-Medrol, Zosyn, Levaquin given. Chest X-ray showed left lower lobe infiltrate. 07/18/2017 Admit to ICU. Zosyn, Vancomycin for Healthcare associated pneumonia, consider double gram negative coverage. Solu-Medrol, Bronchodilators for COPD. 07/18/2017 Dr. Salazar recommended continued BiPAP, aerosols, antibiotics. Stop Vancomycin, MRSA screen negative. 07/19/2017 Transfer to PCU, urinary antigens negative. 07/19/2017 Chest X-ray borderline cardiomegaly, pulmonary edema. Bibasilar consolidation/atelectasis. 07/20/2017 Atrial fibrillation with rapid ventricular response treated with digoxin, resolved. 07/22/2017 Admit to TCU for rehabilitation, strengthening, prior to discharge home with significant other. Past Medical History Past Medical History (Chronic Problems): Chronic Problems Melanoma (Chronic) Acute on chronic systolic heart failure (Chronic) Iron deficiency anemia (Chronic) Hyperlipidemia (Chronic) Anxiety (Chronic) GERD (gastroesophageal reflux disease) (Chronic) Osteoarthritis (Chronic) Arthritis (Chronic) Benign hypertension (Chronic) Cardiomyopathy (Chronic) COLD (chronic obstructive lung disease) (Chronic) History of gastroesophageal reflux (GERD) (Chronic) History of urethral stricture (Chronic) Status post cardiac catheterization (Chronic) Malignant melanoma of back (Chronic) C43.59 2 cm superficial spreading melanoma wound left upper back with a thickness of 0.54 mm 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) 6 mm pigmented lesion right lateral chest wall Former smoker (Chronic) Z87.891 Open wound of left side of back (Chronic) open melanoma wound left upper back Systolic CHF, acute on chronic (Chronic) Debility (Chronic) MILA (obstructive sleep apnea) (Chronic) Hypertension (Chronic) Urinary retention with incomplete bladder emptying (Chronic) Bowel incontinence (Chronic) Allergies latex Allergy (Severe, Verified 07/18/17 02:44) Swelling rivaroxaban [From Xarelto] Adverse Reaction (Verified 07/18/17 02:44) excessive bleeding Home Medications: Ambulatory Orders Medication Instructions Recorded Furosemide [Lasix] 40 mg PO DAILY 02/01/13 Carvedilol [Coreg (Beta Paulie)] 3.125 mg PO BID 03/26/17 Clonazepam [Klonopin] 0.5 mg PO BID #14 tab 07/09/17 Guaifenesin [Mucinex] 600 mg PO 4X/DAY 07/09/17 Ipratropium/Albuterol Sulfate 3 ml INHALATION Q4HWA.RT 07/09/17 [Duoneb] Iron Polysaccharide Complex 150 mg PO DAILYCM 07/09/17 [Ferrex 150] Lisinopril [Zestril] 2.5 mg PO QHS 07/09/17 Magnesium Citrate [Citrate Of 300 ml PO QODAY 07/09/17 Magnesia] Pantoprazole Sodium [Protonix] 40 mg PO DAILY 07/09/17 Acetaminophen [Tylenol Tablet] 1,000 mg PO Q8H PRN PRN 07/18/17 Atorvastatin Calcium [Lipitor] 20 mg PO QHS 07/18/17 Emollient Combination No.72 250 ml TP DAILY 07/18/17 [Eucerin Intensive Repair] Enoxaparin Sodium [Lovenox] 40 mg SQ DAILY 07/18/17 Fluticasone/Salmeterol [Advair 1 puff INHALATION BID 07/18/17 250/50 Mcg Diskus] Menthol/Lanolin/Calamine/Znox 1 applic TP TID 07/18/17 [Calmoseptine Ointment] Oxycodone [Oxyir] 5 mg PO Q4H PRN PRN 07/18/17 Polyethylene Glycol 3350 [Miralax] 17 gm PO BID 07/22/17 Prednisone See Taper PO DAILY 07/22/17 levoFLOXacin tablet [Levaquin 500 mg PO DAILY@0600 07/22/17 tablet] Surgical History: appendectomy, total hip arthroplasty - Bilateral., total knee arthroplasty - Bilateral., - - Left carpal tunnel release, rotator cuff surgery, bladder surgery. Psychiatric History: Anxiety Lives: Spouse/ Significant Other Smoking Status: Former smoker Tobacco Use: Non-smoker Alcohol: None Drugs: None - *Family History Maternal History Items: - - Non-contributory. Paternal History Items: No pertinent history Review of Systems Constitutional: Denies: Chills, Fever, Weight Change HEENT: Denies: Head Aches, Sinus Congestion, Sinus Drainage Cardiovascular: Denies: Chest Pain, Palpitations Respiratory: Denies: Cough, Shortness of breath at rest, Sputum production Gastrointestinal: Denies: Abdominal Pain, Nausea, Vomiting Genitourinary: Denies: Dysuria Musculoskeletal: Denies: Joint Pain, Joint Tenderness Skin: Denies: Rash, Wounds Neurological: Denies: Numbness, Tingling, Focal weakness Psychiatric: Denies: Anxiety, Depression, Homicidal Ideations, Suicidal Ideations Hematologic/ Lymphatic: Denies: Easy Bruising, Easy Bleeding VTE Information - Inpt Only VTE Present on Admission: No VTE Mechan Device Prophylaxis: Knee High COLIN Hose VTE Pharm Prophylaxis ordered?: Yes - Physical Exam General: Alert, Oriented x3, Cooperative HEENT: Atraumatic, PERRLA, EOMI, Normocephalic Neck: Supple, No JVD, Negative Carotid Bruits Lungs: Diminished, - - Decreased air movement. Cardiovascular: Regular rate, No murmurs Abdomen: Bowel Sounds Present, Soft, Non Tender Extremities: No edema, Capillary Refill Less than 3 Seconds Skin: No rashes, No breakdown Musculoskeletal: No Tenderness to Palpation of Joints or Extremities Neurological: Cranial nerves II-XII grossly intact Psych/Mental Status: Normal Affect, Appropriate Oxygen Flow Rate (L/min) 3 Oxygen Delivery Method Nasal Cannula Weight: 97.296 kg Body Mass Index (BMI) 32.5 Intake and Output for Last 24 Hours 07/20/17 07/21/17 07/22/17 23:59 23:59 23:59 Intake Total 222 / 222 Output Total 500 / 500 Balance -278 / -278 Assessment/Plan 71 year old male with below past medical history hospitalized for acute respiratory failure secondary to healthcare associated pneumonia, complicated by atrial fibrillation with rapid ventricular response, admitted to TCU with debility, here for rehabilitation, strengthening, prior to discharge home with significant other. Debility - PT/OT. Pain - Tylenol 1000MG Q8H PRN mild pain, Oxycodone 5MG Q4H PRN severe pain. Bowel - Miralax 17GM BID, Magnesium citrate 300ML PO QOD, Dulcolax 10MG [place] daily PRN. Pneumonia vaccination - Administer Prevnar 13 and/or Pneumovax 23 as necessary. DVT prophylaxis - Lovenox 40MG SC daily. Hyperlipidemia - Atorvastatin 20MG QHS. Acute on chronic systolic heart failure - Coreg 3.125MG BID, Lisinopril 2.5MG daily,Lasix 40MG daily. Anxiety - Clonazepam 0.5MG BID. Skin irritation - Eucerin BID bilateral lower extremities, Calmoseptine TID bilateral buttocks. COPD - Advair 250/50 1 puff BID, Duoneb 3ML 4x/day, Mucinex 600MG 4x/day. Iron deficiency - Ferrex 150MG daily. Healthcare associated pneumonia - Levaquin 500MG daily thru 07/24/2017. GERD - Pantoprazole 40MG daily. End of Life - I told Devante he is dying, he told me to get out of his room.
--- NOTE | 2017-07-22 14:58 | HP.PCM_ITS ---
Problem List (1) Acute and chronic respiratory failure Status: Acute Qualifiers: (2) Acute on chronic systolic heart failure Status: Chronic (3) Iron deficiency anemia Status: Chronic (4) Hyperlipidemia Status: Chronic (5) Anxiety Status: Chronic (6) GERD (gastroesophageal reflux disease) Status: Chronic (7) Osteoarthritis Status: Chronic (8) COLD (chronic obstructive lung disease) Status: Chronic Qualifiers: (9) Former smoker Status: Chronic Comment: Z87.891 (10) MILA (obstructive sleep apnea) Status: Chronic (11) Hypertension Status: Chronic (12) HCAP (healthcare-associated pneumonia) Status: Acute History of Present Illness Date of Admission: 07/22/17 Chief Complaint: Here for rehabilitation, strengthening, prior to discharge home with spouse. The patient is a 71 year old Male with below past medical history TCU resident presented to [facility] 07/18/2017 with acute shortness of breath. 06/28/2017 EKG sinus tachycardia with occasional premature ventricular contractions, low voltage QRS. Increased respiratory distress over 24 hours. BiPAP pH 7.33, PCO2 106.8, Bicarb 57. WBC 27.2 BiPAP adjusted. Duoneb, Albuterol, Solu-Medrol, Zosyn, Levaquin given. Chest X-ray showed left lower lobe infiltrate. 07/18/2017 Admit to ICU. Zosyn, Vancomycin for Healthcare associated pneumonia, consider double gram negative coverage. Solu-Medrol, Bronchodilators for COPD. 07/18/2017 Dr. Salazar recommended continued BiPAP, aerosols, antibiotics. Stop Vancomycin, MRSA screen negative. 07/19/2017 Transfer to PCU, urinary antigens negative. 07/19/2017 Chest X-ray borderline cardiomegaly, pulmonary edema. Bibasilar consolidation/atelectasis. 07/20/2017 Atrial fibrillation with rapid ventricular response treated with digoxin, resolved. 07/22/2017 Admit to TCU for rehabilitation, strengthening, prior to discharge home with significant other. Past Medical History Past Medical History (Chronic Problems): Chronic Problems Melanoma (Chronic) Acute on chronic systolic heart failure (Chronic) Iron deficiency anemia (Chronic) Hyperlipidemia (Chronic) Anxiety (Chronic) GERD (gastroesophageal reflux disease) (Chronic) Osteoarthritis (Chronic) Arthritis (Chronic) Benign hypertension (Chronic) Cardiomyopathy (Chronic) COLD (chronic obstructive lung disease) (Chronic) History of gastroesophageal reflux (GERD) (Chronic) History of urethral stricture (Chronic) Status post cardiac catheterization (Chronic) Malignant melanoma of back (Chronic) C43.59 2 cm superficial spreading melanoma wound left upper back with a thickness of 0.54 mm 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) 6 mm pigmented lesion right lateral chest wall Former smoker (Chronic) Z87.891 Open wound of left side of back (Chronic) open melanoma wound left upper back Systolic CHF, acute on chronic (Chronic) Debility (Chronic) MILA (obstructive sleep apnea) (Chronic) Hypertension (Chronic) Urinary retention with incomplete bladder emptying (Chronic) Bowel incontinence (Chronic) Allergies latex Allergy (Severe, Verified 07/18/17 02:44) Swelling rivaroxaban [From Xarelto] Adverse Reaction (Verified 07/18/17 02:44) excessive bleeding Home Medications: Ambulatory Orders Medication Instructions Recorded Furosemide [Lasix] 40 mg PO DAILY 02/01/13 Carvedilol [Coreg (Beta Paulie)] 3.125 mg PO BID 03/26/17 Clonazepam [Klonopin] 0.5 mg PO BID #14 tab 07/09/17 Guaifenesin [Mucinex] 600 mg PO 4X/DAY 07/09/17 Ipratropium/Albuterol Sulfate 3 ml INHALATION Q4HWA.RT 07/09/17 [Duoneb] Iron Polysaccharide Complex 150 mg PO DAILYCM 07/09/17 [Ferrex 150] Lisinopril [Zestril] 2.5 mg PO QHS 07/09/17 Magnesium Citrate [Citrate Of 300 ml PO QODAY 07/09/17 Magnesia] Pantoprazole Sodium [Protonix] 40 mg PO DAILY 07/09/17 Acetaminophen [Tylenol Tablet] 1,000 mg PO Q8H PRN PRN 07/18/17 Atorvastatin Calcium [Lipitor] 20 mg PO QHS 07/18/17 Emollient Combination No.72 250 ml TP DAILY 07/18/17 [Eucerin Intensive Repair] Enoxaparin Sodium [Lovenox] 40 mg SQ DAILY 07/18/17 Fluticasone/Salmeterol [Advair 1 puff INHALATION BID 07/18/17 250/50 Mcg Diskus] Menthol/Lanolin/Calamine/Znox 1 applic TP TID 07/18/17 [Calmoseptine Ointment] Oxycodone [Oxyir] 5 mg PO Q4H PRN PRN 07/18/17 Polyethylene Glycol 3350 [Miralax] 17 gm PO BID 07/22/17 Prednisone See Taper PO DAILY 07/22/17 levoFLOXacin tablet [Levaquin 500 mg PO DAILY@0600 07/22/17 tablet] Surgical History: appendectomy, total hip arthroplasty - Bilateral., total knee arthroplasty - Bilateral., - - Left carpal tunnel release, rotator cuff surgery , bladder surgery. Psychiatric History: Anxiety Lives: Spouse/ Significant Other Smoking Status: Former smoker Tobacco Use: Non-smoker Alcohol: None Drugs: None - *Family History Maternal History Items: - - Non-contributory. Paternal History Items: No pertinent history Review of Systems Constitutional: Denies: Chills, Fever, Weight Change HEENT: Denies: Head Aches, Sinus Congestion, Sinus Drainage Cardiovascular: Denies: Chest Pain, Palpitations Respiratory: Denies: Cough, Shortness of breath at rest, Sputum production Gastrointestinal: Denies: Abdominal Pain, Nausea, Vomiting Genitourinary: Denies: Dysuria Musculoskeletal: Denies: Joint Pain, Joint Tenderness Skin: Denies: Rash, Wounds Neurological: Denies: Numbness, Tingling, Focal weakness Psychiatric: Denies: Anxiety, Depression, Homicidal Ideations, Suicidal Ideations Hematologic/ Lymphatic: Denies: Easy Bruising, Easy Bleeding VTE Information - Inpt Only VTE Present on Admission: No VTE Mechan Device Prophylaxis: Knee High COLIN Hose VTE Pharm Prophylaxis ordered?: Yes - Physical Exam General: Alert, Oriented x3, Cooperative HEENT: Atraumatic, PERRLA, EOMI, Normocephalic Neck: Supple, No JVD, Negative Carotid Bruits Lungs: Diminished, - - Decreased air movement. Cardiovascular: Regular rate, No murmurs Abdomen: Bowel Sounds Present, Soft, Non Tender Extremities: No edema, Capillary Refill Less than 3 Seconds Skin: No rashes, No breakdown Musculoskeletal: No Tenderness to Palpation of Joints or Extremities Neurological: Cranial nerves II-XII grossly intact Psych/Mental Status: Normal Affect, Appropriate Oxygen Flow Rate (L/min) 3 Oxygen Delivery Method Nasal Cannula Weight: 97.296 kg Body Mass Index (BMI) 32.5 Intake and Output for Last 24 Hours 07/20/17 07/21/17 07/22/17 23:59 23:59 23:59 Intake Total 222 / 222 Output Total 500 / 500 Balance -278 / -278 Assessment/Plan 71 year old male with below past medical history hospitalized for acute respiratory failure secondary to healthcare associated pneumonia, complicated by atrial fibrillation with rapid ventricular response, admitted to TCU with debility, here for rehabilitation, strengthening, prior to discharge home with significant other. * Debility - PT/OT. * Pain - Tylenol 1000MG Q8H PRN mild pain, Oxycodone 5MG Q4H PRN severe pain. * Bowel - Miralax 17GM BID, Magnesium citrate 300ML PO QOD, Dulcolax 10MG [place] daily PRN. * Pneumonia vaccination - Administer Prevnar 13 and/or Pneumovax 23 as necessary. * DVT prophylaxis - Lovenox 40MG [place] daily. * Hyperlipidemia - Atorvastatin 20MG QHS. * Acute on chronic systolic heart failure - Coreg 3.125MG BID, Lisinopril 2.5MG daily,Lasix 40MG daily. * Anxiety - Clonazepam 0.5MG BID. * Skin irritation - Eucerin BID bilateral lower extremities, Calmoseptine TID bilateral buttocks. * COPD - Advair 250/50 1 puff BID, Duoneb 3ML 4x/day, Mucinex 600MG 4x/day. * Iron deficiency - Ferrex 150MG daily. * Healthcare associated pneumonia - Levaquin 500MG daily thru 07/24/2017. * GERD - Pantoprazole 40MG daily. * End of Life - I told Devante he is dying, he told me to get out of his room.
[2017-07-22 15:05] VITALS: PULSE 76; RESP 20; O2SAT 95
[2017-07-22] MEDS: Ipratropium/Albuterol Sulfate 3 ML AMPUL.NEB INHALATION ×3 (15:05→23:02)
[2017-07-22 15:41] VITALS: BP 109/57; PULSE 83; RESP 22; TEMP 36.8; O2SAT 96
[2017-07-22] MEDS: Carvedilol 3.125 MG TABLET PO (16:38)
[2017-07-22] MEDS: Polyethylene Glycol 3350 17 GM PACKET PO (16:38)
[2017-07-22] MEDS: clonazePAM 0.5 MG Tablet PO (16:43)
[2017-07-22 19:13] VITALS: PULSE 65; RESP 18; O2SAT 95
[2017-07-22] MEDS: Lisinopril 2.5 MG Tablet PO (20:18)
[2017-07-22] MEDS: Atorvastatin Calcium 20 MG Tablet PO (20:18)
[2017-07-22] MEDS: Menthol/Lanolin/Calamine/Znox 113 GM Tube 1 APPLIC TOPICAL (20:19)
[2017-07-22] MEDS: oxyCODONE 5 MG Tablet PO (22:03)
[2017-07-22 23:02] VITALS: PULSE 63; RESP 18
[2017-07-22 23:15] VITALS: PULSE 63; RESP 12; RESP 20; O2SAT 97
[2017-07-23] VITALS (7 sets, daily range): BP systolic 114; BP diastolic 59; PULSE 56–91; RESP 12–18; TEMP 36.4; O2SAT 92–96
[2017-07-23] MEDS: Carvedilol 3.125 MG TABLET PO ×2 (05:56→17:27)
[2017-07-23] MEDS: guaiFENesin 600 MG Tablet PO ×4 (05:56→20:02)
[2017-07-23] MEDS: Pantoprazole Sodium 40 MG Tablet PO (05:56)
[2017-07-23] MEDS: Polyethylene Glycol 3350 17 GM PACKET PO ×2 (05:56→17:27)
[2017-07-23] MEDS: Furosemide 40 MG Tablet PO (05:56)
[2017-07-23] MEDS: Enoxaparin 40 MG/0.4 ML Syringe SC (05:57)
[2017-07-23] MEDS: levoFLOXacin 500 MG Tablet PO (05:57)
[2017-07-23] MEDS: Menthol/Lanolin/Calamine/Znox 113 GM Tube 1 APPLIC TOPICAL ×3 (06:07→19:59)
[2017-07-23] MEDS: clonazePAM 0.5 MG Tablet PO ×2 (06:09→17:33)
[2017-07-23] MEDS: Ipratropium/Albuterol Sulfate 3 ML AMPUL.NEB INHALATION ×5 (06:30→22:30)
[2017-07-23 07:15] LABS: Absolute Lymphocyte Count 1.31 X10^3/ul (0.83-4.51); Absolute Neutrophil Count 4.8 X10^3/uL (2.0-7.7); Eosinophil# 0.03 X10^3/uL; Eosinophils% 0.4 % (0-5); Hematocrit 31.3 % (40-54); Hemoglobin 9.3 g/dl (13.0-16.5); Lymphocyte # 1.31 X10^3/ul (4.0); Lymphocyte % 18.6 % (19-41); Mean Corp Hgb Conc 29.7 g/gl (32-36); Mean Corpuscular Hgb 27.9 pg (27.0-32.0); Mean Platelet Vol. 9.1 fl (6.2-12.0); Monocyte# 0.87 X10^3/uL; Monocyte% 12.4 % (0-10); Neutrophil % 68.3 % (47-70); POSITIVE COUNT NO; POSITIVE DIFFERENTIAL NO; POSITIVE MORPHOLOGY NO; Platelet Count 272 K/mm3 (150-450); RBC Distribution Width CV 14.9 % (11.6-14.6); RBC Distribution Width SD 49.1 fl (35.1-43.9); Red Blood Count 3.33 M/mm3 (4.6-6.2)
[2017-07-23 07:39] LABS: Anion Gap 5 (5-15); BUN 20 mg/dL (7-18); BUN/Creat Ratio 33.4 RATIO (10-20); Calcium,Total 8.3 mg/dL (8.5-10.1); Chloride 95 mmol/L (98-107); EST Glomerular Filtration Rate 141 mL/min (>60); Est Glom Filt Rate - Afr Amer 171 mL/min (>60); Estimated Creatinine Clearance 65.55 ml/min; Glucose 134 mg/dL (74-106); Potassium 3.8 mmol/L (3.5-5.1); Sodium Level 141 mmol/L (136-145)
[2017-07-23] MEDS: Iron Polysaccharide Complex 150 MG CAPSULE PO (08:07)
[2017-07-23] MEDS: predniSONE 10 MG Tablet PO (08:07)
[2017-07-23] MEDS: Atorvastatin Calcium 20 MG Tablet PO (20:02)
[2017-07-23] MEDS: Lisinopril 2.5 MG Tablet PO (20:02)
[2017-07-24] VITALS (10 sets, daily range): BP systolic 103; BP diastolic 58; PULSE 58–88; RESP 12–20; TEMP 36.8; O2SAT 91–96
--- NOTE | 2017-07-24 00:15 | NURSING ---
Patient called out using call light. This nurse unable to understand patient due to patient wearing BIPAP. This nurse promptly went into room, and asked patient what is wrong, what can I do for you? Patient states that I was choking on phelgm and no one came in here to help me, but I got it clear now. This nurse asked if there is anything else I can do for you. Patient states No I got it clear now. Patient continuing to use bipap. No other needs voiced at this time.
[2017-07-24] MEDS: clonazePAM 0.5 MG Tablet PO ×2 (04:53→16:38)
[2017-07-24] MEDS: Magnesium Citrate 300 ML PO (04:53)
[2017-07-24] MEDS: levoFLOXacin 500 MG Tablet PO (04:53)
[2017-07-24] MEDS: Pantoprazole Sodium 40 MG Tablet PO (04:53)
[2017-07-24] MEDS: guaiFENesin 600 MG Tablet PO ×4 (04:53→20:00)
[2017-07-24] MEDS: Polyethylene Glycol 3350 17 GM PACKET PO (04:53)
[2017-07-24] MEDS: Carvedilol 3.125 MG TABLET PO ×2 (04:54→16:38)
[2017-07-24] MEDS: Furosemide 40 MG Tablet PO (04:54)
[2017-07-24] MEDS: Enoxaparin 40 MG/0.4 ML Syringe SC (04:54)
[2017-07-24] MEDS: Menthol/Lanolin/Calamine/Znox 113 GM Tube 1 APPLIC TOPICAL ×3 (04:54→20:01)
[2017-07-24] MEDS: Ipratropium/Albuterol Sulfate 3 ML AMPUL.NEB INHALATION ×4 (06:30→19:20)
[2017-07-24] MEDS: predniSONE 10 MG Tablet PO (07:42)
[2017-07-24] MEDS: Iron Polysaccharide Complex 150 MG CAPSULE PO (07:42)
[2017-07-24] MEDS: Atorvastatin Calcium 20 MG Tablet PO (20:00)
[2017-07-24] MEDS: Lisinopril 2.5 MG Tablet PO (20:00)
[2017-07-25] VITALS (7 sets, daily range): BP systolic 94; BP diastolic 62; PULSE 66–87; RESP 12–21; TEMP 37.1; O2SAT 92–97
[2017-07-25] MEDS: Polyethylene Glycol 3350 17 GM PACKET PO ×2 (06:17→17:38)
[2017-07-25] MEDS: guaiFENesin 600 MG Tablet PO ×4 (06:20→20:41)
[2017-07-25] MEDS: Furosemide 40 MG Tablet PO (06:20)
[2017-07-25] MEDS: Carvedilol 3.125 MG TABLET PO ×2 (06:20→17:38)
[2017-07-25] MEDS: Pantoprazole Sodium 40 MG Tablet PO (06:20)
[2017-07-25] MEDS: Enoxaparin 40 MG/0.4 ML Syringe SC (06:20)
[2017-07-25] MEDS: clonazePAM 0.5 MG Tablet PO ×2 (06:21→17:38)
[2017-07-25] MEDS: Menthol/Lanolin/Calamine/Znox 113 GM Tube 1 APPLIC TOPICAL ×3 (06:22→20:43)
[2017-07-25] MEDS: Ipratropium/Albuterol Sulfate 3 ML AMPUL.NEB INHALATION ×3 (07:20→15:05)
[2017-07-25] MEDS: predniSONE 10 MG Tablet PO (07:44)
[2017-07-25] MEDS: Iron Polysaccharide Complex 150 MG CAPSULE PO (07:44)
--- NOTE | 2017-07-25 13:20 | PHA.CONS_ITS ---
<Jeramie Quigley D - Last Filed: 07/25/17 12:59> Progress Note - Pharmacy Subjective: TCU Admission Objective: Allergies latex Allergy (Severe, Verified 07/18/17 02:44) Swelling rivaroxaban [From Xarelto] Adverse Reaction (Verified 07/18/17 02:44) excessive bleeding Home Medications Medication Instructions Recorded Furosemide [Lasix] 40 mg PO DAILY 02/01/13 Carvedilol [Coreg (Beta Paulie)] 3.125 mg PO BID 03/26/17 Clonazepam [Klonopin] 0.5 mg PO BID #14 tab 07/09/17 Guaifenesin [Mucinex] 600 mg PO 4X/DAY 07/09/17 Ipratropium/Albuterol Sulfate 3 ml INHALATION Q4HWA.RT 07/09/17 [Duoneb] Iron Polysaccharide Complex 150 mg PO DAILYCM 07/09/17 [Ferrex 150] Lisinopril [Zestril] 2.5 mg PO QHS 07/09/17 Magnesium Citrate [Citrate Of 300 ml PO QODAY 07/09/17 Magnesia] Pantoprazole Sodium [Protonix] 40 mg PO DAILY 07/09/17 Acetaminophen [Tylenol Tablet] 1,000 mg PO Q8H PRN PRN 07/18/17 Atorvastatin Calcium [Lipitor] 20 mg PO QHS 07/18/17 Emollient Combination No.72 250 ml TP DAILY 07/18/17 [Eucerin Intensive Repair] Enoxaparin Sodium [Lovenox] 40 mg SQ DAILY 07/18/17 Fluticasone/Salmeterol [Advair 1 puff INHALATION BID 07/18/17 250/50 Mcg Diskus] Menthol/Lanolin/Calamine/Znox 1 applic TP TID 07/18/17 [Calmoseptine Ointment] Oxycodone [Oxyir] 5 mg PO Q4H PRN PRN 07/18/17 Polyethylene Glycol 3350 [Miralax] 17 gm PO BID 07/22/17 Prednisone See Taper PO DAILY 07/22/17 levoFLOXacin tablet [Levaquin 500 mg PO DAILY@0600 07/22/17 tablet] Current Medications Generic Name Dose Route Start Last Admin Trade Name Freq PRN Reason Stop Dose Admin Acetaminophen 1,000 mg 07/22/17 15:06 Tylenol PO Q8H PRN PRN MILD PAIN (1-3/10) Albuterol/Ipratropium 3 ml 07/22/17 11:45 07/25/17 11:32 Duoneb INHALATION 3 ml Q4HWA.RT EDU Administration Atorvastatin Calcium 20 mg 07/22/17 22:00 07/24/17 20:00 Lipitor PO 20 mg QHS EDU Administration Bisacodyl 10 mg 07/22/17 11:53 Dulcolax RECTAL DAILY PRN Constipation Calamine/Phenol 1 applic 07/22/17 22:00 07/25/17 11:45 Calmoseptine Ointment TOPICAL 1 applicatio TID EDU Administration Protocol Carvedilol 3.125 mg 07/22/17 18:00 07/25/17 06:20 Coreg PO 3.125 mg BID EDU Administration Clonazepam 0.5 mg 07/22/17 18:00 07/25/17 06:21 Klonopin PO 0.5 mg BID EDU Administration Emollient Ointment 1 applic 07/22/17 22:00 07/25/17 06:23 Eucerin Intensive Repair TOPICAL 1 applicatio 0600,2200 EDU Administration Enoxaparin Sodium 40 mg 07/23/17 06:00 07/25/17 06:20 Lovenox SC 40 mg DAILY EDU Administration Furosemide 40 mg 07/23/17 06:00 07/25/17 06:20 Lasix PO 40 mg DAILY EDU Administration Guaifenesin 600 mg 07/22/17 12:00 07/25/17 11:44 Mucinex PO 600 mg 4X/DAY EDU Administration Lisinopril 2.5 mg 07/22/17 22:00 07/24/17 20:00 Zestril PO 2.5 mg QHS EDU Administration Magnesium Citrate 300 ml 07/24/17 06:00 07/24/17 04:53 Citrate Of Magnesia PO 300 ml QODAY@0600 EDU Administration Oxycodone HCl 5 mg 07/22/17 13:39 07/22/17 22:03 Oxyir PO 5 mg Q4H PRN PRN Administration SEVERE PAIN (6-10/10) Pantoprazole Sodium 40 mg 07/23/17 06:00 07/25/17 06:20 Protonix PO 40 mg DAILY EDU Administration Polyethylene Glycol 17 gm 07/22/17 18:00 07/25/17 06:17 Miralax PO 17 gm BID EDU Administration Polysaccharide Iron Complex 150 mg 07/23/17 08:00 07/25/17 07:44 Ferrex 150 PO 150 mg DAILYCM EDU Administration Prednisone 30 mg 07/23/17 08:00 07/25/17 07:44 PO 08/02/17 07:59 30 mg DAILY@0800 EDU Administration Taper Fluticasone/Salmeterol 1 puff 07/22/17 18:00 07/25/17 06:20 Advair 250/50 Mcg Diskus INHALATION 1 puff BID EDU Administration Vital Signs Temp Pulse Resp BP Pulse Ox 98.3 F 87 21 H 103/58 L 94 07/24/17 15:10 07/25/17 11:32 07/25/17 11:32 07/24/17 15:10 07/25/17 08:01 Oxygen Flow Rate (L/min) 3 Oxygen Delivery Method Nasal Cannula Weight: 97.296 kg Body Mass Index (BMI) 32.5 Sodium 141 mmol/L (136-145) 07/23/17 06:50 Potassium 3.8 mmol/L (3.5-5.1) 07/23/17 06:50 Chloride 95 mmol/L (98-107) L 07/23/17 06:50 Carbon Dioxide 41.0 mmol/L (21.0-32.0) H 07/23/17 06:50 Anion Gap 5 (5-15) 07/23/17 06:50 BUN 20 mg/dL (7-18) H 07/23/17 06:50 Creatinine 0.60 mg/dL (0.70-1.30) L 07/23/17 06:50 Est GFR (MDRD) Af Amer 171 mL/min (>60) 07/23/17 06:50 Est GFR (MDRD) Non-Af 141 mL/min (>60) 07/23/17 06:50 BUN/Creatinine Ratio 33.4 RATIO (10-20) H 07/23/17 06:50 Glucose 134 mg/dL (74-106) H 07/23/17 06:50 Assessment/Plan: 1) Pain APAP for mild pain, oxycodone for severe pain. Continue to monitor prn medication use, daily pain scores. * 2) Pulm Prednisone taper, Advair inh, Duoneb aerosols scheduled, guaifenesin. Continue to monitor for shortness of breath. * Duplicate therapy with Advair inhaler (salmeterol) and Duoneb aerosols ( albuterol). Please consider changing Duonebs to ipratropium aerosols or Spiriva inhaler. 3) HLD/CHF Carvedilol, atorvastatin, furosemide, lisinopril. BP/HR within goal ranges, BUN/SCr at baseline, K wnl. Continue to monitor BP/HR, renal function, electrolytes, lipids, enzymes. 4) GI Pantoprazole daily. Continue to monitor s/s GI distress. 5) Derm Calmoseptine, emollient topically. Continue to monitor clinically. 6) DVT PPx Enoxaparin daily. Continue to monitor s/s bleeding/clot. 7) Nutrition Fe daily. Continue to monitor clinically. Psychotropic Medications: 8) Anxiety Clonazepam twice daily. Continue to monitor s/s anxiety. Unnecessary Medications: None Bowel Regimen: 9) PEG twice daily, Mg citrate every other day, bisacodyl prn. Continue to monitor prn medication use, for constipation/diarrhea. Date of Note:: 07/25/17 - Provider Comments Provider responsibility: Provider responsible to enter orders to implement recommendations <Yusef Urrutia Chi - Last Filed: 07/25/17 18:22> Progress Note - Pharmacy Subjective: [] Objective: Allergies latex Allergy (Severe, Verified 07/18/17 02:44) Swelling rivaroxaban [From Xarelto] Adverse Reaction (Verified 07/18/17 02:44) excessive bleeding Home Medications Medication Instructions Recorded Furosemide [Lasix] 40 mg PO DAILY 02/01/13 Carvedilol [Coreg (Beta Paulie)] 3.125 mg PO BID 03/26/17 Clonazepam [Klonopin] 0.5 mg PO BID #14 tab 07/09/17 Guaifenesin [Mucinex] 600 mg PO 4X/DAY 07/09/17 Ipratropium/Albuterol Sulfate 3 ml INHALATION Q4HWA.RT 07/09/17 [Duoneb] Iron Polysaccharide Complex 150 mg PO DAILYCM 07/09/17 [Ferrex 150] Lisinopril [Zestril] 2.5 mg PO QHS 07/09/17 Magnesium Citrate [Citrate Of 300 ml PO QODAY 07/09/17 Magnesia] Pantoprazole Sodium [Protonix] 40 mg PO DAILY 07/09/17 Acetaminophen [Tylenol Tablet] 1,000 mg PO Q8H PRN PRN 07/18/17 Atorvastatin Calcium [Lipitor] 20 mg PO QHS 07/18/17 Emollient Combination No.72 250 ml TP DAILY 07/18/17 [Eucerin Intensive Repair] Enoxaparin Sodium [Lovenox] 40 mg SQ DAILY 07/18/17 Fluticasone/Salmeterol [Advair 1 puff INHALATION BID 07/18/17 250/50 Mcg Diskus] Menthol/Lanolin/Calamine/Znox 1 applic TP TID 07/18/17 [Calmoseptine Ointment] Oxycodone [Oxyir] 5 mg PO Q4H PRN PRN 07/18/17 Polyethylene Glycol 3350 [Miralax] 17 gm PO BID 07/22/17 Prednisone See Taper PO DAILY 07/22/17 levoFLOXacin tablet [Levaquin 500 mg PO DAILY@0600 07/22/17 tablet] Current Medications Generic Name Dose Route Start Last Admin Trade Name Freq PRN Reason Stop Dose Admin Acetaminophen 1,000 mg 07/22/17 15:06 Tylenol PO Q8H PRN PRN MILD PAIN (1-3/10) Albuterol/Ipratropium 3 ml 07/22/17 11:45 07/25/17 15:05 Duoneb INHALATION 3 ml Q4HWA.RT EDU Administration Atorvastatin Calcium 20 mg 07/22/17 22:00 07/24/17 20:00 Lipitor PO 20 mg QHS EDU Administration Bisacodyl 10 mg 07/22/17 11:53 Dulcolax RECTAL DAILY PRN Constipation Calamine/Phenol 1 applic 07/22/17 22:00 07/25/17 11:45 Calmoseptine Ointment TOPICAL 1 applicatio TID EDU Administration Protocol Carvedilol 3.125 mg 07/22/17 18:00 07/25/17 17:38 Coreg PO 3.125 mg BID EDU Administration Clonazepam 0.5 mg 07/22/17 18:00 07/25/17 17:38 Klonopin PO 0.5 mg BID EDU Administration Emollient Ointment 1 applic 07/22/17 22:00 07/25/17 06:23 Eucerin Intensive Repair TOPICAL 1 applicatio 0600,2200 EDU Administration Enoxaparin Sodium 40 mg 07/23/17 06:00 07/25/17 06:20 Lovenox SC 40 mg DAILY EDU Administration Furosemide 40 mg 07/23/17 06:00 07/25/17 06:20 Lasix PO 40 mg DAILY EDU Administration Guaifenesin 600 mg 07/22/17 12:00 07/25/17 17:38 Mucinex PO 600 mg 4X/DAY EDU Administration Lisinopril 2.5 mg 07/22/17 22:00 07/24/17 20:00 Zestril PO 2.5 mg QHS EDU Administration Magnesium Citrate 300 ml 07/24/17 06:00 07/24/17 04:53 Citrate Of Magnesia PO 300 ml QODAY@0600 EDU Administration Oxycodone HCl 5 mg 07/22/17 13:39 07/22/17 22:03 Oxyir PO 5 mg Q4H PRN PRN Administration SEVERE PAIN (6-10) Pantoprazole Sodium 40 mg 07/23/17 06:00 07/25/17 06:20 Protonix PO 40 mg DAILY EDU Administration Polyethylene Glycol 17 gm 07/22/17 18:00 07/25/17 17:38 Miralax PO 17 gm BID EDU Administration Polysaccharide Iron Complex 150 mg 07/23/17 08:00 07/25/17 07:44 Ferrex 150 PO 150 mg DAILYCM EDU Administration Prednisone 30 mg 07/23/17 08:00 07/25/17 07:44 PO 08/02/17 07:59 30 mg DAILY@0800 EDU Administration Taper Fluticasone/Salmeterol 1 puff 07/22/17 18:00 07/25/17 17:38 Advair 250/50 Mcg Diskus INHALATION 1 puff BID EDU Administration Vital Signs Temp Pulse Resp BP Pulse Ox 98.7 F 77 21 H 94/62 97 07/25/17 15:50 07/25/17 15:50 07/25/17 15:50 07/25/17 15:50 07/25/17 15:50 Oxygen Flow Rate (L/min) 3 Oxygen Delivery Method Nasal Cannula Weight: 97.296 kg Body Mass Index (BMI) 32.5 Sodium 141 mmol/L (136-145) 07/23/17 06:50 Potassium 3.8 mmol/L (3.5-5.1) 07/23/17 06:50 Chloride 95 mmol/L (98-107) L 07/23/17 06:50 Carbon Dioxide 41.0 mmol/L (21.0-32.0) H 07/23/17 06:50 Anion Gap 5 (5-15) 07/23/17 06:50 BUN 20 mg/dL (7-18) H 07/23/17 06:50 Creatinine 0.60 mg/dL (0.70-1.30) L 07/23/17 06:50 Est GFR (MDRD) Af Amer 171 mL/min (>60) 07/23/17 06:50 Est GFR (MDRD) Non-Af 141 mL/min (>60) 07/23/17 06:50 BUN/Creatinine Ratio 33.4 RATIO (10-20) H 07/23/17 06:50 Glucose 134 mg/dL (74-106) H 07/23/17 06:50 Assessment/Plan: Psychotropic Medications: Unnecessary Medications: Bowel Regimen: - Provider Comments Provider responsibility: Provider responsible to enter orders to implement recommendations Provider Comments to Recommendations by Pharmacy: Agree
--- NOTE | 2017-07-25 16:07 | CHAPLAIN ---
Type of Pastoral Visit ___ Initial Visit _x__ Follow-up Visit ___ On-call Visit ___ General Patient Visit ___ Spiritual Assessment ___ Family Conference ___ Bereavement ___ Rapid Response ___ Code Blue ___ Other (describe below) Pastoral Care Referral From _x__ Patient ___ Family ___ Nurse ___ Physician ___ Leveler Helper ___ Professor Of Business Administration ___ Other (describe below) Sacrament/Intervention _x__ Active listening ___ Anointing ___ Confucianist ___ Bereavement ___ Communion ___ Pili exploration ___ _x__ Life review _x__ Prayer ___ Reconciliation ___ Sacrament of Sick ___ Supportive presence ___ Wedding ___ Other (describe below) Pastoral Comments patient was on phone but excused himself from call so he could talk to this internal control analyst; pt expressed being pissed at an ex/girlfriend and siblings who are not wanting him to live with them or being taken care of by them; pt said that he has done much for them over the years but this is his payback; pt believes that he will be released and ready to live without extra care although should have someone with him; pt expects family to dump me off at the [facility];
[2017-07-25] MEDS: Atorvastatin Calcium 20 MG Tablet PO (20:41)
[2017-07-25] MEDS: Lisinopril 2.5 MG Tablet PO (20:42)
[2017-07-26] VITALS (8 sets, daily range): BP systolic 98; BP diastolic 53; PULSE 68–106; RESP 12–22; TEMP 35.9; O2SAT 92–96
[2017-07-26] MEDS: Enoxaparin 40 MG/0.4 ML Syringe SC (05:47)
[2017-07-26] MEDS: Polyethylene Glycol 3350 17 GM PACKET PO ×2 (05:47→17:07)
[2017-07-26] MEDS: guaiFENesin 600 MG Tablet PO ×4 (05:47→20:49)
[2017-07-26] MEDS: Pantoprazole Sodium 40 MG Tablet PO (05:47)
[2017-07-26] MEDS: Furosemide 40 MG Tablet PO (05:47)
[2017-07-26] MEDS: Carvedilol 3.125 MG TABLET PO ×2 (05:47→17:07)
[2017-07-26] MEDS: clonazePAM 0.5 MG Tablet PO ×2 (05:49→17:09)
[2017-07-26] MEDS: Menthol/Lanolin/Calamine/Znox 113 GM Tube 1 APPLIC TOPICAL ×3 (05:52→20:52)
[2017-07-26] MEDS: Magnesium Citrate 300 ML PO (06:00)
[2017-07-26] MEDS: Ipratropium/Albuterol Sulfate 3 ML AMPUL.NEB INHALATION ×5 (07:30→23:30)
[2017-07-26] MEDS: predniSONE 10 MG Tablet PO (08:11)
[2017-07-26] MEDS: Iron Polysaccharide Complex 150 MG CAPSULE PO (08:12)
[2017-07-26] MEDS: oxyCODONE 5 MG Tablet PO (08:16)
[2017-07-26] MEDS: Atorvastatin Calcium 20 MG Tablet PO (20:49)
[2017-07-26] MEDS: Lisinopril 2.5 MG Tablet PO (20:50)
[2017-07-27] VITALS (8 sets, daily range): BP systolic 88; BP diastolic 45; PULSE 69–98; RESP 12–22; TEMP 36.5; O2SAT 95–98
[2017-07-27] MEDS: Ipratropium/Albuterol Sulfate 3 ML AMPUL.NEB INHALATION ×5 (03:30→19:00)
[2017-07-27] MEDS: Menthol/Lanolin/Calamine/Znox 113 GM Tube 1 APPLIC TOPICAL ×3 (06:10→20:56)
[2017-07-27] MEDS: clonazePAM 0.5 MG Tablet PO ×2 (06:10→16:53)
[2017-07-27] MEDS: Carvedilol 3.125 MG TABLET PO ×2 (06:11→16:53)
[2017-07-27] MEDS: Polyethylene Glycol 3350 17 GM PACKET PO ×2 (06:11→16:53)
[2017-07-27] MEDS: guaiFENesin 600 MG Tablet PO ×4 (06:11→20:56)
[2017-07-27] MEDS: Enoxaparin 40 MG/0.4 ML Syringe SC (06:11)
[2017-07-27] MEDS: Pantoprazole Sodium 40 MG Tablet PO (06:11)
[2017-07-27] MEDS: Furosemide 40 MG Tablet PO (06:11)
[2017-07-27] MEDS: predniSONE 10 MG Tablet PO (07:41)
[2017-07-27] MEDS: Iron Polysaccharide Complex 150 MG CAPSULE PO (07:41)
--- NOTE | 2017-07-27 14:21 | CASEMGMT ---
Plan of care meeting held. Resident present as well as resident family. No discharge date set at this time. Resident unsure of discharge disposition at this time. Resident is agreeable to this social science research assistant making a referral to [facility] assisted living waiver program as resident family is reporting to be unable to care for resident within the community/home. Resident to continue with further care and treatment on the Transitional Care Unit until time of discharge. Resident does have insurance update due on 07/29/17. Support given. Voicemail left for assisted living at [facility]. Will continue to follow. Radha FIELDS, OIL AND GAS SPECIALIST
--- NOTE | 2017-07-27 14:55 | CASEMGMT ---
Social Work Telephone call from Mei Hung (admissions for the assisted living). Mei reporting to need to meet resident to assess resident level of need and see if resident would qualify for the assisted living. Clinical information faxed. Mei planning to meet with resident 07/28/17. Resident aware of plan and is agreeable. Will continue to follow. Radha FIELDS, VRT MECHANIC
[2017-07-27] MEDS: Atorvastatin Calcium 20 MG Tablet PO (20:56)
[2017-07-27] MEDS: Lisinopril 2.5 MG Tablet PO (20:56)
[2017-07-28] VITALS (8 sets, daily range): BP systolic 110; BP diastolic 54; PULSE 46–78; RESP 12–22; TEMP 36.1; O2SAT 93–98
--- NOTE | 2017-07-28 03:01 | CPS ---
Pt repeatedly refused the bipap after this RT readjusted mask at 2am, pt said his nose hurt and RT loosened straps and then pt stated mask leaked. Pt wore bipap for another hour then took it off again. Explained to pt he needed to wear mask while he's sleeping and explained risks of not wearing it, pt refused. Pt on 3L NC.
[2017-07-28] MEDS: Menthol/Lanolin/Calamine/Znox 113 GM Tube 1 APPLIC TOPICAL ×3 (06:02→21:16)
[2017-07-28] MEDS: clonazePAM 0.5 MG Tablet PO ×2 (06:03→17:15)
[2017-07-28] MEDS: Enoxaparin 40 MG/0.4 ML Syringe SC (06:03)
[2017-07-28] MEDS: Magnesium Citrate 300 ML PO (06:03)
[2017-07-28] MEDS: guaiFENesin 600 MG Tablet PO ×4 (06:04→21:15)
[2017-07-28] MEDS: Pantoprazole Sodium 40 MG Tablet PO (06:04)
[2017-07-28] MEDS: Carvedilol 3.125 MG TABLET PO ×2 (06:04→17:11)
[2017-07-28] MEDS: Furosemide 40 MG Tablet PO (06:04)
[2017-07-28] MEDS: Ipratropium/Albuterol Sulfate 3 ML AMPUL.NEB INHALATION ×3 (07:22→19:15)
[2017-07-28] MEDS: predniSONE 10 MG Tablet PO (08:02)
[2017-07-28] MEDS: Iron Polysaccharide Complex 150 MG CAPSULE PO (08:02)
--- NOTE | 2017-07-28 14:55 | NURSING ---
PT W/EXPLOSIVE DIARRHEA TODAY. DR STOVER NOTIFIED, NEW ORDER TO CHANGE MAG CITRATE TO 150MG QOD
[2017-07-28] MEDS: Atorvastatin Calcium 20 MG Tablet PO (21:15)
[2017-07-28] MEDS: Lisinopril 2.5 MG Tablet PO (21:15)
--- NOTE | 2017-07-29 | NURSING ---
Pt called out. This nurse in to pts room d/t being unable to hear pt with bipap on. Pt took bipap off and stated I am not wearing this damn thing it keeps beeping! When nurse entered room machine was working properly. Educated pt on importance of wearing bipap. Pt still noncompliant with putting mask back on. O2 applied at 3L. Respiratory notified.
[2017-07-29] MEDS: Furosemide 40 MG Tablet PO (05:11)
[2017-07-29] MEDS: Enoxaparin 40 MG/0.4 ML Syringe SC (05:11)
[2017-07-29] MEDS: Carvedilol 3.125 MG TABLET PO ×2 (05:11→16:26)
[2017-07-29] MEDS: guaiFENesin 600 MG Tablet PO ×4 (05:11→20:24)
[2017-07-29] MEDS: Pantoprazole Sodium 40 MG Tablet PO (05:11)
[2017-07-29] MEDS: clonazePAM 0.5 MG Tablet PO ×2 (05:12→16:25)
[2017-07-29] MEDS: Menthol/Lanolin/Calamine/Znox 113 GM Tube 1 APPLIC TOPICAL ×3 (05:14→20:25)
[2017-07-29 06:33] VITALS: O2SAT 93
[2017-07-29 07:55] VITALS: PULSE 74; RESP 16; O2SAT 97
[2017-07-29] MEDS: Ipratropium/Albuterol Sulfate 3 ML AMPUL.NEB INHALATION ×5 (07:55→23:50)
[2017-07-29] MEDS: Iron Polysaccharide Complex 150 MG CAPSULE PO (08:17)
[2017-07-29] MEDS: predniSONE 10 MG Tablet PO (08:17)
--- NOTE | 2017-07-29 10:29 | CASEMGMT ---
Insurance Clinical information faxed. Pending continued stay approval at this time. Auth#[id number] Radha FIELDS, FLUID DESIGNER
[2017-07-29 11:41] VITALS: PULSE 78; RESP 16
[2017-07-29 14:11] VITALS: BP 92/45; PULSE 64; RESP 18; TEMP 36.7; O2SAT 97
--- NOTE | 2017-07-29 14:22 | CASEMGMT ---
Insurance Continued stay denied with last cover day being 08/01/17 and discharge or resident financial responsibility to begin on 08/02/17. Auth#[id number] Radha FIELDS, ASSISTANT SOFTBALL COACH
--- NOTE | 2017-07-29 15:23 | CASEMGMT ---
Social Work Spoke with resident in room. This social science professor communicating to resident that continued stay has been denied by insurance with a last cover day of 08/01/17 and resident financial responsibility or discharge on 08/02/17. Resident plans to discharge on 08/02/17. Resident voicing to be planning to transition to an extended care facility and is requesting for this social science professor to make a referral to both [facility] ([facility] and [facility]. Resident also reporting to currently be pending medicaid. Resident brotherJulian also notified about above information and is agreeable to discharge plan. Support given. [facility] reporting to not be finding a medicaid application. This social science professor communicating information to resident and then completing another medicaid application at this time and faxing to [facility]. Pending medicaid pending number at this time. [facility] This social science professor making referral. Mary Jane voicing to have openings and to be able to review clinical information. Pending approval. Telephone call to Irena Hung. Irena voicing to have openings and to be able to review clinicals. Pending approval. Clinicals faxed to both [facility] and [facility] per resident request. Proposed discharge date: 08/02/17 PLAN: Discharge to an extended care facility, [facility] vs [facility]. Will continue to follow. Radha FIELDS, BULL GANG WORKER
--- NOTE | 2017-07-29 15:33 | PCM.DC.SUM ---
Discharge Date and Diagnosis Date of Admission: 07/22/17 Date of Discharge: 08/02/17 - Secondary Discharge Diagnosis Chronic Problems Melanoma (Chronic) Acute on chronic systolic heart failure (Chronic) Iron deficiency anemia (Chronic) Hyperlipidemia (Chronic) Anxiety (Chronic) GERD (gastroesophageal reflux disease) (Chronic) Osteoarthritis (Chronic) Arthritis (Chronic) Benign hypertension (Chronic) Cardiomyopathy (Chronic) COLD (chronic obstructive lung disease) (Chronic) History of gastroesophageal reflux (GERD) (Chronic) History of urethral stricture (Chronic) Status post cardiac catheterization (Chronic) Malignant melanoma of back (Chronic) C43.59 2 cm superficial spreading melanoma wound left upper back with a thickness of 0.54 mm 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) 6 mm pigmented lesion right lateral chest wall Former smoker (Chronic) Z87.891 Open wound of left side of back (Chronic) open melanoma wound left upper back Systolic CHF, acute on chronic (Chronic) Debility (Chronic) MILA (obstructive sleep apnea) (Chronic) Hypertension (Chronic) Urinary retention with incomplete bladder emptying (Chronic) Bowel incontinence (Chronic) Hospital Course and Treatment Imaging Results: 07/22/17 11:49 Diet: Cardiac/Low Cholesterol Food consistency:: Regular Liquid Consistency:: Regular/Thin Diet Comments: 2000mg sodium max daily Operations: None Procedures: None Summary of Care Provided: The patient is a 71 year old Male with below past medical history hospitalized for acute respiratory failure secondary to healthcare associated pneumonia, complicated by atrial fibrillation with rapid ventricular response, admitted to TCU with debility, here for rehabilitation, strengthening, prior to discharge home with significant other. [] [facility] to [facility] or [facility]. Discharge Diet: No Restrictions Discharge Activity: Return to Normal Activity, May Shower, Use Walker Weight Bearing Status: Weight bearing as tolerated Call your doctor if you observe: Fever of 101 or Higher, Inability to urinate, Inability to have a bowel movement, Shortness of breath, Chest pain, Uncontrolled pain Home Medications: Medications to take at Discharge Furosemide [Lasix] 40 mg PO DAILY 02/01/13 Carvedilol [Coreg (Beta Paulie)] 3.125 mg PO BID 03/26/17 Guaifenesin [Mucinex] 600 mg PO 4X/DAY 07/09/17 Ipratropium/Albuterol Sulfate [Duoneb] 3 ml INHALATION Q4HWA.RT 07/09/17 Iron Polysaccharide Complex [Ferrex 150] 150 mg PO DAILYCM 07/09/17 Lisinopril [Zestril] 2.5 mg PO QHS 07/09/17 Magnesium Citrate [Citrate Of Magnesia] 300 ml PO QODAY 07/09/17 Pantoprazole Sodium [Protonix] 40 mg PO DAILY 07/09/17 Acetaminophen [Tylenol Tablet] 1,000 mg PO Q8H PRN PRN 07/18/17 Atorvastatin Calcium [Lipitor] 20 mg PO QHS 07/18/17 Emollient Combination No.72 [Eucerin Intensive Repair] 250 ml TP DAILY 07/18/17 Fluticasone/Salmeterol [Advair 250/50 Mcg Diskus] 1 puff INHALATION BID 07/18/17 Menthol/Lanolin/Calamine/Znox [Calmoseptine Ointment] 1 applic TP TID 07/18/17 Polyethylene Glycol 3350 [Miralax] 17 gm PO BID 07/22/17 Prednisone See Taper PO DAILY 07/22/17 Bisacodyl [Dulcolax] 10 mg RECTAL DAILY PRN suppos. 07/29/17 Clonazepam [Klonopin] 0.5 mg PO BID #14 tab 07/29/17 Oxycodone [Oxyir] 5 mg PO Q4H PRN PRN 7 Days #42 tab 07/29/17 Following Prescrptions Were Given to Patient: Oxycodone [Oxyir] 5 mg PO Q4H PRN PRN 7 Days #42 tab PRN Reason: Severe Pain (6-10/10) Clonazepam [Klonopin] 0.5 mg PO BID #14 tab Primary Care Physician: Donato Sanchez DO [Primary Care Provider] - Please follow up with your Primary Care Physician in: 1 week. Please Follow Up With: Dr. Salazar When: 2 weeks. Please Follow Up With: Dr. Peterson When: 2 weeks. Disposition: Asstd Living/Non-[facility] Minutes spent on discharge:: 30 Patient Condition:: Poor Medical Necessity - Tobacco Use Smoking Status: Former smoker Tobacco Use: Non-smoker Meaningful Use Info Meaningful Use Diagnoses (Choose all that apply): None applicable
--- NOTE | 2017-07-29 15:36 | PCM.TXEXTCAR ---
- Diet 07/22/17 11:49 Diet: Cardiac/Low Cholesterol Food consistency:: Regular Liquid Consistency:: Regular/Thin Diet Comments: 2000mg sodium max daily - Routine Orders/Code Status Suppository Type: Dulcolax 10mg Suppository Frequency: Daily PRN O2 Liters per Minute: 3 O2 Frequency: Continuous Code Status: Full Code - Wound(s) Nose bridge Wound Type: Shailesh area, protection from Bipap Dressing Change: Duoderm 4/5 - Therapies Weight Bearing: Weight bearing as tolerated Extremity Affected:: Bilateral Lower Physical Therapy: Eval and Treat Occupational Therapy: Eval and Treat - Problem/Diagnosis (1) Acute and chronic respiratory failure Status: Acute Current Visit: No (2) Acute on chronic systolic heart failure Status: Chronic Current Visit: No (3) Iron deficiency anemia Status: Chronic Current Visit: No (4) Hyperlipidemia Status: Chronic Current Visit: No (5) Anxiety Status: Chronic Current Visit: No (6) GERD (gastroesophageal reflux disease) Status: Chronic Current Visit: No (7) Osteoarthritis Status: Chronic Current Visit: No (8) COLD (chronic obstructive lung disease) Status: Chronic Current Visit: No (9) Former smoker Status: Chronic Comment: Z87.891 Current Visit: No (10) MILA (obstructive sleep apnea) Status: Chronic Current Visit: No (11) Hypertension Status: Chronic Current Visit: No (12) HCAP (healthcare-associated pneumonia) Status: Acute Current Visit: No - Allergies/Procedures Done in Hospital Allergies/Adverse Reactions: Allergies latex Allergy (Severe, Verified 07/18/17 02:44) Swelling rivaroxaban [From Xarelto] Adverse Reaction (Verified 07/18/17 02:44) excessive bleeding - Type of Care/Length of Stay Estimated LOS: More Than 30 Days Type of Care Needed: Intermediate Rehab Potential: Good Prognosis: Poor - Additional Orders/Day of Discharge Day of Discharge: 08/02/17 - Dietary and Speech Recommendations Dietitian Recommendations/Changes: Rec continue current diet as ordered - Follow Up Care Primary Care Physician: Donato Sanchez DO [Primary Care Provider] - Please follow up with your Primary Care Physician in: 1 week. Please Follow Up With: Dr. Salazar When: 2 weeks. Please Follow Up With: Dr. Peterson When: 2 weeks.
--- NOTE | 2017-07-29 16:24 | CASEMGMT ---
Brief interview for mental status (BIMS) and resident mood interview (PHQ-9) completed on this day. BIMS score 15. PHQ-9 score 05/21
[2017-07-29 19:07] VITALS: PULSE 69; RESP 17
[2017-07-29] MEDS: Atorvastatin Calcium 20 MG Tablet PO (20:24)
[2017-07-29] MEDS: Lisinopril 2.5 MG Tablet PO (20:24)
[2017-07-29 23:50] VITALS: PULSE 101; RESP 19
--- NOTE | 2017-07-30 00:29 | CPS ---
pt adamantly refusing bipap
--- NOTE | 2017-07-30 00:36 | NURSING ---
Per Dominick, CPS, pt refusing to wear cpap. Nurse went back to room to speak to resident, pt aroused easily, resident continues to refuse to wear cpap, he stated, it doesn't fit right.
[2017-07-30] MEDS: Enoxaparin 40 MG/0.4 ML Syringe SC (04:52)
[2017-07-30] MEDS: clonazePAM 0.5 MG Tablet PO ×2 (04:53→17:14)
[2017-07-30] MEDS: Pantoprazole Sodium 40 MG Tablet PO (04:54)
[2017-07-30] MEDS: Carvedilol 3.125 MG TABLET PO ×2 (04:54→17:15)
[2017-07-30] MEDS: guaiFENesin 600 MG Tablet PO ×4 (04:54→21:46)
[2017-07-30] MEDS: Furosemide 40 MG Tablet PO (04:54)
[2017-07-30] MEDS: Magnesium Citrate 300 ML 150 ML PO (04:55)
[2017-07-30] MEDS: Menthol/Lanolin/Calamine/Znox 113 GM Tube 1 APPLIC TOPICAL ×3 (04:56→21:50)
[2017-07-30 08:18] VITALS: PULSE 63; RESP 20
[2017-07-30] MEDS: predniSONE 10 MG Tablet PO (08:19)
[2017-07-30] MEDS: Ipratropium/Albuterol Sulfate 3 ML AMPUL.NEB INHALATION ×4 (08:19→21:16)
[2017-07-30] MEDS: Iron Polysaccharide Complex 150 MG CAPSULE PO (08:20)
[2017-07-30 08:48] LABS: Absolute Lymphocyte Count 1.35 X10^3/ul (0.83-4.51); Absolute Neutrophil Count 6.5 X10^3/uL (2.0-7.7); Eosinophil# 0.04 X10^3/uL; Eosinophils% 0.5 % (0-5); Hematocrit 34.8 % (40-54); Hemoglobin 10.5 g/dl (13.0-16.5); Lymphocyte # 1.35 X10^3/ul (4.0); Lymphocyte % 15.6 % (19-41); Mean Corp Hgb Conc 30.2 g/gl (32-36); Mean Corpuscular Hgb 28.2 pg (27.0-32.0); Mean Corpuscular Volume 93.5 fL (80-94); Mean Platelet Vol. 9.3 fl (6.2-12.0); Monocyte% 8.1 % (0-10); Neutrophil # 6.52 X10^3/uL (2.7-7.7); Neutrophil % 75.5 % (47-70); Platelet Count 206 K/mm3 (150-450); RBC Distribution Width CV 14.9 % (11.6-14.6); RBC Distribution Width SD 48.5 fl (35.1-43.9); Red Blood Count 3.72 M/mm3 (4.6-6.2); White Blood Count 8.6 K/mm3 (4.4-11.0)
[2017-07-30 08:49] LABS: POSITIVE COUNT NO; POSITIVE DIFFERENTIAL NO; POSITIVE MORPHOLOGY NO
[2017-07-30 09:13] LABS: Anion Gap 4 (5-15); BUN 15 mg/dL (7-18); BUN/Creat Ratio 21.9 RATIO (10-20); Calcium,Total 8.5 mg/dL (8.5-10.1); Chloride 96 mmol/L (98-107); Creatinine, Serum 0.68 mg/dL (0.70-1.30); EST Glomerular Filtration Rate 121 mL/min (>60); Est Glom Filt Rate - Afr Amer 147 mL/min (>60); Estimated Creatinine Clearance 65.55 ml/min; Glucose 151 mg/dL (74-106); Potassium 3.7 mmol/L (3.5-5.1); Sodium Level 140 mmol/L (136-145)
[2017-07-30 11:25] VITALS: PULSE 62; RESP 18
--- NOTE | 2017-07-30 12:55 | NURSING ---
DR. STOVER REVIEWED LABS.
--- NOTE | 2017-07-30 14:11 | NURSING ---
R' C/O TOENAIL PAIN TO RIGHT GREAT TOE. TOENAILS THICK, YELLOW. N.O. FROM DR STOVER TO C/S PODIATRY.
[2017-07-30 14:16] VITALS: PULSE 69; RESP 18
[2017-07-30 16:00] VITALS: BP 100/65; PULSE 67; RESP 18; TEMP 36.9; O2SAT 98
[2017-07-30 21:18] VITALS: PULSE 68; RESP 16
[2017-07-30] MEDS: Atorvastatin Calcium 20 MG Tablet PO (21:46)
[2017-07-30] MEDS: Lisinopril 2.5 MG Tablet PO (21:46)
[2017-07-31] VITALS (10 sets, daily range): BP systolic 93; BP diastolic 50; PULSE 51–78; RESP 12–21; TEMP 36.3; O2SAT 93–97
[2017-07-31] MEDS: Pantoprazole Sodium 40 MG Tablet PO (04:58)
[2017-07-31] MEDS: Enoxaparin 40 MG/0.4 ML Syringe SC (04:58)
[2017-07-31] MEDS: Carvedilol 3.125 MG TABLET PO ×2 (04:58→17:12)
[2017-07-31] MEDS: guaiFENesin 600 MG Tablet PO ×4 (04:59→19:57)
[2017-07-31] MEDS: Menthol/Lanolin/Calamine/Znox 113 GM Tube 1 APPLIC TOPICAL ×3 (04:59→19:58)
[2017-07-31] MEDS: Furosemide 40 MG Tablet PO (05:01)
[2017-07-31] MEDS: clonazePAM 0.5 MG Tablet PO ×2 (05:04→17:10)
--- NOTE | 2017-07-31 06:00 | CPS ---
pt complained that bipap leaks too much and can't stand wearing it.
[2017-07-31] MEDS: Ipratropium/Albuterol Sulfate 3 ML AMPUL.NEB INHALATION ×5 (07:47→23:15)
[2017-07-31] MEDS: predniSONE 10 MG Tablet PO (08:05)
[2017-07-31] MEDS: Iron Polysaccharide Complex 150 MG CAPSULE PO (08:05)
--- NOTE | 2017-07-31 12:42 | NURSING ---
Patient encouraged to wear BiPap when placed back in bed for nap at this time. Education provided on necessity and reason for use. Patient declines to wear.
[2017-07-31] MEDS: Polyethylene Glycol 3350 17 GM PACKET PO (17:10)
[2017-07-31] MEDS: Atorvastatin Calcium 20 MG Tablet PO (19:57)
[2017-07-31] MEDS: Lisinopril 2.5 MG Tablet PO (19:57)
--- NOTE | 2017-07-31 22:05 | NURSING ---
Pt refusing to wear Bipap this HS. Educated on importance of wearing it and the risks associated with not wearing it. Pt still denied. O2 on at 3L. Will notify respiratory.
[2017-08-01] MEDS: clonazePAM 0.5 MG Tablet PO ×2 (06:09→17:42)
[2017-08-01] MEDS: guaiFENesin 600 MG Tablet PO ×4 (06:10→21:17)
[2017-08-01] MEDS: Enoxaparin 40 MG/0.4 ML Syringe SC (06:10)
[2017-08-01] MEDS: Furosemide 40 MG Tablet PO (06:10)
[2017-08-01] MEDS: Carvedilol 3.125 MG TABLET PO ×2 (06:10→17:42)
[2017-08-01] MEDS: Pantoprazole Sodium 40 MG Tablet PO (06:10)
[2017-08-01] MEDS: Magnesium Citrate 300 ML 150 ML PO (06:10)
[2017-08-01] MEDS: Menthol/Lanolin/Calamine/Znox 113 GM Tube 1 APPLIC TOPICAL ×3 (06:13→21:18)
[2017-08-01 07:02] VITALS: PULSE 74; RESP 16; O2SAT 97
[2017-08-01] MEDS: Ipratropium/Albuterol Sulfate 3 ML AMPUL.NEB INHALATION ×4 (07:02→23:20)
[2017-08-01] MEDS: Iron Polysaccharide Complex 150 MG CAPSULE PO (08:55)
[2017-08-01] MEDS: predniSONE 10 MG Tablet PO (08:55)
[2017-08-01 10:58] VITALS: PULSE 78; RESP 16
--- NOTE | 2017-08-01 11:33 | CASEMGMT ---
Social Work Telephone call to [facility], Analisa. Medicaid Pending number: [id number]. Level of care completed and faxed to [facility] - pre admission review. Pending approval from [facility] and [facility] at this time. Proposed discharge date: 08/02/17 PLAN: Discharge to extended care facility. Radha FIELDS, SPACE AND MISSILE OPERATIONS SPACELIFT
--- NOTE | 2017-08-01 13:35 | CASEMGMT ---
Social Work Spoke with Yadira Hung, [facility] able to accept. Spoke with resident in room, Resident is agreeable to [facility] and requesting for referral for [facility] to be canceled at this time. Resident family also notified of discharge plan. Support given. Will continue to follow. Radha FIELDS, VELVET CUTTER
[2017-08-01 15:02] VITALS: PULSE 85; RESP 16
[2017-08-01 15:39] VITALS: BP 90/45; PULSE 68; RESP 20; TEMP 36.8; O2SAT 98
--- NOTE | 2017-08-01 16:35 | CASEMGMT ---
Social Work Spoke with resident and resident family in room. Resident requesting for [facility] to be [facility] Support given. Telephone call to [facility], transportation set up for 08/02/17 @ 3:00pm. Transportation form to be completed and placed with resident discharge packet. Proposed discharge date: 08/02/17 PLAN: Discharge to [facility] Radha FIELDS, DIETETIC ASSISTANT
[2017-08-01] MEDS: Polyethylene Glycol 3350 17 GM PACKET PO (17:43)
[2017-08-01] MEDS: Atorvastatin Calcium 20 MG Tablet PO (21:17)
[2017-08-01] MEDS: Lisinopril 2.5 MG Tablet PO (21:18)
[2017-08-01 23:20] VITALS: PULSE 79; RESP 12; RESP 19; O2SAT 94
[2017-08-02] MEDS: Pantoprazole Sodium 40 MG Tablet PO (06:35)
[2017-08-02] MEDS: Polyethylene Glycol 3350 17 GM PACKET PO (06:36)
[2017-08-02] MEDS: Enoxaparin 40 MG/0.4 ML Syringe SC (06:36)
[2017-08-02] MEDS: guaiFENesin 600 MG Tablet PO ×2 (06:36→11:12)
[2017-08-02] MEDS: Carvedilol 3.125 MG TABLET PO (06:36)
[2017-08-02] MEDS: Furosemide 40 MG Tablet PO (06:36)
[2017-08-02] MEDS: clonazePAM 0.5 MG Tablet PO (06:38)
[2017-08-02] MEDS: Menthol/Lanolin/Calamine/Znox 113 GM Tube 1 APPLIC TOPICAL (06:42)
[2017-08-02 07:18] VITALS: PULSE 66; RESP 18; O2SAT 98
[2017-08-02] MEDS: Ipratropium/Albuterol Sulfate 3 ML AMPUL.NEB INHALATION ×2 (07:18→11:22)
[2017-08-02] MEDS: Iron Polysaccharide Complex 150 MG CAPSULE PO (07:40)
--- NOTE | 2017-08-02 09:26 | CASEMGMT ---
Social Work Level of care obtained and response along with discharge instructions faxed to [facility]. Proposed discharge date: 08/02/17 [facility] pending at 3:00pm on this day. Radha FIELDS, [employer] BOAR[employer] PINNER
[2017-08-02 11:22] VITALS: PULSE 65; RESP 18
[2017-08-02 11:42] VITALS: BP 107/52; PULSE 84; RESP 18; TEMP 36.9; O2SAT 98
--- NOTE | 2017-08-02 11:56 | NURSING ---
report called to ALEX Patten at [facility].
--- NOTE | 2017-08-02 16:17 | CASEMGMT ---
Insurance Notified insurance of resident discharge on 08/02/17 to [facility]. Auth#[id number] Radha FIELDS, BOBBIN SORTER
--- NOTE | 2017-08-03 13:11 | MDS.RN ---
Information for the mds was obtained from review of the clinical record, interview of resident, staff, and direct observation of resident's care.
== END 2017-08-02 14:56 | disposition intermediate care facility (04) | DRG 947 ==
PROVIDERS: Admitting Provider Family Medicine Geriatric Medicine; Family Provider Family Medicine; PCP Family Medicine; Visit Provider Family Medicine Geriatric Medicine
DX: R53.81 Other malaise (principal); J18.9 Pneumonia, unspecified organism; J96.20 Acute and chronic respiratory failure, unspecified whether with hypoxia or hypercapnia; I50.23 Acute on chronic systolic (congestive) heart failure; J44.9 Chronic obstructive pulmonary disease, unspecified; I11.0 Hypertensive heart disease with heart failure; I48.91 Unspecified atrial fibrillation; E78.5 Hyperlipidemia, unspecified; Y95 Nosocomial condition; K21.9 Gastro-esophageal reflux disease without esophagitis; G47.33 Obstructive sleep apnea (adult) (pediatric); M19.90 Unspecified osteoarthritis, unspecified site; D50.9 Iron deficiency anemia, unspecified; R15.9 Full incontinence of feces; F41.9 Anxiety disorder, unspecified; Z87.891 Personal history of nicotine dependence; Z85.820 Personal history of malignant melanoma of skin; Z79.899 Other long term (current) drug therapy; Z79.01 Long term (current) use of anticoagulants
CPT/HCPCS: 36415; 80048; 85025; 94003; 94640; 97110; 97116; 97162; 97166; 97530; 97535; 97802

== ENCOUNTER 2017-08-24 19:09 | Inpatient (IN) | payer MEDICARE, SELFPAY ==
[2017-08-24] VITALS (13 sets, daily range): BP systolic 102–112; BP diastolic 58–89; PULSE 58–127; RESP 12–20; TEMP 36.2–37.1; O2SAT 94–99; BMI 35.5; BMI 33.4
--- NOTE | 2017-08-24 19:19 | EKG12_ITS ---
Test Reason : SHORTNESS OF BREATH Blood Pressure : / mmHG Vent. Rate : 124 BPM Atrial Rate : 250 BPM P-R Int : 000 ms QRS Dur : 086 ms QT Int : 276 ms P-R-T Axes : 000 039 039 degrees QTc Int : 396 ms Atrial fibrillation Low voltage QRS Abnormal ECG Confirmed by JENNIFER LEMUS MD ([id number]), medical transcription editor COLIN GARCIA ([id number] on 08/26/2017 3:41:31 PM Referred By: LIDIA Confirmed By:JENNIFER LEMUS MD
--- NOTE | 2017-08-24 19:19 | RAD_ITS ---
XR Chest 1 View INDICATION: dyspnea COMPARISON: July 19, 2012 TECHNIQUE: Portable chest x-ray FINDINGS: The heart size is mildly enlarged. Interstitial markings at the lung bases are increased. There is no evidence of focal airspace consolidation or significant pleural effusion. RAD/Chest 1 View (Portable) IMPRESSION: Stable examination with cardiomegaly and increased interstitial markings at the lung bases, likely atelectasis. Consider follow-up with upright PA and lateral films. at 1955 Reported and signed by: Alla Oakley MD Electronically Signed: Alla Oakley MD at 19:54 EDT Tel , Service support ,
--- NOTE | 2017-08-24 19:41 | ED.DCSUM_ITS ---
- ER Visit Summary Date of Service: 08/24/17 Chief Complaint: Shortness of breath History of Present Illness: The patient is a 71 M presenting with shortness of breath. Patient was recently admitted to [facility] and discharged 2 days ago. He was sent to a intermediate facility. He has been refusing his BiPAP at the intermediate facility because the mask does not fit him properly. They were concerned because of CO2 retention. Patient has required multiple intubations in the past. He has history of COPD, CHF, hypertension, hypercholesterolemia, cardiomyopathy, a fib, GERD. He is a previous smoker. He denies chest pain or fever. Denies cough. Denies other complaints. Physical Examination: Blood pressure 102/74, temperature 98.2, heart rate 127, respiratory rate 20. Pulse ox 97% on 4 L Alert no acute distress. HEENT exam is unremarkable. Neck is supple. Lungs are diminished bilaterally. Heart is irregularly irregular and tachycardic Abdomen is soft nontender nondistended. Extremities are unremarkable. Skin is warm and dry. No focal neurologic deficit. Remainder of exam is unremarkable. Emergency Department Course and Treatment: Patient is put on BiPAP on arrival. Chest x-ray shows cardiomegaly, atelectasis. EKG shows A. fib rate of 124. CBC shows white count 11.3, hemoglobin 9.3. ABG shows pH 7.381, PCO2 98, PO2 90. Basic metabolic panel shows CO2 over 45, glucose 295. Troponin is 0.04. Patient remains stable on BiPAP. Will discuss with the hospitalist for admission. Disposition: Admission Impression: COPD, hypercapnic respiratory failure This note was generated with [employer] dictation software. It may contain incorrect words, spelling, and punctuation that were not noted in review of the chart prior to signing ED Disposition - Plan for ED Patient: Chief Complaint: Shortness of Breath Referrals: Donato Sanchez DO [Primary Care Provider] -
[2017-08-24 19:49] LABS: Absolute Lymphocyte Count 0.83 X10^3/ul (0.83-4.51); Absolute Neutrophil Count 10.2 X10^3/uL (2.0-7.7); Hematocrit 32.9 % (40-54); Hemoglobin 9.3 g/dl (13.0-16.5); Lymphocyte # 0.83 X10^3/ul (4.0); Lymphocyte % 7.4 % (19-41); Mean Corp Hgb Conc 28.3 g/gl (32-36); Mean Corpuscular Hgb 28.1 pg (27.0-32.0); Mean Corpuscular Volume 99.4 fL (80-94); Mean Platelet Vol. 8.9 fl (6.2-12.0); Monocyte# 0.14 X10^3/uL; Monocyte% 1.2 % (0-10); Neutrophil # 10.21 X10^3/uL (2.7-7.7); Neutrophil % 90.4 % (47-70); POSITIVE COUNT NO; POSITIVE DIFFERENTIAL NO; POSITIVE MORPHOLOGY NO; Platelet Count 278 K/mm3 (150-450); RBC Distribution Width CV 15.5 % (11.6-14.6); RBC Distribution Width SD 56.5 fl (35.1-43.9); Red Blood Count 3.31 M/mm3 (4.6-6.2); White Blood Count 11.3 K/mm3 (4.4-11.0)
[2017-08-24 20:28] LABS: BUN 28 mg/dL (7-18); BUN/Creat Ratio 29.2 RATIO (10-20); Calcium,Total 8.7 mg/dL (8.5-10.1); Carbon Dioxide > 45.0 mmol/L (21.0-32.0); Chloride 86 mmol/L (98-107); Creatinine, Serum 0.96 mg/dL (0.70-1.30); EST Glomerular Filtration Rate 82 mL/min (>60); Est Glom Filt Rate - Afr Amer 99 mL/min (>60); Estimated Creatinine Clearance 68.28 ml/min; Glucose 295 mg/dL (74-106); Potassium 4.3 mmol/L (3.5-5.1); Sodium Level 138 mmol/L (136-145)
--- NOTE | 2017-08-24 20:33 | ED.RN ---
CO2 >45, DR. LIDIA CORREA.
[2017-08-24 20:54] LABS: Allen Test POS; Blood Gas Specimen Type ART; SITE R RADIAL
[2017-08-24 20:55] LABS: FI02 40; Mode BIPAP; O2 Delivery Device BIPAP; PEEP 8; RR 12; Vt 480
[2017-08-24 20:56] LABS: Bicarbonate 58.4 mmol/L (22-26); IPAP 18; PO2 90 mmHG (75-100); pCO2 98.5 mmHg (35-45); pH 7.38 (7.35-7.45)
[2017-08-24 20:57] LABS: Base Excess > 30 mmol/L (-2 to +2); SO2 96 % (95-99); Total Carbon Dioxide > 50 mmol/L
--- NOTE | 2017-08-24 21:23 | PCM.HP.STD ---
Problem List (1) Iron deficiency anemia Status: Chronic (2) Hyperlipidemia Status: Chronic (3) Anxiety Status: Chronic (4) GERD (gastroesophageal reflux disease) Status: Chronic (5) Benign hypertension Status: Chronic (6) COLD (chronic obstructive lung disease) Status: Chronic Qualifiers: (7) Chronic respiratory failure Status: Chronic Qualifiers: (8) MILA (obstructive sleep apnea) Status: Chronic History of Present Illness Date of Admission: 08/24/17 Chief Complaint: Elevated carbon dioxide. The patient is a 71 year old M with past medical history as mentioned above presented from the [place] [facility] to the emergency department because of high carbon dioxide. According to the patient's family including his brother and sister, his carbon dioxide was elevated at the [place] [facility] and they sent him to the emergency room for evaluation and he mentioned that he has been lethargic and sleepy since yesterday. At this time, the patient is alert and oriented ?3. Reportedly, patient was discharged from [facility] 2 days ago and he was sent to the half-way facility. He is supposed to use BiPAP at the half-way facility but the mask does not fit him properly and he has been refusing to use it. This time, the patient denied any worsening shortness of breath, cough or sputum production. He denied chest pain, dizziness or lightheadedness. He denied fever or chills. He denied abdominal pain, nausea vomiting. I asked the patient multiple times if he thinks that his breathing is worse than when he came out of [facility] and he stated that his breathing is the same without any significant change. At home, he has been on BiPAP and on oxygen at 3 L. He had history of chronic atrial fibrillation and he has been on amiodarone and metoprolol for rate control but he is not on anticoagulation. He has a history of severe COPD with chronic CO2 retention and in the past, his CO2 was up to more than 130 on June,. History of obstructive sleep apnea and he is supposed to be on BiPAP at night at home but according to the family, he is not compliant with it. In the emergency department, patient was afebrile, tachycardic, blood pressure stable and pulse ox was 98% on 3 L. His routine blood work was remarkable for chronic anemia with improvement of 9.3 g/dL, chloride of 86 and serum bicarb of more than 45. ABG revealed pH of 7.38, PCO2 of 98 and PO2 of 90. EKG revealed A. fib with RVR, heart rate has been around 120s. Her troponin is negative. Chest x-ray showed no evidence of acute infiltrate, consolidation or effusion. He is being admitted for acute on chronic hypercapnic respiratory failure due to COPD exacerbation. Past Medical History Past Medical History (Chronic Problems): Chronic Problems Melanoma (Chronic) Acute on chronic systolic heart failure (Chronic) Iron deficiency anemia (Chronic) Hyperlipidemia (Chronic) Anxiety (Chronic) GERD (gastroesophageal reflux disease) (Chronic) Osteoarthritis (Chronic) Benign hypertension (Chronic) Cardiomyopathy (Chronic) COLD (chronic obstructive lung disease) (Chronic) History of urethral stricture (Chronic) Malignant melanoma of back (Chronic) C43.59 2 cm superficial spreading melanoma wound left upper back with a thickness of 0.54 mm 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) 6 mm pigmented lesion right lateral chest wall Former smoker (Chronic) Z87.891 Open wound of left side of back (Chronic) open melanoma wound left upper back Debility (Chronic) Chronic respiratory failure (Chronic) MILA (obstructive sleep apnea) (Chronic) Urinary retention with incomplete bladder emptying (Chronic) Bowel incontinence (Chronic) Allergies latex Allergy (Severe, Verified 07/18/17 02:44) Swelling rivaroxaban [From Xarelto] Adverse Reaction (Verified 07/18/17 02:44) excessive bleeding Home Medications: Ambulatory Orders Medication Instructions Recorded Furosemide [Lasix] 40 mg PO DAILY 02/01/13 Ipratropium/Albuterol Sulfate 3 ml INHALATION Q4HWA.RT 07/09/17 [Duoneb] Magnesium Citrate [Citrate Of 300 ml PO QODAY 07/09/17 Magnesia] Pantoprazole Sodium [Protonix] 40 mg PO DAILY 07/09/17 Acetaminophen [Tylenol Tablet] 1,000 mg PO Q8H PRN PRN 07/18/17 Atorvastatin Calcium [Lipitor] 20 mg PO QHS 07/18/17 Prednisone See Taper PO DAILY 07/22/17 Clonazepam [Klonopin] 0.5 mg PO BID #14 tab 07/29/17 Albuterol Aerosols [Ventolin 2.5 mg INHALATION Q6H PRN PRN 08/24/17 Aerosols] Amiodarone HCl 200 mg PO BID 08/24/17 Insulin Lispro [Humalog] 0 unit SQ TID 08/24/17 Metoprolol Tartrate [Lopressor 100 mg PO BID 08/24/17 (Beta Paulie)] Surgical History: appendectomy, total hip arthroplasty - Bilateral., total knee arthroplasty - Bilateral., - - Left carpal tunnel release, rotator cuff surgery, bladder surgery. Psychiatric History: Anxiety Lives: Mcfp Smoking Status: Former smoker Alcohol: None Drugs: None - *Family History Maternal History Items: - - Non-contributory. Paternal History Items: No pertinent history Review of Systems Constitutional: Denies: Anorexia, Chills, Fever, Weakness Eyes: Denies: Blurred vision, Double vision, Drainage, Redness HEENT: Denies: Difficulty Hearing, Ear Pain, Eye Pain, Nasal Congestion, Sore Throat Cardiovascular: Denies: Chest Pain, Chest Pressure, Chest Tightness, Palpitations, Syncope Respiratory: Reports: Shortness of Breath. Denies: Cough, Pleuritic Pain, Sputum production, Wheezing Gastrointestinal: Denies: Abdominal Pain, Constipation, Diarrhea, Nausea, Vomiting Genitourinary: Denies: Dysuria, Frequency, Hematuria Musculoskeletal: Denies: Arm Pain, Back Pain, Foot Pain Skin: Denies: Dryness, Rash Neurological: Denies: Balance problems, Double vision, Change in Speech, Slurred speech, Confusion, Headaches, Incoordination Psychiatric: Reports: Anxiety. Denies: Depression Endocrine: Denies: Change in Body Habitus, Polydipsia VTE Information - Inpt Only VTE Present on Admission: No VTE Mechan Device Prophylaxis: None VTE Pharm Prophylaxis ordered?: Yes - Physical Exam General: Alert, Oriented x3, Cooperative, - - Mildly short of breath. HEENT: Atraumatic, PERRLA, EOMI Oral: Moist Mucosa, No Gingival or Mucosal Lesions/ Ulcerations Neck: Supple, No JVD, Negative Carotid Bruits, Trachea Midline, Thyroid Normal Size and Texture Lungs: No wheeze, No rales, Diminished, Short of Breath, Tachypneic, - - Markedly decreased breath sounds bilateral, bilateral rhonchi. Cardiovascular: Normal S1, Normal S2, No murmurs, PMI Normal, Irregular Rate, Tachycardic Abdomen: Bowel Sounds Present, Soft, Non Tender, Non-Distended, No Hepato-splenomegaly Extremities: No clubbing, No cyanosis, No edema Skin: No rashes, No breakdown Lymphatic: No Cervical, Supraclavicular, or Inguinal Adenopathy Neurological: Cranial nerves II-XII grossly intact, Motor Exam 5/5 strength throughout Psych/Mental Status: Normal Affect, Appropriate, Alert and oriented to time, place, person, mood and affect Vital Signs Temp Pulse Resp BP Pulse Ox 98.7 F 96 17 112/89 H 96 08/24/17 21:13 08/24/17 21:13 08/24/17 21:13 08/24/17 21:13 08/24/17 21:13 Oxygen Flow Rate (L/min) 4 Oxygen Delivery Method Nasal Cannula Weight: 233 lb 11.04 oz Body Mass Index (BMI) 35.5 Laboratory Tests Past 24 Hrs 08/24/17 08/24/17 08/24/17 19:40 19:40 20:00 WBC 11.3 H RBC 3.31 L Hgb 9.3 L Hct 32.9 L MCV 99.4 H MCH 28.1 MCHC 28.3 L RDW 15.5 H RDW Differential 56.5 H Plt Count 278 MPV 8.9 Immature Gran % (Auto) 1.000 H Neut % (Auto) 90.4 H Lymph % (Auto) 7.4 L Turner % (Auto) 1.2 Eos % (Auto) 0.0 Baso % (Auto) 0.0 Absolute Neuts (auto) 10.2 H Absolute Lymphs (auto) 0.83 Total Counted Not Reportable Specimen Type ART Sample Site R RADIAL pH 7.38 Bicarbonate Actual 58.4 H POC Total CO2 > 50 Base Excess > 30 H O2 Saturation 96 O2 % 40 ABG pCO2 98.5 H* ABG pO2 90 Karan Test POS Respiration Rate 12 O2 Delivery Device BIPAP Vent Mode BIPAP Tidal Volume 480 POC PEEP 8 IPAP 18 Sodium 138 Potassium 4.3 Chloride 86 L Carbon Dioxide > 45.0 H* Anion Gap TNP BUN 28 H Creatinine 0.96 Estim Creat Clear Calc 68.28 Est GFR (MDRD) Af Amer 99 Est GFR (MDRD) Non-Af 82 BUN/Creatinine Ratio 29.2 H Glucose 295 H Calcium 8.7 Troponin I 0.04 Clinical Impression(s) from Imaging Studies Chest X-Ray 08/24/17 19:19 IMPRESSION: Stable examination with cardiomegaly and increased interstitial markings at the lung bases, likely atelectasis. Consider follow-up with upright PA and lateral films. at 1955 Reported and signed by: Alla Oakley MD Electronically Signed: Alla Oakley MD at 19:54 EDT Tel , Service support , Assessment/Plan This is a 71 years old male patient referred from the [place] [facility] because of high carbon dioxide and reported lethargy, found to have acute COPD exacerbation complicated by acute on chronic hypercapnic respiratory failure. #1 acute COPD exacerbation: The patient himself denied any worsening shortness of breath, cough or sputum production. His family reported that he has been lethargic and sleepy since yesterday after he was discharged from [facility]. ABG revealed a PCO2 of 98, pH was normal. Patient was started on BiPAP in the emergency room and his pulse ox improved. Chest x-ray showed no acute infiltrate, no pneumonia. Plan: Admit to PCU, cardiac monitoring, continue BiPAP, DuoNeb every 4 hours, albuterol as needed, IV Levaquin, IV Solu-Medrol, sputum culture, chest physical therapy, incentives parameter, pulmonology consult, PT OT evaluation and treatment. #2 acute on chronic hypercapnic respiratory failure: He is a chronic CO2 retainer. Reportedly, patient was lethargic and sleepy yesterday. At this time, he is fully alert and oriented ?3. After he was discharged from the [facility] 2 days ago, the BiPAP mask did not fit his face and he has not been using it. ABG reviewed as above. His previous ABGs from the previous admission is reviewed and his PCO2 has been chronically elevated. Plan as above to treat underlying COPD exacerbation, pulmonology consult. #3 chronic atrial fibrillation: Heart rate has been around 120s when he came in. At this time, it is down to 110. Blood pressure stable. EKG revealed A. fib, no acute ischemic changes. Plan to continue amiodarone and metoprolol for rate control. He is not on anticoagulant. #4 hypertension: Blood pressure stable, continue metoprolol. #5 type 2 diabetes mellitus: ADA diet, Accu-Cheks, insulin sliding scale. #6 hyperlipidemia: Continue statins. #7 chronic anemia: Hemoglobin and hematocrit are stable at baseline. No evidence of active bleeding. #8 chronic systolic CHF: Clinically stable, compensated. Plan to continue Lasix and metoprolol. #9 obstructive sleep apnea: Continue BiPAP for now. Patient may need adjustment of his BiPAP settings. #10 DVT prophylaxis: Subcu Lovenox. This note was generated with [employer] dictation software. It may contain incorrect words, spelling, and punctuation that were not noted in checking the note before signing. Code Visit Inpatient E&M: 30826 Init Hosp L3
--- NOTE | 2017-08-24 21:33 | HP.PCM_ITS ---
Problem List (1) Iron deficiency anemia Status: Chronic (2) Hyperlipidemia Status: Chronic (3) Anxiety Status: Chronic (4) GERD (gastroesophageal reflux disease) Status: Chronic (5) Benign hypertension Status: Chronic (6) COLD (chronic obstructive lung disease) Status: Chronic Qualifiers: (7) Chronic respiratory failure Status: Chronic Qualifiers: (8) MILA (obstructive sleep apnea) Status: Chronic History of Present Illness Date of Admission: 08/24/17 Chief Complaint: Elevated carbon dioxide. The patient is a 71 year old M with past medical history as mentioned above presented from the group home to the emergency department because of high carbon dioxide. According to the patient's family including his brother and sister, his carbon dioxide was elevated at the group home and they sent him to the emergency room for evaluation and he mentioned that he has been lethargic and sleepy since yesterday. At this time, the patient is alert and oriented ?3. Reportedly, patient was discharged from [facility] 2 days ago and he was sent to the longterm facility. He is supposed to use BiPAP at the longterm facility but the mask does not fit him properly and he has been refusing to use it. This time, the patient denied any worsening shortness of breath, cough or sputum production. He denied chest pain , dizziness or lightheadedness. He denied fever or chills. He denied abdominal pain, nausea vomiting. I asked the patient multiple times if he thinks that his breathing is worse than when he came out of [facility] and he stated that his breathing is the same without any significant change. At home, he has been on BiPAP and on oxygen at 3 L. He had history of chronic atrial fibrillation and he has been on amiodarone and metoprolol for rate control but he is not on anticoagulation. He has a history of severe COPD with chronic CO2 retention and in the past, his CO2 was up to more than 130 on June. History of obstructive sleep apnea and he is supposed to be on BiPAP at night at home but according to the family, he is not compliant with it. In the emergency department, patient was afebrile, tachycardic, blood pressure stable and pulse ox was 98% on 3 L. His routine blood work was remarkable for chronic anemia with improvement of 9.3 g/dL, chloride of 86 and serum bicarb of more than 45. ABG revealed pH of 7.38, PCO2 of 98 and PO2 of 90. EKG revealed A. fib with RVR, heart rate has been around 120s. Her troponin is negative. Chest x-ray showed no evidence of acute infiltrate, consolidation or effusion. He is being admitted for acute on chronic hypercapnic respiratory failure due to COPD exacerbation. Past Medical History Past Medical History (Chronic Problems): Chronic Problems Melanoma (Chronic) Acute on chronic systolic heart failure (Chronic) Iron deficiency anemia (Chronic) Hyperlipidemia (Chronic) Anxiety (Chronic) GERD (gastroesophageal reflux disease) (Chronic) Osteoarthritis (Chronic) Benign hypertension (Chronic) Cardiomyopathy (Chronic) COLD (chronic obstructive lung disease) (Chronic) History of urethral stricture (Chronic) Malignant melanoma of back (Chronic) C43.59 2 cm superficial spreading melanoma wound left upper back with a thickness of 0.54 mm 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) 6 mm pigmented lesion right lateral chest wall Former smoker (Chronic) Z87.891 Open wound of left side of back (Chronic) open melanoma wound left upper back Debility (Chronic) Chronic respiratory failure (Chronic) MILA (obstructive sleep apnea) (Chronic) Urinary retention with incomplete bladder emptying (Chronic) Bowel incontinence (Chronic) Allergies latex Allergy (Severe, Verified 07/18/17 02:44) Swelling rivaroxaban [From Xarelto] Adverse Reaction (Verified 07/18/17 02:44) excessive bleeding Home Medications: Ambulatory Orders Medication Instructions Recorded Furosemide [Lasix] 40 mg PO DAILY 02/01/13 Ipratropium/Albuterol Sulfate 3 ml INHALATION Q4HWA.RT 07/09/17 [Duoneb] Magnesium Citrate [Citrate Of 300 ml PO QODAY 07/09/17 Magnesia] Pantoprazole Sodium [Protonix] 40 mg PO DAILY 07/09/17 Acetaminophen [Tylenol Tablet] 1,000 mg PO Q8H PRN PRN 07/18/17 Atorvastatin Calcium [Lipitor] 20 mg PO QHS 07/18/17 Prednisone See Taper PO DAILY 07/22/17 Clonazepam [Klonopin] 0.5 mg PO BID #14 tab 07/29/17 Albuterol Aerosols [Ventolin 2.5 mg INHALATION Q6H PRN PRN 08/24/17 Aerosols] Amiodarone HCl 200 mg PO BID 08/24/17 Insulin Lispro [Humalog] 0 unit SQ TID 08/24/17 Metoprolol Tartrate [Lopressor 100 mg PO BID 08/24/17 (Beta Paulie)] Surgical History: appendectomy, total hip arthroplasty - Bilateral., total knee arthroplasty - Bilateral., - - Left carpal tunnel release, rotator cuff surgery , bladder surgery. Psychiatric History: Anxiety Lives: Shelter Smoking Status: Former smoker Alcohol: None Drugs: None - *Family History Maternal History Items: - - Non-contributory. Paternal History Items: No pertinent history Review of Systems Constitutional: Denies: Anorexia, Chills, Fever, Weakness Eyes: Denies: Blurred vision, Double vision, Drainage, Redness HEENT: Denies: Difficulty Hearing, Ear Pain, Eye Pain, Nasal Congestion, Sore Throat Cardiovascular: Denies: Chest Pain, Chest Pressure, Chest Tightness, Palpitations, Syncope Respiratory: Reports: Shortness of Breath. Denies: Cough, Pleuritic Pain, Sputum production, Wheezing Gastrointestinal: Denies: Abdominal Pain, Constipation, Diarrhea, Nausea, Vomiting Genitourinary: Denies: Dysuria, Frequency, Hematuria Musculoskeletal: Denies: Arm Pain, Back Pain, Foot Pain Skin: Denies: Dryness, Rash Neurological: Denies: Balance problems, Double vision, Change in Speech, Slurred speech, Confusion, Headaches, Incoordination Psychiatric: Reports: Anxiety. Denies: Depression Endocrine: Denies: Change in Body Habitus, Polydipsia VTE Information - Inpt Only VTE Present on Admission: No VTE Mechan Device Prophylaxis: None VTE Pharm Prophylaxis ordered?: Yes - Physical Exam General: Alert, Oriented x3, Cooperative, - - Mildly short of breath. HEENT: Atraumatic, PERRLA, EOMI Oral: Moist Mucosa, No Gingival or Mucosal Lesions/ Ulcerations Neck: Supple, No JVD, Negative Carotid Bruits, Trachea Midline, Thyroid Normal Size and Texture Lungs: No wheeze, No rales, Diminished, Short of Breath, Tachypneic, - - Markedly decreased breath sounds bilateral, bilateral rhonchi. Cardiovascular: Normal S1, Normal S2, No murmurs, PMI Normal, Irregular Rate, Tachycardic Abdomen: Bowel Sounds Present, Soft, Non Tender, Non-Distended, No Hepato- splenomegaly Extremities: No clubbing, No cyanosis, No edema Skin: No rashes, No breakdown Lymphatic: No Cervical, Supraclavicular, or Inguinal Adenopathy Neurological: Cranial nerves II-XII grossly intact, Motor Exam 5/5 strength throughout Psych/Mental Status: Normal Affect, Appropriate, Alert and oriented to time, place, person, mood and affect Vital Signs Temp Pulse Resp BP Pulse Ox 98.7 F 96 17 112/89 H 96 08/24/17 21:13 08/24/17 21:13 08/24/17 21:13 08/24/17 21:13 08/24/17 21:13 Oxygen Flow Rate (L/min) 4 Oxygen Delivery Method Nasal Cannula Weight: 233 lb 11.04 oz Body Mass Index (BMI) 35.5 Laboratory Tests Past 24 Hrs 08/24/17 08/24/17 08/24/17 19:40 19:40 20:00 WBC 11.3 H RBC 3.31 L Hgb 9.3 L Hct 32.9 L MCV 99.4 H MCH 28.1 MCHC 28.3 L RDW 15.5 H RDW Differential 56.5 H Plt Count 278 MPV 8.9 Immature Gran % (Auto) 1.000 H Neut % (Auto) 90.4 H Lymph % (Auto) 7.4 L Wells % (Auto) 1.2 Eos % (Auto) 0.0 Baso % (Auto) 0.0 Absolute Neuts (auto) 10.2 H Absolute Lymphs (auto) 0.83 Total Counted Not Reportable Specimen Type ART Sample Site R RADIAL pH 7.38 Bicarbonate Actual 58.4 H POC Total CO2 > 50 Base Excess > 30 H O2 Saturation 96 O2 % 40 ABG pCO2 98.5 H* ABG pO2 90 Karan Test POS Respiration Rate 12 O2 Delivery Device BIPAP Vent Mode BIPAP Tidal Volume 480 POC PEEP 8 IPAP 18 Sodium 138 Potassium 4.3 Chloride 86 L Carbon Dioxide > 45.0 H* Anion Gap TNP BUN 28 H Creatinine 0.96 Estim Creat Clear Calc 68.28 Est GFR (MDRD) Af Amer 99 Est GFR (MDRD) Non-Af 82 BUN/Creatinine Ratio 29.2 H Glucose 295 H Calcium 8.7 Troponin I 0.04 Clinical Impression(s) from Imaging Studies Chest X-Ray 08/24/17 19:19 IMPRESSION: Stable examination with cardiomegaly and increased interstitial markings at the lung bases, likely atelectasis. Consider follow-up with upright PA and lateral films. at 1955 Reported and signed by: Alla Oakley MD Electronically Signed: Alla Oakley MD at 19:54 EDT Tel , Service support , Assessment/Plan This is a 71 years old male patient referred from the group home because of high carbon dioxide and reported lethargy, found to have acute COPD exacerbation complicated by acute on chronic hypercapnic respiratory failure. #1 acute COPD exacerbation: The patient himself denied any worsening shortness of breath, cough or sputum production. His family reported that he has been lethargic and sleepy since yesterday after he was discharged from [facility]. ABG revealed a PCO2 of 98, pH was normal. Patient was started on BiPAP in the emergency room and his pulse ox improved. Chest x-ray showed no acute infiltrate, no pneumonia. Plan: Admit to PCU, cardiac monitoring, continue BiPAP, DuoNeb every 4 hours, albuterol as needed, IV Levaquin, IV Solu- Medrol, sputum culture, chest physical therapy, incentives parameter, pulmonology consult, PT OT evaluation and treatment. #2 acute on chronic hypercapnic respiratory failure: He is a chronic CO2 retainer. Reportedly, patient was lethargic and sleepy yesterday. At this time , he is fully alert and oriented ?3. After he was discharged from the [facility] 2 days ago, the BiPAP mask did not fit his face and he has not been using it. ABG reviewed as above. His previous ABGs from the previous admission is reviewed and his PCO2 has been chronically elevated. Plan as above to treat underlying COPD exacerbation, pulmonology consult. #3 chronic atrial fibrillation: Heart rate has been around 120s when he came in. At this time, it is down to 110. Blood pressure stable. EKG revealed A. fib, no acute ischemic changes. Plan to continue amiodarone and metoprolol for rate control. He is not on anticoagulant. #4 hypertension: Blood pressure stable, continue metoprolol. #5 type 2 diabetes mellitus: ADA diet, Accu-Cheks, insulin sliding scale. #6 hyperlipidemia: Continue statins. #7 chronic anemia: Hemoglobin and hematocrit are stable at baseline. No evidence of active bleeding. #8 chronic systolic CHF: Clinically stable, compensated. Plan to continue Lasix and metoprolol. #9 obstructive sleep apnea: Continue BiPAP for now. Patient may need adjustment of his BiPAP settings. #10 DVT prophylaxis: Subcu Lovenox. This note was generated with [employer] dictation software. It may contain incorrect words, spelling, and punctuation that were not noted in checking the note before signing. Code Visit Inpatient E&M: 18886 Init Hosp L3
[2017-08-24] MEDS: levoFLOXacin IV 750 MG/150 ML BAG 100 MG IV (22:52)
[2017-08-24] MEDS: Ipratropium/Albuterol Sulfate 3 ML AMPUL.NEB INHALATION (22:59)
[2017-08-24] MEDS: Atorvastatin Calcium 20 MG Tablet PO (23:06)
[2017-08-24] MEDS: clonazePAM 0.5 MG Tablet PO (23:06)
[2017-08-24] MEDS: Amiodarone 200 MG Tablet PO (23:06)
[2017-08-24] MEDS: Metoprolol Tartrate 100 MG Tablet PO (23:06)
[2017-08-24 23:26] LABS: Bedside Glucose 255 mg/dL (70-110)
[2017-08-25] VITALS (20 sets, daily range): BP systolic 106–131; BP diastolic 57–74; PULSE 51–119; RESP 12–21; TEMP 36.6–36.9; O2SAT 93–98
[2017-08-25 05:37] LABS: Absolute Lymphocyte Count 0.43 X10^3/ul (0.83-4.51); Absolute Neutrophil Count 8.1 X10^3/uL (2.0-7.7); Basophil# 0.02 X10^3/uL; Basophil% 0.2 % (0-1); Hematocrit 31.4 % (40-54); Lymphocyte # 0.43 X10^3/ul (4.0); Lymphocyte % 4.7 % (19-41); Mean Corp Hgb Conc 28.7 g/gl (32-36); Mean Corpuscular Hgb 28.8 pg (27.0-32.0); Mean Corpuscular Volume 100.3 fL (80-94); Mean Platelet Vol. 9.5 fl (6.2-12.0); Monocyte% 5.5 % (0-10); Neutrophil # 8.11 X10^3/uL (2.7-7.7); Neutrophil % 88.4 % (47-70); Platelet Count 274 K/mm3 (150-450); RBC Distribution Width CV 14.9 % (11.6-14.6); RBC Distribution Width SD 53.1 fl (35.1-43.9); Red Blood Count 3.13 M/mm3 (4.6-6.2); White Blood Count 9.2 K/mm3 (4.4-11.0)
[2017-08-25 05:38] LABS: Differential Indicated SCAN CRITERIA MET; POSITIVE COUNT NO; POSITIVE DIFFERENTIAL YES; POSITIVE MORPHOLOGY NO
[2017-08-25 06:10] LABS: BUN 24 mg/dL (7-18); BUN/Creat Ratio 32.3 RATIO (10-20); Calcium,Total 8.3 mg/dL (8.5-10.1); Carbon Dioxide > 45.0 mmol/L (21.0-32.0); Chloride 87 mmol/L (98-107); Creatinine, Serum 0.74 mg/dL (0.70-1.30); EST Glomerular Filtration Rate 110 mL/min (>60); Est Glom Filt Rate - Afr Amer 133 mL/min (>60); Estimated Creatinine Clearance 65.55 ml/min; Glucose 239 mg/dL (74-106); Potassium 4.4 mmol/L (3.5-5.1); Sodium Level 140 mmol/L (136-145)
[2017-08-25] MEDS: 0.9% NaCl Peripheral Flush Adult/Peds IV (06:11)
[2017-08-25] MEDS: Ipratropium/Albuterol Sulfate 3 ML AMPUL.NEB INHALATION ×5 (06:45→22:46)
[2017-08-25 07:11] LABS: Bedside Glucose 224 mg/dL (70-110)
--- NOTE | 2017-08-25 08:44 | PCM.CONS.GEN ---
Problem List (1) Acute on chronic respiratory failure with hypoxia and hypercapnia Status: Acute (2) Iron deficiency anemia Status: Chronic (3) Hyperlipidemia Status: Chronic (4) Anxiety Status: Chronic (5) GERD (gastroesophageal reflux disease) Status: Chronic (6) Osteoarthritis Status: Chronic (7) Benign hypertension Status: Chronic (8) Former smoker Status: Chronic Comment: Z87.891 (9) MILA (obstructive sleep apnea) Status: Chronic Reason for Consult Date of Consultation: 08/25/17 Reason for Consultation: acute on chronic respiratory failure History of Present Illness: The patient is a 71 year old M who was just discharged from [place] a few days ago back to a assisted facility, presented to the ED secondary to concerns of elevated CO2 via blood draw. The patient was previously prescribed BiPAP therapy for chronic CO2 retention and has been reportedly refusing to wear it, therefore becoming more lethargic. Patient has had multiple admissions in the last couple of months with similar presentations, sometimes requiring intubation. He also has a home BiPAP unit that he has been noncompliant with in the past. He is on chronic 3 L supplemental oxygen. Denies any increase in cough, congestion, wheezing, or sputum production. Denies any fever or chills. No nausea, vomiting, or diarrhea. He is actually typically constipated. Reports he was doing fine at the longterm and they made him come to the ER secondary to his blood work results. Initial blood work showed a leukocytosis of 11,300, hemoglobin 9.3 (baseline). Of note, the patient was on a steroid taper when discharged from [place]. Chemistry remarkable for a chloride of 86 and serum bicarb of greater than 45.0. BUN was 28 and creatinine 0.96. Glucose elevated at 295. Troponin was negative. Plain film chest x-ray showed increased interstitial markings at the lung bases, no evidence of consolidation or significant pleural effusion. Patient was placed on BiPAP on arrival. An ABG was obtained on BiPAP 10/12 and revealed a pH of 7.38, PCO2 of 98.5, PO2 of 90. No culture data has been obtained. Patient improved on BiPAP and was transferred to the progressive care unit for further management. He is currently receiving bronchodilators, IV Levaquin, and IV Solu-Medrol. Past Medical History Past Medical History (Chronic Problems): Chronic Problems (Last Updated 08/24/17 @ 21:23 by Audrey Petersen MD) Melanoma (Chronic) Acute on chronic systolic heart failure (Chronic) Iron deficiency anemia (Chronic) Hyperlipidemia (Chronic) Anxiety (Chronic) GERD (gastroesophageal reflux disease) (Chronic) Osteoarthritis (Chronic) Benign hypertension (Chronic) Cardiomyopathy (Chronic) COLD (chronic obstructive lung disease) (Chronic) History of urethral stricture (Chronic) Malignant melanoma of back (Chronic) C43.59 2 cm superficial spreading melanoma wound left upper back with a thickness of 0.54 mm 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) 6 mm pigmented lesion right lateral chest wall Former smoker (Chronic) Z87.891 Open wound of left side of back (Chronic) open melanoma wound left upper back Debility (Chronic) Chronic respiratory failure (Chronic) MILA (obstructive sleep apnea) (Chronic) Urinary retention with incomplete bladder emptying (Chronic) Bowel incontinence (Chronic) Allergies latex Allergy (Severe, Verified 07/18/17 02:44) Swelling rivaroxaban [From Xarelto] Adverse Reaction (Verified 07/18/17 02:44) excessive bleeding Home Medications: Ambulatory Orders Medication Instructions Recorded Furosemide [Lasix] 40 mg PO DAILY 02/01/13 Ipratropium/Albuterol Sulfate 3 ml INHALATION Q4HWA.RT 07/09/17 [Duoneb] Magnesium Citrate [Citrate Of 300 ml PO QODAY 07/09/17 Magnesia] Pantoprazole Sodium [Protonix] 40 mg PO DAILY 07/09/17 Acetaminophen [Tylenol Tablet] 1,000 mg PO Q8H PRN PRN 07/18/17 Atorvastatin Calcium [Lipitor] 20 mg PO QHS 07/18/17 Prednisone See Taper PO DAILY 07/22/17 Clonazepam [Klonopin] 0.5 mg PO BID #14 tab 07/29/17 Albuterol Aerosols [Ventolin 2.5 mg INHALATION Q6H PRN PRN 08/24/17 Aerosols] Amiodarone HCl 200 mg PO BID 08/24/17 Insulin Lispro [Humalog] 0 unit SQ TID 08/24/17 Metoprolol Tartrate [Lopressor 100 mg PO BID 08/24/17 (Beta Paulie)] Surgical History: appendectomy, total hip arthroplasty - Bilateral., total knee arthroplasty - Bilateral., - - Left carpal tunnel release, rotator cuff surgery, bladder surgery. Psychiatric History: Anxiety Lives: [facility] Smoking Status: Former smoker Alcohol: None Drugs: None - *Family History Maternal History Items: - - Non-contributory. Paternal History Items: No pertinent history Review of Systems Constitutional: Reports: Weakness, Fatigue. Denies: Anorexia, Chills, Fever, Night Sweats, Malaise, Weight Change Eyes: Denies: Vision Change HEENT: Denies: Difficulty Swallowing, Nasal bleeding, Nasal Congestion, Post Nasal Drip, Sinus Congestion, Sore Throat Cardiovascular: Denies: Chest Pain, Chest Tightness, Light Headedness, Orthopnea, Palpitations, Paroxysmal Noc. Dyspnea, Syncope Respiratory: Reports: Cough, Shortness of breath upon exertion. Denies: Hemoptysis, Shortness of breath at rest, Sputum production Gastrointestinal: Denies: Abdominal Pain, Constipation, Diarrhea, Dyspepsia, Hematemesis, Hematochezia, Nausea, Melena, Vomiting Genitourinary: Reports: Retention, - - repeat infections. Denies: Dysuria, Frequency, Hematuria Musculoskeletal: Denies: Back Pain, Leg Pain Skin: Denies: Rash, Wounds Neurological: Denies: Change in Speech, Difficulty swallowing, Focal weakness, Numbness, Tingling, Tremor, Seizures Psychiatric: Denies: Anxiety, Depression Endocrine: Denies: Change in Body Habitus, Polydipsia, Polyuria Hematologic/ Lymphatic: Reports: Anemia, Easy Bruising. Denies: Adenopathy, Easy Bleeding Patient Problems: Active and Suspected Problems (Last Updated 08/24/17 @ 21:23 by Audrey Petersen MD) Acute on chronic respiratory failure with hypoxia and hypercapnia (Acute) Subjective: Patient was seen and examined. He is lying in bed in no acute distress. Denies any increased shortness of breath, cough, or sputum production. Objective: Clinical Impression(s) from Imaging Studies Chest X-Ray 08/24/17 19:19 IMPRESSION: Stable examination with cardiomegaly and increased interstitial markings at the lung bases, likely atelectasis. Consider follow-up with upright PA and lateral films. at 1955 Reported and signed by: Alla Oakley MD Electronically Signed: Alla Oakley MD at 19:54 EDT Tel , Service support , - Physical Exam General: Alert, Oriented x3, Cooperative, No apparent distress, - - no conversational dyspnea HEENT: Atraumatic, Normocephalic Oral: Moist Mucosa, No Gingival or Mucosal Lesions/ Ulcerations Neck: Supple, No Nodes, Trachea Midline Lungs: - - very poor air movement, otherwise no rhonchi, wheezes, or rales Cardiovascular: Normal S1, Normal S2, No murmurs, Irregular Rate, No rub noted, No Gallop Abdomen: Bowel Sounds Present, Soft, Non Tender, Non-Distended, Obese Extremities: No cyanosis, Clubbing, Edema - mild LE bilat Skin: No rashes, No breakdown Musculoskeletal: No Tenderness to Palpation of Joints or Extremities Lymphatic: No Cervical, Supraclavicular, or Inguinal Adenopathy Neurological: Cranial nerves II-XII grossly intact, Neuro grossly intact, Motor Exam 5/5 strength throughout Psych/Mental Status: Alert and oriented to time, place, person, mood and affect Vital Signs Temp Pulse Resp BP Pulse Ox 98.3 F 92 18 111/74 98 08/25/17 03:58 08/25/17 06:55 08/25/17 06:45 08/25/17 03:58 08/25/17 06:45 Oxygen Flow Rate (L/min) 3 Oxygen Delivery Method Nasal Cannula Weight: 220 lb 10.923 oz Body Mass Index (BMI) 33.4 Intake and Output for Last 24 Hours 08/23/17 08/24/17 08/25/17 23:59 23:59 23:59 Intake Total 120 / 120 120 / 120 Output Total 350 / 350 400 / 400 Balance -230 / -230 -280 / -280 Laboratory Tests Past 24 Hrs 08/25/17 08/25/17 05:15 05:15 WBC 9.2 RBC 3.13 L Hgb 9.0 L Hct 31.4 L MCV 100.3 H MCH 28.8 MCHC 28.7 L RDW 14.9 H RDW Differential 53.1 H Plt Count 274 MPV 9.5 Immature Gran % (Auto) 1.200 H Neut % (Auto) 88.4 H Lymph % (Auto) 4.7 L White % (Auto) 5.5 Eos % (Auto) 0.0 Baso % (Auto) 0.2 Absolute Neuts (auto) 8.1 H Absolute Lymphs (auto) 0.43 L Total Counted Not Reportable Differential Comment Sodium 140 Potassium 4.4 Chloride 87 L Carbon Dioxide > 45.0 H* Anion Gap TNP BUN 24 H Creatinine 0.74 Estim Creat Clear Calc 65.55 Est GFR (MDRD) Af Amer 133 Est GFR (MDRD) Non-Af 110 BUN/Creatinine Ratio 32.3 H Glucose 239 H Calcium 8.3 L POC Glucose 08/25/17 08/24/17 07:03 23:02 POC Glucose 224 H 255 H Assessment/Plan Active and Suspected Problems (Last Updated 08/24/17 @ 21:23 by Audrey Petersen MD) Acute on chronic respiratory failure with hypoxia and hypercapnia (Acute) RECOMMENDATIONS 1. Wean oxygen supplementation to keep saturations 88-92%, to prevent paradoxical CO2 retention 2. Encourage aggressive incentive spirometer and Acapella 3. Continue aerosols and steroid taper from longterm 4. Continue BiPAP 15/5 with naps and nightly 5. Discontinue antibiotics 6. Mobilize, consult PT/OT IMPRESSIONS 1. 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 Chest x-ray showed a stable examination, likely atelectasis in the bases. Patient with no increase in sputum production, cough, no fever or chills. Had a mild leukocytosis on admission, however is on steroid taper at the longterm. Does not appear to be infective at this time, would recommend discontinuation of antibiotics. His CO2 on ABG was elevated at 98.5, does have chronic CO2 retention. Currently alert and oriented, conversing appropriately. Would recommend continuing BiPAP with naps and nightly. Encourage incentive spirometer/Acapella. Wean supplemental oxygen to keep saturations 88-92% to prevent paradoxical CO2 retention. Mobilize patient. 2. Obstructive sleep apnea Patient is somewhat noncompliant with his BiPAP, typically only wears about 4 hours per day. Does have a history of noncompliance. Patient counseled on importance of wearing his noninvasive positive pressure ventilation with any sleep. Did discuss hospice/palliative care with him if he did not wish to wear his BiPAP. He is not interested at this time, states he is willing to try and wear the BiPAP more. 3. History of HTN/GERD/anxiety/HLD/iron deficiency anemia/systolic heart failure/former smoker/urinary retention/debility/diabetes Complicates care, management, recovery, and prognosis. Continue home medications as indicated. Blood sugars likely elevated with steroid use, adjust sling as necessary. Thank you for the opportunity to participate in this patient's care, please do not hesitate contact us with any further questions or concerns. This note was generated with [employer] dictation software. It may contain incorrect words, spelling, and punctuation that were not noted in checking the note before signing.
--- NOTE | 2017-08-25 08:52 | NURSING ---
per pt, Okay to speak to sisterRachel about pt & give updates.
--- NOTE | 2017-08-25 08:55 | CON.PCM_ITS ---
Problem List (1) Acute on chronic respiratory failure with hypoxia and hypercapnia Status: Acute (2) Iron deficiency anemia Status: Chronic (3) Hyperlipidemia Status: Chronic (4) Anxiety Status: Chronic (5) GERD (gastroesophageal reflux disease) Status: Chronic (6) Osteoarthritis Status: Chronic (7) Benign hypertension Status: Chronic (8) Former smoker Status: Chronic Comment: Z87.891 (9) MILA (obstructive sleep apnea) Status: Chronic Reason for Consult Date of Consultation: 08/25/17 Reason for Consultation: acute on chronic respiratory failure History of Present Illness: The patient is a 71 year old M who was just discharged from [facility] a few days ago back to a long term facility, presented to the ED secondary to concerns of elevated CO2 via blood draw. The patient was previously prescribed BiPAP therapy for chronic CO2 retention and has been reportedly refusing to wear it, therefore becoming more lethargic. Patient has had multiple admissions in the last couple of months with similar presentations, sometimes requiring intubation. He also has a home BiPAP unit that he has been noncompliant with in the past. He is on chronic 3 L supplemental oxygen. Denies any increase in cough, congestion, wheezing, or sputum production. Denies any fever or chills. No nausea, vomiting, or diarrhea. He is actually typically constipated. Reports he was doing fine at the skilled nursing and they made him come to the ER secondary to his blood work results. Initial blood work showed a leukocytosis of 11,300, hemoglobin 9.3 (baseline). Of note, the patient was on a steroid taper when discharged from [place]. Chemistry remarkable for a chloride of 86 and serum bicarb of greater than 45.0. BUN was 28 and creatinine 0.96. Glucose elevated at 295. Troponin was negative. Plain film chest x-ray showed increased interstitial markings at the lung bases, no evidence of consolidation or significant pleural effusion. Patient was placed on BiPAP on arrival. An ABG was obtained on BiPAP 10/12 and revealed a pH of 7.38, PCO2 of 98.5, PO2 of 90. No culture data has been obtained. Patient improved on BiPAP and was transferred to the progressive care unit for further management. He is currently receiving bronchodilators, IV Levaquin, and IV Solu-Medrol. Past Medical History Past Medical History (Chronic Problems): Chronic Problems (Last Updated 08/24/17 @ 21:23 by Audrey Petersen MD) Melanoma (Chronic) Acute on chronic systolic heart failure (Chronic) Iron deficiency anemia (Chronic) Hyperlipidemia (Chronic) Anxiety (Chronic) GERD (gastroesophageal reflux disease) (Chronic) Osteoarthritis (Chronic) Benign hypertension (Chronic) Cardiomyopathy (Chronic) COLD (chronic obstructive lung disease) (Chronic) History of urethral stricture (Chronic) Malignant melanoma of back (Chronic) C43.59 2 cm superficial spreading melanoma wound left upper back with a thickness of 0.54 mm 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) 6 mm pigmented lesion right lateral chest wall Former smoker (Chronic) Z87.891 Open wound of left side of back (Chronic) open melanoma wound left upper back Debility (Chronic) Chronic respiratory failure (Chronic) MILA (obstructive sleep apnea) (Chronic) Urinary retention with incomplete bladder emptying (Chronic) Bowel incontinence (Chronic) Allergies latex Allergy (Severe, Verified 07/18/17 02:44) Swelling rivaroxaban [From Xarelto] Adverse Reaction (Verified 07/18/17 02:44) excessive bleeding Home Medications: Ambulatory Orders Medication Instructions Recorded Furosemide [Lasix] 40 mg PO DAILY 02/01/13 Ipratropium/Albuterol Sulfate 3 ml INHALATION Q4HWA.RT 07/09/17 [Duoneb] Magnesium Citrate [Citrate Of 300 ml PO QODAY 07/09/17 Magnesia] Pantoprazole Sodium [Protonix] 40 mg PO DAILY 07/09/17 Acetaminophen [Tylenol Tablet] 1,000 mg PO Q8H PRN PRN 07/18/17 Atorvastatin Calcium [Lipitor] 20 mg PO QHS 07/18/17 Prednisone See Taper PO DAILY 07/22/17 Clonazepam [Klonopin] 0.5 mg PO BID #14 tab 07/29/17 Albuterol Aerosols [Ventolin 2.5 mg INHALATION Q6H PRN PRN 08/24/17 Aerosols] Amiodarone HCl 200 mg PO BID 08/24/17 Insulin Lispro [Humalog] 0 unit SQ TID 08/24/17 Metoprolol Tartrate [Lopressor 100 mg PO BID 08/24/17 (Beta Paulie)] Surgical History: appendectomy, total hip arthroplasty - Bilateral., total knee arthroplasty - Bilateral., - - Left carpal tunnel release, rotator cuff surgery , bladder surgery. Psychiatric History: Anxiety Lives: Long Term Smoking Status: Former smoker Alcohol: None Drugs: None - *Family History Maternal History Items: - - Non-contributory. Paternal History Items: No pertinent history Review of Systems Constitutional: Reports: Weakness, Fatigue. Denies: Anorexia, Chills, Fever, Night Sweats, Malaise, Weight Change Eyes: Denies: Vision Change HEENT: Denies: Difficulty Swallowing, Nasal bleeding, Nasal Congestion, Post Nasal Drip, Sinus Congestion, Sore Throat Cardiovascular: Denies: Chest Pain, Chest Tightness, Light Headedness, Orthopnea , Palpitations, Paroxysmal Noc. Dyspnea, Syncope Respiratory: Reports: Cough, Shortness of breath upon exertion. Denies: Hemoptysis, Shortness of breath at rest, Sputum production Gastrointestinal: Denies: Abdominal Pain, Constipation, Diarrhea, Dyspepsia, Hematemesis, Hematochezia, Nausea, Melena, Vomiting Genitourinary: Reports: Retention, - - repeat infections. Denies: Dysuria, Frequency, Hematuria Musculoskeletal: Denies: Back Pain, Leg Pain Skin: Denies: Rash, Wounds Neurological: Denies: Change in Speech, Difficulty swallowing, Focal weakness, Numbness, Tingling, Tremor, Seizures Psychiatric: Denies: Anxiety, Depression Endocrine: Denies: Change in Body Habitus, Polydipsia, Polyuria Hematologic/ Lymphatic: Reports: Anemia, Easy Bruising. Denies: Adenopathy, Easy Bleeding Patient Problems: Active and Suspected Problems (Last Updated 08/24/17 @ 21:23 by Audrey Petersen MD) Acute on chronic respiratory failure with hypoxia and hypercapnia (Acute) Subjective: Patient was seen and examined. He is lying in bed in no acute distress. Denies any increased shortness of breath, cough, or sputum production. Objective: Clinical Impression(s) from Imaging Studies Chest X-Ray 08/24/17 19:19 IMPRESSION: Stable examination with cardiomegaly and increased interstitial markings at the lung bases, likely atelectasis. Consider follow-up with upright PA and lateral films. at 1955 Reported and signed by: Alla Oakley MD Electronically Signed: Alla Oakley MD at 19:54 EDT Tel , Service support , - Physical Exam General: Alert, Oriented x3, Cooperative, No apparent distress, - - no conversational dyspnea HEENT: Atraumatic, Normocephalic Oral: Moist Mucosa, No Gingival or Mucosal Lesions/ Ulcerations Neck: Supple, No Nodes, Trachea Midline Lungs: - - very poor air movement, otherwise no rhonchi, wheezes, or rales Cardiovascular: Normal S1, Normal S2, No murmurs, Irregular Rate, No rub noted, No Gallop Abdomen: Bowel Sounds Present, Soft, Non Tender, Non-Distended, Obese Extremities: No cyanosis, Clubbing, Edema - mild LE bilat Skin: No rashes, No breakdown Musculoskeletal: No Tenderness to Palpation of Joints or Extremities Lymphatic: No Cervical, Supraclavicular, or Inguinal Adenopathy Neurological: Cranial nerves II-XII grossly intact, Neuro grossly intact, Motor Exam 5/5 strength throughout Psych/Mental Status: Alert and oriented to time, place, person, mood and affect Vital Signs Temp Pulse Resp BP Pulse Ox 98.3 F 92 18 111/74 98 08/25/17 03:58 08/25/17 06:55 08/25/17 06:45 08/25/17 03:58 08/25/17 06:45 Oxygen Flow Rate (L/min) 3 Oxygen Delivery Method Nasal Cannula Weight: 220 lb 10.923 oz Body Mass Index (BMI) 33.4 Intake and Output for Last 24 Hours 08/23/17 08/24/17 08/25/17 23:59 23:59 23:59 Intake Total 120 / 120 120 / 120 Output Total 350 / 350 400 / 400 Balance -230 / -230 -280 / -280 Laboratory Tests Past 24 Hrs 08/25/17 08/25/17 05:15 05:15 WBC 9.2 RBC 3.13 L Hgb 9.0 L Hct 31.4 L MCV 100.3 H MCH 28.8 MCHC 28.7 L RDW 14.9 H RDW Differential 53.1 H Plt Count 274 MPV 9.5 Immature Gran % (Auto) 1.200 H Neut % (Auto) 88.4 H Lymph % (Auto) 4.7 L [place] % (Auto) 5.5 Eos % (Auto) 0.0 Baso % (Auto) 0.2 Absolute Neuts (auto) 8.1 H Absolute Lymphs (auto) 0.43 L Total Counted Not Reportable Differential Comment Sodium 140 Potassium 4.4 Chloride 87 L Carbon Dioxide > 45.0 H* Anion Gap TNP BUN 24 H Creatinine 0.74 Estim Creat Clear Calc 65.55 Est GFR (MDRD) Af Amer 133 Est GFR (MDRD) Non-Af 110 BUN/Creatinine Ratio 32.3 H Glucose 239 H Calcium 8.3 L POC Glucose 08/25/17 08/24/17 07:03 23:02 POC Glucose 224 H 255 H Assessment/Plan Active and Suspected Problems (Last Updated 08/24/17 @ 21:23 by Audrey Petersen MD) Acute on chronic respiratory failure with hypoxia and hypercapnia (Acute) RECOMMENDATIONS 1. Wean oxygen supplementation to keep saturations 88-92%, to prevent paradoxical CO2 retention 2. Encourage aggressive incentive spirometer and Acapella 3. Continue aerosols and steroid taper from skilled nursing 4. Continue BiPAP 15/5 with naps and nightly 5. Discontinue antibiotics 6. Mobilize, consult PT/OT IMPRESSIONS 1. 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 Chest x-ray showed a stable examination, likely atelectasis in the bases. Patient with no increase in sputum production, cough, no fever or chills. Had a mild leukocytosis on admission, however is on steroid taper at the skilled nursing. Does not appear to be infective at this time, would recommend discontinuation of antibiotics. His CO2 on ABG was elevated at 98.5, does have chronic CO2 retention. Currently alert and oriented, conversing appropriately. Would recommend continuing BiPAP with naps and nightly. Encourage incentive spirometer/Acapella. Wean supplemental oxygen to keep saturations 88-92% to prevent paradoxical CO2 retention. Mobilize patient. 2. Obstructive sleep apnea Patient is somewhat noncompliant with his BiPAP, typically only wears about 4 hours per day. Does have a history of noncompliance. Patient counseled on importance of wearing his noninvasive positive pressure ventilation with any sleep. Did discuss hospice/palliative care with him if he did not wish to wear his BiPAP. He is not interested at this time, states he is willing to try and wear the BiPAP more. 3. History of HTN/GERD/anxiety/HLD/iron deficiency anemia/systolic heart failure/former smoker/urinary retention/debility/diabetes Complicates care, management, recovery, and prognosis. Continue home medications as indicated. Blood sugars likely elevated with steroid use, adjust sling as necessary. Thank you for the opportunity to participate in this patient's care, please do not hesitate contact us with any further questions or concerns. This note was generated with [employer] dictation software. It may contain incorrect words, spelling, and punctuation that were not noted in checking the note before signing.
[2017-08-25] MEDS: Magnesium Hydroxide 30 ML UDC PO (09:16)
[2017-08-25] MEDS: Furosemide 40 MG Tablet PO (09:16)
[2017-08-25] MEDS: Pantoprazole Sodium 40 MG Tablet PO (09:16)
[2017-08-25] MEDS: Amiodarone 200 MG Tablet PO ×2 (09:16→21:48)
[2017-08-25] MEDS: Metoprolol Tartrate 100 MG Tablet PO ×2 (09:16→21:48)
[2017-08-25] MEDS: levoFLOXacin IV 750 MG/150 ML BAG 100 MG IV (09:16)
[2017-08-25] MEDS: Enoxaparin 40 MG/0.4 ML Syringe SC (09:16)
[2017-08-25] MEDS: clonazePAM 0.5 MG Tablet PO ×2 (09:16→21:47)
--- NOTE | 2017-08-25 11:05 | CASEMGMT ---
Addendum entered by Kriss Allen 08/25/17 14:27: SW spoke w/pt about palliative/hospice referral. Pt asked for further information, SW explained both programs briefly. Pt does not think he is bad enough for hospice, but is willing to talk to someone about the programs, would like his family present. Pt agreeable to meet w/hospice and palliative in the morning. SW also asked pt if he is going to participate in therapy, as this is needed to get the [facility], pt states he will participate tomorrow. SW called hospice, set up a 10am appt for hospice and palliative to come speak w/pt, and let pt know the time for the meeting. KALA Harvey, LAMP INSPECTOR Original Note: Addendum entered by Kriss Allen 08/25/17 14:18: As per physician, pt is agreeable to speak w/hospice and palliative care. Also, pt did not participate in therapy. SW called [facility], spoke jarod/Irena. She states [facility] is not going to approve this pt without PT, he would have to return under Medicaid if pt will not participate in therapy. SW explained a hospice referral was also made, will see what pt decides. SW faxed referral to hospice and palliative care, will speak w/pt once he is done with a breathing treatment about what is a good time to have someone come from hospice. KALA Harvey, LAMP INSPECTOR Original Note: Addendum entered by Kriss Allen 08/25/17 13:49: SW did confirm w/[facility] that they do not take pt's insurance. SW let pt and significant other in the room know that pt cannot go to [facility] under his [employer]. SW explained that when [facility] no longer covers and he is there under Medicaid, he can talk w/staff at [facility] about moving to another facility. Pt reluctantly agreed to return to [facility]. SW will continue to follow. KALA Harvey, LAMP INSPECTOR Original Note: SW reviewed chart, pt is here from [facility]. SW called [facility], spoke w/Irena in admissions. Pt does have Medicaid, and had been there on Medicaid. However, pt had a recent admission to [facility] and returned to [facility] on 08/23/17 under his [employer] insurance. She states pt is noncompliant w/his bipapp, and has said he does not care if he is in the shelter or the hospital. Pt also is a full code and does not want hospice, as per [facility]. Irena states she will call [employer] and see how they would like to proceed, will let this SW know. SW did fax updates to [facility], PT/OT are pending. SW will continue to follow for anticipated discharge back to [facility] when ready. SW did speak w/pt in regard to discharge plan. Pt states he [facility]. SW explained can check on this, but it is this SW's understanding that [facility] does not take pt's [employer] insurance. SW explained that eventually if pt is at the shelter under Medicaid, he may be able to make a change then. Pt states he did not know this, states understanding. SW explained will double check with [facility] regarding insurance. SW called [facility], message left. SW will continue to follow. Plan: Follow up w/[facility] to make sure they do not take [employer]. If they do not, SW to fax PT/OT to [facility], and [facility] to let this SW know what pt's [employer] insurance says, if they need to start a new precert again. KALA Harvey, LAMP INSPECTOR
[2017-08-25 11:36] LABS: Bedside Glucose 279 mg/dL (70-110)
--- NOTE | 2017-08-25 12:59 | PCM.PROGNOTE ---
<Lalit Rae - Last Filed: 08/25/17 12:59> Patient Problems: Active and Suspected Problems (Last Updated 08/24/17 @ 21:23 by Audrey Petersen MD) Acute on chronic respiratory failure with hypoxia and hypercapnia (Acute) Subjective: pt recently transferred to SNF from [place] where he was admitted for SOB. Discharged on prednisone and to continue bipap therapy. The patient went to skilled and resfused bipap stating that the mask didnt fit right. He was admitted here and started on aerosols, bipap, and solumedrol for hypercarbic respiratory failure. He feels better this AM with somewhat improved breathing. He did use bipap last night. He is willing to talk to hospice as per his brothers suggestion. His prognosis is poor if he does not wear bipap every night. I reiterated this. - Physical Exam General: Alert, Oriented x3, Cooperative HEENT: Atraumatic, PERRLA, EOMI, Normocephalic Neck: Supple, No JVD, Negative Carotid Bruits Lungs: Clear to auscultation, Normal air movement, Diminished Cardiovascular: Regular rate, No murmurs Abdomen: Bowel Sounds Present, Soft, Non Tender Extremities: No edema, Capillary Refill Less than 3 Seconds Skin: No rashes, No breakdown Musculoskeletal: No Tenderness to Palpation of Joints or Extremities Neurological: Cranial nerves II-XII grossly intact Psych/Mental Status: Normal Affect, Appropriate, Alert and oriented to time, place, person, mood and affect Vital Signs Temp Pulse Resp BP Pulse Ox 98.4 F 108 H 20 H 118/63 95 08/25/17 09:20 08/25/17 11:05 08/25/17 10:34 08/25/17 09:20 08/25/17 09:20 Oxygen Flow Rate (L/min) 2 Oxygen Delivery Method Nasal Cannula Weight: 100.1 kg Body Mass Index (BMI) 33.4 Intake and Output for Last 24 Hours 08/23/17 08/24/17 08/25/17 23:59 23:59 23:59 Intake Total 120 / 120 450 / 450 Output Total 350 / 350 900 / 900 Balance -230 / -230 -450 / -450 Laboratory Tests Past 24 Hrs 08/25/17 08/25/17 05:15 05:15 WBC 9.2 RBC 3.13 L Hgb 9.0 L Hct 31.4 L MCV 100.3 H MCH 28.8 MCHC 28.7 L RDW 14.9 H RDW Differential 53.1 H Plt Count 274 MPV 9.5 Immature Gran % (Auto) 1.200 H Neut % (Auto) 88.4 H Lymph % (Auto) 4.7 L [place] % (Auto) 5.5 Eos % (Auto) 0.0 Baso % (Auto) 0.2 Absolute Neuts (auto) 8.1 H Absolute Lymphs (auto) 0.43 L Total Counted Not Reportable Differential Comment Sodium 140 Potassium 4.4 Chloride 87 L Carbon Dioxide > 45.0 H* Anion Gap TNP BUN 24 H Creatinine 0.74 Estim Creat Clear Calc 65.55 Est GFR (MDRD) Af Amer 133 Est GFR (MDRD) Non-Af 110 BUN/Creatinine Ratio 32.3 H Glucose 239 H Calcium 8.3 L POC Glucose 08/25/17 08/25/17 08/24/17 11:17 07:03 23:02 POC Glucose 279 H 224 H 255 H Medical Necessity - Tobacco Use Smoking Status: Former smoker Assessment/Plan Active and Suspected Problems (Last Updated 08/24/17 @ 21:23 by Audrey Petersen MD) Acute on chronic respiratory failure with hypoxia and hypercapnia (Acute) 1. Acute on chronic hypercarbic respiratory failure 2/2 noncompliance with bipap and exacerbation of underlying COPD - taper steroids. Pulm following. Switched solumedrol to prednisone. Continue aerosols, IS, bipap nightly and during naps. DC abx. 2. Chronic AF - rate fluctuant from controlled to mildly tachy. continue current therapy. no OAC. 3. HTN - stable 4. T2DM - poorly controlled. added weight based levemir 0.2u/kg qhs 5. HLD - lipitor 6. Chronic anemia - stable 7. Chronic CHF - stable. No evidence of volume overload at this time. 8. MILA - bipap, noncompliant 9. Debility - return to snf at ok. PTOT. 10. Anx - on klonopin BID DVT ppx: lovenox DC planning: Hospice consult today, SNF [place]. This patient was seen by Lalit Rae PA-C under the supervision of Dr. Mix. <Skip Mix - Last Filed: 08/25/17 14:33> Subjective: Breathing well now off BiPAP. Wants to be comfortable and quality of life but not ready to give up. - Physical Exam General: Alert, Cooperative, No apparent distress HEENT: Atraumatic, Normocephalic Lungs: Clear to auscultation, Diminished Cardiovascular: Regular rate, Regular Rhythm, Normal S1, Normal S2, No murmurs Abdomen: Bowel Sounds Present, Soft, Non Tender Extremities: No Calf Tenderness, Edema Vital Signs Temp Pulse Resp BP Pulse Ox 36.9 C 78 21 H 118/63 95 08/25/17 09:20 08/25/17 14:16 08/25/17 14:16 08/25/17 09:20 08/25/17 09:20 Oxygen Flow Rate (L/min) 2 Oxygen Delivery Method Nasal Cannula Weight: 100.1 kg Body Mass Index (BMI) 33.4 Intake and Output for Last 24 Hours 08/23/17 08/24/17 08/25/17 23:59 23:59 23:59 Intake Total 120 / 120 450 / 450 Output Total 350 / 350 900 / 900 Balance -230 / -230 -450 / -450 Laboratory Tests Past 24 Hrs 08/25/17 08/25/17 05:15 05:15 WBC 9.2 RBC 3.13 L Hgb 9.0 L Hct 31.4 L MCV 100.3 H MCH 28.8 MCHC 28.7 L RDW 14.9 H RDW Differential 53.1 H Plt Count 274 MPV 9.5 Immature Gran % (Auto) 1.200 H Neut % (Auto) 88.4 H Lymph % (Auto) 4.7 L [place] % (Auto) 5.5 Eos % (Auto) 0.0 Baso % (Auto) 0.2 Absolute Neuts (auto) 8.1 H Absolute Lymphs (auto) 0.43 L Total Counted Not Reportable Differential Comment Sodium 140 Potassium 4.4 Chloride 87 L Carbon Dioxide > 45.0 H* Anion Gap TNP BUN 24 H Creatinine 0.74 Estim Creat Clear Calc 65.55 Est GFR (MDRD) Af Amer 133 Est GFR (MDRD) Non-Af 110 BUN/Creatinine Ratio 32.3 H Glucose 239 H Calcium 8.3 L POC Glucose 08/25/17 08/25/1718 11:17 07:03 23:02 POC Glucose 279 H 224 H 255 H Assessment/Plan Patient seen and examined in family or agree with the above note by the physician boiler assistant operator. 1. Acute on chronic hypercarbic respiratory failure: Patient states that he is compliant with BiPAP but has been told that he is to be on BiPAP premature around the clock. Patient is not interested in that. Discussed with the patient's brother and the patient himself. The patient's brother volunteered consideration of hospice. I told him that I think that is certainly sanchez for them to speak with him and to get more information about hospice and be up to the patient if he wishes to proceed with that or not. Patient gives conflicting information in regards to want to be comfortable but also not ready to give up. But feel the patient's respiratory failure it is he requires being on BiPAP pretty much almost continuously given his tenuous status. Code Visit Inpatient E&M: 31805 Subs Hosp L2
[2017-08-25] MEDS: Magnesium Citrate 300 ML PO (15:09)
[2017-08-25 16:31] LABS: Bedside Glucose 254 mg/dL (70-110)
[2017-08-25] MEDS: Atorvastatin Calcium 20 MG Tablet PO (21:48)
[2017-08-25 21:56] LABS: Bedside Glucose 213 mg/dL (70-110)
[2017-08-26] VITALS (11 sets, daily range): BP systolic 97–110; BP diastolic 56–74; PULSE 56–112; RESP 12–24; TEMP 36.5–37.1; O2SAT 93–95
[2017-08-26] MEDS: Ipratropium/Albuterol Sulfate 3 ML AMPUL.NEB INHALATION ×3 (02:20→10:34)
[2017-08-26 07:01] LABS: Bedside Glucose 98 mg/dL (70-110)
[2017-08-26] MEDS: predniSONE 20 MG Tablet 40 MG PO (08:10)
[2017-08-26] MEDS: Amiodarone 200 MG Tablet PO (09:31)
[2017-08-26] MEDS: Metoprolol Tartrate 100 MG Tablet PO (09:31)
[2017-08-26] MEDS: Enoxaparin 40 MG/0.4 ML Syringe SC (09:31)
[2017-08-26] MEDS: clonazePAM 0.5 MG Tablet PO (09:31)
[2017-08-26] MEDS: Pantoprazole Sodium 40 MG Tablet PO (09:31)
--- NOTE | 2017-08-26 09:58 | PN_ITS ---
Patient Problems: Active and Suspected Problems (Last Updated 08/24/17 @ 21:23 by Audrey Petersen MD) Acute on chronic respiratory failure with hypoxia and hypercapnia (Acute) Subjective: The patient was seen and examined. He has no complaints except for feeling tired, he was woken up at 3 AM for nursing assessment and is very upset about this. Denies any cough, wheezing, or sputum production. Maintaining appropriate saturations on his baseline oxygen requirements. Reports he wore the BiPAP overnight and slept well. Refused PT consult yesterday. Objective: No new lab data to review today. Blood glucose improved. - Physical Exam General: Alert, Oriented x3, Cooperative, No apparent distress, Well developed, Well nourished HEENT: Atraumatic, Normocephalic Oral: Moist Mucosa Neck: Supple, No Nodes, Trachea Midline Lungs: No rhonchi, No wheeze, No rales, Diminished - slightly improved air flow Cardiovascular: Normal S1, Normal S2, Irregular Rate, No rub noted, No Gallop Abdomen: Bowel Sounds Present, Soft, Non Tender, Non-Distended Extremities: No cyanosis, Clubbing, Edema Skin: - - no changes Musculoskeletal: No Muscle Wasting Lymphatic: - - no adenopathy Neurological: Neuro grossly intact Psych/Mental Status: Alert and oriented to time, place, person, mood and affect Vital Signs Temp Pulse Resp BP Pulse Ox 97.7 F L 112 H 20 H 110/74 95 08/26/17 05:20 08/26/17 09:31 08/26/17 06:54 08/26/17 05:20 08/26/17 06:54 Oxygen Flow Rate (L/min) 2 Oxygen Delivery Method Nasal Cannula Weight: 220 lb 10.923 oz Body Mass Index (BMI) 33.4 Intake and Output for Last 24 Hours 08/24/17 08/25/17 08/26/17 23:59 23:59 23:59 Intake Total 120 / 120 1130 / 1130 Output Total 350 / 350 1999 / 1999 550 / 550 Balance -230 / -230 -870 / -870 -550 / -550 POC Glucose 08/26/17 08/25/17 08/25/17 06:53 21:46 16:15 POC Glucose 98 213 H 254 H 08/25/17 11:17 POC Glucose 279 H Medical Necessity - Tobacco Use Smoking Status: Former smoker Assessment/Plan Active and Suspected Problems (Last Updated 08/24/17 @ 21:23 by Audrey Petersen MD) Acute on chronic respiratory failure with hypoxia and hypercapnia (Acute) RECOMMENDATIONS 1. Wean oxygen supplementation to keep saturations 88-92%, to prevent paradoxical CO2 retention 2. Encourage aggressive incentive spirometer and Acapella 3. Continue aerosols and continue steroid taper for 12 day course 4. Continue BiPAP 15/5 with naps and nightly 5. Discontinue antibiotics 6. Mobilize, consult PT/OT 7. Okay to discharge from pulmonary perspective IMPRESSIONS 1. 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 Chest x-ray showed a stable examination, likely atelectasis in the bases. Patient with no increase in sputum production, cough, no fever or chills. Had a mild leukocytosis on admission, however is on steroids at the custodial. Antibiotics were discontinued. His CO2 on ABG was elevated at 98.5, does have chronic CO2 retention > 80 on ABG. Currently alert and oriented, conversing appropriately. Would recommend continuing BiPAP with naps and nightly. Encourage incentive spirometer/Acapella. Wean supplemental oxygen to keep saturations 88-92% to prevent paradoxical CO2 retention. Mobilize patient. PT consult, patient must participate to return to SNF. 2. Obstructive sleep apnea Patient is somewhat noncompliant with his BiPAP, typically only wears about 4 hr /day. Does have a history of noncompliance. Patient counseled on importance of wearing his noninvasive positive pressure ventilation with any sleep. Did discuss hospice/palliative care with him if he did not wish to wear his BiPAP. He was not interested at that time, but agreed to discussion/consult after speaking with CM. 3. History of HTN/GERD/anxiety/HLD/iron deficiency anemia/systolic heart failure/former smoker/urinary retention/debility/diabetes Complicates care, management, recovery, and prognosis. Continue home medications as indicated. Blood sugars likely elevated with steroid use, adjust sling as necessary. Plans for Hospice/Palliative care consultation 08/26 around 1000. Thank you for the opportunity to participate in this patient's care, please do not hesitate contact us with any further questions or concerns. This note was generated with [employer]pt[employer] software. It may contain incorrect words, spelling, and punctuation that were not noted in checking the note before signing.
[2017-08-26 11:30] LABS: Bedside Glucose 210 mg/dL (70-110)
--- NOTE | 2017-08-26 12:16 | CASEMGMT ---
LIZ called [facility] Morrell and let Irena know that patient is going to the Inpatient Hospice Unit. Romelia GOLDMAN MSW
--- NOTE | 2017-08-26 12:25 | NURSING ---
Called report to Anila @ Hospice. Transport to be here at 1300.
[2017-08-26] MEDS: LORazepam 2 MG/ML Syringe 0.5 MG IV (12:34)
--- NOTE | 2017-08-26 12:34 | PCM.DC.SUM ---
<Lalit Rae - Last Filed: 08/26/17 12:34> Discharge Date and Diagnosis Date of Admission: 08/24/17 Date of Discharge: 08/26/17 - Primary Discharge Diagnosis Active and Suspected Problems (Last Updated 08/26/17 @ 10:01 by Kavita Brandt NP-C) Acute on chronic respiratory failure with hypoxia and hypercapnia (Acute) Acute COPD exacerbation Chronic AF Htn Chronic Anemia Chronic systolic CHF - Secondary Discharge Diagnosis Chronic Problems (Last Updated 08/26/17 @ 10:01 by Kavita Brandt NP-C) COPD (chronic obstructive pulmonary disease) (Chronic) Melanoma (Chronic) Acute on chronic systolic heart failure (Chronic) Iron deficiency anemia (Chronic) Hyperlipidemia (Chronic) Anxiety (Chronic) GERD (gastroesophageal reflux disease) (Chronic) Osteoarthritis (Chronic) Benign hypertension (Chronic) Cardiomyopathy (Chronic) History of urethral stricture (Chronic) Malignant melanoma of back (Chronic) C43.59 2 cm superficial spreading melanoma wound left upper back with a thickness of 0.54 mm 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 Consider follow-up with upright PA and lateral films. Martin-pulmonology Operations: None Procedures: None Summary of Care Provided: Physical exam on day of discharge: General: Resting comfortably NAD Psych: A/Ox3 normal affect HEENT: PEARRLA AT NC Neck: Supple NT CV: RRR no m/t/r/g/h Resp: Severely diminished throughout, I do not appreciate any adventitious sounds today. Abd: [id number] Soft NT no guarding or rigidity Ext: DP2+= no edema Skin: W/D normal turgor Lymph/Heme: No active bleeding or adenopathy Neuro: CN2-12 intact Hospital course: The patient is a 71 year old M with a history of end-stage COPD and hypercapnic respiratory failure, chronically with CO2's in the 90s, who presented to the emergency room from longterm for worsening of shortness of breath and increased lethargy. The patient was at longterm for 2 days after being discharged from [facility] for the same. He went back to longterm and refused to wear his BiPAP there. He became more lethargic, and the providers became concerned with his elevated CO2, however this was not significantly higher than normal. He was admitted to [facility] with suspected COPD exacerbation and worsening of chronic respiratory failure secondary to noncompliance with BiPAP. The patient was placed on IV steroids, duo nebs, and was compliant with BiPAP while here in the hospital. He did improve gradually each day. Pulmonology was consulted. Several conversations were had with him about the severity and terminology of his condition, especially if he did not stay strictly compliant with BiPAP. Hospice was consulted and the patient was agreeable to placement at the inpatient hospice facility. Arrangements were made for him to be transferred there. He remained at his baseline oxygen status. The patient was discharged in stable condition into the care of hospice. This patient was seen by Lalit Rae PA-C under the supervision of Doctor Mix. [] Discharge Diet: No Restrictions Discharge Activity: Return to Normal Activity Home Medications: Medications to take at Discharge Furosemide [Lasix] 40 mg PO DAILY 02/01/13 Ipratropium/Albuterol Sulfate [Duoneb] 3 ml INHALATION Q4HWA.RT 07/09/17 Magnesium Citrate [Citrate Of Magnesia] 300 ml PO QODAY 07/09/17 Pantoprazole Sodium [Protonix] 40 mg PO DAILY 07/09/17 Acetaminophen [Tylenol Tablet] 1,000 mg PO Q8H PRN PRN 07/18/17 Atorvastatin Calcium [Lipitor] 20 mg PO QHS 07/18/17 Prednisone See Taper PO DAILY 07/22/17 Clonazepam [Klonopin] 0.5 mg PO BID #14 tab 07/29/17 Albuterol Aerosols [Ventolin Aerosols] 2.5 mg INHALATION Q6H PRN PRN 08/24/17 Amiodarone HCl 200 mg PO BID 08/24/17 Insulin Lispro [Humalog] 0 unit SQ TID 08/24/17 Metoprolol Tartrate [Lopressor (Beta Paulie)] 100 mg PO BID 08/24/17 Primary Care Physician: Donato Sanchez DO [Primary Care Provider] - Please follow up with your Primary Care Physician in: 2 weeks Additional Instructions: Further activity, diet, medications, testing will be as directed per hospice care team. Disposition: Hospice Medical Facility Minutes spent on discharge:: 35 Patient Condition:: Stable Medical Necessity - Tobacco Use Smoking Status: Former smoker Meaningful Use Info Meaningful Use Diagnoses (Choose all that apply): None applicable <Skip Mix - Last Filed: 08/26/17 14:49> Discharge Date and Diagnosis - Secondary Discharge Diagnosis Chronic Problems (Last Updated 08/26/17 @ 10:01 by Kavita Brandt, MARY-C) COPD (chronic obstructive pulmonary disease) (Chronic) Melanoma (Chronic) Acute on chronic systolic heart failure (Chronic) Iron deficiency anemia (Chronic) Hyperlipidemia (Chronic) Anxiety (Chronic) GERD (gastroesophageal reflux disease) (Chronic) Osteoarthritis (Chronic) Benign hypertension (Chronic) Cardiomyopathy (Chronic) History of urethral stricture (Chronic) Malignant melanoma of back (Chronic) C43.59 2 cm superficial spreading melanoma wound left upper back with a thickness of 0.54 mm 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 Agree the above note by the physician treasury assistant. The patient is a 71 year old M presents with hypercapnic respiratory failure and metabolic encephalopathy due to hypercapnia. This is been an ongoing issue for the patient's and the fact that he does require BiPAP pretty much [id number] but due to discomfort associated with BiPAP patient takes it off. Patient gives conflicting information in regards to want to be aggressive but also want to have quality of life. Patient was seen by hospice today and patient has accepted being transferred over to the hospice care center for further management. I feel that it be most appropriate given the patient's frequency of hospitalizations and poor quality of life. [] Discharge Diet: No Restrictions Discharge Activity: Return to Normal Activity Disposition: Hospice Medical Facility Minutes spent on discharge:: 35 Patient Condition:: Stable Meaningful Use Info Meaningful Use Diagnoses (Choose all that apply): None applicable Code Visit Inpatient E&M: 37052 Disch Hosp
[2017-08-26] MEDS: 0.9% NaCl Peripheral Flush Adult/Peds IV (12:35)
--- NOTE | 2017-08-26 12:40 | DS.PCM_ITS ---
<Lalit Rae - Last Filed: 08/26/17 12:34> Discharge Date and Diagnosis Date of Admission: 08/24/17 Date of Discharge: 08/26/17 - Primary Discharge Diagnosis Active and Suspected Problems (Last Updated 08/26/17 @ 10:01 by Kavita Brandt NP-C) Acute on chronic respiratory failure with hypoxia and hypercapnia (Acute) Acute COPD exacerbation Chronic AF Htn Chronic Anemia Chronic systolic CHF - Secondary Discharge Diagnosis Chronic Problems (Last Updated 08/26/17 @ 10:01 by Kavita Brandt NP-C) COPD (chronic obstructive pulmonary disease) (Chronic) Melanoma (Chronic) Acute on chronic systolic heart failure (Chronic) Iron deficiency anemia (Chronic) Hyperlipidemia (Chronic) Anxiety (Chronic) GERD (gastroesophageal reflux disease) (Chronic) Osteoarthritis (Chronic) Benign hypertension (Chronic) Cardiomyopathy (Chronic) History of urethral stricture (Chronic) Malignant melanoma of back (Chronic) C43.59 2 cm superficial spreading melanoma wound left upper back with a thickness of 0.54 mm 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 Consider follow-up with upright PA and lateral films. Martin-pulmonology Operations: None Procedures: None Summary of Care Provided: Physical exam on day of discharge: General: Resting comfortably NAD Psych: A/Ox3 normal affect HEENT: PEARRLA AT NC Neck: Supple NT CV: RRR no m/t/r/g/h Resp: Severely diminished throughout, I do not appreciate any adventitious sounds today. Abd: [id number] Soft NT no guarding or rigidity Ext: DP2+= no edema Skin: W/D normal turgor Lymph/Heme: No active bleeding or adenopathy Neuro: CN2-12 intact Hospital course: The patient is a 71 year old M with a history of end-stage COPD and hypercapnic respiratory failure, chronically with CO2's in the 90s, who presented to the emergency room from senior living for worsening of shortness of breath and increased lethargy. The patient was at senior living for 2 days after being discharged from [facility] for the same. He went back to senior living and refused to wear his BiPAP there. He became more lethargic, and the providers became concerned with his elevated CO2, however this was not significantly higher than normal. He was admitted to [facility] with suspected COPD exacerbation and worsening of chronic respiratory failure secondary to noncompliance with BiPAP. The patient was placed on IV steroids, duo nebs, and was compliant with BiPAP while here in the hospital. He did improve gradually each day. Pulmonology was consulted. Several conversations were had with him about the severity and terminology of his condition, especially if he did not stay strictly compliant with BiPAP. Hospice was consulted and the patient was agreeable to placement at the inpatient hospice facility. Arrangements were made for him to be transferred there. He remained at his baseline oxygen status. The patient was discharged in stable condition into the care of hospice. This patient was seen by Lalit Rae PA-C under the supervision of Doctor Mix. [] Discharge Diet: No Restrictions Discharge Activity: Return to Normal Activity Home Medications: Medications to take at Discharge Furosemide [Lasix] 40 mg PO DAILY 02/01/13 Ipratropium/Albuterol Sulfate [Duoneb] 3 ml INHALATION Q4HWA.RT 07/09/17 Magnesium Citrate [Citrate Of Magnesia] 300 ml PO QODAY 07/09/17 Pantoprazole Sodium [Protonix] 40 mg PO DAILY 07/09/17 Acetaminophen [Tylenol Tablet] 1,000 mg PO Q8H PRN PRN 07/18/17 Atorvastatin Calcium [Lipitor] 20 mg PO QHS 07/18/17 Prednisone See Taper PO DAILY 07/22/17 Clonazepam [Klonopin] 0.5 mg PO BID #14 tab 07/29/17 Albuterol Aerosols [Ventolin Aerosols] 2.5 mg INHALATION Q6H PRN PRN 08/24/17 Amiodarone HCl 200 mg PO BID 08/24/17 Insulin Lispro [Humalog] 0 unit SQ TID 08/24/17 Metoprolol Tartrate [Lopressor (Beta Paulie)] 100 mg PO BID 08/24/17 Primary Care Physician: Donato Sanchez DO [Primary Care Provider] - Please follow up with your Primary Care Physician in: 2 weeks Additional Instructions: Further activity, diet, medications, testing will be as directed per hospice care team. Disposition: Hospice Medical Facility Minutes spent on discharge:: 35 Patient Condition:: Stable Medical Necessity - Tobacco Use Smoking Status: Former smoker Meaningful Use Info Meaningful Use Diagnoses (Choose all that apply): None applicable <Skip Mix - Last Filed: 08/26/17 14:49> Discharge Date and Diagnosis - Secondary Discharge Diagnosis Chronic Problems (Last Updated 08/26/17 @ 10:01 by Kavita Brandt, MARY-C) COPD (chronic obstructive pulmonary disease) (Chronic) Melanoma (Chronic) Acute on chronic systolic heart failure (Chronic) Iron deficiency anemia (Chronic) Hyperlipidemia (Chronic) Anxiety (Chronic) GERD (gastroesophageal reflux disease) (Chronic) Osteoarthritis (Chronic) Benign hypertension (Chronic) Cardiomyopathy (Chronic) History of urethral stricture (Chronic) Malignant melanoma of back (Chronic) C43.59 2 cm superficial spreading melanoma wound left upper back with a thickness of 0.54 mm 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 Agree the above note by the physician him assistant. The patient is a 71 year old M presents with hypercapnic respiratory failure and metabolic encephalopathy due to hypercapnia. This is been an ongoing issue for the patient's and the fact that he does require BiPAP pretty much around-the -clock but due to discomfort associated with BiPAP patient takes it off. Patient gives conflicting information in regards to want to be aggressive but also want to have quality of life. Patient was seen by hospice today and patient has accepted being transferred over to the hospice care center for further management. I feel that it be most appropriate given the patient's frequency of hospitalizations and poor quality of life. [] Discharge Diet: No Restrictions Discharge Activity: Return to Normal Activity Disposition: Hospice Medical Facility Minutes spent on discharge:: 35 Patient Condition:: Stable Meaningful Use Info Meaningful Use Diagnoses (Choose all that apply): None applicable Code Visit Inpatient E&M: 35092 Disch Hosp
== END 2017-08-26 13:30 | disposition hospice, inpatient (51) | DRG 189 ==
LOC: ED 20:51 → PCU 21:16
PROVIDERS: Admitting Provider Hospitalist; Emergency Provider Emergency Medicine; Family Provider Family Medicine; PCP Family Medicine
DX: J96.22 Acute and chronic respiratory failure with hypercapnia (principal); I50.22 Chronic systolic (congestive) heart failure; I42.9 Cardiomyopathy, unspecified; J44.1 Chronic obstructive pulmonary disease with (acute) exacerbation; E87.2 Acidosis; J96.21 Acute and chronic respiratory failure with hypoxia; I48.2 Chronic atrial fibrillation; I11.0 Hypertensive heart disease with heart failure; D50.9 Iron deficiency anemia, unspecified; K21.9 Gastro-esophageal reflux disease without esophagitis; F41.9 Anxiety disorder, unspecified; G47.33 Obstructive sleep apnea (adult) (pediatric); E11.9 Type 2 diabetes mellitus without complications; R33.9 Retention of urine, unspecified; R15.9 Full incontinence of feces; E78.5 Hyperlipidemia, unspecified; M19.90 Unspecified osteoarthritis, unspecified site; Z91.19 Patient's noncompliance with other medical treatment and regimen; Z91.040 Latex allergy status; Z85.820 Personal history of malignant melanoma of skin; Z87.891 Personal history of nicotine dependence; Z79.4 Long term (current) use of insulin
CPT/HCPCS: 36415; 36600; 71045; 80048; 82803; 82962; 84484; 85025; 93005; 94002; 94003; 94640; 94667; 94668; 97802; 99285; A4216